=== PATIENT | female | born 1955 | race Caucasian/White ===

== ENCOUNTER → 2018-01-12 | Outpatient (CLI) | payer SELFPAY ==
--- NOTE | 2018-01-12 15:02 | Diagnostic Imaging Report ---
PROCEDURE: MRI lumbar spine. TECHNIQUE: Multiplanar, multisequence MRI of the lumbar spine was performed without contrast. INDICATION: Low back pain. No prior studies are available for comparison. Curvature and alignment is normal. Vertebral body heights are maintained. No acute compression fracture is seen. No geographic marrow lesion is identified. There is multilevel degenerative disc disease with variable disc space narrowing and desiccation. Conus is unremarkable at the T12-L1 level. T12-L1: Central canal is widely patent. No neural foraminal stenosis is seen. L1-L2: There is some ligamentous thickening and facet changes. Central canal is widely patent. There is mild neuroforaminal narrowing on the right due to the broad-based disc/osteophyte complex. L2-L3: Thickening and facet changes are noted. Central canal remains patent. There is moderate right neural foraminal stenosis due to broad-based disc/osteophyte complex. L3-L4: Ligamentous thickening and facet changes are noted. Central canal remains widely patent. There is moderate bilateral neural foraminal narrowing due to a broad-based disc/osteophyte complex. Lateral recesses are narrowed bilaterally as well. L4-L5: There appears to be a left paramidline extruded disc which extends slightly cephalad along the posterior aspect of the L4 vertebral body. This measures approximate 9 mm transverse by 6 mm AP by 11 mm cephalocaudal. This narrows left lateral recess. Central canal remains patent. There is significant left and moderate right neural foraminal stenosis. L5-S1: Central canal is widely patent. The neural foramina are patent. Paraspinous tissues are unremarkable. IMPRESSION: Multilevel lumbar spondylosis with multilevel lateral recess and neural foraminal stenosis. There is an extruded disc at the L4-L5 level, as described. No acute compression fracture is detected. Dictated by: Dictated on workstation # [id number]
== END ==
LOC: RAD 14:00
PROVIDERS: ATTEND Physician Assistant
DX: M48.061 Spinal stenosis, lumbar region without neurogenic claudication (principal); M47.16 Other spondylosis with myelopathy, lumbar region; M51.16 Intervertebral disc disorders with radiculopathy, lumbar region
CPT/HCPCS: 72148

== ENCOUNTER 2022-07-18 12:26 | Inpatient (IN) | payer MEDICARE, OTHER ==
[~2022-07-18] VITALS: Ht 167.7 cm; Wt 84.1 kg
[2022-07-18] MEDS ORDERED: TETANUS,DIPTH,PERTUSS P/F (BOOSTRIX) 0.5 ML VIAL IM ONE (12:45)
--- NOTE | 2022-07-18 12:52 | ED Neurological Problem ---
General Chief Complaint: Neuro-Stroke Like Symptoms Stated Complaint: ALTERED MENTAL STATUS Nursing Triage Note: PT TO ED BY EMS, PT NOT ABLE TO TELL HER FULL NAME DOES NOT KNOW DATE OF , FRIEND STATES HAS NOT BEEN HERSELF SINCE THURSDAY. PT IS NOT ABLE TO SEE OUT OF R EYE. PT DENIES PAIN. PT HAS DECREASED MVT OF R UPPER AND LOWER EXT. PT IS A FREQUENT DRINKER OF ETOH.R GREAT TOENAIL GONE AND OOZING BLOOD. FSBS BY EMS 118. PT HAS LARGE AMT OF BRUISING ON BACK, R ARM, LEGS, KNEES. Source: EMS Exam Limitations: clinical condition History of Present Illness Date Seen by Provider: Jul 18, 2022 Time Seen by Provider: 12:30 Initial Comments Patient is a 67-year-old female brought to the emergency department by EMS after being found by roommates altered, bruised, not acting like herself. She has a history per people at the home of chronic alcohol abuse and had been on an alcohol connolly this week Thursday, Thursday and Thursday. Her brother apparently heard her around 2 PM on afternoon yelling at her , had destroyed the room everything in the room was torn up. The family states that she did have labs drawn at [facility] on July 03 and was noted to have pancytopenia with increased liver function studies. They report her drink of choice is vodka. Patient is unable to really provide any history of present illness regarding events of the last week. She really has no complaints, is able to talk and intermittently it seems answer yes and no questions appropriately. She is unable however to follow commands. It does appear like she has some right-sided neglect. Slightly hypertensive on arrival at 154/119. Not tachycardic not hypoxic. Multiple obvious injuries to the right upper extremity bilateral knees. No family members are immediately available at the bedside for history. Nursing staff was able to contact roommates/brother to get further history. Timing/Duration: other ( Unknown exact time of onset sometime in the last 48 hours) Severity: severe Associated Symptoms: confusion, vision changes Allergies and Home Medications Allergies Coded Allergies: codeine (Verified Allergy, Unknown, 07/18/22) cyclobenzaprine (Verified Allergy, Unknown, 07/18/22) Patient Home Medication List Home Medication List Reviewed: Yes Review of Systems Review of Systems Constitutional: see HPI Respiratory: No short of breath Cardiovascular: No chest pain Gastrointestinal: No abdominal pain Psychiatric/Neurological: Denies Headache Patient ROS unreliable due to AMS/confusion Physical Exam Vital Signs Vital Signs - First Documented 07/18/22 12:30 Temp 37.5 Pulse 92 Resp 18 B/P (MAP) 154/119 (131) Pulse Ox 96 Capillary Refill : Less Than 3 Seconds Height, Weight, BMI Height: '" Weight: lbs. oz. kg; 29.00 BMI Method: General Appearance: WD/WN, moderate distress, other (appears agitated) HEENT: PERRL/EOMI (Pupils are equal, extraocular muscles appear intact however the patient does have a difficult time tracking), other (pupils equal, EOMI intact - inconsisten; appears she is having right eye acuity problem as she f requently seems to want to close right eye in order to focus; dry oral mucosa; no battles, no raccoon eyes) Neck: non-tender, full range of motion Respiratory: no respiratory distress, no accessory muscle use Cardiovascular: regular rate, rhythm Gastrointestinal: non tender, soft Back: no vertebral tenderness, other (scattered ecchymoses bilateral shoulder blades and right posterior flank) Extremities: swelling (right hand with severe ecchymoses; bilateral knees swollen with ecchymoses and abrasions), other (decreased ROM RUE) Neurologic/Psychiatric: alert Crainal Nerves: normal speech; No abnormal gag reflex, No facial asymmetry, No facial droop; gaze palsy (? to the right) Coordination/Gait: other (Unable to examine cerebellar function due to patient having difficulty following commands she does seem to have ataxia of the right upper extremity) Motor/Sensory: no sensory deficit Skin: warm/dry, ecchymosis, other (superficial abrasions right arm, right knee) Stroke Onset of Symptoms Onset of Symptoms: No Symptoms onset unknown: Yes NIH Stroke Scale Assessment Select: Initial Level of Consciousness: 0=Alert (0), LOC Commands: 1=Performs one task (1), Gaze: Partial Gaze Palsy (1), Visual Arana: 1=Partial he mianopia (1), Facial Movement (Facial Paresis): 0=Normal symmetrical mnt (0), Motor Function-Arms Left: 0=No drift (0), Motor Function-Legs Left: 0=No drift (0), Sensory: 0=Normal:no loss (0), Best Language: 1=Mild to moderat aphasia (1), Dysarthria: 0=Normal (0), Extinction & Inattention: 1=Visual,tactile,auditory (1), Total: 5 Progress/Results/Core Measures Results/Orders Lab Results Laboratory Tests Test 07/18/22 12:40 07/18/22 12:55 Range/Units White Blood Count 13.9 H 4.3-11.0 10^3/uL Red Blood Count 4.71 3.80-5.11 10^6/uL Hemoglobin 15.3 11.5-16.0 g/dL Hematocrit 45 35-52 % Mean Corpuscular Volume 95 80-99 fL Mean Corpuscular Hemoglobin 33 25-34 pg Mean Corpuscular Hemoglobin Concent 34 32-36 g/dL Red Cell Distribution Width 12.8 10.0-14.5 % Platelet Count 180 130-400 10^3/uL Mean Platelet Volume 10.1 9.0-12.2 fL Immature Granulocyte % (Auto) 1 % Neutrophils (%) (Auto) 84 H 42-75 % Lymphocytes (%) (Auto) 8 L 12-44 % Monocytes (%) (Auto) 8 0-12 % Eosinophils (%) (Auto) 0 0-10 % Basophils (%) (Auto) 0 0-10 % Neutrophils # (Auto) 11.7 H 1.8-7.8 10^3/uL Lymphocytes # (Auto) 1.0 1.0-4.0 10^3/uL Monocytes # (Auto) 1.1 H 0.0-1.0 10^3/uL Eosinophils # (Auto) 0.0 0.0-0.3 10^3/uL Basophils # (Auto) 0.0 0.0-0.1 10^3/uL Immature Granulocyte # (Auto) 0.1 0.0-0.1 10^3/uL Neutrophils % (Manual) 82 % Lymphocytes % (Manual) 8 % Monocytes % (Manual) 7 % Band Neutrophils 3 % Prothrombin Time 15.6 H 12.2-14.7 SEC INR Comment 1.2 0.8-1.4 Activated Partial Thromboplast Time 30 24-35 SEC D-Dimer 3.95 H 0.00-0.49 UG/ML Sodium Level 136 135-145 MMOL/L Potassium Level 3.3 L 3.6-5.0 MMOL/L Chloride Level 96 L 98-107 MMOL/L Carbon Dioxide Level 24 21-32 MMOL/L Anion Gap 16 H 5-14 MMOL/L Blood Urea Nitrogen 10 7-18 MG/DL Creatinine 0.64 0.60-1.30 MG/DL Estimat Glomerular Filtration Rate 98 BUN/Creatinine Ratio 16 Glucose Level 122 H 70-105 MG/DL Calcium Level 9.8 8.5-10.1 MG/DL Corrected Calcium 9.6 8.5-10.1 MG/DL Total Bilirubin 2.3 H 0.1-1.0 MG/DL Aspartate Amino Transf (AST/SGOT) 112 H 5-34 U/L Alanine Aminotransferase (ALT/SGPT) 49 0-55 U/L Alkaline Phosphatase 77 40-136 U/L Total Creatine Kinase 2678 H 29-168 U/L Troponin I 1.408 *H <0.028 NG/ML Total Protein 7.7 6.4-8.2 GM/DL Albumin 4.3 3.2-4.5 GM/DL Salicylates Level < 5.0 L 5.0-20.0 MG/DL Acetaminophen Level < 10 L 10-30 UG/ML Serum Alcohol < 10 <10 MG/DL Urine Color YELLOW Urine Clarity CLEAR Urine pH 6.0 5-9 Urine Specific [place] >=1.030 1.016-1.022 Urine Protein 2+ H NEGATIVE Urine Glucose (UA) NEGATIVE NEGATIVE Urine Ketones 3+ H NEGATIVE Urine Nitrite POSITIVE H NEGATIVE Urine Bilirubin NEGATIVE NEGATIVE Urine Urobilinogen 0.2 < = 1.0 MG/DL Urine Leukocyte Esterase NEGATIVE NEGATIVE Urine RBC (Auto) 3+ H NEGATIVE Urine RBC 0-2 /HPF Urine WBC RARE /HPF Urine Squamous Epithelial Cells RARE /HPF Urine Crystals PRESENT H /LPF Urine Amorphous Sediment RARE RAJINDER URATES H /LPF Urine Bacteria LARGE H /HPF Urine Casts NONE /LPF Urine Mucus SMALL H /LPF Urine Culture Indicated YES Urine Opiates Screen NEGATIVE NEGATIVE Urine Oxycodone Screen NEGATIVE NEGATIVE Urine Methadone Screen NEGATIVE NEGATIVE Urine Propoxyphene Screen NEGATIVE NEGATIVE Urine Barbiturates Screen NEGATIVE NEGATIVE Ur Tricyclic Antidepressants Screen NEGATIVE NEGATIVE Urine Phencyclidine Screen NEGATIVE NEGATIVE Urine Amphetamines Screen NEGATIVE NEGATIVE Urine Methamphetamines Screen NEGATIVE NEGATIVE Urine Benzodiazepines Screen NEGATIVE NEGATIVE Urine Cocaine Screen NEGATIVE NEGATIVE Urine Cannabinoids Screen POSITIVE H NEGATIVE My Orders Orders - JEN KAUR MD Cbc With Automated Diff (07/18/22 12:42) Protime With Inr (07/18/22 12:42) Partial Thromboplastin Time (07/18/22 12:42) Comprehensive Metabolic Panel (07/18/22 12:42) Fibrin Degradation Products (07/18/22 12:42) Troponin I Te (07/18/22 12:42) Ua Culture If Indicated (07/18/22 12:42) Chest 1 View, Ap/Pa Only (07/18/22 12:42) Catheter(Urinary) Insert & Ass 03,15 (07/18/22 12:42) Ekg Tracing (07/18/22 12:42) Nothing By Mouth (07/18/22 Lunch) Accucheck Stat ONCE (07/18/22 12:42) Ed Iv/Invasive Line Start (07/18/22 12:42) Ed Iv/Invasive Line Start (07/18/22 12:42) Vital Signs Stroke Patient Q15M (07/18/22 12:42) Ct Head Wo-R/O Stroke (07/18/22 12:42) O2 (07/18/22 12:42) Monitor-Rhythm Ecg Trace Only (07/18/22 12:42) Dysphagia Screening Tool Q10MX1 (07/18/22 12:42) Post Thrombolytic Adminstratio (07/18/22 12:42) Lipid Panel (07/19/22 06:00) Creatine Kinase (07/18/22 12:42) Drug Screen Stat (Urine) (07/18/22 12:42) Alcohol (07/18/22 12:42) Salicylate (07/18/22 12:42) Acetaminophen (07/18/22 12:42) Dipht,Pertuss(Acell),Tet Adult (Boostrix (07/18/22 12:45) Manual Differential (07/18/22 12:40) Ct Angio Head/Neck (07/18/22 13:32) Urine Culture (07/18/22 12:55) Iohexol Injection (Omnipaque 350 Mg/Ml 1 (07/18/22 13:45) Received Contrast (Hold Metformin- Contr (07/18/22 13:45) Ns (Ivpb) (Sodium Chloride 0.9% Ivpb Bag (07/18/22 13:45) Ketamine Injection (Ketalar Injection) (07/18/22 13:45) Ceftriaxone 1 Gm Pre-Mix (Rocephin 1 Gm (07/18/22 15:00) Ed Admission (Communication) (07/18/22 15:06) Medications Given in ED Current Medications Medications Dose Ordered Sig/Miguel Route Start Time Stop Time Status Last Admin Dose Admin Diphtheria/ Tetanus/Acell Pertussis 0.5 ml ONCE ONCE IM 07/18/22 12:45 07/18/22 12:46 DC 07/18/22 13:38 0.5 ML Iohexol 75 ml ONCE ONCE IV 07/18/22 13:45 07/18/22 13:46 DC 07/18/22 14:17 75 ML Ketamine HCl 20 mg ONCE ONCE IV 07/18/22 13:45 07/18/22 13:46 DC 07/18/22 13:50 20 MG Sodium Chloride 100 ml ONCE ONCE IV 07/18/22 13:45 07/18/22 13:46 DC 07/18/22 14:17 80 ML Vital Signs/I&O 07/18/22 12:30 Temp 37.5 Pulse 92 Resp 18 B/P (MAP) 154/119 (131) Pulse Ox 96 Blood Pressure Mean: 131 Progress Progress Note : Time: 14:51 Progress Note Patient seen and examined by me, evaluation today includes physical exam, stroke protocol, CBC, Chem-12, coags, D-dimer, EKG, troponin, CT head without contrast, CT angio head and neck, urinalysis, urine drug screen, alcohol, aspirin and acetaminophen levels. Blood cultures and lactic acid were also obtained. Pertinent physical exam findings, well-developed well-nourished elderly female slightly agitated, appears confused, not following directions. Significant signs of trauma to the right upper extremity with extensive bruising/ecchymosis superficial abrasions and swelling to the right forearm and hand. She also has extensive bruising and abrasions to the bilateral knees. Moving all 4 extremities however there does appear to be ataxia of the right upper extremity. Patient cannot complete cerebellar testing due to receptive aphasia. Heart is regular, lungs are diminished throughout. Abdomen is soft and nondistended. Oral mucosa is dry. Slightly hypertensive. Afebrile. Differential diagnosis based on history and physical exam, intracerebral hemorrhage, ischemic stroke, fractures of the upper and lower extremities are considered; consideration for skull fracture resulting in intracranial hemorrhage. Labs reviewed, CBC shows mild leukocytosis at 13,000 with normal hemoglobin and platelets. Chemistry shows slightly increased anion gap at 16, normal electrolytes with slightly low potassium at 3.3. Total bili 2.3 AST 112. Total CK 2678. Troponin slightly elevated at 1.408. D-dimer elevated at 3.95. Coags show PT of 15.6 otherwise normal. Patient was positive for THC on urine drug screen, negative alcohol aspirin and Tylenol levels. Her urine does show ev idence of infection with nitrite positive urine and large bacteria. This is a freshly placed Barron catheter specimen. CT shows concern for posterior circulation infarct CT angio shows occlusion distal left [employer]. I discussed the case with Dr. Manzano, stroke neurology. She does recommend daily baby aspirin with permissive hypertension no greater than 180 systolic. Patient is not amenable to clot retrieval due to the location of the occlusion and unknown time of onset. She was definitely not a candidate for tPA. Case was also discussed with Dr. Abreu on [address] [place] [address], we will admit the patient inpatient to the ICU for further management/risks stratification/treatment. Antibiotics for urinary tract infection. sister Candi [phone] daughter Kimberly [phone] discussed with Isauro @ [address] Christian @ 0165 Initial ECG Impression Date: Jul 18, 2022 Initial ECG Impression Time: 13:00 Initial ECG Rate: 95 Initial ECG Rhythm: Normal Sinus (95) Initial ECG Intervals OR interval 147 QRS 133 QTc 451 Comment Artifact in the precordial leads, right bundle branch block noted, no ST segment elevation or depression is noted Diagnostic Imaging Diagonstic Imaging: Xray Plain Films/CT/US/NM/MRI: chest Comments [facility], [place] NAME: TONYA CLARK MED REC#: [id number] PT STATUS: REG ER : 1955 PHYSICIAN: JEN KAUR MD ADMIT DATE: 07/18/22/ER Draft Date of Exam:07/18/22 CHEST 1 VIEW, AP/PA ONLY INDICATION: Altered mental status, bruising. FINDINGS: The lungs are clear. There is no failure, effusion, or pneumothorax. No free air beneath the diaphragms. No displaced or radiographically appreciable chest fracture deformity. IMPRESSION: Unremarkable frontal chest x-ray. Dictated on workstation # [id number] Dict: 07/18/22 1318 Trans: 07/18/22 1323 [id number] Interpreted by: JOSE BONILLA Electronically signed by: Stephanie Imaging: CT Comments [facility], [place] NAME: TONYA CLARK [facility] REC#: [id number] PT STATUS: REG ER : 1955 PHYSICIAN: JEN KAUR MD ADMIT DATE: 07/18/22/ER Draft Date of Exam:07/18/22 CT HEAD WO-R/O STROKE PROCEDURE: CT head wo r/o stroke. TECHNIQUE: Multiple contiguous axial images were obtained through the brain without the use of intravenous contrast. Auto Exposure Controls were utilized during the CT exam to meet ALARA standards for radiation dose reduction. INDICATION: Altered mental status. FINDINGS: There is abnormal hypodensity in the left thalamus posteriorly as well as some mild asymmetric hypodensity in the left posteromedial occipital lobe extending anteriorly to the posteroinferior left temporal lobe. Findings are suspicious for a subacute ischemia in the [employer] territory. Vague central hyperdensity associated with the left posterior thalamic lesion may reflect a small amount of petechial blood and hemorrhagic transformation. No shift or herniation. No abnormal extra-axial fluid collection. Linear hyperdensity, calcific like in its attenuation, abuts the posteromedial aspect of the left mid brain and follows the expected course of the left posterior cerebral artery suspicious for plaque embolus or very dense thrombus accounting for the recent infarct. No other suspected acute to subacute finding. IMPRESSION: 1. Findings of recent subacute appearing ischemic infarct, left BR[employer] territorial, with suspicion for a subtle region of petechial transformation associated with its thalamic infarct posteriorly. 2. Linear calcific hyperdensity along the expected course of the left P1 and P2 segments is suspicious for plaque embolus or dense thrombus. CT angiographic evaluation recommended as further evaluation. These results were discussed with the ER physician. Dictated on workstation # [id number] Dict: 07/18/22 1325 Trans: 07/18/22 1337 [id number] Interpreted by: JOSE BONILLA Electronically signed by: Stephanie Imaging: CT Comments [facility], [place] NAME: TONYA CLARK [facility] REC#: [id number] PT STATUS: REG ER : 1955 PHYSICIAN: JEN KAUR MD ADMIT DATE: 07/18/22/ER Signed Date of Exam:07/18/22 CT ANGIO HEAD/NECK PROCEDURE: CT angiography of the head and CT angiography of the neck with and without contrast. TECHNIQUE: Contiguous noncontrast images were obtained from the skull base through the vertex. After intravenous contrast administration, helical CT angiography of the neck was performed. Source data was reformatted into 3D MIP projections. Delayed post contrast acquisition was also obtained. Auto Exposure Controls were utilized during the CT exam to meet ALARA standards for radiation dose reduction. INDICATION: Stroke, left-sided weakness FINDINGS: Vascular: The aortic arch is normal in caliber. The great vessels are patent and normal in caliber. The right common carotid artery demonstrates atherosclerosis of the carotid bulb. Agent the right ICA and ECA. No ICA stenosis per NASCET criteria. Left common carotid artery demonstrates atherosclerosis of the carotid bulb. Patent left common, left internal, left external carotid artery. No ICA stenosis per NASCET criteria. The bilateral vertebral arteries are patent. Left vertebral artery is dominant. The right vertebral artery terminates in PICA. The intracranial right ICA, MCA, ANTHONY are patent and normal in caliber. The intracranial left ICA, MCA, and ANTHONY are patent and normal in caliber. The intracranial vertebral arteries patent and normal in caliber. Basilar artery is patent. Left [employer] occlusion at the P2-P3 junction. Right [employer] is patent. Nonvascular: Redemonstration of acute infarct within the left [employer] territory. No acute intracranial hemorrhage. Multilevel degenerative changes of the cervical spine with moderate to severe spinal canal stenosis at C4-C5. Included lung apices demonstrate emphysema. IMPRESSION: Distal left [employer] occlusion. This is too distal for thrombectomy. Redemonstration of acute infarct in the left [employer] territory. Dictated by: Dictated on workstation # [id number] Dict: 07/18/22 1420 Trans: 07/18/22 1427 [facility] [place] [id number] Interpreted by: BARBARA FOREMAN DO Electronically signed by: BARBARA FOREMAN DO 07/18/22 1427 Departure Communication (Admissions) Time/Spoke to Admitting Phy: 14:[address] Abreu Hospitalist for [facility] Time/Spoke to Consulting Phy: 14:[address] Natacha LYONS stroke neurology recommended baby aspirin, permissive hypertension no higher than systolic 180s Impression Primary Impression: Acute ischemic multifocal posterior circulation stroke involving left-sided vessel Additional Impressions: Urinary tract infection Qualified Codes: N39.0 - Urinary tract infection, site not specified Elevated troponin Chronic alcoholism Disposition: ADMITTED INPATIENT Condition: Critical Admissions Decision to Admit Reason: Admit from ER (General) Decision to Admit/Date: Jul 18, 2022 Time/Decision to Admit Time: 13:22 Departure-Patient Inst. Referrals: NO,LOCAL PHYSICIAN (PCP/Family) Primary Care Physician JEN KAUR MD Jul 18, 2022 12:52
[2022-07-18 12:56] LABS: BASOPHILS % (AUTO) 0 % (0-10); EOSINOPHILS % (AUTO) 0 % (0-10); HEMATOCRIT 45 % (35-52); HEMOGLOBIN 15.3 g/dL (11.5-16.0); LYMPHOCYTES % (AUTO) 8 % (12-44); MEAN CORPUSCULAR HEMOGLOBIN 33 pg (25-34); MEAN CORPUSCULAR HGB CONC 34 g/dL (32-36); MEAN CORPUSCULAR VOLUME 95 fL (80-99); MEAN PLATELET VOLUME 10.1 fL (9.0-12.2); MONOCYTES # (AUTO) 1.1 10^3/uL (0.0-1.0); MONOCYTES % (AUTO) 8 % (0-12); NEUTROPHILS # (AUTO) 11.7 10^3/uL (1.8-7.8); NEUTROPHILS % (AUTO) 84 % (42-75); PLATELET COUNT 180 10^3/uL (130-400); WHITE BLOOD COUNT 13.9 10^3/uL (4.3-11.0)
[2022-07-18 13:11] LABS: BILIRUBIN,URINE NEGATIVE (NEGATIVE); CLARITY,URINE CLEAR; COLOR,URINE YELLOW; GLUCOSE, URINE (UA) NEGATIVE (NEGATIVE); KETONES,URINE 3+ (NEGATIVE); LEUKOCYTE ESTERASE ,URINE NEGATIVE (NEGATIVE); NITRITE,URINE POSITIVE (NEGATIVE); PROTEIN,URINE 2+ (NEGATIVE)
[2022-07-18 13:14] LABS: CHLORIDE 96 MMOL/L (98-107); POTASSIUM 3.3 MMOL/L (3.6-5.0); SODIUM 136 MMOL/L (135-145)
[2022-07-18 13:15] LABS: ALBUMIN 4.3 GM/DL (3.2-4.5)
[2022-07-18 13:16] LABS: CALCIUM 9.8 MG/DL (8.5-10.1)
[2022-07-18 13:17] LABS: GLUCOSE 122 MG/DL (70-105); TOTAL PROTEIN 7.7 GM/DL (6.4-8.2)
[2022-07-18 13:18] LABS: CARBON DIOXIDE 24 MMOL/L (21-32)
[2022-07-18 13:19] LABS: BILIRUBIN,TOTAL 2.3 MG/DL (0.1-1.0)
[2022-07-18 13:21] LABS: ALKALINE PHOSPHATASE 77 U/L (40-136); CREATININE SERUM 0.64 MG/DL (0.60-1.30); GFR ESTIMATED 98
[2022-07-18 13:22] LABS: BUN/CREATININE RATIO 16
[2022-07-18 13:22] LABS: AMPHETAMINE SCREEN, URINE NEGATIVE (NEGATIVE); BARBITURATE SCREEN URINE NEGATIVE (NEGATIVE); BENZODIAZEPINES SCREEN URINE NEGATIVE (NEGATIVE); CANNABINOID SCREEN, URINE POSITIVE (NEGATIVE); COCAINE SCREEN URINE NEGATIVE (NEGATIVE); METHADONE STAT NEGATIVE (NEGATIVE); OPIATE SCREEN URINE NEGATIVE (NEGATIVE); OXYCODONE STAT NEGATIVE (NEGATIVE); PROPOXYPHENE STAT NEGATIVE (NEGATIVE); TRICYCLIC ANTIDEPRESSANTS SCRE NEGATIVE (NEGATIVE)
[2022-07-18 13:24] LABS: ALANINE AMINOTRANSFERASE 49 U/L (0-55); SALICYLATE < 5.0 MG/DL (5.0-20.0)
--- NOTE | 2022-07-18 13:24 | Diagnostic Imaging Report ---
INDICATION: Altered mental status, bruising. FINDINGS: The lungs are clear. There is no failure, effusion, or pneumothorax. No free air beneath the diaphragms. No displaced or radiographically appreciable chest fracture deformity. IMPRESSION: Unremarkable frontal chest x-ray. Dictated by: Dictated on workstation # [id number]
[2022-07-18 13:30] LABS: FIBRIN DEGRADATION PRODUCTS 3.95 UG/ML (0.00-0.49); INR 1.2 (0.8-1.4); PROTHROMBIN TIME PATIENT 15.6 SEC (12.2-14.7)
[2022-07-18 13:34] LABS: AMORPHOUS SEDIMENT,UR RARE AMOR URATES /LPF; BACTERIA,URINE LARGE /HPF; RBC,URINE 0-2 /HPF; SQUAMOUS EPITHELIAL CELL,UR RARE /HPF; WBC,URINE RARE /HPF
--- NOTE | 2022-07-18 13:37 | Diagnostic Imaging Report ---
PROCEDURE: CT head wo r/o stroke. TECHNIQUE: Multiple contiguous axial images were obtained through the brain without the use of intravenous contrast. Auto Exposure Controls were utilized during the CT exam to meet ALARA standards for radiation dose reduction. INDICATION: Altered mental status. FINDINGS: There is abnormal hypodensity in the left thalamus posteriorly as well as some mild asymmetric hypodensity in the left posteromedial occipital lobe extending anteriorly to the posteroinferior left temporal lobe. Findings are suspicious for a subacute ischemia in the [employer] territory. Vague central hyperdensity associated with the left posterior thalamic lesion may reflect a small amount of petechial blood and hemorrhagic transformation. No shift or herniation. No abnormal extra-axial fluid collection. Linear hyperdensity, calcific like in its attenuation, abuts the posteromedial aspect of the left mid brain and follows the expected course of the left posterior cerebral artery suspicious for plaque embolus or very dense thrombus accounting for the recent infarct. No other suspected acute to subacute finding. IMPRESSION: 1. Findings of recent subacute appearing ischemic infarct, left RE[employer] territorial, with suspicion for a subtle region of petechial transformation associated with its thalamic infarct posteriorly. 2. Linear calcific hyperdensity along the expected course of the left P1 and P2 segments is suspicious for plaque embolus or dense thrombus. CT angiographic evaluation recommended as further evaluation. These results were discussed with the ER physician. Dictated by: Dictated on workstation # [id number]
[2022-07-18 13:40] LABS: BAND NEUTROPHILS 3 %; LYMPHOCYTES % (MANUAL) 8 %; MONOCYTES % (MANUAL) 7 %; NEUTROPHILS % (MANUAL) 82 %
[2022-07-18] MEDS ORDERED: NS 100 ML (IVPB) BAG IV ONE (13:45)
[2022-07-18] MEDS ORDERED: KETAMINE HCL 100 MG/ML 5 ML VIAL IV ONE (13:45)
[2022-07-18] MEDS ORDERED: IOHEXOL 350 MG/ML 100 ML (OMNIPAQUE 350) VIAL IV ONE (13:45)
[2022-07-18] MEDS ORDERED: HOLD METFORMIN - RECEIVED CONTRAST 20 ML VIAL IV SCH (13:45)
[2022-07-18 13:47] LABS: CREATINE KINASE 2678 U/L (29-168)
[2022-07-18 13:51] LABS: ACETAMINOPHEN < 10 UG/ML (10-30)
--- NOTE | 2022-07-18 14:29 | Diagnostic Imaging Report ---
PROCEDURE: CT angiography of the head and CT angiography of the neck with and without contrast. TECHNIQUE: Contiguous noncontrast images were obtained from the skull base through the vertex. After intravenous contrast administration, helical CT angiography of the neck was performed. Source data was reformatted into 3D MIP projections. Delayed post contrast acquisition was also obtained. Auto Exposure Controls were utilized during the CT exam to meet ALARA standards for radiation dose reduction. INDICATION: Stroke, left-sided weakness FINDINGS: Vascular: The aortic arch is normal in caliber. The great vessels are patent and normal in caliber. The right common carotid artery demonstrates atherosclerosis of the carotid bulb. Agent the right ICA and ECA. No ICA stenosis per NASCET criteria. Left common carotid artery demonstrates atherosclerosis of the carotid bulb. Patent left common, left internal, left external carotid artery. No ICA stenosis per NASCET criteria. The bilateral vertebral arteries are patent. Left vertebral artery is dominant. The right vertebral artery terminates in PICA. The intracranial right ICA, MCA, ANTHONY are patent and normal in caliber. The intracranial left ICA, MCA, and ANTHONY are patent and normal in caliber. The intracranial vertebral arteries patent and normal in caliber. Basilar artery is patent. Left SPEECH LANG PATH THERAPIST occlusion at the P2-P3 junction. Right SPEECH LANG PATH THERAPIST is patent. Nonvascular: Redemonstration of acute infarct within the left SPEECH LANG PATH THERAPIST territory. No acute intracranial hemorrhage. Multilevel degenerative changes of the cervical spine with moderate to severe spinal canal stenosis at C4-C5. Included lung apices demonstrate emphysema. IMPRESSION: Distal left SPEECH LANG PATH THERAPIST occlusion. This is too distal for thrombectomy. Redemonstration of acute infarct in the left SPEECH LANG PATH THERAPIST territory. Dictated by: Dictated on workstation # [id number]
[2022-07-18] MEDS ORDERED: cefTRIAXone 1 GM PRE-MIX 50 ML IV ONE (15:00)
--- NOTE | 2022-07-18 15:23 | History & Physical-Hospitalist ---
History of Present Illness HPI/Chief Complaint CC: Catastrophic CVA with found down and alcoholic withdrawal with acute rhabdomyolysis HPI: This is a 67yoWF clinic patient of [facility] who has a h/o alcoholism who was found down at a friend's house for undetermined time so EMS was called and patient was found to have had a catastrophic CVA with right sided weakness with AMS and trauma to her right knee and right leg. Patient is able to maintain her airway but is confused. CT revealed evidence of CVA but CT angio completed and [facility] contract and recommended ASA and ICU care. Elevated troponin will require Dr Christian consult. Source: RN/MD Exam Limitations: clinical condition Date Seen 07/18/22 Time Seen by a Provider: 14:00 Attending Physician No,Local Physician PCP Admitting Physician: Attending Physician: Referring Physician Date of Admission Home Medications & Allergies Home Medications Reviewed patient Home Medication Reconciliation performed by pharmacy medication reconciliations benefits technician and/or nursing. Patients Allergies have been reviewed. Allergies Allergies Coded Allergies codeine (Verified Allergy, Unknown, 07/18/22) cyclobenzaprine (Verified Allergy, Unknown, 07/18/22) Past Cymmiwh-Rlxoen-Gmmimv Hx Patient Social History Marrital Status: single Employed/Student: retired Tobacco Use?: Yes Tobacco type used: Cigarettes Smoking Status: Current Everyday Smoker Substance use?: Yes Substance type: Marijuana Alcohol Use?: Yes Alcohol Frequency: Daily Pt feels they are or have been: No Immunizations Up To Date Tetanus Booster (TDap): Unknown Current Status Advance Directives: No Communicates: Verbally Primary Language: Turkmen Preferred Spoken Language: Turkmen Is interpretation needed?: No Implanted or Applied Medical D: None Past Medical History COPD High Cholesterol, Hypertension Stroke (07/18/22) Review of Systems ROS-Unable to Obtain: AMS Constitutional: see HPI, malaise, weakness Physical Exam Physical Exam Vital Signs Vital Signs - First Documented 07/18/22 07/18/22 12:30 15:48 Temp 37.5 Pulse 92 Resp 18 B/P (MAP) 154/119 (131) Pulse Ox 96 O2 Delivery Room Air Capillary Refill : Less Than 3 Seconds Height, Weight, BMI Height: '" Weight: lbs. oz. kg; 29.00 BMI Method: General Appearance: Anxious, Chronically ill, Other (confused) Respiratory: Lungs Clear, Normal Breath Sounds Cardiovascular: Regular Rate, Rhythm Neurologic/Psychiatric: Alert, Depressed Affect, Disoriented, Motor Weakness (right sided flaccidity) Results Results/Procedures Labs Laboratory Tests 07/18/22 12:40 Patient resulted labs reviewed. Assessment/Plan Admission Diagnosis Assessment: Catastrophic CVA Right sided weakness with neglect Alcohol withdrawal Acute rhabdomyolysis Elevated troponin c/w NSTEMI HTN Plan: ICU EICU Dr Christian Lovehumbertox 40mg ASA Admission Status: Inpatient Order (span 2 midnights) Reason for Inpatient Admission: CVA Clinical Quality Measures Stroke: Symptoms onset unknown: Yes UCHE WALL DO Jul 18, 2022 15:23
[2022-07-18 16:28] VITALS: BP 163/116
[2022-07-18] MEDS ORDERED: LORazepam INJ 2 MG/ML (ATIVAN) VIAL IM/IV PRN (16:30)
[2022-07-18] MEDS ORDERED: 1/2 NS IV SOLUTION 1,000 ML IV PRN (16:30)
[2022-07-18] MEDS ORDERED: diphenhydrAMINE 25 MG TAB (BENADRYL) PO PRN (16:30)
[2022-07-18] MEDS ORDERED: SENNA W/DOCUSATE (SENOKOT S) TABLET PO PRN (16:30)
[2022-07-18] MEDS ORDERED: ANTACID SUSP 30 ML UDC (MYLANTA) PO PRN ×2 (16:30)
[2022-07-18] MEDS ORDERED: CALCIUM CARBONATE 500 MG (TUMS) TAB.CHEW PO PRN (16:30)
[2022-07-18] MEDS ORDERED: MILK OF MAGNESIA 400 MG/5 ML 30 ML UDC PO PRN (16:30)
[2022-07-18] MEDS ORDERED: ONDANSETRON 4 MG (ZOFRAN) ORAL DISSOLVE TAB SL PRN (16:30)
[2022-07-18] MEDS ORDERED: BISACODYL 10 MG SUPP (DULCOLAX) PR PRN (16:30)
[2022-07-18] MEDS ORDERED: polyethylene glycoL POWDER 17 GM (MIRALAX) PACK PO PRN (16:30)
[2022-07-18] MEDS ORDERED: NS IV 500 ML 500 ML IV PRN (16:30)
[2022-07-18] MEDS ORDERED: ONDANSETRON 4 MG (ZOFRAN) ORAL DISSOLVE TAB PO PRN (16:30)
[2022-07-18] MEDS ORDERED: diphenhydrAMINE 50 MG/ML INJ (BENADRYL) IVP PRN (16:30)
[2022-07-18] MEDS ORDERED: ACETAMINOPHEN 325 MG TABLET PO PRN (16:30)
[2022-07-18] MEDS ORDERED: HYDROmorphone 2 MG/ML VIAL (DILAUDID) IV PRN (16:30)
[2022-07-18] MEDS ORDERED: LORazepam 1 MG (ATIVAN) TAB PO PRN (16:30)
[2022-07-18] MEDS ORDERED: LACTULOSE SYRUP 10GM/15ML (ENULOSE) 30ML UDC PO PRN (16:30)
[2022-07-18] MEDS ORDERED: LORazepam INJ 2 MG/ML (ATIVAN) VIAL IV PRN (16:30)
[2022-07-18] MEDS ORDERED: D5 1/2 NS 1000 ML IV SOLUTION 1,000 ML IV PRN (16:30)
[2022-07-18] MEDS ORDERED: niCARdipine IV (Pyxis drip kit 50 MG in NS (IVPB) 230 ML IV SCH (16:30)
[2022-07-18] MEDS ORDERED: ONDANSETRON 4 MG/2 ML (SDV) Z0FRAN IV PRN ×2 (16:30)
[2022-07-18] MEDS: NS IV 1000 ML 1,000 ML IV SCH (17:03)
[2022-07-18] MEDS: ENOXAPARIN 40 MG/0.4 ML (LOVENOX) SYR SC SCH (17:03)
[2022-07-18] MEDS: niCARdipine IV 50 MG in NS (IVPB) 230 ML IV SCH (17:52)
[2022-07-18] MEDS ORDERED: DexMEDEtomidine 250 ML DRIP 250 ML IV ONE (17:58)
[2022-07-18] MEDS ORDERED: DexMEDEtomidine 250 ML DRIP 250 ML IV SCH (18:00)
--- NOTE | 2022-07-18 18:13 | Tele-ICU Consult ---
History of Present Illness History of Present Illness Date Seen by Provider: Jul 18, 2022 Time Seen by Provider: 18:12 Date of Admission (Tele-ICU Physician , consultation as per request of PCP Service provided via interactive audio and video tele[employer] E-CARE system to a patient admitted to ICU bed in [facility]. Available chart/ vitals / labs / Images reviewed H&P is from ER notes Patient's information available about PMH, Shx, Fhx allergy reviewed inEMR. ROS as per chart and RN report Now in ICU, hemodynamically stable Video assessment done using teleICU camera, rest of exam as per RN Discussed with RN. 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 -Er MD discussed case with stroke neurology- not amenable to clot retrieval or tPA -neurocheck/NIHSS/VS monitoring per stroke order set protocol -IV hydralazine and labetalol PRN for SBP >180 -Antithrombotic medication latter UTI suggested in ER, there is no pyuria - suggest colonization - received abx x1 in ER , - as per PCP ETON abuse with recent binge drinking., + cannabioids - thiamine , folate - can not be on CIWA with need to monitor neurocheck , prn benzo Lines : periph , (Central Line Necessity Reviewed) Barron: OG: Nutrition: Analgesia: Anxiety/ delirium VTE Prophylaxis: scd Stress Ulcer Prophylaxis: na Plans in collaboration with bedside consultants and IM MDs. Discussed with RN to reach out if any questions or concerns A total of 20 minutes of critical care time was devoted to this patient today, required to treat and/or prevent further deterioration of critical care condition ( as above ) . Allergies and Home Medications Allergies Coded Allergies: codeine (Verified Allergy, Unknown, 07/18/22) cyclobenzaprine (Verified Allergy, Unknown, 07/18/22) Past Medical/Social/Family Hx Patient Social History Marrital Status: single Employed/Student: retired Tobacco Use?: Yes Tobacco type used: Cigarettes Smoking Status: Current Everyday Smoker Use of E-Cig and/or Vaping dev: No E-Cig or Vaping type used: Marijuana E-Cig and/or Vaping Freq: Current Everyday User Substance use?: No Substance type: Marijuana Alcohol Use?: Yes Alcohol type: Hard Liquor, Wine Alcohol Frequency: Daily GOES ON BENDERS LAST BEVERAGE THURSDAY PER FAMILY Pt stated abuse/neglect: Unable to obtain Immunizations Up To Date Influenza Vaccine Up-to-Date: No; Not Current Tetanus Booster (TDap): Unknown Current Status status: No status: No Advance Directives: No Communicates: Verbally Primary Language: Sierra Leonean Preferred Spoken Language: Sierra Leonean Is interpretation needed?: No Implanted or Applied Medical D: None Review of Systems Constitutional: see HPI Focused Exam Height, Weight, BMI Height: '" Weight: lbs. oz. kg; 29.51 BMI Method: Exam Exam Patient acknowledged, consented, and participated in this virtual visit which was conducted using real time audio/video Vital Signs Date Time Temp Pulse Resp B/P (MAP) Pulse Ox O2 Delivery O2 Flow Rate FiO2 07/18/22 18:04 106 159/81 07/18/22 18:00 107 14 159/81 (105) 94 Room Air 07/18/22 17:52 151/87 07/18/22 17:33 37.9 07/18/22 17:26 97 Room Air 07/18/22 17:03 38.2 07/18/22 17:00 105 15 165/100 (121) 96 Room Air 07/18/22 16:33 105 16 171/92 (118) 98 Room Air 07/18/22 16:31 106 07/18/22 16:28 37.5 108 97 07/18/22 15:48 108 33 163/116 97 Room Air 07/18/22 12:30 37.5 92 18 154/119 (131) 96 Height & Weight Height: '" Weight: lbs. oz. kg; 29.51 BMI Method: General Appearance: Anxious, Chronically ill, Other (confused) Respiratory: Lungs Clear, Normal Breath Sounds Cardiovascular: Regular Rate, Rhythm Capillary Refill: Less Than 3 Seconds Gastrointestinal: non tender, soft Neurologic/Psychiatric: Alert, Depressed Affect, Disoriented, Motor Weakness ( right sided flaccidity) Results Lab Laboratory Tests 07/18/22 12:40 Assessment/Plan Assessment/Plan 1 ELIZABET RODNEY MD Jul 18, 2022 18:13
[2022-07-18] MEDS: inSUlin ASPART (NovoLOG) 1 UNIT/0.01 ML (CHARGE PER UNIT) SC SCH (21:06)
[2022-07-18] MEDS: DOCUSATE SODIUM 100 MG (COLACE) CAP PO SCH (21:29)
[2022-07-18] MEDS: MAGNESIUM OXIDE (MAG-OX)400 MG TAB PO SCH (21:29)
[2022-07-18] MEDS: SENNOSIDES 8.6 MG (SENOKOT) TAB PO SCH (21:29)
[2022-07-19] MEDS: NS IV 1000 ML 1,000 ML IV SCH ×2 (03:42→14:35)
[2022-07-19 04:16] LABS: EOSINOPHILS % (AUTO) 0 % (0-10); MEAN CORPUSCULAR HGB CONC 34 g/dL (32-36)
[2022-07-19 04:18] LABS: BASOPHILS % (AUTO) 0 % (0-10); HEMATOCRIT 42 % (35-52); HEMOGLOBIN 14.3 g/dL (11.5-16.0); LYMPHOCYTES # (AUTO) 2.3 10^3/uL (1.0-4.0); LYMPHOCYTES % (AUTO) 24 % (12-44); MEAN CORPUSCULAR HEMOGLOBIN 32 pg (25-34); MEAN CORPUSCULAR VOLUME 94 fL (80-99); MEAN PLATELET VOLUME 10.4 fL (9.0-12.2); MONOCYTES # (AUTO) 0.8 10^3/uL (0.0-1.0); MONOCYTES % (AUTO) 8 % (0-12); NEUTROPHILS # (AUTO) 6.2 10^3/uL (1.8-7.8); NEUTROPHILS % (AUTO) 67 % (42-75); PLATELET COUNT 122 10^3/uL (130-400); WHITE BLOOD COUNT 9.4 10^3/uL (4.3-11.0)
[2022-07-19 04:31] LABS: ALBUMIN 3.7 GM/DL (3.2-4.5); POTASSIUM 3.4 MMOL/L (3.6-5.0)
[2022-07-19 04:32] LABS: CALCIUM 9.1 MG/DL (8.5-10.1)
[2022-07-19 04:33] LABS: TOTAL PROTEIN 6.5 GM/DL (6.4-8.2)
[2022-07-19 04:35] LABS: BILIRUBIN,TOTAL 1.9 MG/DL (0.1-1.0)
[2022-07-19 04:37] LABS: CREATININE SERUM 0.62 MG/DL (0.60-1.30); PHOSPHORUS 3.6 MG/DL (2.3-4.7)
[2022-07-19 04:40] LABS: MAGNESIUM 1.8 MG/DL (1.6-2.4)
[2022-07-19] MEDS: POTASSIUM CL 10MEQ/50ML IVPB 50 ML IV SCH ×6 (04:45→11:00)
[2022-07-19] MEDS: MAGNESIUM 1 GM/100 ML IVPB 100 ML IV SCH ×2 (05:05→06:07)
--- NOTE | 2022-07-19 05:35 | Progress Note - Hospitalist ---
Subjective HPI/CC On Admission Date Seen by Provider: Jul 19, 2022 Time Seen by Provider: 11:00 CC: Catastrophic CVA with found down and alcoholic withdrawal with acute rhabdomyolysis HPI: This is a 67yoWF clinic patient of [facility] who has a h/o alcoholism who was found down at a friend's house for undetermined time so EMS was called and patient was found to have had a catastrophic CVA with right sided weakness with AMS and trauma to her right knee and right leg. Patient is able to maintain her airway but is confused. CT revealed evidence of CVA but CT angio completed and [facility] contract and recommended ASA and ICU care. Elevated troponin will require Dr Christian consult. Subjective/Events-last exam Much improved Precedex will be used periodically Daughter and her at bedside Right sided weakness improved Monitor BP closely Reviewed results with family and patient Maintain on vitamin supplement Review of Systems General: Fatigue, Malaise Neurological: Weakness, Confusion Objective Exam Vital Signs Vital Signs Date Time Temp Pulse Resp B/P (MAP) Pulse Ox O2 Delivery O2 Flow Rate FiO2 07/19/22 16:00 63 22 103/55 (75) 90 Room Air 07/19/22 15:57 37.1 07/19/22 09:40 0.00 Capillary Refill : Less Than 3 Seconds General Appearance: No Apparent Distress, WD/WN, Chronically ill Respiratory: Lungs Clear, Normal Breath Sounds Cardiovascular: Regular Rate, Rhythm Neurologic/Psychiatric: Alert, Oriented x3, Normal Mood/Affect, Motor Weakness (right sided 3/5) Results/Procedures Lab Laboratory Tests 07/19/22 03:45 Patient resulted labs reviewed. Assessment/Plan Assessment and Plan Assess & Plan/Chief Complaint Assessment: Catastrophic CVA Right sided weakness with neglect Alcohol withdrawal Acute rhabdomyolysis Elevated troponin c/w NSTEMI HTN Plan: ICU EICU Dr Christian Lovenox 40mg ASA PT OT Clinical Quality Measures Stroke: Symptoms onset unknown: Yes UCHE WLAL DO Jul 19, 2022 05:35
[2022-07-19] MEDS: niCARdipine IV 50 MG in NS (IVPB) 230 ML IV SCH ×3 (05:46→22:30)
[2022-07-19] MEDS: KCL 20 MEQ TAB (K-DUR) PO SCH (05:47)
[2022-07-19] MEDS: inSUlin ASPART (NovoLOG) 1 UNIT/0.01 ML (CHARGE PER UNIT) SC SCH ×4 (05:51→20:38)
[2022-07-19] MEDS: MULTIVIT W/MINERALS TAB (THERAGRAN M) PO SCH (06:39)
[2022-07-19] MEDS: THIAMINE 100 MG (VITAMIN B-1) TAB PO SCH (06:39)
--- NOTE | 2022-07-19 08:04 | Diagnostic Imaging Report ---
INDICATION: CVA and altered mental status. Time of Exam: 4:38 AM Correlation is made with prior chest from one day earlier. Heart size is normal. Lungs are clear. No infiltrates are seen. There is no effusion or pneumothorax. IMPRESSION: No acute cardiopulmonary process is detected. Dictated by: Dictated on workstation # [id number]
--- NOTE | 2022-07-19 09:36 | Physical Therapy Evaluation ---
PT Evaluation-General Medical Diagnosis Admission Date Jul 18, 2022 at 15:51 Medical Diagnosis: CVA, Rhabdo, EtOH Withdrawl Onset Date: Jul 18, 2022 Therapy Diagnosis Therapy Diagnosis: Gait deficit, strength deficit Precautions Precautions/Isolations: Fall Prevention, Standard Precautions Weight Bear Status Right Lower Extremity: Right Full Weight Bearing Left Lower Extremity: Left Full Weight Bearing Referral Physician: Dr. Abreu Reason for Referral: Evaluation/Treatment Medical History Reviewed History: Yes Social History Home: Single Level Current Living Status: Entry Into Home: Stairs With Railing PT Steps Into Home: 2 Prior Prior Level of Function SCALE: Activities may be completed with or without assistive devices. 1-Gtrjnfnfhu-wvwfqag completes the activity by him/herself with no assistance from a helper. 5-Set-up or Clean-up Assistance-helper sets up or cleans up; patient completes activity. [place] assists only prior to or following the activity. 4-Supervision or Touching Assistance-helper provides verbal cues and/or touching/steadying and/or contact guard assistance as patient completes activity. Assistance may be provided throughout the activity or intermittently. 3-Partial/Moderate Assistance-helper does LESS THAN HALF the effort. [place] lifts, holds or supports trunk or limbs, but provides less than half the effort. 2-Substantial/Maximal Assistance-helper does MORE THAN HALF the effort. [place] lifts or holds trunk or limbs and provides more than half the effort. 0-Sswpvlzam-ldtdht does ALL the effort. Patient does none of the effort to complete the activity. Or, the assistance of 2 or more helpers is required for the patient to complete the activity. If activity was not attempted, code reason: 7-Patient Refused. 9-Not Applicable-not attempted and the patient did not perform the activity before the current illness, exacerbation or injury. 10-Not Attempted due to Environmental Limitations-(lack of equipment, weather restraints, etc.). 88-Not Attempted due to Medical Conditions or Safety Concerns. Bed Mobility: 6 Transfers (B,C,W/C): 6 Gait: 6 Stairs: 6 Indoor Mobility (Ambulation): Independent Stairs: Independent Prior Devices Use: None PT Evaluation-Current Subjective Patient lying supine in bed upon PT arrival, agreeable to treatment however patient is no oriented to location, time or current situation. Rates pain currently at 0/10, then states her right elbow "Hurts so bad". Patient then slams the right UE down on the bed. Nurse notified. Objective Patient Orientation: Person Attachments: Barron Catheter, IV ROM/Strength ROM Lower Extremities Right LE limited all planes to AROM due to CVA; Left LE WFLs all planes. Strength Lower Extremities Patient unable to follow commands for MMT, however right LE 3-/5 or less with visual observation all planes and right LE 3+/5 or better with observation in all planes. Sensory Vision: Functional Hearing: Functional Sensation Right Lower Extremit: Intact Sensation Left Lower Extremity: Impaired Sensation Lower Extremities Patient unable to determine any dermatomes to light touch Transfers Roll Left to Right (QC): 3 Sit to Lying (QC): 3 Lying to Sitting/Side of Bed(Q: 2 Gait Does the Patient Walk?: No and Walking Goal IS indicated Balance Sitting Static: Poor Sitting Dynamic: Poor Standing Static: Poor Standing Dynamic: Poor Assessment/Needs Patient tolerated treatment poorly. She is moderately confused however this could also be due to EtOH withdrawal. When asked, she reports her last drink was 2-3 weeks ago. Patient very unreliable historian as most of her subjective statements are inappropriate and do not pertain to any current situation. Patient requires mod to max A for all bed mobility and transfers. Patient able to sit at the EOB ~5 minutes, however at that point demonstrates moderate truncal ataxia with poor head control. Patient assisted back to bed and required max A x for bed mobility. Patient in bed post treatment with all needs met, nursing notified, call light in hand. Rehab Potential: Guarded PT Ink Technician Goals Group Home Goals PT Ink Technician Goals Time Frame: Aug 02, 2022 Roll Left & Right (QC): 4 Sit to Lying (QC): 4 Lying-Sitting on Side/Bed(QC): 4 Sit to Stand (QC): 4 Chair/Skk-wu-Ykxld Xfer(QC): 4 Toilet Transfer (QC): 4 Does the Patient Walk: Yes Walk 10 feet (QC): 4 Walk 50ft with 2 Turns (QC): 3 Walk 150 ft (QC): 3 PT Plan Problem List Problem List: Activity Tolerance, Functional Strength, Safety, Balance, Gait, Transfer, Bed Mobility, ROM Treatment/Plan Treatment Plan: Continue Plan of Care Treatment Plan: Bed Mobility, Education, Functional Activity Ellen, Functional Strength, Group Therapy, Gait, Safety, Therapeutic Exercise, Transfers Treatment Duration: Aug 02, 2022 Frequency: 6 times per week Estimated Hrs Per Day: .25 hour per day Patient and/or Family Agrees t: Yes Safety Risks/Education Patient Education: Transfer Techniques Teaching Recipient: Patient Teaching Methods: Demonstration, Discussion Response to Teaching: Reinforcement Needed Discharge Recommendations Target Placement Once Withdrawal has improved patient would benefit from post acute stay with most appropriate setting to be an ARU Time Time In: 756 Time Out: 826 DATE: Jul 19, 2022 Total Billed Treatment Time: 30 Total Billed Treatment Visit, DRISS KAY JOHN A PT Jul 19, 2022 09:36
[2022-07-19] MEDS: DOCUSATE SODIUM 100 MG (COLACE) CAP PO SCH ×2 (09:39→20:20)
[2022-07-19] MEDS: SENNOSIDES 8.6 MG (SENOKOT) TAB PO SCH ×2 (09:40→20:20)
[2022-07-19] MEDS: FOLIC ACID 1 MG TAB PO SCH (09:48)
[2022-07-19] MEDS: MAGNESIUM OXIDE (MAG-OX)400 MG TAB PO SCH ×2 (09:48→20:20)
[2022-07-19] MEDS: ASPIRIN E.C. 81 MG (ECOTRIN) TAB PO SCH (09:48)
--- NOTE | 2022-07-19 10:39 | Consultation-Cardiology ---
HPI-Cardiology Cardiology Consultation Date of Consultation 07/19/22 Date of Admission Time Seen by Provider: 10:32 Indication: Elevated troponin level HPI 67-year-old lady with history of alcoholism, patient was admitted with acute CVA, right-sided weakness with aphasia. She has trauma to her right knee and right leg. Confused somewhat. On my evaluation patient was pleasant, still slightly confused, having aphasia and weakness on the right side. Denied any chest pain, denied any palpitation, no shortness of breath. Management for her CVA was done with the assistance of neurology, recommendation per Dr. Tellez was ICU and using aspirin. Patient was noted to have elevated troponin. She denied any chest pain, no shortness of breath. Home Medications & Allergies Allergies: Coded Allergies: codeine (Verified Allergy, Unknown, 07/18/22) cyclobenzaprine (Verified Allergy, Unknown, 07/18/22) Home Medication List Reviewed: Yes [id number] Hx Patient Social History Marital Status: single Employed/Student: retired Smoking Status: Current Everyday Smoker Have you traveled recently?: No Alcohol Use?: Yes Substance type: Marijuana Past Medical History Discussed below Family Medical History Significant Family History: No Pertinent Family Hx Review of Systems-General Review of Systems Constitutional: see HPI, malaise EENTM: see HPI, no symptoms reported Respiratory: see HPI; No cough, No dyspnea on exertion, No hemoptysis, No orthopnea, No phlegm, No short of breath, No stridor, No wheezing, No other Cardiovascular: No chest pain Gastrointestinal: No abdominal pain Genitourinary: no symptoms reported, see HPI Musculoskeletal: see HPI Skin: no symptoms reported, see HPI Psychiatric/Neurological: See HPI, Anxiety Reviewed Test Results Reviewed Test Results Lab Laboratory Tests Test 07/18/22 12:40 07/18/22 12:55 07/18/22 21:05 07/19/22 00:12 Range/Units White Blood Count 13.9 H 4.3-11.0 10^3/uL Red Blood Count 4.71 3.80-5.11 10^6/uL Hemoglobin 15.3 11.5-16.0 g/dL Hematocrit 45 35-52 % Mean Corpuscular Volume 95 80-99 fL Mean Corpuscular Hemoglobin 33 25-34 pg Mean Corpuscular Hemoglobin Concent 34 32-36 g/dL Red Cell Distribution Width 12.8 10.0-14.5 % Platelet Count 180 130-400 10^3/uL Mean Platelet Volume 10.1 9.0-12.2 fL Immature Granulocyte % (Auto) 1 % Neutrophils (%) (Auto) 84 H 42-75 % Lymphocytes (%) (Auto) 8 L 12-44 % Monocytes (%) (Auto) 8 0-12 % Eosinophils (%) (Auto) 0 0-10 % Basophils (%) (Auto) 0 0-10 % Neutrophils # (Auto) 11.7 H 1.8-7.8 10^3/uL Lymphocytes # (Auto) 1.0 1.0-4.0 10^3/uL Monocytes # (Auto) 1.1 H 0.0-1.0 10^3/uL Eosinophils # (Auto) 0.0 0.0-0.3 10^3/uL Basophils # (Auto) 0.0 0.0-0.1 10^3/uL Immature Granulocyte # (Auto) 0.1 0.0-0.1 10^3/uL Neutrophils % (Manual) 82 % Lymphocytes % (Manual) 8 % Monocytes % (Manual) 7 % Band Neutrophils 3 % Prothrombin Time 15.6 H 12.2-14.7 SEC INR Comment 1.2 0.8-1.4 Activated Partial Thromboplast Time 30 24-35 SEC D-Dimer 3.95 H 0.00-0.49 UG/ML Sodium Level 136 135-145 MMOL/L Potassium Level 3.3 L 3.6-5.0 MMOL/L Chloride Level 96 L 98-107 MMOL/L Carbon Dioxide Level 24 21-32 MMOL/L Anion Gap 16 H 5-14 MMOL/L Blood Urea Nitrogen 10 7-18 MG/DL Creatinine 0.64 0.60-1.30 MG/DL Estimat Glomerular Filtration Rate 98 BUN/Creatinine Ratio 16 Glucose Level 122 H 70-105 MG/DL Calcium Level 9.8 8.5-10.1 MG/DL Corrected Calcium 9.6 8.5-10.1 MG/DL Total Bilirubin 2.3 H 0.1-1.0 MG/DL Aspartate Amino Transf (AST/SGOT) 112 H 5-34 U/L Alanine Aminotransferase (ALT/SGPT) 49 0-55 U/L Alkaline Phosphatase 77 40-136 U/L Total Creatine Kinase 2678 H 29-168 U/L Troponin I 1.408 *H <0.028 NG/ML Total Protein 7.7 6.4-8.2 GM/DL Albumin 4.3 3.2-4.5 GM/DL Salicylates Level < 5.0 L 5.0-20.0 MG/DL Acetaminophen Level < 10 L 10-30 UG/ML Serum Alcohol < 10 <10 MG/DL Urine Color YELLOW Urine Clarity CLEAR Urine pH 6.0 5-9 Urine Specific [place] >=1.030 1.016-1.022 Urine Protein 2+ H NEGATIVE Urine Glucose (UA) NEGATIVE NEGATIVE Urine Ketones 3+ H NEGATIVE Urine Nitrite POSITIVE H NEGATIVE Urine Bilirubin NEGATIVE NEGATIVE Urine Urobilinogen 0.2 < = 1.0 MG/DL Urine Leukocyte Esterase NEGATIVE NEGATIVE Urine RBC (Auto) 3+ H NEGATIVE Urine RBC 0-2 /HPF Urine WBC RARE /HPF Urine Squamous Epithelial Cells RARE /HPF Urine Crystals PRESENT H /LPF Urine Amorphous Sediment RARE RAJINDER URATES H /LPF Urine Bacteria LARGE H /HPF Urine Casts NONE /LPF Urine Mucus SMALL H /LPF Urine Culture Indicated YES Urine Opiates Screen NEGATIVE NEGATIVE Urine Oxycodone Screen NEGATIVE NEGATIVE Urine Methadone Screen NEGATIVE NEGATIVE Urine Propoxyphene Screen NEGATIVE NEGATIVE Urine Barbiturates Screen NEGATIVE NEGATIVE Ur Tricyclic Antidepressants Screen NEGATIVE NEGATIVE Urine Phencyclidine Screen NEGATIVE NEGATIVE Urine Amphetamines Screen NEGATIVE NEGATIVE Urine Methamphetamines Screen NEGATIVE NEGATIVE Urine Benzodiazepines Screen NEGATIVE NEGATIVE Urine Cocaine Screen NEGATIVE NEGATIVE Urine Cannabinoids Screen POSITIVE H NEGATIVE Glucometer 111 H 99 70-110 MG/DL Test 07/19/22 03:45 07/19/22 05:50 Range/Units White Blood Count 9.4 4.3-11.0 10^3/uL Red Blood Count 4.44 3.80-5.11 10^6/uL Hemoglobin 14.3 11.5-16.0 g/dL Hematocrit 42 35-52 % Mean Corpuscular Volume 94 80-99 fL Mean Corpuscular Hemoglobin 32 25-34 pg Mean Corpuscular Hemoglobin Concent 34 32-36 g/dL Red Cell Distribution Width 13.0 10.0-14.5 % Platelet Count 122 L 130-400 10^3/uL Mean Platelet Volume 10.4 9.0-12.2 fL Immature Granulocyte % (Auto) 0 % Neutrophils (%) (Auto) 67 42-75 % Lymphocytes (%) (Auto) 24 12-44 % Monocytes (%) (Auto) 8 0-12 % Eosinophils (%) (Auto) 0 0-10 % Basophils (%) (Auto) 0 0-10 % Neutrophils # (Auto) 6.2 1.8-7.8 10^3/uL Lymphocytes # (Auto) 2.3 1.0-4.0 10^3/uL Monocytes # (Auto) 0.8 0.0-1.0 10^3/uL Eosinophils # (Auto) 0.0 0.0-0.3 10^3/uL Basophils # (Auto) 0.0 0.0-0.1 10^3/uL Immature Granulocyte # (Auto) 0.0 0.0-0.1 10^3/uL Percent Immature Platelet Fraction 4.9 0.0-7.6 % Sodium Level 138 135-145 MMOL/L Potassium Level 3.4 L 3.6-5.0 MMOL/L Chloride Level 103 98-107 MMOL/L Carbon Dioxide Level 20 L 21-32 MMOL/L Anion Gap 15 H 5-14 MMOL/L Blood Urea Nitrogen 14 7-18 MG/DL Creatinine 0.62 0.60-1.30 MG/DL Estimat Glomerular Filtration Rate 99 BUN/Creatinine Ratio 23 Glucose Level 87 70-105 MG/DL Calcium Level 9.1 8.5-10.1 MG/DL Corrected Calcium 9.3 8.5-10.1 MG/DL Phosphorus Level 3.6 2.3-4.7 MG/DL Magnesium Level 1.8 1.6-2.4 MG/DL Total Bilirubin 1.9 H 0.1-1.0 MG/DL Aspartate Amino Transf (AST/SGOT) 120 H 5-34 U/L Alanine Aminotransferase (ALT/SGPT) 46 0-55 U/L Alkaline Phosphatase 65 40-136 U/L Troponin I 0.968 *H <0.028 NG/ML Total Protein 6.5 6.4-8.2 GM/DL Albumin 3.7 3.2-4.5 GM/DL Triglycerides Level 83 <150 MG/DL Cholesterol Level 120 < 200 MG/DL LDL Cholesterol Direct 41 1-129 MG/DL VLDL Cholesterol 17 5-40 MG/DL HDL Cholesterol 59 40-60 MG/DL Glucometer 122 H 70-110 MG/DL Physical Exam Physical Exam Vital Signs Vital Signs - First Documented 07/18/22 07/18/22 07/19/22 12:30 15:48 09:40 Temp 37.5 Pulse 92 Resp 18 B/P (MAP) 154/119 (131) Pulse Ox 96 O2 Delivery Room Air O2 Flow Rate 0.00 Capillary Refill : Less Than 3 Seconds Height, Weight, BMI Height: '" Weight: lbs. oz. kg; 29.51 BMI Method: General Appearance: Anxious, Chronically ill, Other (confused) Respiratory: Lungs Clear, Normal Breath Sounds Cardiovascular: Regular Rate, Rhythm, Systolic Murmur Neurologic/Psychiatric: Alert, Depressed Affect, Disoriented, Motor Weakness (right sided flaccidity) A/P-Cardiology Admission Diagnosis Acute CVA Non-ST elevation myocardial infarction Hypertension Tobaccoism Assessment/Plan Acute catastrophic CVA CT angiogram reported as distal left TAX ASSESSOR occlusion Currently on aspirin Management per medical service. Elevated troponin, non-ST elevation myocardial infarction. No acute EKG changes. Troponin is trending down. I will repeat EKG, evaluate 2D echo, at this time cannot tolerate aggressive anticoagulation due to the acute stroke. Hypertension, recommend keeping blood pressure mildly elevated to improve the perfusion pressure Continue to monitor Lipid profile was done on July 19, 2022 and it was normal. Multiple bruises which trauma to the knee. Moderate elevation in CPK. Continue with IV fluid and monitor Tobaccoism, advised to stop smoking Alcoholism. Patient reported that she drinks wine over the weekend Clinical Quality Measures Stroke: Symptoms onset unknown: Yes REMEDIOS COHEN MD Jul 19, 2022 10:39
--- NOTE | 2022-07-19 11:24 | Diagnostic Imaging Report ---
PROCEDURE: US carotid duplex, bilateral. TECHNIQUE: Multiple real-time grayscale images were obtained over the carotid arteries in various projections, bilaterally. Additional spectral analysis and color Doppler duplex images were also obtained. INDICATION: Stroke. There is mild plaquing in both carotid bulbs and proximal ICAs. The velocities are normal bilaterally. No high-grade stenosis or occlusion is seen. Both vertebral arteries show antegrade flow. IMPRESSION: Mild bilateral carotid plaque. There is no evidence of a hemodynamically significant stenosis. Parameters based on the consensus panel Rogers-Scale and Doppler ultrasound criteria published February 2003, Radiology, Volume 229. DOPPLER (peak systolic velocity M/S Right Left CCA 1.30 1.06 ICA Proximal .60 .88 ICA Mid .74 .78 ICA Distal .79 1.04 RATIO .61 .98 ECA 2.48 2.17 VERT .85 .54 Dictated by: Dictated on workstation # [id number]
--- NOTE | 2022-07-19 12:09 | Occ Therapy Progress Note ---
Therapy Progress Note OT order received, chart reviewed. Nursing requests that OT hold pt. at this time due to agitation and sedative. Would like pt. to rest. Will attempt back Thursday. 1, visit [id number] STANLEY SALES OT Jul 19, 2022 12:09
--- NOTE | 2022-07-19 12:24 | Tele-ICU Progress Note ---
Subjective Date Seen by a Provider: Jul 19, 2022 Time Seen by a Provider: 12:22 Subjective/Events-last exam (Tele-ICU Physician , Progress Note ) Service provided via interactive audio and video telecommunications E-CARE system to a patient admitted to ICU bed in [facility]. Patient is seen today due to persistent need of ICU care Available chart/ vitals / labs / Images reviewed Video assessment done using teleICU camera, rest of exam as per RN She is a 67-year-old female with unknown past medical history except for alcoholism found down on the floor at a friend's house for an undetermined time and her friend called EMS and brought to the emergency room and found to have a right-sided weakness with altered mental status and abrasion to the right knee and a left knee area. Further evaluation led to the finding that she has a left REGULATORY SPECIALIST territory stroke. However she is able to talk well and pass it swallow evaluation last night. This a.m. she is awake alert and answering questions appropriately. Upon my testing via video visit she has a right upper extremity power of 4 34/5 and right lower extremity power of 3/5. [facility] stroke neurology was consulted and they recommended aspirin and ICU care but she is not a candidate for thrombectomy. She has a elevated troponin and cardiology was consulted. Impression 1. Left REGULATORY SPECIALIST territory stroke with right hemiparesis 2. History of alcohol abuse. Recommendations 1. Continue aspirin and Plavix. 2. Physical therapy occupational therapy 3. LDL goal less than 70 4. Suggest echocardiogram. 5. DVT prophylaxis and ulcer prophylaxis. 6. Monitor for any alcohol withdrawal symptoms. 7. Continue thiamine and folic acid. I am remotely monitoring this patient from Tele icu station in [place]. I am unable to do the bedside exam, and history/physical and pertinent information is taken from other notes in the computer and bedside staff. Certain portions of this document may have been dictated utilizing voice recognition technology such as [employer]. Inherent to this technology, typographical and grammatical errors may exist. As much as I am diligent to identify and correct to these mistakes, some errors may remain in the document. Critical care time due to gated to this patient today is- 30-- Sepsis Event Evaluation Height, Weight, BMI Height: '" Weight: lbs. oz. kg; 29.51 BMI Method: Exam Exam Patient acknowledged, consented, and participated in this virtual visit which was conducted using real time audio/video Vital Signs Date Time Temp Pulse Resp B/P (MAP) Pulse Ox O2 Delivery O2 Flow Rate FiO2 07/19/22 10:00 101 18 145/105 (109) 94 Room Air 07/19/22 09:40 93 Room Air 0.00 07/19/22 09:00 96 29 136/100 (121) 92 Room Air 07/19/22 08:00 99 15 126/103 (118) 94 Room Air 07/19/22 07:47 37.1 07/19/22 07:00 86 07/19/22 07:00 92 23 127/73 (98) 95 Room Air 07/19/22 06:00 89 15 139/79 (103) 93 07/19/22 05:00 92 16 116/76 (94) 93 07/19/22 04:00 87 20 127/86 (96) 92 Room Air 07/19/22 04:00 36.2 07/19/22 03:00 72 18 126/72 (95) 94 07/19/22 02:00 76 23 128/69 (99) 94 Room Air 07/19/22 01:00 82 20 112/69 (85) 95 07/19/22 01:00 81 07/19/22 00:00 36.5 76 20 103/59 (75) 92 07/18/22 23:52 Room Air 07/18/22 23:00 67 20 102/63 (77) 92 Room Air 07/18/22 22:30 69 16 111/71 (87) 95 07/18/22 22:00 67 29 92/56 (73) 94 Room Air 07/18/22 22:00 68 21 111/71 (84) 95 Room Air 07/18/22 21:51 94 Room Air 07/18/22 21:33 71 18 116/70 (86) 96 07/18/22 21:00 67 20 93/51 (65) 95 Room Air 07/18/22 21:00 66 24 93/51 (65) 94 07/18/22 20:11 Room Air 07/18/22 20:00 36.5 70 22 93/56 (69) 93 Room Air 07/18/22 19:00 81 07/18/22 19:00 76 18 112/70 (84) 92 Room Air 07/18/22 18:42 93 Room Air 07/18/22 18:04 106 159/81 07/18/22 18:00 107 14 159/81 (105) 94 Room Air 07/18/22 17:52 151/87 07/18/22 17:33 37.9 07/18/22 17:26 97 Room Air 07/18/22 17:03 38.2 07/18/22 17:00 105 15 165/100 (121) 96 Room Air 07/18/22 16:33 105 16 171/92 (118) 98 Room Air 07/18/22 16:31 106 07/18/22 16:28 37.5 108 97 07/18/22 15:48 108 33 163/116 97 Room Air 07/18/22 12:30 37.5 92 18 154/119 (131) 96 I & O 07/19/22 07:00 Intake Total 1512 ml Output Total 815 ml Balance 697 ml Height & Weight Height: '" Weight: lbs. oz. kg; 29.51 BMI Method: General Appearance: Anxious, Chronically ill, Other (confused) Respiratory: Lungs Clear, Normal Breath Sounds Cardiovascular: Regular Rate, Rhythm, Systolic Murmur Capillary Refill: Less Than 3 Seconds Gastrointestinal: non tender, soft Neurologic/Psychiatric: Alert, Depressed Affect, Disoriented, Motor Weakness (right sided flaccidity) Results Lab Laboratory Tests 07/18/22 12:40 07/19/22 03:45 Assessment/Plan Assessment/Plan ABOVE Critical Care: Critically Ill Patient Time spent with patient (mins): 30 MELQUIADES LUNA MD Jul 19, 2022 12:24
[2022-07-19] MEDS: ENOXAPARIN 40 MG/0.4 ML (LOVENOX) SYR SC SCH (18:32)
[2022-07-19] MEDS: MELATONIN 3 MG TABLET PO PRN (22:19)
[2022-07-20] MEDS: NS IV 1000 ML 1,000 ML IV SCH (00:40)
[2022-07-20 04:50] LABS: EOSINOPHILS % (AUTO) 0 % (0-10); MEAN PLATELET VOLUME 10.7 fL (9.0-12.2); PLATELET COUNT 88 10^3/uL (130-400)
[2022-07-20 04:52] LABS: BASOPHILS % (AUTO) 0 % (0-10); HEMATOCRIT 35 % (35-52); HEMOGLOBIN 11.8 g/dL (11.5-16.0); LYMPHOCYTES # (AUTO) 1.5 10^3/uL (1.0-4.0); LYMPHOCYTES % (AUTO) 30 % (12-44); MEAN CORPUSCULAR HEMOGLOBIN 32 pg (25-34); MEAN CORPUSCULAR HGB CONC 33 g/dL (32-36); MEAN CORPUSCULAR VOLUME 97 fL (80-99); MONOCYTES # (AUTO) 0.5 10^3/uL (0.0-1.0); MONOCYTES % (AUTO) 9 % (0-12); NEUTROPHILS # (AUTO) 3.1 10^3/uL (1.8-7.8); NEUTROPHILS % (AUTO) 60 % (42-75); WHITE BLOOD COUNT 5.2 10^3/uL (4.3-11.0)
[2022-07-20 05:03] LABS: POTASSIUM 3.4 MMOL/L (3.6-5.0)
[2022-07-20 05:05] LABS: TOTAL PROTEIN 5.4 GM/DL (6.4-8.2)
[2022-07-20 05:07] LABS: BILIRUBIN,TOTAL 1.6 MG/DL (0.1-1.0)
[2022-07-20 05:09] LABS: CREATININE SERUM 0.51 MG/DL (0.60-1.30); PHOSPHORUS 2.9 MG/DL (2.3-4.7)
[2022-07-20 05:12] LABS: MAGNESIUM 1.9 MG/DL (1.6-2.4)
[2022-07-20] MEDS: KCL 20 MEQ TAB (K-DUR) PO SCH (05:14)
[2022-07-20] MEDS: inSUlin ASPART (NovoLOG) 1 UNIT/0.01 ML (CHARGE PER UNIT) SC SCH ×4 (05:15→20:21)
--- NOTE | 2022-07-20 05:39 | Progress Note - Hospitalist ---
Subjective HPI/CC On Admission Date Seen by Provider: Jul 20, 2022 Time Seen by Provider: 08:30 CC: Catastrophic CVA with found down and alcoholic withdrawal with acute rhabdomyolysis HPI: This is a 67yoWF clinic patient of [facility] who has a h/o alcoholism who was found down at a friend's house for undetermined time so EMS was called and patient was found to have had a catastrophic CVA with right sided weakness with AMS and trauma to her right knee and right leg. Patient is able to maintain her airway but is confused. CT revealed evidence of CVA but CT angio completed and [facility] contract and recommended ASA and ICU care. Elevated troponin will require Dr Christian consult. Subjective/Events-last exam Improved overall Ready for ARU tomorrow Less confusion Right sided weakness is still present No family at bedside BP still a bit elevated Review of Systems General: Fatigue, Malaise Neurological: Weakness, Incoordination, Confusion Objective Exam Vital Signs Vital Signs Date Time Temp Pulse Resp B/P (MAP) Pulse Ox O2 Delivery O2 Flow Rate FiO2 07/20/22 11:15 36.7 83 19 162/70 (100) 97 Room Air 07/19/22 09:40 0.00 Capillary Refill : Less Than 3 Seconds General Appearance: No Apparent Distress, WD/WN, Chronically ill Respiratory: Lungs Clear, Normal Breath Sounds Cardiovascular: Regular Rate, Rhythm Neurologic/Psychiatric: Alert, Oriented x3 Results/Procedures Lab Laboratory Tests 07/20/22 04:18 Patient resulted labs reviewed. Assessment/Plan Assessment and Plan Assess & Plan/Chief Complaint Assessment: Catastrophic CVA Right sided weakness with neglect Alcohol withdrawal Acute rhabdomyolysis Elevated troponin c/w NSTEMI HTN Plan: ICU EICU Dr Christian Lovenox 40mg ASA PT OT Critical Care Critically Ill Patient Clinical Quality Measures Stroke: Symptoms onset unknown: Yes UCHE WALL DO Jul 20, 2022 05:39
[2022-07-20] MEDS: THIAMINE 100 MG (VITAMIN B-1) TAB PO SCH (06:26)
[2022-07-20] MEDS: MULTIVIT W/MINERALS TAB (THERAGRAN M) PO SCH (06:26)
[2022-07-20] MEDS ORDERED: KCL 20 MEQ TAB (K-DUR) PO ONE (07:00)
--- NOTE | 2022-07-20 08:01 | Diagnostic Imaging Report ---
INDICATION: Altered mental status. CVA COMPARISON: 07/19/2022 FINDINGS: Single frontal view of the chest demonstrates normal heart size and pulmonary vascularity. The lungs are well aerated and clear. No large pleural effusion or pneumothorax is seen. The visualized osseous structures show no acute abnormalities. IMPRESSION: 1. No acute cardiopulmonary process. Dictated by: Dictated on workstation # [id number]
[2022-07-20] MEDS: FOLIC ACID 1 MG TAB PO SCH (08:03)
[2022-07-20] MEDS: SENNOSIDES 8.6 MG (SENOKOT) TAB PO SCH ×2 (08:03→19:22)
[2022-07-20] MEDS: DOCUSATE SODIUM 100 MG (COLACE) CAP PO SCH ×2 (08:03→19:22)
[2022-07-20] MEDS: ASPIRIN E.C. 81 MG (ECOTRIN) TAB PO SCH (08:03)
[2022-07-20] MEDS: MAGNESIUM OXIDE (MAG-OX)400 MG TAB PO SCH ×2 (08:03→20:08)
[2022-07-20] MEDS ORDERED: cloNIDine 0.1 MG (CATAPRES) TAB PO PRN (08:45)
[2022-07-20] MEDS ORDERED: amLODIPine 5 MG (NORVASC) TAB PO NR (09:15)
--- NOTE | 2022-07-20 09:38 | Tele-ICU Progress Note ---
Subjective Date Seen by a Provider: Jul 20, 2022 Time Seen by a Provider: 09:37 Subjective/Events-last exam (Tele-ICU Physician , Progress Note ) Service provided via interactive audio and video telecommunications E-CARE system to a patient admitted to ICU bed in [facility]. Patient is seen today due to persistent need of ICU care Available chart/ vitals / labs / Images reviewed Video assessment done using teleICU camera, rest of exam as per RN She is a 67-year-old female with unknown past medical history except for alcoholism found down on the floor at a friend's house for an undetermined time and her friend called EMS and brought to the emergency room and found to have a right-sided weakness with altered mental status and abrasion to the right knee and a left knee area. Further evaluation led to the finding that she has a left PROOFSHEET CORRECTOR territory stroke. However she is able to talk well and pass it swallow evaluation last night. This a.m. she is awake alert and answering questions appropriately. Upon my testing via video visit she has a right upper extremity power of 4 34/5 and right lower extremity power of 3/5. [facility] stroke neurology was consulted and they recommended aspirin and ICU care but she is not a candidate for thrombectomy. She has a elevated troponin and cardiology was consulted. 07/20/22today she is more oriented and able find words of her choice. other jimenez no distress. bp stable. PT note appreciated.. Echo report reviewed. Impression 1. Left PROOFSHEET CORRECTOR territory stroke with right hemiparesis 2. History of alcohol abuse. Recommendations 1. Continue aspirin and Plavix. 2. Physical therapy occupational therapy 3. LDL goal less than 70 4. Suggest echocardiogram. 5. DVT prophylaxis and ulcer prophylaxis. 6. Monitor for any alcohol withdrawal symptoms. 7. Continue thiamine and folic acid. I am remotely monitoring this patient from Tele icu station in [place]. I am unable to do the bedside exam, and history/physical and pertinent information is taken from other notes in the computer and bedside staff. Certain portions of this document may have been dictated utilizing voice recognition technology such as Mi[employer]on. Inherent to this technology, typographical and grammatical errors may exist. As much as I am diligent to identify and correct to these mistakes, some errors may remain in the document. Critical care time due to gated to this patient today is 25-- Sepsis Event Evaluation Height, Weight, BMI Height: '" Weight: lbs. oz. kg; 29.90 BMI Method: Exam Exam Patient acknowledged, consented, and participated in this virtual visit which was conducted using real time audio/video Vital Signs Date Time Temp Pulse Resp B/P (MAP) Pulse Ox O2 Delivery O2 Flow Rate FiO2 07/20/22 09:00 81 21 156/71 (108) 94 Room Air 07/20/22 08:00 72 23 181/98 (146) 99 Room Air 07/20/22 08:00 96 Room Air 07/20/22 07:36 36.5 07/20/22 07:00 70 17 156/73 (108) 97 Room Air 07/20/22 07:00 64 07/20/22 06:00 71 22 141/105 (117) 98 Room Air 07/20/22 05:00 54 17 158/82 (107) 98 Room Air 07/20/22 04:00 96 Room Air 07/20/22 04:00 55 18 133/77 (95) 97 Room Air 07/20/22 03:00 59 21 145/74 (97) 95 Room Air 07/20/22 02:00 59 18 142/74 (96) 96 Room Air 07/20/22 01:00 67 24 153/74 (100) 97 Room Air 07/20/22 01:00 70 07/20/22 00:00 65 20 187/118 (141) 96 Room Air 07/20/22 00:00 36.8 07/19/22 23:59 98 Room Air 07/19/22 23:00 71 19 158/81 (106) 94 Room Air 07/19/22 22:08 94 Room Air 07/19/22 22:00 73 19 152/69 (96) 94 Room Air 07/19/22 21:00 74 19 139/80 (99) 94 Room Air 07/19/22 20:00 96 Room Air 07/19/22 20:00 75 29 128/71 (90) 97 Room Air 07/19/22 19:00 65 19 129/73 (91) 93 Room Air 07/19/22 19:00 65 07/19/22 17:00 63 23 116/59 (77) 94 Room Air 07/19/22 16:00 63 22 103/55 (75) 90 Room Air 07/19/22 15:57 37.1 07/19/22 15:00 80 24 121/70 (79) 92 Room Air 07/19/22 14:00 70 19 121/60 (92) 91 Room Air 07/19/22 13:00 77 18 121/58 (78) 90 Room Air 07/19/22 12:31 87 07/19/22 12:00 95 27 140/60 (90) 95 Room Air 07/19/22 11:51 37.3 07/19/22 11:00 94 27 154/89 (134) 90 Room Air 07/19/22 10:00 101 18 145/105 (109) 94 Room Air 07/19/22 09:40 93 Room Air 0.00 I & O 07/20/22 07:00 Intake Total 3572 ml Output Total 1675 ml Balance 1897 ml Height & Weight Height: '" Weight: lbs. oz. kg; 29.90 BMI Method: General Appearance: No Apparent Distress, WD/WN, Chronically ill Respiratory: Lungs Clear, Normal Breath Sounds Cardiovascular: Regular Rate, Rhythm Capillary Refill: Less Than 3 Seconds Gastrointestinal: non tender, soft Neurologic/Psychiatric: Alert, Oriented x3, Normal Mood/Affect, Motor Weakness (right sided 3/5) Results Lab Laboratory Tests 07/18/22 12:40 07/19/22 03:45 07/20/22 04:18 Assessment/Plan Assessment/Plan as above Critical Care: Critically Ill Patient Time spent with patient (mins): 25 MELQUIADES LUNA MD Jul 20, 2022 09:38
[2022-07-20 11:15] VITALS: BP 162/70
--- NOTE | 2022-07-20 11:39 | Cardiology Progress Note ---
Subjective Date Seen by Provider: Jul 20, 2022 Time Seen by Provider: 11:37 Subjective/Events-last exam Patient was seen at bedside, laying down comfortably Feeling better Still having active weakness and aphasia Review of Systems General: No Chills, No Night Sweats, No Fatigue, No Malaise, No Appetite, No Other HEENT: No Head Aches, No Visual Changes, No Eye Pain, No Ear Pain, No Dysphasia, No Sinus Congestion, No Post Nasal Drip, No Sore Throat, No Other Pulmonary: No Dyspnea, No Cough, No Pleuritic Chest Pain, No Other Cardiovascular: No: Chest Pain, Palpitations, Orthopnea, Paroxysmal Noc. Dyspnea, Edema, Lt Headedness, Other Objective-Cardiology Exam Last Set of Vital Signs Vital Signs 07/19/22 07/20/22 07/20/22 09:40 07:36 09:00 Temp 36.5 Pulse 81 Resp 21 B/P (MAP) 156/71 (108) Pulse Ox 94 O2 Delivery Room Air O2 Flow Rate 0.00 I&O Intake and Output 07/20/22 00:00 Intake Total 3672 ml Output Total 1775 ml Balance 1897 ml Intake Oral 1272 ml IV Total 2400 ml Output Urine Total 1775 ml General: Alert, Oriented X3, Cooperative HEENT: Atraumatic, PERRLA Neck: Supple, No JVD, No Thyromegaly Lungs: Clear to Auscultation, Normal Air Movement Heart: Regular Rate, Normal S1, Normal S2, No Murmurs Abdomen: Normal Bowel Sounds, Soft, No Tenderness, No Hepatosplenomegaly, No Masses Extremities: No Clubbing, No Cyanosis, No Edema, Normal Pulses, No Tenderness/Swelling Skin: No Rashes, No Breakdown, No Significant Lesion Neuro: Normal Tone, Sensation Intact, Other (Aphasia and right-sided weakness) Psych/Mental Status: Mental Status NL, Mood NL Results Lab Laboratory Tests 07/20/22 04:18 A/P-Cardiology Admission Diagnosis Acute CVA Non-ST elevation myocardial infarction Hypertension Tobaccoism Assessment/Plan Acute CVA CT angiogram reported as distal left 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 Receiving physical therapy. Management per medical service. Elevated troponin, non-ST elevation myocardial infarction. No acute EKG changes. Troponin is trending down. Continue to monitor, conservative management is recommended 2D echo was done on July 19, 2022 which showing normal left ventricular size with ejection fraction 60 to 65%, grade 1 diastolic dysfunction, mild mitral regurgitation, PA pressure 40 to 45 mmHg. No shunt was detected by using contrast Hypertension, recommend keeping blood pressure mildly elevated to improve the perfusion pressure Continue to monitor Lipid profile was done on July 19, 2022 and it was normal. Multiple bruises which trauma to the knee. Moderate elevation in CPK. Continue with IV fluid and monitor Tobaccoism, advised to stop smoking Alcoholism. Patient reported that she drinks wine over the weekend REMEDIOS COHEN MD Jul 20, 2022 11:39
[2022-07-20 15:08] VITALS: BP 162/70
[2022-07-20] MEDS ORDERED: RT-ALBUTEROL HFA 8.5 GM INHALER IH PRN (15:15)
[2022-07-20 15:48] VITALS: BP 134/79
[2022-07-20] MEDS: ENOXAPARIN 40 MG/0.4 ML (LOVENOX) SYR SC SCH (18:10)
[2022-07-20 19:25] VITALS: BP 174/90
[2022-07-20] MEDS: MELATONIN 3 MG TABLET PO PRN (20:08)
[2022-07-20] MEDS: RT-ALBUTEROL HFA 8.5 GM INHALER IH SCH (20:10)
[2022-07-21] VITALS: BP 162/70
[2022-07-21 04:00] VITALS: BP 164/95
[2022-07-21 05:12] LABS: BASOPHILS % (AUTO) 0 % (0-10); EOSINOPHILS % (AUTO) 1 % (0-10)
[2022-07-21 05:13] LABS: HEMATOCRIT 37 % (35-52); HEMOGLOBIN 12.3 g/dL (11.5-16.0); LYMPHOCYTES # (AUTO) 1.3 10^3/uL (1.0-4.0); LYMPHOCYTES % (AUTO) 23 % (12-44); MEAN CORPUSCULAR HEMOGLOBIN 32 pg (25-34); MEAN CORPUSCULAR HGB CONC 33 g/dL (32-36); MEAN CORPUSCULAR VOLUME 96 fL (80-99); MEAN PLATELET VOLUME 10.5 fL (9.0-12.2); MONOCYTES # (AUTO) 0.5 10^3/uL (0.0-1.0); MONOCYTES % (AUTO) 9 % (0-12); NEUTROPHILS # (AUTO) 3.8 10^3/uL (1.8-7.8); NEUTROPHILS % (AUTO) 67 % (42-75); PLATELET COUNT 91 10^3/uL (130-400); WHITE BLOOD COUNT 5.7 10^3/uL (4.3-11.0)
[2022-07-21 05:24] LABS: ALBUMIN 3.2 GM/DL (3.2-4.5)
[2022-07-21 05:25] LABS: POTASSIUM 3.5 MMOL/L (3.6-5.0)
[2022-07-21 05:26] LABS: CALCIUM 8.4 MG/DL (8.5-10.1)
[2022-07-21 05:27] LABS: TOTAL PROTEIN 5.8 GM/DL (6.4-8.2)
[2022-07-21 05:29] LABS: BILIRUBIN,TOTAL 1.3 MG/DL (0.1-1.0)
[2022-07-21 05:31] LABS: CREATININE SERUM 0.52 MG/DL (0.60-1.30)
[2022-07-21] MEDS: inSUlin ASPART (NovoLOG) 1 UNIT/0.01 ML (CHARGE PER UNIT) SC SCH ×4 (05:31→20:13)
[2022-07-21 05:33] LABS: MAGNESIUM 1.7 MG/DL (1.6-2.4)
[2022-07-21] MEDS: MULTIVIT W/MINERALS TAB (THERAGRAN M) PO SCH (06:18)
[2022-07-21] MEDS: THIAMINE 100 MG (VITAMIN B-1) TAB PO SCH (06:18)
--- NOTE | 2022-07-21 08:04 | Cardiology Progress Note ---
Subjective Date Seen by Provider: Jul 21, 2022 Time Seen by Provider: 08:02 Subjective/Events-last exam Patient was seen at bedside, laying down comfortably Denied any chest pain or shortness of breath. Still having aphasia Review of Systems General: No Chills, No Night Sweats; Fatigue; No Malaise, No Appetite, No Other HEENT: No Head Aches, No Visual Changes, No Eye Pain, No Ear Pain, No Dysphasia, No Sinus Congestion, No Post Nasal Drip, No Sore Throat, No Other Pulmonary: No Dyspnea, No Cough, No Pleuritic Chest Pain, No Other Cardiovascular: No: Chest Pain, Palpitations, Orthopnea, Paroxysmal Noc. Dyspnea, Edema, Lt Headedness, Other Objective-Cardiology Exam Last Set of Vital Signs Vital Signs 07/19/22 07/21/22 09:40 04:00 Temp 36.0 Pulse 67 Resp 18 B/P (MAP) 164/95 (118) Pulse Ox 96 O2 Delivery Room Air O2 Flow Rate 0.00 I&O Intake and Output 07/21/22 00:00 Intake Total 2850 ml Output Total 1900 ml Balance 950 ml Intake Oral 1850 ml IV Total 1000 ml Output Urine Total 1900 ml # Bowel Movements 1 General: Alert, Cooperative, Other (Slightly confused) HEENT: Atraumatic, PERRLA Neck: Supple, No JVD, No Thyromegaly Lungs: Clear to Auscultation, Normal Air Movement Heart: Regular Rate, Normal S1, Normal S2, No Murmurs Abdomen: Normal Bowel Sounds, Soft, No Tenderness, No Hepatosplenomegaly, No Masses Extremities: No Clubbing, No Cyanosis, No Edema, Normal Pulses, No Tenderness/S welling Skin: No Rashes, No Breakdown, No Significant Lesion Neuro: Normal Tone, Sensation Intact, Other (Aphasia and right-sided weakness) Psych/Mental Status: Mental Status NL, Mood NL Results Lab Laboratory Tests 07/21/22 04:57 A/P-Cardiology Admission Diagnosis Acute CVA Non-ST elevation myocardial infarction Hypertension Tobaccoism Assessment/Plan Acute CVA CT angiogram reported as distal left 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 Receiving physical therapy. Management per medical service. Elevated troponin, non-ST elevation myocardial infarction. No acute EKG changes. Troponin is trending down. Continue to monitor, conservative management is recommended I am planning to evaluate stress test as an outpatient in 2 weeks 2D echo was done on July 19, 2022 which showing normal left ventricular size with ejection fraction 60 to 65%, grade 1 diastolic dysfunction, mild mitral regurgitation, PA pressure 40 to 45 mmHg. No shunt was detected by using contrast Hypertension, recommend keeping blood pressure mildly elevated to improve the pe rfusion pressure I will add losartan 50 mg daily and monitor blood pressure closely Lipid profile was done on July 19, 2022 and it was normal. Multiple bruises which trauma to the knee. Moderate elevation in CPK. Continue with IV fluid and monitor Tobaccoism, advised to stop smoking Alcoholism. Patient reported that she drinks wine over the weekend REMEDIOS COHEN MD Jul 21, 2022 08:04
[2022-07-21 08:05] VITALS: BP 137/84
[2022-07-21] MEDS: RT-ALBUTEROL HFA 8.5 GM INHALER IH SCH ×2 (08:08→21:34)
[2022-07-21] MEDS: DOCUSATE SODIUM 100 MG (COLACE) CAP PO SCH ×2 (08:51→20:13)
[2022-07-21] MEDS: MAGNESIUM OXIDE (MAG-OX)400 MG TAB PO SCH (08:51)
[2022-07-21] MEDS: SENNOSIDES 8.6 MG (SENOKOT) TAB PO SCH ×2 (08:52→20:13)
[2022-07-21] MEDS: CLOPIDOGREL 75 MG (PLAVIX) TABLET PO SCH (08:52)
[2022-07-21] MEDS: FOLIC ACID 1 MG TAB PO SCH (08:52)
[2022-07-21] MEDS: amLODIPine 5 MG (NORVASC) TAB PO SCH (08:52)
[2022-07-21] MEDS: ASPIRIN E.C. 81 MG (ECOTRIN) TAB PO SCH (08:52)
[2022-07-21] MEDS ORDERED: LOSARTAN 50 MG (COZAAR) TAB PO SCH (09:00)
[2022-07-21] MEDS ORDERED: HYDR-700 PO (09:49)
[2022-07-21] MEDS ORDERED: RT-ALBUINH INH (09:49)
--- NOTE | 2022-07-21 10:34 | Progress Note ---
GEOVANI LEONARDO 07/21/22 1034: Subjective Date Seen by a Provider: Jul 21, 2022 Subjective/Events-last exam Patient was awake and oriented lying in bed when seen this morning. She continues to have right sided weakness/numbness, but reports having some tingling type pain in her right elbow that is new. She has a hsu in place with clear yellow urine in place and good urine output. Her last BM was yesterday. She reports good appetite although her daughter reports it has been decreased. Moving to the Rehab floor pending working with PT/OT today and availability and patient is agreeable. Pt. Denies headache, LH/dizziness, CP, palpitations, SOB, abd pain, N/V/D. She continues to have weakness and numbness in her right extremities. Review of Systems General: No Chills, No Fatigue HEENT: No Head Aches, No Visual Changes Pulmonary: No Dyspnea, No Cough Cardiovascular: No: Chest Pain, Palpitations Gastrointestinal: No: Nausea, Vomiting, Abdominal Pain, Diarrhea, Constipation Genitourinary: No Dysuria; Other (hsu catheter in place) Musculoskeletal: other (Mild tingling/pain of right elbow) Neurological: Weakness (Right arm & leg), Numbness (Right arm & leg), Other Objective Exam Last Set of Vital Signs Vital Signs Date Time Temp Pulse Resp B/P (MAP) Pulse Ox O2 Delivery O2 Flow Rate FiO2 07/21/22 08:09 95 Room Air 07/21/22 08:05 37.1 70 18 137/84 (101) 07/19/22 09:40 0.00 Capillary Refill : Less Than 3 Seconds I&O Intake and Output 07/21/22 00:00 Intake Total 2850 ml Output Total 1900 ml Balance 950 ml Intake Oral 1850 ml IV Total 1000 ml Output Urine Total 1900 ml # Bowel Movements 1 General: Alert, Oriented X3, No Acute Distress HEENT: Atraumatic, PERRLA, EOMI Neck: Supple, No Thyromegaly Lungs: Clear to Auscultation, Normal Air Movement Heart: Regular Rate, No Murmurs Abdomen: Normal Bowel Sounds, Soft, No Tenderness, No Masses Extremities: No Clubbing, No Cyanosis, No Edema Skin: No Rashes, No Breakdown, Other (pressure bandage of right heel in place) Neuro: Normal Speech, Cranial Nerves 3-12 NL, Other (Pt. has 3+ muscle strength and diffuse numbness in right arm and leg. 5+ strength and normal sensory exam left side) Psych/Mental Status: Mental Status NL, Mood NL Results Lab Laboratory Tests 07/20/22 11:27: Glucometer 108 07/20/22 15:55: Glucometer 132H 07/20/22 20:18: Glucometer 146H 07/21/22 04:57: White Blood Count 5.7, Red Blood Count 3.84, Hemoglobin 12.3, Hematocrit 37, Mean Corpuscular Volume 96, Mean Corpuscular Hemoglobin 32, Mean Corpuscular Hemoglobin Concent 33, Red Cell Distribution Width 12.7, Platelet Count 91L, Mean Platelet Volume 10.5, Immature Granulocyte % (Auto) 0, Neutrophils (%) (Auto) 67, Lymphocytes (%) (Auto) 23, Monocytes (%) (Auto) 9, Eosinophils (%) (Auto) 1, Basophils (%) (Auto) 0, Neutrophils # (Auto) 3.8, Lymphocytes # (Auto) 1.3, Monocytes # (Auto) 0.5, Eosinophils # (Auto) 0.0, Basophils # (Auto) 0.0, Immature Granulocyte # (Auto) 0.0, Percent Immature Platelet Fraction 5.5, Sodium Level 141, Potassium Level 3.5L, Chloride Level 109H, Carbon Dioxide Level 22, Anion Gap 10, Blood Urea Nitrogen 5L, Creatinine 0.52L, Estimat Glomerular Filtration Rate 103, BUN/Creatinine Ratio 10, Glucose Level 105, Calcium Level 8.4L, Corrected Calcium 9.0, Magnesium Level 1.7, Total Bilirubin 1.3H, Aspartate Amino Transf (AST/SGOT) 106H, Alanine Aminotransferase (ALT/SGPT) 57H, Alkaline Phosphatase 55, Total Protein 5.8L, Albumin 3.2 Microbiology 07/18/22 MRSA Screen - Final, Complete MRSA not isolated 07/18/22 Urine Culture - Final, Complete Escherichia coli Assessment/Plan Assessment/Plan Assess & Plan/Chief Complaint CVA w/ right sided weakness & aphasia -DAPT w/ Aspirin + Plavix. Atorvostatin 80mg PO QD initiated. -PT/OT today. Hopefully to rehab unit tomorrow. Alcohol withdrawal -CIWA protocol in place. Pt. appears to be tolerating well at this time. -Thiamine and folic acid replaced Acute Rhabdomyolysis -Appears improved. IVF and monitor Elevated troponin consistent with NSTEMI -Troponin on presentation of 1.408 --> 0.986 when repeated. Cardiology consulted. No intervention deemed necessary. HTN -Have been holding home meds to prevent hypoperfusion of recent CVA. -07/21- Careful management at this time with Cardiology recommendations appreciated. Currently receiving amlodipine 5mg PO QD and losartan 50mg PO QD. Clonidine .1mg PO PRN for SBP >170. DVT proph: Lovenox 40mg SC QD Diet: as tolerated Clinical Quality Measures Stroke: Symptoms onset unknown: Yes PEGGY WALL DO 07/22/22 0537: Subjective Time Seen by a Provider: 09:00 Supervisory-Addendum Brief Verification & Attestation Participated in pt care: history, MDM, physical Personally performed: exam, history, MDM, supervision of care Care discussed with: Medical Student Procedures: n/a Results interpretation: Verified all documentation Verification and Attestation of Medical Student E/M Service A medical student performed and documented this service in my presence. I reviewed and verified all information documented by the medical student and made modifications to such information, when appropriate. I personally performed the physical exam and medical decision making. Peggy Wall Jul 22, 2022,05:37 GEOVANI LEONARDO Jul 21, 2022 10:34 EPGGY WALL DO Jul 22, 2022 05:37
--- NOTE | 2022-07-21 10:55 | Occupational Therapy Eval ---
OT Evaluation-General/PLF Medical Diagnosis Admission Date Jul 18, 2022 at 15:51 Medical Diagnosis: CVA, Rhabdo, EtOH Withdrawl Onset Date: Jul 18, 2022 Therapy Diagnosis Therapy Diagnosis: decr self care, decr funct use R UE, R visual pbm, decr funct mob Precautions Precautions/Isolations: Fall Prevention, Standard Precautions Referral Physician: Dr. Abreu Medical History Pertinent Medical History: Alcoholism, COPD Additional Medical History Admitted after found after a fall. Abrasions R side Current History Catastrophic CVA, alcohol withdrawal, acute rhabdo, NSTEMI. UTI. R sided weakness and neglect. Hyperlipidemia. Reviewed History: Yes Social History Home: Single Level Current Living Status: Entry Into Home: Stairs With Railing Steps Into Home: 2 Family reported that current living situation is temporary and that they are looking for longer term solutions. ADL-Prior Level of Function SCALE: Activities may be completed with or without assistive devices. 9-Dbfbnbaaol-jrqkuuk completes the activity by him/herself with no assistance from a helper. 5-Set-up or Clean-up Assistance-helper sets up or cleans up; patient completes activity. Morris assists only prior to or following the activity. 4-Supervision or Touching Assistance-helper provides verbal cues and/or touching/steadying and/or contact guard assistance as patient completes activity. Assistance may be provided throughout the activity or intermittently. 3-Partial/Moderate Assistance-helper does LESS THAN HALF the effort. Morris lifts, holds or supports trunk or limbs, but provides less than half the effort. 2-Substantial/Maximal Assistance-helper does MORE THAN HALF the effort. Morris lifts or holds trunk or limbs and provides more than half the effort. 8-Ebiwgboqa-olevxn does ALL the effort. Patient does none of the effort to complete the activity. Or, the assistance of 2 or more helpers is required for the patient to complete the activity. If activity was not attempted, code reason: 7-Patient Refused. 9-Not Applicable-not attempted and the patient did not perform the activity before the current illness, exacerbation or injury. 10-Not Attempted due to Environmental Limitations-(lack of equipment, weather restraints, etc.). 88-Not Attempted due to Medical Conditions or Safety Concerns. ADL PLOF Comments Pt reported that she was previously able to manage all of her basic self care needs as well as cooking, cleaning, laundry, etc. She still drives and recently began working at [employer]. Self Care: Independent Functional Cognition: Independent OT Current Status Subjective Pt seen in room, up in bed with eye patch on, agreeable to OT. No pain reported. Appearance Alert, cooperative. Knows name, and where to look for current date. Mental Status/Objective Attachments: Barron Catheter, IV Current Glasses/Contacts: Yes (readers) Hearing Aids: No Dentures/Partials: Yes (uppers) Hand Dominance: Right Upper Extremity ROM L UE grossly WFL. R UE grossly WFL but decreased active movement at end ranges Upper Extremity Coordination Impaired R Upper Extremity Sensation Pt reported that she can't feel R UE. She clarified that she can feel some pain in elbow area where she has some skin tears. Decreased proprioception R UE. R visual field loss and neglect. Pt wearing eye patch for watching TV ADL-Treatment ADL-Current Pt reported that she fed herself with L UE, needing help cutting up food. Pt came in at 1032 and pt co-treated due to need for two skilled professions to manage UEs and self care. Pt transferred pt to chair using FWW. OT cleaned pt's bottom while she stood with PT. Dependent to don slipper sock R foot. Pt and family education on using R UE for activities, visually tracking it for use, supporting it on a pillow when up in recliner, taking eye patch off at times for eye function, with verbal understanding. Pt anticipates going to [facility] tomorrow. Pt left up in recliner with nursing assisting with care. Eating (QC): 5 (family report) Education OT Patient Education: Purpose of tx/functional activities, Rehab process Teaching Recipient: Patient, Family Teaching Methods: Discussion Response to Teaching: Verbalize Understanding, Reinforcement Needed OT Halfway Goals Halfway Goals Time Frame: Aug 01, 2022 Eating (QC): 6 Oral Hygiene (QC): 5 Toileting Hygiene (QC): 5 Shower/Bathe Self (QC): 5 Upper Body Dressing (QC): 5 Lower Body Dressing (QC): 5 On/Off Footwear (QC): 5 Additional Goals: 1-Demonstrate ADL Tasks, 2-Verbalize Understanding, 3- ImproveStrength/Ellen 1=Demonstrate adherence to instructed precautions during ADL tasks. 2=Patient will verbalize/demonstrate understanding of assistive devices/corey fications for ADL. 3=Patient will improve strength/tolerance for activity to enable patient to perform ADL's. OT Education/Plan Problem List/Assessment Assessment: Decreased Activ Tolerance, Dependent Transfers, Impaired Bed Mobility, Impaired Coordination, Impaired I ADL's, Impaired Self-Care Skills, Restricted Funct UE ROM Pt would benefit from skilled OT to increase her independence in basic self care and to allow her to safely return home with decreased home health care provider burden. Discharge Recommendations Plan/Recommendations: Continue POC Therapy Discharge Recommendati: Post Acute OT Treatment Plan/Plan of Care Treatment,Training & Education: Yes Patient would benefit from OT for education, treatment and training to promote independence in ADL's, mobility, safety and/or upper extremity function for ADL's. Plan of Care: ADL Retraining, Functional Mobility, UE Funct Exercise/Act, UE Neuromus Re-Ed/Coord Treatment Duration: Aug 01, 2022 Frequency: 3 times per week (3-5 times a week) Estimated Hrs Per Day: .5 hour per day Agreement: Yes Rehab Potential: Fair Time Start Time: 10:26 Stop Time: 10:45 DATE: Jul 21, 2022 Total Time Billed (hr/min): 19 Billed Treatment Time visit, 19 minutes evaluation high intensity ESTELA PATEL OT Jul 21, 2022 10:55
--- NOTE | 2022-07-21 11:11 | Physical Therapy Daily Note ---
PT Daily Note-Current Subjective Patient agrees to PT. Family present. Pain Section J - Health Conditions 1. Rarely or not at all 2. Occasionally 3. Frequently 4. Almost constantly 8. Unable to answer Pain Effect on Sleep: 1 Pain Interference with Therapy: 1 Pain Interference w/Day-to-Day: 1 Mental Status Patient Orientation: Person, Time, Situation Transfers SCALE: Activities may be completed with or without assistive devices. 4-Nduejdfzcf-jtvcqct completes the activity by him/herself with no assistance from a helper. 5-Set-up or Clean-up Assistance-helper sets up or cleans up; patient completes activity. Morley assists only prior to or following the activity. 4-Supervision or Touching Assistance-helper provides verbal cues and/or touching/steadying and/or contact guard assistance as patient completes activity. Assistance may be provided throughout the activity or intermittently. 3-Partial/Moderate Assistance-helper does LESS THAN HALF the effort. Morley lifts, holds or supports trunk or limbs, but provides less than half the effort. 2-Substantial/Maximal Assistance-helper does MORE THAN HALF the effort. Morley lifts or holds trunk or limbs and provides more than half the effort. 0-Gyctplsnm-roundt does ALL the effort. Patient does none of the effort to complete the activity. Or, the assistance of 2 or more helpers is required for the patient to complete the activity. If activity was not attempted, code reason: 7-Patient Refused. 9-Not Applicable-not attempted and the patient did not perform the activity before the current illness, exacerbation or injury. 10-Not Attempted due to Environmental Limitations-(lack of equipment, weather restraints, etc.). 88-Not Attempted due to Medical Conditions or Safety Concerns. Lying to Sitting/Side of Bed(Q: 4 Sit to Stand (QC): 3 Chair/Qoo-en-Vzaao Xfer(QC): 3 diminished proprioception right LE and UE with all mobility Weight Bearing Right Lower Extremity: Right Full Weight Bearing Left Lower Extremity: Left Full Weight Bearing Gait Training Distance: 5 steps Gait Assistive Device: FWW right LE lag due to weakness and diminished proprioception Exercises Seated Therapy Exercises: Long arc quads Seated Reps: 15 Assessment Patient is up in recliner with needs met. Patient continues to c/o double vision. Patient to transition to ARU this week per family. 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 Goals Time Frame: Aug 02, 2022 Roll Left & Right (QC): 4 Sit to Lying (QC): 4 Lying-Sitting on Side/Bed(QC): 4 Sit to Stand (QC): 4 Chair/Zzj-nm-Thvbt Xfer(QC): 4 Toilet Transfer (QC): 4 Does the Patient Walk: Yes Walk 10 feet (QC): 4 Walk 50ft with 2 Turns (QC): 3 Walk 150 ft (QC): 3 PT Plan Treatment/Plan Treatment Plan: Continue Plan of Care Treatment Plan: Bed Mobility, Education, Functional Activity Ellen, Functional Strength, Group Therapy, Gait, Safety, Therapeutic Exercise, Transfers Treatment Duration: Aug 02, 2022 Frequency: 6 times per week Estimated Hrs Per Day: .25 hour per day Patient and/or Family Agrees t: Yes Time Time In: 1032 Time Out: 1043 DATE: Jul 21, 2022 Total Billed Treatment Time: 11 Total Billed Treatment 1 visit FA 11 min JAN PAYNE PT Jul 21, 2022 11:11
[2022-07-21 11:58] VITALS: BP 136/74
--- NOTE | 2022-07-21 12:45 | Speech Therapy Progress Note ---
Therapy Progress Note Speech pathology received a consultation for a clinical bedside swallowing evaluation. Following a chart review, the patient "passed" the RN Dysphagia Screening and is currently receiving a regular consistency diet with thin liquids. Additionally, the physician's progress note from 07/20 reports the patient is "more oriented and able to find words of her choice." At this time, skilled speech pathology does not appear warranted. If skilled speech pathology skills are necessary, please place a specific consultation. Thank you. JAIR GLOVER Jul 21, 2022 12:45
[2022-07-21 16:52] VITALS: BP 133/84
[2022-07-21] MEDS: ENOXAPARIN 40 MG/0.4 ML (LOVENOX) SYR SC SCH (17:07)
[2022-07-21 20:00] VITALS: BP 170/62
[2022-07-21] MEDS: MELATONIN 3 MG TABLET PO PRN (20:12)
[2022-07-21] MEDS: NICOTINE 21 MG (NICODERM) PATCH TD SCH (20:13)
[2022-07-22] VITALS (7 sets, daily range): BP systolic 131–163; BP diastolic 77–92
[2022-07-22] MEDS: inSUlin ASPART (NovoLOG) 1 UNIT/0.01 ML (CHARGE PER UNIT) SC SCH ×4 (05:43→20:28)
[2022-07-22] MEDS: MULTIVIT W/MINERALS TAB (THERAGRAN M) PO SCH (06:02)
[2022-07-22 06:21] LABS: BASOPHILS % (AUTO) 0 % (0-10); EOSINOPHILS # (AUTO) 0.1 10^3/uL (0.0-0.3); EOSINOPHILS % (AUTO) 1 % (0-10); HEMATOCRIT 41 % (35-52); HEMOGLOBIN 13.8 g/dL (11.5-16.0); LYMPHOCYTES # (AUTO) 1.5 10^3/uL (1.0-4.0); LYMPHOCYTES % (AUTO) 22 % (12-44); MEAN CORPUSCULAR HEMOGLOBIN 32 pg (25-34); MEAN CORPUSCULAR HGB CONC 33 g/dL (32-36); MEAN CORPUSCULAR VOLUME 97 fL (80-99); MEAN PLATELET VOLUME 10.7 fL (9.0-12.2); MONOCYTES # (AUTO) 0.6 10^3/uL (0.0-1.0); MONOCYTES % (AUTO) 9 % (0-12); NEUTROPHILS # (AUTO) 4.5 10^3/uL (1.8-7.8); NEUTROPHILS % (AUTO) 68 % (42-75); PLATELET COUNT 103 10^3/uL (130-400); WHITE BLOOD COUNT 6.7 10^3/uL (4.3-11.0)
[2022-07-22 06:30] LABS: ALBUMIN 3.5 GM/DL (3.2-4.5); POTASSIUM 3.6 MMOL/L (3.6-5.0)
[2022-07-22 06:33] LABS: TOTAL PROTEIN 6.5 GM/DL (6.4-8.2)
[2022-07-22 06:34] LABS: BILIRUBIN,TOTAL 1.3 MG/DL (0.1-1.0)
[2022-07-22 06:36] LABS: CREATININE SERUM 0.55 MG/DL (0.60-1.30)
[2022-07-22 06:39] LABS: MAGNESIUM 1.8 MG/DL (1.6-2.4)
[2022-07-22] MEDS: RT-ALBUTEROL HFA 8.5 GM INHALER IH SCH ×2 (07:10→19:11)
--- NOTE | 2022-07-22 08:04 | Cardiology Progress Note ---
Subjective Date Seen by Provider: Jul 22, 2022 Time Seen by Provider: 08:03 Subjective/Events-last exam Patient was seen at bedside, laying down comfortably. Feeling better, breathing better today Review of Systems General: No Chills, No Night Sweats; Fatigue; No Malaise, No Appetite, No Other HEENT: No Head Aches, No Visual Changes, No Eye Pain, No Ear Pain, No Dy sphasia, No Sinus Congestion, No Post Nasal Drip, No Sore Throat, No Other Pulmonary: No Dyspnea, No Cough, No Pleuritic Chest Pain, No Other Cardiovascular: No: Chest Pain, Palpitations, Orthopnea, Paroxysmal Noc. Dyspnea, Edema, Lt Headedness, Other Objective-Cardiology Exam Last Set of Vital Signs Vital Signs 07/22/22 07/22/22 07:50 07:52 Temp 36.4 Pulse 80 Resp 20 B/P (MAP) 163/86 (111) Pulse Ox 95 O2 Delivery Room Air O2 Flow Rate 0.00 I&O Intake and Output 07/22/22 00:00 Intake Total 1700 ml Output Total 2450 ml Balance -750 ml Intake Oral 1700 ml Output Urine Total 2450 ml # Voids 1 General: Alert, Oriented X3, No Acute Distress HEENT: Atraumatic, PERRLA, EOMI Neck: Supple, No Thyromegaly Lungs: Clear to Auscultation, Normal Air Movement Heart: Regular Rate, No Murmurs Abdomen: Normal Bowel Sounds, Soft, No Tenderness, No Masses Extremities: No Clubbing, No Cyanosis, No Edema Skin: No Rashes, No Breakdown, Other (pressure bandage of right heel in place) Neuro: Normal Speech, Cranial Nerves 3-12 NL, Other (Pt. has 3+ muscle strength and diffuse numbness in right arm and leg. 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 Receiving physical therapy. Management per medical service. Elevated troponin, non-ST elevation myocardial infarction. No acute EKG changes. Troponin is trending down. Continue to monitor, conservative management is recommended I am planning to evaluate stress test as an outpatient in 2 weeks 2D echo was done on July 19, 2022 which showing normal left ventricular size with ejection fraction 60 to 65%, grade 1 diastolic dysfunction, mild mitral regurgitation, PA pressure 40 to 45 mmHg. No shunt was detected by using contrast Hypertension, recommend keeping blood pressure mildly elevated to improve the perfusion pressure I will increase losartan to 50 mg daily, continue on amlodipine 5 mg daily and monitor tolerance and response Lipid profile was done on July 19, 2022 and it was normal. Multiple bruises which trauma to the knee. Moderate elevation in CPK. Continue with IV fluid and monitor Tobaccoism, advised to stop smoking Alcoholism. Patient reported that she drinks wine over the weekend REMEDIOS COHEN MD Jul 22, 2022 08:04
[2022-07-22] MEDS: NICOTINE 21 MG (NICODERM) PATCH TD SCH (08:32)
[2022-07-22] MEDS: ASPIRIN E.C. 81 MG (ECOTRIN) TAB PO SCH (08:32)
[2022-07-22] MEDS: FOLIC ACID 1 MG TAB PO SCH (08:32)
[2022-07-22] MEDS: amLODIPine 5 MG (NORVASC) TAB PO SCH (08:32)
[2022-07-22] MEDS: CLOPIDOGREL 75 MG (PLAVIX) TABLET PO SCH (08:32)
[2022-07-22] MEDS: LOSARTAN 100 MG (COZAAR) TABLET PO SCH (08:32)
[2022-07-22] MEDS: SENNOSIDES 8.6 MG (SENOKOT) TAB PO SCH ×2 (08:32→20:34)
[2022-07-22] MEDS: DOCUSATE SODIUM 100 MG (COLACE) CAP PO SCH ×2 (08:32→20:34)
[2022-07-22] MEDS: NICOTINE PATCH REMOVAL TP SCH (08:35)
--- NOTE | 2022-07-22 09:19 | Progress Note ---
Subjective Subjective/Events-last exam Pt states she is feeling "half here", feels like half her body is numb, right side. She slept well last night. Denies any pain at rest. Objective Exam Last Set of Vital Signs Vital Signs Date Time Temp Pulse Resp B/P (MAP) Pulse Ox O2 Delivery O2 Flow Rate FiO2 07/22/22 07:52 95 Room Air 0.00 07/22/22 07:50 36.4 80 20 163/86 (111) Capillary Refill : Less Than 3 Seconds I&O Intake and Output 07/22/22 00:00 Intake Total 1700 ml Output Total 2450 ml Balance -750 ml Intake Oral 1700 ml Output Urine Total 2450 ml # Voids 1 General: Alert, No Acute Distress Lungs: Clear to Auscultation, Normal Air Movement Heart: Regular Rate, No Murmurs Neuro: Normal Speech, Other (able to raise both arms (but then asks of her ri ght arm- "where is it" when it is raised). 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, 4/5 strength right foot dorsiflexion) Psych/Mental Status: Mental Status NL, Mood NL Results/Procedures Lab Laboratory Tests 07/21/22 11:25: Glucometer 113H 07/21/22 16:37: Glucometer 105 07/21/22 19:51: Glucometer 127H 07/22/22 05:42: Glucometer 106 07/22/22 06:13: White Blood Count 6.7, Red Blood Count 4.26, Hemoglobin 13.8, Hematocrit 41, Mean Corpuscular Volume 97, Mean Corpuscular Hemoglobin 32, Mean Corpuscular Hemoglobin Concent 33, Red Cell Distribution Width 12.8, Platelet Count 103L, Mean Platelet Volume 10.7, Immature Granulocyte % (Auto) 0, Neutrophils (%) (Auto) 68, Lymphocytes (%) (Auto) 22, Monocytes (%) (Auto) 9, Eosinophils (%) (Auto) 1, Basophils (%) (Auto) 0, Neutrophils # (Auto) 4.5, Lymphocytes # (Auto) 1.5, Monocytes # (Auto) 0.6, Eosinophils # (Auto) 0.1, Basophils # (Auto) 0.0, Immature Granulocyte # (Auto) 0.0, Percent Immature Platelet Fraction 6.0, Sodium Level 139, Potassium Level 3.6, Chloride Level 107, Carbon Dioxide Level 21, Anion Gap 11, Blood Urea Nitrogen 7, Creatinine 0.55L, Estimat Glomerular Filtration Rate 102, BUN/Creatinine Ratio 13, Glucose Level 100, Calcium Level 9.0, Corrected Calcium 9.4, Magnesium Level 1.8, Total Bilirubin 1.3H, Aspartate Amino Transf (AST/SGOT) 98H, Alanine Aminotransferase (ALT/SGPT) 76H, Alkaline Phosphatase 62, Total Protein 6.5, Albumin 3.5 Microbiology 07/18/22 MRSA Screen - Final, Complete MRSA not isolated 07/18/22 Urine Culture - Final, Complete Escherichia coli Assessment/Plan Assessment/Plan (1) Acute ischemic multifocal posterior circulation stroke involving left-sided vessel Status: Acute Assessment & Plan: Right sided weakness. Unknown time of onset as she was confused and drinking for some time prior to admission. PT/OT/ST. Plan to go to IRF tomorrow. On asa and clopidogrel and high intensity statin. Cardiology following. Carotid US without hemodynamically significant stenosis. (2) Elevated troponin Status: Acute Assessment & Plan: Cardiology consulted, suspect NSTEMI, troponin trending down, on ASA, Plavix and statin, plan stress test in 2 weeks. (3) Non-ST elevated myocardial infarction Status: Acute (4) Hypertension Status: Chronic Assessment & Plan: Systolic 150-160 last 24 hours, is 4 days out from initial diagnosis of stroke. Losartan increased to 100 mg 07/22 per Cardiology, continued on amlodipine 5 mg. (5) MDD (major depressive disorder) Status: Chronic (6) COPD (chronic obstructive pulmonary disease) Status: Chronic (7) PTSD (post-traumatic stress disorder) Status: Chronic (8) WENDY (generalized anxiety disorder) Status: Chronic (9) Chronic alcoholism Status: Acute Assessment & Plan: Alcohol withdrawal protocol initiated on admit. Has received 1 mg IV lorazepam on 07/18. Last CIWA score 1 on 07/20 am. (10) Elevated liver enzymes Status: Acute Assessment & Plan: Pt denies knowledge of previous elevation or whether she has been checked for hepatitis. Clinic chart review shows slight AST/ALT elevation for some time, hepatitis panel was ordered recently but not yet completed. Check for chronic Hep B and Hep C. (11) Bacteriuria Status: Acute Assessment & Plan: E coli in urine, received one dose of ceftriaxone, not thought to reprsent true infection per [facility] physician. No signs of complication without further antibiotics. (12) DVT prophylaxis Status: Acute Assessment & Plan: Enoxaparin Clinical Quality Measures Stroke: Symptoms onset unknown: Yes FERNANDO ORTIZ MD Jul 22, 2022 09:19
--- NOTE | 2022-07-22 10:43 | Physical Therapy Daily Note ---
PT Daily Note-Current Subjective Patient agrees to PT. She continues to state she can't feel her right UE or LE. Pain Section J - Health Conditions 1. Rarely or not at all 2. Occasionally 3. Frequently 4. Almost constantly 8. Unable to answer Pain Effect on Sleep: 1 Pain Interference with Therapy: 1 Pain Interference w/Day-to-Day: 1 Mental Status Patient Orientation: Person, Time, Situation Transfers SCALE: Activities may be completed with or without assistive devices. 4-Rizduljbdp-fzscjnm completes the activity by him/herself with no assistance from a helper. 5-Set-up or Clean-up Assistance-helper sets up or cleans up; patient completes activity. [place] assists only prior to or following the activity. 4-Supervision or Touching Assistance-helper provides verbal cues and/or touching/steadying and/or contact guard assistance as patient completes activity. Assistance may be provided throughout the activity or intermittently. 3-Partial/Moderate Assistance-helper does LESS THAN HALF the effort. [place] lifts, holds or supports trunk or limbs, but provides less than half the effort. 2-Substantial/Maximal Assistance-helper does MORE THAN HALF the effort. [place] lifts or holds trunk or limbs and provides more than half the effort. 3-Wrgmjfpcn-cxeucc does ALL the effort. Patient does none of the effort to complete the activity. Or, the assistance of 2 or more helpers is required for the patient to complete the activity. If activity was not attempted, code reason: 7-Patient Refused. 9-Not Applicable-not attempted and the patient did not perform the activity before the current illness, exacerbation or injury. 10-Not Attempted due to Environmental Limitations-(lack of equipment, weather restraints, etc.). 88-Not Attempted due to Medical Conditions or Safety Concerns. Sit to Stand (QC): 3 Chair/Grw-ej-Sqdci Xfer(QC): 3 (impulsive to sit without reaching back for arm rest to lower self. Mod assist) Weight Bearing Right Lower Extremity: Right Full Weight Bearing Left Lower Extremity: Left Full Weight Bearing Gait Training Distance: 50' Walk 10 feet (QC): 3 Walk 50 ft with 2 Turns(QC): 3 (mod assist with VC's for right LE advancement (severely diminished proprioception)) Gait Assistive Device: FWW PT did hand over hand on right side for patient to utilize FWW for gait training. Patient has diminished proprioception right LE. Exercises Supine Ex: Ankle pumps, Quad Set, Heel Slides, Straight leg raise Supine Reps: 15 (in recliner with VC's to control right LE) Seated Therapy Exercises: Long arc quads Seated Reps: 15 Assessment Patient fatigues with activity and remains up in recliner with chair alarm activated. Patient is progressing with treatment plan and continues to have diminished safety awareness. PT to increase activity as tolerated by patient. 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 Time Frame: Aug 02, 2022 Roll Left & Right (QC): 4 Sit to Lying (QC): 4 Lying-Sitting on Side/Bed(QC): 4 Sit to Stand (QC): 4 Chair/Ewy-va-Taoul Xfer(QC): 4 Toilet Transfer (QC): 4 Does the Patient Walk: Yes Walk 10 feet (QC): 4 Walk 50ft with 2 Turns (QC): 3 Walk 150 ft (QC): 3 PT Plan Treatment/Plan Treatment Plan: Continue Plan of Care Treatment Plan: Bed Mobility, Education, Functional Activity Ellen, Functional Strength, Group Therapy, Gait, Safety, Therapeutic Exercise, Transfers Treatment Duration: Aug 02, 2022 Frequency: 6 times per week Estimated Hrs Per Day: .25 hour per day Patient and/or Family Agrees t: Yes Time Time In: 955 Time Out: 1018 DATE: Jul 22, 2022 Total Billed Treatment Time: 23 Total Billed Treatment 1 visit EX 8 min GT 15 min JAN PAYNE PT Jul 22, 2022 10:43
--- NOTE | 2022-07-22 11:48 | Occupational Ther Daily Note ---
OT Current Status-Daily Note Subjective Up in recliner w/ blanket watching tv., Agreeable to OT Pain Numeric Pain Scale: 4 Location: Right Location Body Site: Hand Pain Description: Burning, Sharp Comment: spontaneous pain Mental Status/Objective Patient Orientation: Person, Place, Time, Situation ADL-Treatment Set up for meal, opened container lids, meal positioned midline on tray and visional cues around the clock to locate servings, toileting w/ transfer/hygiene and LB garment management performed w/ OT assisting on right side of body while standing Mod Assist Therapy Code Descriptions/Definitions Functional [place] Measure: 0=Not Assessed/NA 4=Minimal Assistance 1=Total Assistance 5=Supervision or Setup 2=Maximal Assistance 6=Modified [place] 3=Moderate Assistance 7=Complete IndependenceSCALE: Activities may be completed with or without assistive devices. 6-Mknthxvmsr-ewlzllp completes the activity by him/herself with no assistance from a helper. 5-Set-up or Clean-up Assistance-helper sets up or cleans up; patient completes activity. [place] assists only prior to or following the activity. 4-Supervision or Touching Assistance-helper provides verbal cues and/or t ouching/steadying and/or contact guard assistance as patient completes activity. Assistance may be provided throughout the activity or intermittently. 3-Partial/Moderate Assistance-helper does LESS THAN HALF the effort. [place] lifts, holds or supports trunk or limbs, but provides less than half the effort. 2-Substantial/Maximal Assistance-helper does MORE THAN HALF the effort. [place] lifts or holds trunk or limbs and provides more than half the effort. 9-Wwiabqbcg-xtrqfo does ALL the effort. Patient does none of the effort to complete the activity. Or, the assistance of 2 or more helpers is required for the patient to complete the activity. If activity was not attempted, code reason: 7-Patient Refused. 9-Not Applicable-not attempted and the patient did not perform the activity before the current illness, exacerbation or injury. 10-Not Attempted due to Environmental Limitations-(lack of equipment, weather restraints, etc.). 88-Not Attempted due to Medical Conditions or Safety Concerns. Eating (QC): 5 Oral Hygiene (QC): 4 (impiared hand/eye and FMC/GMC) Shower/Bathe Self (QC): 7 Upper Body Dressing (QC): 2 Lower Body Dressing (QC): 2 On/Off Footwear: 3 Toileting Hygiene (QC): 4 (while sitting on BSC, use of Left non dom. hand) Toilet Transfer (QC): 3 Other Treatment Restricted Left UE to perform RUE functional GMC/FMC tasks, visual therapy to depth perception changes to locate distance objects of white board and close objects on tray, cross midline, 3 sets include patch on Right eye, left eye and then use of both eyes.education for proprioception and sensation, edema control and limb alert Education OT Patient Education: Correct positioning, Exercise program, Modified ADL techniques, Progress toward Goal/Update tx plan, Purpose of tx/functional activities, Reviewed precautions, Rehab process, Safety issues, Transfer techniques Teaching Recipient: Patient Teaching Methods: Demonstration, Discussion Response to Teaching: Reinforcement Needed OT 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 2=Patient will verbalize/demonstrate understanding of assistive devices/modifications for ADL. 3=Patient will improve strength/tolerance for activity to enable patient to perform ADL's. OT Education/Plan Problem List/Assessment Assessment: Decreased Activ Tolerance, Decreased Safety Aware, Decreased UE Strength, Impaired Coordination, Impaired Funct Balance, Impaired Self-Care Skills Pt would benefit from skilled OT to increase her independence in basic self care and to allow her to safely return home with decreased palliative care nurse burden. Discharge Recommendations Plan/Recommendations: Continue POC Treatment Plan/Plan of Care Patient would benefit from OT for education, treatment and training to promote independence in ADL's, mobility, safety and/or upper extremity function for ADL's. Plan of Care: ADL Retraining, Functional Mobility, UE Funct Exercise/Act, UE Neuromus Re-Ed/Coord Treatment Duration: Aug 01, 2022 Frequency: 3 times per week (3-5 times a week) Estimated Hrs Per Day: .5 hour per day Agreement: Yes Rehab Potential: Fair Set up for meal, All needs met, call light in lap Time Start Time: 11:15 Stop Time: 11:59 DATE: Jul 22, 2022 Total Time Billed (hr/min): 44 Billed Treatment Time ADL 1, EX 2 44 min DEVANG SENA OT Jul 22, 2022 11:48
[2022-07-22] MEDS ORDERED: AMLO-250 PO (12:47)
[2022-07-22] MEDS ORDERED: ASPI-1238 PO (12:47)
[2022-07-22] MEDS ORDERED: CLOP75TA28 PO (12:47)
[2022-07-22] MEDS ORDERED: LOSA100T57 PO (12:47)
[2022-07-22] MEDS ORDERED: ATOR80TA76 PO (12:47)
[2022-07-22] MEDS: ENOXAPARIN 40 MG/0.4 ML (LOVENOX) SYR SC SCH (16:26)
[2022-07-22 21:17] LABS: HEPATITIS C ANTIBODY C Non-Reactive (Non-Reactive)
[2022-07-23 03:21] VITALS: BP 130/74
[2022-07-23 05:42] LABS: BASOPHILS % (AUTO) 0 % (0-10); EOSINOPHILS # (AUTO) 0.1 10^3/uL (0.0-0.3); EOSINOPHILS % (AUTO) 2 % (0-10); HEMATOCRIT 39 % (35-52); HEMOGLOBIN 13.1 g/dL (11.5-16.0); LYMPHOCYTES # (AUTO) 1.3 10^3/uL (1.0-4.0); LYMPHOCYTES % (AUTO) 21 % (12-44); MEAN CORPUSCULAR HEMOGLOBIN 32 pg (25-34); MEAN CORPUSCULAR HGB CONC 33 g/dL (32-36); MEAN CORPUSCULAR VOLUME 97 fL (80-99); MEAN PLATELET VOLUME 10.6 fL (9.0-12.2); MONOCYTES # (AUTO) 0.6 10^3/uL (0.0-1.0); MONOCYTES % (AUTO) 10 % (0-12); NEUTROPHILS # (AUTO) 4.2 10^3/uL (1.8-7.8); NEUTROPHILS % (AUTO) 67 % (42-75); PLATELET COUNT 98 10^3/uL (130-400); WHITE BLOOD COUNT 6.2 10^3/uL (4.3-11.0)
[2022-07-23 05:48] VITALS: BP 130/74
[2022-07-23 06:04] LABS: ALBUMIN 3.1 GM/DL (3.2-4.5); BILIRUBIN,TOTAL 1.1 MG/DL (0.1-1.0); CALCIUM 8.8 MG/DL (8.5-10.1); CREATININE SERUM 0.57 MG/DL (0.60-1.30); MAGNESIUM 1.8 MG/DL (1.6-2.4); POTASSIUM 3.9 MMOL/L (3.6-5.0); TOTAL PROTEIN 5.8 GM/DL (6.4-8.2)
[2022-07-23] MEDS: inSUlin ASPART (NovoLOG) 1 UNIT/0.01 ML (CHARGE PER UNIT) SC SCH (06:07)
[2022-07-23] MEDS: MULTIVIT W/MINERALS TAB (THERAGRAN M) PO SCH (06:26)
[2022-07-23] MEDS: RT-ALBUTEROL HFA 8.5 GM INHALER IH SCH (07:40)
[2022-07-23] MEDS: NICOTINE PATCH REMOVAL TP SCH (08:24)
[2022-07-23] MEDS: NICOTINE 21 MG (NICODERM) PATCH TD SCH (08:25)
[2022-07-23] MEDS: CLOPIDOGREL 75 MG (PLAVIX) TABLET PO SCH (08:25)
[2022-07-23] MEDS: ASPIRIN E.C. 81 MG (ECOTRIN) TAB PO SCH (08:25)
[2022-07-23] MEDS: SENNOSIDES 8.6 MG (SENOKOT) TAB PO SCH (08:25)
[2022-07-23] MEDS: FOLIC ACID 1 MG TAB PO SCH (08:25)
[2022-07-23] MEDS: DOCUSATE SODIUM 100 MG (COLACE) CAP PO SCH (08:27)
[2022-07-23] MEDS: amLODIPine 5 MG (NORVASC) TAB PO SCH (08:27)
[2022-07-23] MEDS: LOSARTAN 100 MG (COZAAR) TABLET PO SCH (08:27)
--- NOTE | 2022-07-23 08:34 | Cardiology Progress Note ---
Subjective Date Seen by Provider: Jul 23, 2022 Time Seen by Provider: 08:29 Subjective/Events-last exam Patient up doing ADLs. Denies any chest pain or dyspnea. Objective-Cardiology Exam Last Set of Vital Signs Vital Signs 07/23/22 07/23/22 05:48 10:24 Temp 36.9 Pulse 68 Resp 18 B/P (MAP) 148/93 Pulse Ox 97 O2 Delivery Room Air O2 Flow Rate 0.00 FiO2 21 I&O Intake and Output 07/23/22 00:00 Intake Total 1640 ml Output Total 550 ml Balance 1090 ml Intake Oral 1640 ml Output Urine Total 550 ml # Voids 6 # Bowel Movements 1 General: Alert, No Acute Distress HEENT: Atraumatic, PERRLA, EOMI Neck: Supple, No Thyromegaly Lungs: Clear to Auscultation, Normal Air Movement Heart: Regular Rate, No Murmurs Abdomen: Normal Bowel Sounds, Soft, No Tenderness, No Masses Extremities: No Clubbing, No Cyanosis, No Edema Skin: No Rashes, No Breakdown, Other (pressure bandage of right heel in place) Neuro: Normal Speech, Other (able to raise both arms (but then asks of her right arm- "where is it" when it is raised). 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 Still having aphasia and right hemiplegia. Receiving physical therapy. Management per medical service. Elevated troponin, non-ST elevation myocardial infarction. No acute EKG changes. Troponin is trending down. Continue to monitor, conservative management is recommended I am planning to evaluate stress test as an outpatient in 2 weeks 2D echo was done on July 19, 2022 which showing normal left ventricular size with ejection fraction 60 to 65%, grade 1 diastolic dysfunction, mild mitral regurgitation, PA pressure 40 to 45 mmHg. No shunt was detected by using contrast Hypertension, recommend keeping blood pressure mildly elevated to improve the perfusion pressure Currently on losartan 100mg, amlodipine 5mg Lipid profile was done on July 19, 2022 and it was normal. Multiple bruises which trauma to the knee. Moderate elevation in CPK. Continue with IV fluid and monitor Tobaccoism, advised to stop smoking Alcoholism. Patient reported that she drinks wine over the weekend Supervisory-Addendum Brief Supervisory Addendum Participated in pt care: history, MDM, physical Personally performed: exam, history, MDM Care discussed with: MARK Results interpretation: Verified all documentation Notes: Patient was seen and evaluated with Geoff, examination performed, management plan was discussed, agree with the current scribed note, I made few changes to the note using Italic font Patient was seen at bedside, feeling better, some improvement in muscle strength. We will continue to monitor on telemetry and consider loop monitor implantation as an outpatient GEOFF VINES Jul 23, 2022 08:34 REMEDIOS COHEN MD Jul 23, 2022 15:01
[2022-07-23 08:36] VITALS: BP 148/93
--- NOTE | 2022-07-23 08:59 | Discharge Summary ---
Discharge Summary Hospital Course Problems/Diagnosis: (1) Acute ischemic multifocal posterior circulation stroke involving left-sided vessel Status: Acute Assessment & Plan: Right sided weakness. Unknown time of onset as she was confused and drinking for some time prior to admission. On asa and clopidogrel and high intensity statin. Cardiology followed throughout. Carotid US without hemodynamically significant stenosis. Discharged to IRF. (2) Elevated troponin Status: Acute Assessment & Plan: Cardiology consulted, suspect NSTEMI, troponin trending down, on ASA, Plavix and statin, plan stress test in 2 weeks. (3) Non-ST elevated myocardial infarction Status: Acute (4) Hypertension Status: Chronic Assessment & Plan: Losartan increased to 100 mg 07/22 per Cardiology, continued on amlodipine 5 mg. (5) MDD (major depressive disorder) Status: Chronic (6) COPD (chronic obstructive pulmonary disease) Status: Chronic (7) PTSD (post-traumatic stress disorder) Status: Chronic (8) WENDY (generalized anxiety disorder) Status: Chronic (9) Chronic alcoholism Status: Acute Assessment & Plan: Alcohol withdrawal protocol initiated on admit. Has received 1 mg IV lorazepam on 07/18. Last CIWA score 1 on 07/20 am. (10) Elevated liver enzymes Status: Acute Assessment & Plan: Pt denies knowledge of previous elevation or whether she has been checked for hepatitis. Clinic chart review shows slight AST/ALT elevation for some time, hepatitis panel was ordered recently but not yet completed. Hep B surface antigen and Hep C ab negative. (11) Bacteriuria Status: Acute Assessment & Plan: E coli in urine, received one dose of ceftriaxone, not thought to reprsent true infection per [facility] ICU physician. No signs of complication without further antibiotics. Hospital Course Date of Admission: Jul 18, 2022 at 15:51 Admission Diagnosis : Family Physician/Provider: No,Local Physician Date of Discharge: 07/23/22 Discharge Diagnosis: See problem list Hospital Course: See problem list Labs and Pending Lab Test: Laboratory Tests 07/22/22 11:42: Glucometer 107 07/22/22 12:50: Hepatitis B Surface Antigen Non-Reactive, Hepatitis C Antibody Non-Reactive 07/22/22 15:41: Glucometer 109 07/22/22 20:07: Glucometer 139H 07/23/22 05:22: White Blood Count 6.2, Red Blood Count 4.05, Hemoglobin 13.1, Hematocrit 39, Mean Corpuscular Volume 97, Mean Corpuscular Hemoglobin 32, Mean Corpuscular Hemoglobin Concent 33, Red Cell Distribution Width 12.7, Platelet Count 98L, Mean Platelet Volume 10.6, Immature Granulocyte % (Auto) 0, Neutrophils (%) (Auto) 67, Lymphocytes (%) (Auto) 21, Monocytes (%) (Auto) 10, Eosinophils (%) (Auto) 2, Basophils (%) (Auto) 0, Neutrophils # (Auto) 4.2, Lymphocytes # (Auto) 1.3, Monocytes # (Auto) 0.6, Eosinophils # (Auto) 0.1, Basophils # (Auto) 0.0, Immature Granulocyte # (Auto) 0.0, Sodium Level 142, Potassium Level 3.9, Chloride Level 107, Carbon Dioxide Level 24, Anion Gap 11, Blood Urea Nitrogen 7, Creatinine 0.57L, Estimat Glomerular Filtration Rate 101, BUN/Creatinine Ratio 12, Glucose Level 105, Calcium Level 8.8, Corrected Calcium 9.5, Magnesium Level 1.8, Total Bilirubin 1.1H, Aspartate Amino Transf (AST/SGOT) 79H, Alanine Aminotransferase (ALT/SGPT) 74H, Alkaline Phosphatase 58, Total Protein 5.8L, Albumin 3.1L Microbiology 07/18/22 MRSA Screen - Final, Complete MRSA not isolated 07/18/22 Urine Culture - Final, Complete Escherichia coli Home Meds Active Losartan Potassium 100 Mg Tablet 100 Mg PO DAILY Amlodipine Besylate 5 Mg Tablet 5 Mg PO DAILY Atorvastatin Calcium 80 Mg Tablet 80 Mg PO DAILY Clopidogrel (Clopidogrel Bisulfate) 75 Mg Tablet 75 Mg PO DAILY Aspirin EC (Aspirin) 81 Mg Tablet.dr 81 Mg PO DAILY Reported Ventolin Hfa (Albuterol Sulfate) 1 Puff Puff 2 Puff INH Q4H PRN Hydroxyzine HCl 25 Mg Tablet 25-50 Mg PO HS TAKES 1 TO 2 (25MG) TABS Assessment/Pt DC Instructions Follow up with primary provider after d/c from IRF. Discharge Diet: Cardiac Diet Activity as Tolerated: Yes Discharge Physical Examination Allergies: Coded Allergies: codeine (Verified Allergy, Unknown, 07/18/22) cyclobenzaprine (Verified Allergy, Unknown, 07/18/22) General Appearance: No Apparent Distress Respiratory: Lungs Clear Cardiovascular: Regular Rate, Rhythm, No Murmur Gastrointestinal: Normal Bowel Sounds, Non Tender Neurologic/Psychiatric: Alert, Other (states right side is numb, able to lift right arm above shoulder level and right leg slightly off chair) Clinical Quality Measures Stroke: Symptoms onset unknown: Yes FERNANDO ORTIZ MD Jul 23, 2022 08:59
[2022-07-23 10:24] VITALS: BP 148/93
== END 2022-07-23 10:36 | DRG 64 ==
LOC: EDUNIT# 12:26 → ER 12:29 → ICU 15:51 → 4TH 07-20 11:11
PROVIDERS: ADMIT Internal Medicine; ATTEND Family Medicine
DX: I63.532 Cerebral infarction due to unspecified occlusion or stenosis of left posterior cerebral artery (principal); I21.4 Non-ST elevation (NSTEMI) myocardial infarction; N39.0 Urinary tract infection, site not specified; M62.82 Rhabdomyolysis; G81.91 Hemiplegia, unspecified affecting right dominant side; F10.239 Alcohol dependence with withdrawal, unspecified; R29.705 NIHSS score 5; F17.210 Nicotine dependence, cigarettes, uncomplicated; J44.9 Chronic obstructive pulmonary disease, unspecified; E78.00 Pure hypercholesterolemia, unspecified; I10 Essential (primary) hypertension; R13.0 Aphagia
CPT/HCPCS: 36415; 51702; 70450; 70496; 70498; 71045; 80053; 80061; 80306; 80320; 80329; 81000; 82550; 82947; 83735; 84100; 84484; 85007; 85025; 85027; 85379; 85610; 85730; 86803; 87077; 87081; 87088; 87186; 87340; 90715; 93005; 93041; 93306; 93880; 94640; 94664; 94760

== ENCOUNTER 2022-07-23 10:45 | Inpatient (IN) | payer MEDICARE ==
[~2022-07-23] VITALS: Ht 165.1 cm; Wt 80.0 kg
--- NOTE | 2022-07-23 10:07 | PM&R Post Admission Assessment ---
PM&R HP Date of Visit: Jul 23, 2022 Time of Visit: 11:00 History of Present Illness CC: Debility post CVA w/ right sided defecits. HPI: Patient is a 67 year old female with history of COPD, Hyperlipidemia, hypertension, and alcoholism who was recently moved to the [facility] rehab unit following a stay in-patient from 07/18-/07/23 following a CVA leaving her with residual right sided deficits including weakness and numbness. She did also have elevated troponin consistent with NSTEMI for which plavix, ASA, and statin was initiated. SHe also had bacteriuria for which she was treated with a one time dose ceftriaxone. Her vitals and labs are stable at time of admission and patient has no complaints other than residual weakness and numbness affecting her right upper and lower extremity. Med: Home Meds Active Aspirin EC (Aspirin) 81 Mg Tablet.dr 81 Mg PO DAILY Losartan Potassium 100 Mg Tablet 100 Mg PO DAILY Amlodipine Besylate 5 Mg Tablet 5 Mg PO DAILY Atorvastatin Calcium 80 Mg Tablet 80 Mg PO DAILY Clopidogrel (Clopidogrel Bisulfate) 75 Mg Tablet 75 Mg PO DAILY Reported Ventolin Hfa (Albuterol Sulfate) 1 Puff Puff 2 Puff INH Q4H PRN Hydroxyzine HCl 25 Mg Tablet 25-50 Mg PO HS TAKES 1 TO 2 (25MG) TABS All: Codeine, cyclobenzaprine PMH: COPD, Hyperlipidemia, Hypertension, Alcoholism, CVA w/ right sided defecits PSH: Hernia repair, tubal ligations, breast implants FH:No pertinent family history SH:Daily smoker, Daily alcohol use, intermittent marijuana use. Retired. ROS: (+) Weakness/numbness affecting right upper and lower extremity. (-) headache, LH, dizziness, CP, palpitations, SOB, abd pain. O Temp: 36.2 Pulse: 79 RR: 18 BP 122/77 Pulse Ox: 92% RA General: A/O x 3, No acute distress HEENT: PERRLA, EOMI Neck: Supply, no thyromegally Lungs: Clear to auscultation bilaterally, no wheezes, rhales, or rhonchi Heart: RRR, no murmurs Abd: Soft, nontender, nondistended. Normoactive bowel sounds. Extremeties: 4+ strength right arm and leg. 5+ left arm and leg. Gauze wrap in place on right elbow/forearm & knee with some serosanguinous drainage present. Skin: Some bruising on right arm and leg, Warm & Dry Neuro: Normal speech, no confusion, Diffuse numbness effecting right upper and lower extremities. Psych/Mental Status: Normal mood A CVA w/ right sided defecits Alcoholism Elevated troponin consistent with NSTEMI HTN Hyperlipidemia COPD PTSD WENDY Bacteriuria P PT/OT for rehabilitation ASA, Plavix, and Statin for recent NSTEMI. stress test recommended in 2 weeks. Continue home meds for chronic conditions. Pain control DVT Proph: Lovenox Diet: as tolerated GEOVANI LEONARDO Past Vknqhll-Btmfrb-Fbehxe Hx Past Med/Social Hx: Reviewed Nursing Past Med/Soc Hx, Reviewed and Corrections made Patient Social History Marrital Status: single Employed/Student: unemployed Alcohol Use: Regular Use Smoking Status: Current Everyday Smoker Past Medical History Cardiac: High Cholesterol, Hypertension Neurological: Stroke Family History No Pertinent Family Hx PM&R Allergy/Meds/Data Review Allergies Coded Allergies: codeine (Verified Allergy, Unknown, 07/18/22) cyclobenzaprine (Verified Allergy, Unknown, 07/18/22) Home Medications Scheduled Amlodipine Besylate (Amlodipine Besylate), 5 MG PO DAILY Aspirin (Aspirin EC), 81 MG PO DAILY Atorvastatin Calcium (Atorvastatin Calcium), 80 MG PO DAILY Clopidogrel Bisulfate (Clopidogrel), 75 MG PO DAILY Hydroxyzine HCl (Hydroxyzine HCl), 25-50 MG PO HS, (Reported) Losartan Potassium (Losartan Potassium), 100 MG PO DAILY Scheduled PRN Albuterol Sulfate (Ventolin Hfa), 2 PUFF INH Q4H PRN for SHORTNESS OF BREATH, (Reported) Current Medications Current Medications Reviewed Review of Systems Constitutional: see HPI, malaise, weakness EENTM: no symptoms reported Respiratory: no symptoms reported Cardiovascular: no symptoms reported Gastrointestinal: no symptoms reported Genitourinary: no symptoms reported Musculoskeletal: back pain, joint pain Skin: no symptoms reported Psychiatric/Neurological: Anxiety, Depressed, Weakness All Other Systems Reviewed Negative Unless Noted: Yes Physical Exam Physical Exam Vital Signs Capillary Refill : Height, Weight, BMI Height: '" Weight: lbs. oz. kg; 29.90 BMI Method: General Appearance: No Apparent Distress, WD/WN, Chronically ill Eyes: Bilateral Eye Normal Inspection, Bilateral Eye PERRL HEENT: PERRL/EOMI, Normal ENT Inspection, Pharynx Normal Neck: Full Range of Motion, Normal Inspection, Non Tender, Supple, Carotid Bruit Respiratory: Chest Non Tender, Lungs Clear, Normal Breath Sounds, No Accessory Muscle Use, No Respiratory Distress Cardiovascular: Regular Rate, Rhythm, No Edema, No Gallop, No JVD, No Murmur, N ormal Peripheral Pulses Gastrointestinal: Normal Bowel Sounds, No Organomegaly, No Pulsatile Mass, Non Tender, Soft Back: Normal Inspection, No CVA Tenderness, No Vertebral Tenderness Extremity: Normal Capillary Refill, Normal Inspection, Normal Range of Motion (except right side), Non Tender, No Calf Tenderness, No Pedal Edema Neurologic/Psychiatric: Alert, Oriented x3, Normal Mood/Affect, medical and scientific illustrator II-XII Norm as Tested, Abnormal Gait, Depressed Affect, Motor Weakness (right 3/5 side) Skin: Normal Color, Warm/Dry Lymphatic: No Adenopathy PM&R Medical Assessment & Plan REHAB/MEDICAL ASSESSMENT AND PLAN: REHAB IMPAIRMENT GROUP: [ ] ETIOLOGIC DIAGNOSIS: [ (condition that led to rehab admission) ] The comorbidities that impact the patients function and/or functional outcome by: [ ] REHAB PLAN: The patient is being admitted to our comprehensive inpatient rehabilitation facility and can tolerate the intensity of service consisting of at least: 180 minutes of therapy a day, 5 out of 7 days a week Rehab treatment will consist of: [ (write brief focus that includes physician, rehab nursing and therapies/modalitiesIPOC will have more specifics) ] The patient/family has a good understanding of our discharge process and will benefit from an interdisciplinary inpatient rehabilitation program. The patient has potential to make improvement and is in need of at least two of the following multidisciplinary therapies including but not limited to physical, occupational, speech, and prosthetics and orthotics. Additionally the patient will need services from respiratory, nutritional services, wound care, psychology, etc. (Customize this to each patient). Given the patients complex condition and risk of further medical complications, rehabilitation services cannot be safely or effectively provided at a lower level of care such as a penitentiary facility. BARRIERS TO DISCHARGE: [ ] ESTIMATED LOS: [ ] DISPOSITION: [ ] RELEVANT CHANGES SINCE PREADMISSION SCREENING: I have compared the patients medical and functional status at the time of the preadmission screening and there are: [no changes] [changes as follows: (if there is a discrepancy between the IGC/Etiologic stated on the PAS, address/clarify this as well) ] PROGNOSIS: [ ] REHABILITATION GOALS: 1. [ (specific to the patient) ] All the above goals were reviewed with the patient and he/she is in agreement. By signing this document, I acknowledge that I have personally performed a full physical examination on this patient within 24 hours of admission to this inpatient rehabilitation facility and have determined the patient to be able to tolerate the above course of treatment at an intensive level for a reasonable period of time. I will be completing a detailed individualized Plan of Care for this patient by day #4 of the patients stay based upon the Preadmission Screen, the Post-Admission Evaluation, and the therapy evaluations. Admission Dx/Comorbidities: (1) Acute ischemic multifocal posterior circulation stroke involving left-sided vessel Status: Acute ICD Codes: I63.532 - Cerebral infarction due to unspecified occlusion or stenosis of left posterior cerebral artery (2) Non-ST elevated myocardial infarction Status: Acute ICD Codes: I21.4 - Non-ST elevation (NSTEMI) myocardial infarction (3) Elevated liver enzymes Status: Acute ICD Codes: R74.8 - Abnormal levels of other serum enzymes (4) PTSD (post-traumatic stress disorder) Status: Chronic ICD Codes: F43.10 - Post-traumatic stress disorder, unspecified (5) WENDY (generalized anxiety disorder) Status: Chronic ICD Codes: F41.1 - Generalized anxiety disorder (6) Hypertension Status: Chronic ICD Codes: I10 - Essential (primary) hypertension (7) COPD (chronic obstructive pulmonary disease) Status: Chronic ICD Codes: J44.9 - Chronic obstructive pulmonary disease, unspecified Assessment/Plan Assessment and Plan Assess & Plan/Chief Complaint Assessment: Debility following CVA with right sided weakness Alcoholism s/p withdrawal during hospital stay Smoker HTN HLP Anxiety Plan: Monitor closely Monitor BP PT OT UCHE WALL DO Jul 23, 2022 10:06
[~2022-07-23 10:45] MED LIST: ALPRAZolam 0.25 MG (XANAX) TAB PO PRN; AMLO-250 PO; ASPI-1238 PO; ATOR80TA76 PO; BISACODYL 10 MG SUPP (DULCOLAX) PR PRN; CALCIUM CARBONATE 500 MG (TUMS) TAB.CHEW PO PRN; CLOP75TA28 PO; DOCUSATE SODIUM 100 MG (COLACE) CAP PO PRN; DOCUSATE SODIUM 100 MG (COLACE) CAP PO SCH; FLEET ENEMA ADULT 1 EA BTL PR PRN; HYDR-700 PO; LACTULOSE SYRUP 10GM/15ML (ENULOSE) 30ML UDC PO PRN; LOPERAMIDE 2 MG (IMODIUM) TABLET PO PRN; LOSA100T57 PO; MELATONIN 3 MG TABLET PO PRN; ONDANSETRON 4 MG (ZOFRAN) ORAL DISSOLVE TAB PO PRN; RT-ALBUINH INH; diphenhydrAMINE 25 MG TAB (BENADRYL) PO PRN; guaiFENesin/CODEINE (ROBITUSSIN AC) 10ML UDC PO PRN
[2022-07-23 11:30] VITALS: BP 130/74
[2022-07-23] MEDS ORDERED: LORazepam 1 MG (ATIVAN) TAB PO PRN (11:30)
[2022-07-23] MEDS ORDERED: LORazepam INJ 2 MG/ML (ATIVAN) VIAL IM/IV PRN (11:30)
[2022-07-23] MEDS ORDERED: diphenhydrAMINE 25 MG TAB (BENADRYL) PO PRN (11:30)
[2022-07-23] MEDS ORDERED: polyethylene glycoL POWDER 17 GM (MIRALAX) PACK PO PRN (11:30)
[2022-07-23] MEDS ORDERED: ONDANSETRON 4 MG/2 ML (SDV) Z0FRAN IV PRN (11:30)
[2022-07-23] MEDS ORDERED: BISACODYL 10 MG SUPP (DULCOLAX) PR PRN (11:30)
[2022-07-23] MEDS ORDERED: cloNIDine 0.1 MG (CATAPRES) TAB PO PRN (11:30)
[2022-07-23] MEDS ORDERED: SENNA W/DOCUSATE (SENOKOT S) TABLET PO PRN (11:30)
[2022-07-23] MEDS ORDERED: CALCIUM CARBONATE 500 MG (TUMS) TAB.CHEW PO PRN (11:30)
[2022-07-23] MEDS ORDERED: ACETAMINOPHEN 325 MG TABLET PO PRN (11:30)
[2022-07-23] MEDS ORDERED: MILK OF MAGNESIA 400 MG/5 ML 30 ML UDC PO PRN (11:30)
[2022-07-23] MEDS ORDERED: ANTACID SUSP 30 ML UDC (MYLANTA) PO PRN (11:30)
[2022-07-23] MEDS ORDERED: LACTULOSE SYRUP 10GM/15ML (ENULOSE) 30ML UDC PO PRN (11:30)
[2022-07-23] MEDS ORDERED: HYDROmorphone 2 MG/ML VIAL (DILAUDID) IV PRN (11:30)
[2022-07-23] MEDS ORDERED: diphenhydrAMINE 50 MG/ML INJ (BENADRYL) IVP PRN (11:30)
--- NOTE | 2022-07-23 11:38 | Physical Therapy Evaluation ---
PT Evaluation-General Medical Diagnosis Admission Date Jul 23, 2022 at 10:45 Medical Diagnosis: CVA (R) hemiplegia Onset Date: Jul 17, 2022 Therapy Diagnosis Therapy Diagnosis: (R) sided weakness, impaired balance, difficulty with gait Precautions Precautions/Isolations: Fall Prevention, Standard Precautions Skin tears/abrasions (R) UE and (R) lower leg Weight Bear Status Weight Bearing/Tolerated Weight Bearing/Tolerated Ataxic (R) LE in stance, able to railroad hand (R) with cues but needs prn assist to maintain WB/railroad hand with walker use Referral Physician: Brady Reason for Referral: Evaluation/Treatment Medical History Pertinent Medical History: Alcoholism, Arthritis, COPD, CVA, HTN, Smoking Additional Medical History HX back pain with sciatica. No back surgery. Hx of hernia surgery. Hyperlipidemia Current History CVA occurred on 07/17/22. Reviewed History: Yes Social History Home: Single Level Current Living Status: 2roommates Entry Into Home: Stairs Without Railing PT Steps Into Home: 2 Per daughter, evicted from home in November and has been living with a friend since that time. Prior Prior Level of Function SCALE: Activities may be completed with or without assistive devices. 3-Emaebpnmcm-sdpepso completes the activity by him/herself with no assistance from a helper. 5-Set-up or Clean-up Assistance-helper sets up or cleans up; patient completes activity. [place] assists only prior to or following the activity. 4-Supervision or Touching Assistance-helper provides verbal cues and/or touching/steadying and/or contact guard assistance as patient completes activity. Assistance may be provided throughout the activity or intermittently. 3-Partial/Moderate Assistance-helper does LESS THAN HALF the effort. [place] lifts, holds or supports trunk or limbs, but provides less than half the effort. 2-Substantial/Maximal Assistance-helper does MORE THAN HALF the effort. [place] lifts or holds trunk or limbs and provides more than half the effort. 9-Rvpqtceho-gjulgi does ALL the effort. Patient does none of the effort to complete the activity. Or, the assistance of 2 or more helpers is required for the patient to complete the activity. If activity was not attempted, code reason: 7-Patient Refused. 9-Not Applicable-not attempted and the patient did not perform the activity before the current illness, exacerbation or injury. 10-Not Attempted due to Environmental Limitations-(lack of equipment, weather restraints, etc.). 88-Not Attempted due to Medical Conditions or Safety Concerns. Bed Mobility: 6 Transfers (B,C,W/C): 6 Gait: 6 (without device) Stairs: 6 (without railing) Wheelchair Mobility: 9 Indoor Mobility (Ambulation): Independent Stairs: Independent Prior Devices Use: None Has 2 small dogs in her home (Yaneli, poodle mix). Is (R) handed. 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 She likes to play games on the computer. Has 1 son locally. Daughter visiting from [place], [place] is trying to find more accessible housing for her mother -- states it is difficult due to the patient being a smoker. Also has a sister, dnsydgx-di-sdd, brother, and friends locally. PT Evaluation-Current Subjective Patient friendly and talkative. Poor memory regarding PLOF - daughter available to validate answers. Pain Section J - Health Conditions 1. Rarely or not at all 2. Occasionally 3. Frequently 4. Almost constantly 8. Unable to answer Pain Effect on Sleep: 1 Pain Interference with Therapy: 1 (pins and needles in (R) UE) Pain Interference w/Day-to-Day: 1 Pt/Family Goals To be able to walk and continue living independently Objective Patient Orientation: Person, Situation gauze dressings covering abrasion to (R) knee/lopez and (R) elbow ROM/Strength ROM Upper Extremities deferred to OT ROM Lower Extremities WNL (L) LE. (R) knee demonstrates ~15 degree extension lag actively - also has some arthritis in the (R) knee. PROM of (R) ankle/hip/knee WFL. Strength Upper Extremities deferred to OT, but is able to railroad hand (R) when cued to do so, but loses railroad hand easily when distracted with other tasks. Strength Lower Extremities (L) LE 5/5 ankle,knee, hip. (R) ankle PF 5/5, DF 4/5, knee extension 4/5, knee flexion 4-/5, hip flexion 3+/5, hip abd/add 3+/5. Integumentary/Posture Integumentary skin tears/abrasions (R) elbow/UE and (R) knee/lopez - nursing provided dressing changes. Neuromuscular (Tone, Coordination, Reflexes) Impaired motor coordination (R) LE/UE. Ataxic (R) LE noted with sitting activities, w/c propulsion and during gait - cues to keep (R) foot within frame of walker in standing. Sensory Vision: Neglect Right ((R) lower quadrant, decr. periph vision (R)) Hand Dominance: Right Sensation Right Lower Extremit: Impaired Sensation Left Lower Extremity: Intact Sensation Lower Extremities Also decreased proprioception at (R) knee and ankle Transfers Roll Left & Right (QC): 5 Sit to Lying (QC): 3 (Min (A) with (R) LE) Lying to Sitting/Side of Bed(Q: 3 (After moving legs off edge of mattress, ballistic motion into sitting which brought patient's legs back up to mattress, requiring min (A) at trunk) Sit to Stand (QC): 3 (min (A) with continual v.c. for (L) hand placement. Ass ist to maintain (R) railroad hand on walker.) Chair/Qrj-vo-Aiztc Xfer(QC): 3 (min (A) with FWW, ataxic (R) LE, assist to negotiate walker and maintain (R) railroad hand on walker, cues to turn completely to seat surface and center herself prior to sitting.) Toilet Transfer (QC): 3 (min (A) with FWW/grab bar, ataxic (R) LE) Car Transfer (QC): 3 (Min (A) with (R) LE) Some impulsivity noted with transfers Gait Does the Patient Walk?: Yes Mode of Locomotion: Both Anticipated Mode of Locomotion: Walk Walk 10 feet (QC): 3 (Min (A) with FWW, ataxic (R) LE) Walk 50 ft with 2 Turns(QC): 3 (3 min (A) with FWW and needed assist with walker negotiation with obstacles, walker veered (L) -- toward unaffected side during gait - cues to push more with (L)/unaffected UE. ) Walk 150 ft (QC): 3 (mod (A) due to fatigue and more ataxia (R) LE, 2 episodes of scissoring with LOB) Walking 10ft/uneven surface-QC: 4 (with FWW, 1 retropulsive episode require mod (A) to correct) Distance: 150' with encouragement to complete Gait Assistive Device: FWW Wheelchair Training Does the Pt Use a Wheelchair?: Yes Distance: 50' Wheel 50 ft with 2 turns (QC): 3 (min (A) to use LE's in conjunction with (L) UE - ataxic (R) LE made straight path mobility difficult) Wheel 150 ft (QC): 88 (not attempted due to patient fatigue) Type of Wheelchair: Manual Stairs 1 Step (curb) (QC): 3 (Min (A) with FWW and cues for correct step sequence up, mod (A) down) 4 Steps (QC): 88 (not attempted due to increased ataxia with fatigue - not safe this date.) 12 Steps (QC): 88 Walking Assistive Device: Walker Balance Sitting Static: Good Sitting Dynamic: Fair Standing Static: Fair Standing Dynamic: Poor Picking up an Object (QC): 88 (not safe with ataxia and balance deficits with Elderly Mobility Scale) Special Test Comments Elderly Mobility Scale: 5/20 -- dependent for mobility. Rhomberg positive. Unable to maintain standing with eyes closed (even with UE support on walker) without mod (A). Treatment Multiple transfers completed during co-treatment with OT for ADL completion. Gait training in common area with FWW to address walker managment, keeping feet within frame of walker, (R) railroad hand during gait, and gait distance/stepping strategies (R) LE. Co-treatment indicated at this time due to patient's acuity, balance impairments, ataxia, (R) hemiplegia, and impulsivity. Assessment/Needs 67 year old female who is 6 days s/p CVA with (R) hemiplegia. Demonstrates motor coordination impairments (R) UE/LE, (R) LE ataxia with upright mobility, (L) LE weakness, balance deficits, mobility deficits which require skilled PT interventions. Co-treatments also indicated to address UE/LE hemiplegia safely with mobility/ADL tasks. Rehab Potential: Good Equipment Needs Requires FWW at this time. May trial hemiwalker if balance improves. PT Book Jogger Goals Book Jogger Goals PT Fpc Goals Time Frame: Aug 13, 2022 Roll Left to Right (QC): 6 Sit to Lying (QC): 6 Lying-Sitting on Side/Bed(QC): 6 Sit to Stand (QC): 6 Chair/Ysy-yw-Ydtdz Xfer(QC): 6 Toilet/Commode Transfer (QC): 6 Car Transfer (QC): 5 Does the Patient Walk: Yes Walk 10 feet (QC): 5 Walk 10ft-Uneven Surface(QC): 5 (with least restrictive device with less (R) LE ataxia) Walk 50ft with 2 Turns (QC): 5 (with least restrictive device with less (R) LE ataxia) Walk 150 ft (QC): 5 (with least restrictive device with less (R) LE ataxia) Does the Pt use WC or Scooter?: Yes Wheel 50 feet with 2 turns (QC: 6 Type: Manual Wheel 150 feet: 6 Type: Manual 1 Step (curb) (QC): 5 (with least restrictive device) 4 Steps (QC): 5 (with (B) rails) 12 Steps (QC): 4 (Min (A) with (B) rails) Picking up an Object (QC): 5 Patient to demonstrate improved Elderly Mobility Index score to 10/20 or better PT Plan Problem List Problem List: Activity Tolerance, Functional Strength, Safety, Balance, Gait, Transfer, Bed Mobility ataxia (R) LE, impulsivity, fall risk Treatment/Plan Treatment Plan: Continue Plan of Care Treatment Plan: Bed Mobility, Education, Functional Activity Ellen, Functional Strength, Group Therapy, Gait, Safety, Therapeutic Exercise, Transfers, Other Co-treatment as indicated Treatment Duration: Aug 13, 2022 Frequency: At least 5 of 7 days/Wk (IRF) Estimated Hrs Per Day: 1.5 hours per day Patient and/or Family Agrees t: Yes Safety Risks/Education Safety Risk Comments: fall risk, ataxia, motor coordination impairment (R) LE Patient Education: Gait Training, Transfer Techniques, Safety Issues Teaching Recipient: Patient Teaching Methods: Demonstration, Discussion Response to Teaching: Reinforcement Needed Discharge Recommendations Therapy Discharge Recommendati: Home & Family, Post Acute PT Equpiment Recommendations-D/C: Front Wheeled Walker, Other, Please Explain (hemiwalker?) Barriers to Progress poor memory, severity of (R) LE ataxia Time Time In: 1033 Time Out: 1217 DATE: Jul 23, 2022 Total Billed Treatment Time: 94 Total Billed Treatment PT eval (moderate intensity) [id number] = 27' Co-treatment [id number] = 67' 94' total PT minutes Janette Mace PT Jul 23, 2022 11:38
[2022-07-23 11:50] LABS: TRIGLYCERIDES 51 MG/DL (<150); VLDL CHOLESTEROL 10 MG/DL (5-40)
--- NOTE | 2022-07-23 11:52 | Progress Note ---
GEOVANI LEONARDO 07/23/22 1152: Progress Note S CC: Debility post CVA w/ right sided defecits. HPI: Patient is a 67 year old female with history of COPD, Hyperlipidemia, hypertension, and alcoholism who was recently moved to the [facility] rehab unit following a stay in-patient from 07/18- following a CVA leaving her with residual right sided deficits including weakness and numbness. She did also have elevated troponin consistent with NSTEMI for which plavix, ASA, and statin was initiated. SHe also had bacteriuria for which she was treated with a one time dose ceftriaxone. Her vitals and labs are stable at time of admission and patient has no complaints other than residual weakness and numbness affecting her right upper and lower extremity. Med: Home Meds Active Aspirin EC (Aspirin) 81 Mg Tablet.dr 81 Mg PO DAILY Losartan Potassium 100 Mg Tablet 100 Mg PO DAILY Amlodipine Besylate 5 Mg Tablet 5 Mg PO DAILY Atorvastatin Calcium 80 Mg Tablet 80 Mg PO DAILY Clopidogrel (Clopidogrel Bisulfate) 75 Mg Tablet 75 Mg PO DAILY Reported Ventolin Hfa (Albuterol Sulfate) 1 Puff Puff 2 Puff INH Q4H PRN Hydroxyzine HCl 25 Mg Tablet 25-50 Mg PO HS TAKES 1 TO 2 (25MG) TABS All: Codeine, cyclobenzaprine PMH: COPD, Hyperlipidemia, Hypertension, Alcoholism, CVA w/ right sided defecits PSH: Hernia repair, tubal ligations, breast implants FH:No pertinent family history SH:Daily smoker, Daily alcohol use, intermittent marijuana use. Retired. ROS: (+) Weakness/numbness affecting right upper and lower extremity. (-) headache, LH, dizziness, CP, palpitations, SOB, abd pain. O Temp: 36.2 Pulse: 79 RR: 18 BP 122/77 Pulse Ox: 92% RA General: A/O x 3, No acute distress HEENT: PERRLA, EOMI Neck: Supply, no thyromegally Lungs: Clear to auscultation bilaterally, no wheezes, rhales, or rhonchi Heart: RRR, no murmurs Abd: Soft, nontender, nondistended. Normoactive bowel sounds. Extremeties: 4+ strength right arm and leg. 5+ left arm and leg. Gauze wrap in place on right elbow/forearm & knee with some serosanguinous drainage present. Skin: Some bruising on right arm and leg, Warm & Dry Neuro: Normal speech, no confusion, Diffuse numbness effecting right upper and lower extremities. Psych/Mental Status: Normal mood A CVA w/ right sided defecits Alcoholism Elevated troponin consistent with NSTEMI HTN Hyperlipidemia COPD PTSD WENDY Bacteriuria P PT/OT for rehabilitation ASA, Plavix, and Statin for recent NSTEMI. stress test recommended in 2 weeks. Continue home meds for chronic conditions. Pain control DVT Proph: Lovenox Diet: as tolerated PEGGY WALL DO 07/24/22 0519: Supervisory-Addendum Brief Verification & Attestation Participated in pt care: history, MDM, physical Personally performed: exam, history, MDM, supervision of care Care discussed with: Medical Student Procedures: n/a Results interpretation: Verified all documentation Verification and Attestation of Medical Student E/M Service A medical student performed and documented this service in my presence. I reviewed and verified all information documented by the medical student and made modifications to such information, when appropriate. I personally performed the physical exam and medical decision making. Peggy Wall Jul 24, 2022,05:19 GEOVANI LEONARDO Jul 23, 2022 11:52 PEGGY WALL DO Jul 24, 2022 05:19
[2022-07-23 11:55] LABS: CHOLESTEROL 91 MG/DL (< 200)
[2022-07-23 11:56] LABS: HDL CHOLESTEROL 43 MG/DL (40-60)
[2022-07-23 12:08] VITALS: BP 122/77
[2022-07-23] MEDS: polyethylene glycoL POWDER 17 GM (MIRALAX) PACK PO SCH ×2 (12:17→20:42)
[2022-07-23] MEDS: SENNA W/DOCUSATE (SENOKOT S) TABLET PO SCH ×2 (12:18→20:43)
--- NOTE | 2022-07-23 13:20 | Occupational Therapy Eval ---
OT Evaluation-General/PLF Medical Diagnosis Admission Date Jul 23, 2022 at 10:45 Medical Diagnosis: CVA Onset Date: Jul 18, 2022 Therapy Diagnosis Therapy Diagnosis: decreased ADL status, impaired functional use RUE Precautions Precautions/Isolations: Fall Prevention, Standard Precautions Referral Physician: Brady Bhakta Reason: Evaluation/Treatment Medical History Pertinent Medical History: Alcoholism, COPD Additional Medical History COPD, HTN, ETOH abuse Current History 07/18/22 found down at home for unknown amount of time, R side weakness, alcohol withdraw and acute rhabdomyolysis. Pt found to hav eCVA Social History Home: Single Level Current Living Status: Roommates Entry Into Home: Stairs Without Railing Steps Into Home: 2 ADL-Prior Level of Function SCALE: Activities may be completed with or without assistive devices. 2-Puspmjenjq-svomnbp completes the activity by him/herself with no assistance from a helper. 5-Set-up or Clean-up Assistance-helper sets up or cleans up; patient completes activity. [place] assists only prior to or following the activity. 4-Supervision or Touching Assistance-helper provides verbal cues and/or touching/steadying and/or contact guard assistance as patient completes activity. Assistance may be provided throughout the activity or intermittently. 3-Partial/Moderate Assistance-helper does LESS THAN HALF the effort. [place] lifts, holds or supports trunk or limbs, but provides less than half the effort. 2-Substantial/Maximal Assistance-helper does MORE THAN HALF the effort. [place] lifts or holds trunk or limbs and provides more than half the effort. 7-Pugnvfqtn-gkhgfc does ALL the effort. Patient does none of the effort to complete the activity. Or, the assistance of 2 or more helpers is required for the patient to complete the activity. If activity was not attempted, code reason: 7-Patient Refused. 9-Not Applicable-not attempted and the patient did not perform the activity before the current illness, exacerbation or injury. 10-Not Attempted due to Environmental Limitations-(lack of equipment, weather restraints, etc.). 88-Not Attempted due to Medical Conditions or Safety Concerns. ADL PLOF Comments Pt reports IND with ADLS and functional mobility, no AD. She had recently began training to work at [employer]. She has a tub/shower, no SC. Pt indicates her roommates are available and willing to help her out with whatever she needs at home. In another conversation, pt indicates her roommates wouldn't help her up off of the floor because they believed she was drunk. OT questions roommates ability and willingness to assist pt if needed. Pt has a sister, brother in law, brother, son and friends who live in/near [place]. Her daughter lives in [place]. Self Care: Independent Functional Cognition: Independent DME/Equipment: Tub OT Current Status Subjective Pt in recliner, agreeable to OT evaluation and cotreatment with PT. Pt c/o some pain in R elbow, but didn't verbalize pain rating. Pt appeared to have some problem word finding and answering questions about PLOF. Pt unable to recall where she worked (pt recently began training at [employer]). Pt often asked her daughter for the answers she was unable to provide. Pt unable to recall what her hobbies are, she remembers she is competitive with a sport. Daughter able to state pt enjoys games on her computer. Pt does not play any sports. Mental Status/Objective Patient Orientation: Person, Place, Time, Situation Current Glasses/Contacts: Yes Hearing Aids: No Dentures/Partials: Yes Hand Dominance: Right Upper Extremity ROM WFL BUEs. Upper Extremity Coordination Decreased coordination and proprioception of RUE. Pt's RUE "lags" behind LUE with movements. Upper Extremity Sensation Decreased RUE. Pt states it feels like it is beginning to wake up and is tingly. Pt often "loses" her R arm, unaware of where it is. Upper Extremity Strength LUE grossly 4-/5, RUE grossly 3/5 Pt denies having vision changes, but per chart review of acute account pt had double vision and trouble with R side vision. ADL-Treatment Eating (QC): 4 Oral Hygiene (QC): 4 Shower/Bathe Self (QC): 3 (100% seated, assistance with thoroughly cleaning LUE) Upper Body Dressing (QC): 3 (Min A. assist with LUE) Lower Body Dressing (QC): 2 (Pt frustrated with task, refused attempting some parts. Max A overall) On/Off Footwear (QC): 3 (Min A with donning R sock, encouragement required.) Toileting Hygiene (QC): 3 (Min A with pant hike.) Other Treatments OT evaluation complete. OT/PT cotreat due to skill of 2 clinicians required which a clin tech could not perform in order to coordinate UE/LEs, decrease fall risk, and due to pt's limitations in strength, activity tolerance, mobility, strength, R side deficits, and safety concerns. OT focused on UE placement, cues for sequencing and safety and ADLs, PT focused on LE placement, gross overall movement, transfers and mobility. Pt completed showering, dressing, and ADLs as outlined above. Pt then performed functional mobility, including w/c mobility, mobility using FWW (even and uneven surface), car transfer, etc. Set up rolling, min A supine to/from sit, min A Sit to stand, min A car transfer, min A toilet transfer, min A bed to chair. Pt had some impulsivity with transfers. Pt able to hold onto walker with R hand but "loses" roll icer quickly when distracted. Assistance required during transfers and PRN during mobility in order to maintain R roll icer on walker. Min-mod A with functional mobility using FWW (150' with encouragement to complete), she requires more assistance as she fatigues. Min A w/c mobility 50'. End of cotx. OT assisted pt with positioning to comfort in recliner, education on ARU expectations and rehab process, and assisted pt with ordering lunch. Post tx, pt in recliner, call light in reach and all needs met, chair alarm activated. Education OT Patient Education: Correct positioning, Energy conservation, Modified ADL techniques, Progress toward Goal/Update tx plan, Purpose of tx/functional activities Teaching Recipient: Patient Teaching Methods: Discussion Response to Teaching: Verbalize Understanding BIMS CAM BIMS Expression of Ideas and Wants: Difficulty (some difficulty word finding/ answering questions) Understanding Verbal Content: Usually Understands (pt sometimes requires repeated instructions/cues) IRF RAI BIMS: IRF RAI BIMS Response (Comments) Value Repitition of Three Words Three 3 Recalls Socks Yes, After Cueing (Wear) 1 Recalls Blue Yes, After Cueing (Color) 1 Recalls Bed Yes, After Cueing 1 Year Correct 3 Month Accurate Within 5 Days 2 Day Correct 1 Total 12 Should Staff Asses. Mental St.: No CAM Mental Status Change/Baseline: 1 Inattention: 0 Disorganized thinkin Altered level of consciousness: 0 OT Short Term Goals Short Term Goals Time Frame: Aug 01, 2022 Lower body dressin Putting on/taking off footwear: 4 OT [employer] Director Goals [facility] Goals Time Frame: Aug 15, 2022 Eating (QC): 6 Oral Hygiene (QC): 6 Toileting Hygiene (QC): 6 Shower/Bathe Self (QC): 6 Upper Body Dressing (QC): 6 Lower Body Dressing (QC): 6 On/Off Footwear (QC): 6 Additional Goals: 1-Demonstrate ADL Tasks, 2-Verbalize Understanding, 3- ImproveStrength/Ellen 1=Demonstrate adherence to instructed precautions during ADL tasks. 2=Patient will verbalize/demonstrate understanding of assistive devices/modifications for ADL. 3=Patient will improve strength/tolerance for activity to enable patient to perform ADL's. OT Education/Plan Problem List/Assessment Assessment: Decreased Activ Tolerance, Decreased Safety Aware, Decreased UE Strength, Impaired Cognition, Impaired Funct Balance, Impaired I ADL's, Impaired Self-Care Skills, Restricted Funct UE ROM, Visual-Perceptual Deficit Discharge Recommendations Plan/Recommendations: Continue POC Equpiment Recommendations-D/C: Extended Bath Bench Comment Pt would benefit from extended bath bench at discharge. Other AE and DME recommendations to be determined based on pt's progress. Treatment Plan/Plan of Care Patient would benefit from OT for education, treatment and training to promote independence in ADL's, mobility, safety and/or upper extremity function for ADL's. Plan of Care: ADL Retraining, Functional Mobility, Group Exercise/Act as Ind, UE Funct Exercise/Act, UE Neuromus Re-Ed/Coord, Visual/Perceptual Retrain Treatment Duration: Aug 15, 2022 Frequency: At least 5 of 7 days/Wk (IRF) Estimated Hrs Per Day: 1.5 hours per day Agreement: Yes Rehab Potential: Good Time Start Time: 11:00 Stop Time: 12:30 DATE: Jul 23, 2022 Total Time Billed (hr/min): 90 Billed Treatment Time OT eval [id number] (10'), Cotreat [id number] (67'), OT tx [id number] (13') 1, EVM (10'), ADL 3 (45'), FA 2 (35') DONTE PATEL OT Jul 23, 2022 13:20
[2022-07-23] MEDS: inSUlin ASPART (NovoLOG) 1 UNIT/0.01 ML (CHARGE PER UNIT) SC SCH ×2 (16:39→20:43)
[2022-07-23] MEDS: ENOXAPARIN 40 MG/0.4 ML (LOVENOX) SYR SC SCH (17:14)
[2022-07-23 19:08] VITALS: BP 127/68
[2022-07-23] MEDS: DOCUSATE SODIUM 100 MG (COLACE) CAP PO SCH (20:42)
[2022-07-23] MEDS: SENNOSIDES 8.6 MG (SENOKOT) TAB PO SCH (20:43)
[2022-07-23] MEDS: ACETAMINOPHEN 325 MG TABLET PO PRN (20:44)
[2022-07-23] MEDS: MELATONIN 3 MG TABLET PO PRN (20:44)
[2022-07-24 05:35] LABS: BASOPHILS % (AUTO) 0 % (0-10); EOSINOPHILS # (AUTO) 0.2 10^3/uL (0.0-0.3); EOSINOPHILS % (AUTO) 3 % (0-10); HEMATOCRIT 38 % (35-52); HEMOGLOBIN 12.7 g/dL (11.5-16.0); LYMPHOCYTES # (AUTO) 1.6 10^3/uL (1.0-4.0); LYMPHOCYTES % (AUTO) 26 % (12-44); MEAN CORPUSCULAR HEMOGLOBIN 32 pg (25-34); MEAN CORPUSCULAR HGB CONC 33 g/dL (32-36); MEAN CORPUSCULAR VOLUME 97 fL (80-99); MEAN PLATELET VOLUME 11.1 fL (9.0-12.2); MONOCYTES # (AUTO) 0.7 10^3/uL (0.0-1.0); MONOCYTES % (AUTO) 11 % (0-12); NEUTROPHILS # (AUTO) 3.7 10^3/uL (1.8-7.8); NEUTROPHILS % (AUTO) 59 % (42-75); PLATELET COUNT 102 10^3/uL (130-400); WHITE BLOOD COUNT 6.2 10^3/uL (4.3-11.0)
[2022-07-24 05:54] LABS: POTASSIUM 3.7 MMOL/L (3.6-5.0)
[2022-07-24 05:55] LABS: CALCIUM 8.7 MG/DL (8.5-10.1)
[2022-07-24 05:56] LABS: TOTAL PROTEIN 5.7 GM/DL (6.4-8.2)
[2022-07-24 05:58] LABS: BILIRUBIN,TOTAL 0.9 MG/DL (0.1-1.0)
[2022-07-24 06:00] LABS: CREATININE SERUM 0.52 MG/DL (0.60-1.30)
[2022-07-24] MEDS: inSUlin ASPART (NovoLOG) 1 UNIT/0.01 ML (CHARGE PER UNIT) SC SCH ×4 (06:30→20:10)
[2022-07-24] MEDS: MULTIVIT W/MINERALS TAB (THERAGRAN M) PO SCH (06:45)
[2022-07-24 08:00] VITALS: BP 137/75
[2022-07-24 08:15] LABS: ALBUMIN 3.1 GM/DL (3.2-4.5)
--- NOTE | 2022-07-24 08:20 | Occupational Ther Daily Note ---
OT Current Status-Daily Note Subjective Pt up in recliner, daughter present. Pt slightly emotional as OT entered the room. Pt had difficulty recalling information from yesterday's tx and recent/past event. Pt unable to recall she hasn't had a cigarette in ~7 days. Pt's daughter planning on bringing shoes for pt. Mental Status/Objective Patient Orientation: Person, Confused, Place, Situation ADL-Treatment Therapy Code Descriptions/Definitions Functional [place] Measure: 0=Not Assessed/NA 4=Minimal Assistance 1=Total Assistance 5=Supervision or Setup 2=Maximal Assistance 6=Modified [place] 3=Moderate Assistance 7=Complete IndependenceSCALE: Activities may be completed with or without assistive devices. 9-Zsjertgtse-pkdbanr completes the activity by him/herself with no assistance from a helper. 5-Set-up or Clean-up Assistance-helper sets up or cleans up; patient completes activity. [place] assists only prior to or following the activity. 4-Supervision or Touching Assistance-helper provides verbal cues and/or touching/steadying and/or contact guard assistance as patient completes activity. Assistance may be provided throughout the activity or intermittently. 3-Partial/Moderate Assistance-helper does LESS THAN HALF the effort. [place] lifts, holds or supports trunk or limbs, but provides less than half the effort. 2-Substantial/Maximal Assistance-helper does MORE THAN HALF the effort. [place] lifts or holds trunk or limbs and provides more than half the effort. 2-Hhdpqbops-dqieup does ALL the effort. Patient does none of the effort to complete the activity. Or, the assistance of 2 or more helpers is required for the patient to complete the activity. If activity was not attempted, code reason: 7-Patient Refused. 9-Not Applicable-not attempted and the patient did not perform the activity before the current illness, exacerbation or injury. 10-Not Attempted due to Environmental Limitations-(lack of equipment, weather restraints, etc.). 88-Not Attempted due to Medical Conditions or Safety Concerns. Oral Hygiene (QC): 4 (Pt required close SBA standing at sink.) Other Treatment Pt in recliner, sit to stand with min A, then transferred into bathroom, Pt able to stand at sink with close SBA to complete oral care. Pt did not attempt to use RUE during task. Pt used FWW to perform functional mobility to therapy gym, min A for balance. Pt occasionally brought back of walker over her R foot during turns, pt unable to feel this occur. OT tx focused on neuromuscular reeducation of RUE & increasing BUE Strength and activity tolerance. Pt completed arm bike x10 mins, 15-20 Watt resistance. Jez wrap applied to RUE to assist with R hand grasp due to pt having difficulty maintaining cook candy during task. Pt then complete RUE reaching task, grasping 1" pegs from in front of her, then placing into foam pegboard. Pt had difficulty putting peg into hole, assistance from OT provided ~30% of pegs for stabilization. Pt able to place x15 pegs. After rest break, pt removed all pegs using RUE. Pt returned to room using FWW, Min A, transferring to recliner. Pt required skilled VCs for UE placement with transfers. Post tx, pt in recliner, call light in reach and all needs met. Chair alarm activated. Education OT Patient Education: Correct positioning, Energy conservation, Exercise program, Modified ADL techniques, Progress toward Goal/Update tx plan, Purpose of tx/functional activities, Rehab process Teaching Recipient: Patient Teaching Methods: Discussion Response to Teaching: Verbalize Understanding OT Short Term Goals Short Term Goals Time Frame: Aug 01, 2022 Lower body dressin Putting on/taking off footwear: 4 OT [employer] Teacher Goals [facility] Goals Time Frame: Aug 15, 2022 Acute change in mental status: 1 Inattention: 0 Disorganized thinkin Altered level of consciousness: 0 Eating (QC): 6 Oral Hygiene (QC): 6 Toileting Hygiene (QC): 6 Shower/Bathe Self (QC): 6 Upper Body Dressing (QC): 6 Lower Body Dressing (QC): 6 On/Off Footwear (QC): 6 Additional Goals: 1-Demonstrate ADL Tasks, 2-Verbalize Understanding, 3- ImproveStrength/Ellen 1=Demonstrate adherence to instructed precautions during ADL tasks. 2=Patient will verbalize/demonstrate understanding of assistive devices/modifications for ADL. 3=Patient will improve strength/tolerance for activity to enable patient to perform ADL's. OT Education/Plan Problem List/Assessment Assessment: Decreased Activ Tolerance, Decreased Safety Aware, Decreased UE Strength, Impaired Cognition, Impaired Coordination, Impaired Funct Balance, Impaired I ADL's, Impaired Self-Care Skills, Restricted Funct UE ROM, Visual- Perceptual Deficit Discharge Recommendations Plan/Recommendations: Continue POC Treatment Plan/Plan of Care Patient would benefit from OT for education, treatment and training to promote independence in ADL's, mobility, safety and/or upper extremity function for ADL's. Plan of Care: ADL Retraining, Functional Mobility, Group Exercise/Act as Ind, UE Funct Exercise/Act, UE Neuromus Re-Ed/Coord, Visual/Perceptual Retrain Treatment Duration: Aug 15, 2022 Frequency: At least 5 of 7 days/Wk (IRF) Estimated Hrs Per Day: 1.5 hours per day Agreement: Yes Rehab Potential: Good Time Start Time: 07:45 Stop Time: 09:00 DATE: Jul 24, 2022 Total Time Billed (hr/min): 75 Billed Treatment Time 1, ADL (15'), NM 4 (60') DONTE PATEL OT Jul 24, 2022 08:20
[2022-07-24] MEDS: polyethylene glycoL POWDER 17 GM (MIRALAX) PACK PO SCH ×2 (08:25→20:03)
[2022-07-24] MEDS: DOCUSATE SODIUM 100 MG (COLACE) CAP PO SCH ×2 (08:25→20:03)
[2022-07-24] MEDS: SENNA W/DOCUSATE (SENOKOT S) TABLET PO SCH ×2 (08:26→20:03)
[2022-07-24] MEDS: SENNOSIDES 8.6 MG (SENOKOT) TAB PO SCH ×2 (08:26→20:04)
--- NOTE | 2022-07-24 08:38 | Cardiology Progress Note ---
Subjective Date Seen by Provider: Jul 24, 2022 Time Seen by Provider: 08:10 Subjective/Events-last exam Patient with PT, no new complaints. Denies any chest pain or dyspnea. Objective-Cardiology Exam Last Set of Vital Signs Vital Signs 07/23/22 07/24/22 07/24/22 11:30 08:49 12:38 Pulse 87 Pulse Ox 98 O2 Delivery Room Air FiO2 21 I&O Intake and Output 07/24/22 00:00 Intake Total 520 ml Balance 520 ml Intake Oral 520 ml # Voids 3 Daily Weight Change No General: Alert, Oriented X3 HEENT: Atraumatic, PERRLA Lungs: Clear to Auscultation, Normal Air Movement Heart: Regular Rate Abdomen: Soft, No Tenderness Extremities: No Clubbing, No Edema Skin: No Rashes, No Significant Lesion Neuro: Other (right sided weakness) Results Lab Laboratory Tests 07/24/22 05:28 A/P-Cardiology Admission Diagnosis CVA NSTEMI HTN Weakness/debility Assessment/Plan Acute CVA CT angiogram reported as distal left RN CORONARY CARE UNIT occlusion Currently on aspirin and Plavix Telemetry showing SR. Will consider LINq implantation prior to discharge Still having aphasia and right hemiplegia. Receiving physical therapy. Management per medical service. Elevated troponin, non-ST elevation myocardial infarction. No acute EKG changes. Troponin is trending down. Continue to monitor, conservative management is recommended I am planning to evaluate stress test as an outpatient in 2 weeks 2D echo was done on July 19, 2022 which showing normal left ventricular size with ejection fraction 60 to 65%, grade 1 diastolic dysfunction, mild mitral regurgitation, PA pressure 40 to 45 mmHg. No shunt was detected by using contrast Hypertension, recommend keeping blood pressure mildly elevated to improve the perfusion pressure Currently on losartan 100mg, amlodipine 5mg Lipid profile was done on July 19, 2022 and it was normal. Multiple bruises which trauma to the knee. Moderate elevation in CPK. Continue with IV fluid and monitor Tobaccoism, advised to stop smoking Alcoholism. Patient reported that she drinks wine over the weekend Supervisory-Addendum Brief Supervisory Addendum Participated in pt care: history, MDM, physical Personally performed: exam, history, MDM Care discussed with: MARK Results interpretation: Verified all documentation Notes: Patient was seen and evaluated with Geoff, examination performed, management plan was discussed, agree with the current scribed note, I made few changes to the note using Italic font Patient was seen at bedside, sitting comfortably Feeling better Slow improvement in her right-sided hemiplegia Continue on current medication and continue to monitor telemetry GEOFF VINES Jul 24, 2022 08:38 REMEDIOS COHEN MD Jul 24, 2022 16:39
[2022-07-24] MEDS: amLODIPine 5 MG (NORVASC) TAB PO SCH (09:31)
[2022-07-24] MEDS: ASPIRIN E.C. 81 MG (ECOTRIN) TAB PO SCH (09:31)
[2022-07-24] MEDS: NICOTINE PATCH TP SCH (09:31)
[2022-07-24] MEDS: FOLIC ACID 1 MG TAB PO SCH (09:31)
[2022-07-24] MEDS: NICOTINE 21 MG (NICODERM) PATCH TD SCH (09:31)
[2022-07-24] MEDS: CLOPIDOGREL 75 MG (PLAVIX) TABLET PO SCH (09:31)
[2022-07-24] MEDS: LOSARTAN 100 MG (COZAAR) TABLET PO SCH (09:31)
[2022-07-24] MEDS ORDERED: RT-ALBUTEROL HFA 8.5 GM INHALER IH PRN (10:30)
--- NOTE | 2022-07-24 10:44 | Individualized Plan of Care ---
Individualized Plan of Care Rehab Nursing IPOC Order Admission Date Jul 23, 2022 at 10:45 Current Orders Orders Admission Order(Inpt,Obs,Sdc) (07/23/22 06:25) Vital Signs: Per Unit Policy ( 08,16,00 (07/23/22 06:25) [place] 09,21 (07/23/22 06:25) Sequential Compression Device (07/23/22 06:25) Sales Forecast Analyst-Inpt Rehab Con (07/23/22 06:25) Rehab Nursing Orders-Ipoc (07/23/22 06:25) Physical Therapy Rehab Orders (07/23/22 06:25) Occupational Therapy Rehab Ord (07/23/22 06:25) Speech Therapy Rehab Orders (07/23/22 06:25) Cbc With Automated Diff (07/24/22 06:00) Comprehensive Metabolic Panel (07/24/22 06:00) Precautions (Aru) (07/23/22 06:25) Weekly Weight WEEK (07/23/22 06:25) Rehab-Intensity Of Therapy (07/23/22 06:25) Initiate Admission Nursing Pro .admission (07/23/22 06:25) Alprazolam Tablet (Xanax Tablet) (07/23/22 06:30) Calcium Carbonate Chew Tablet (Antacid C (07/23/22 06:30) Diphenhydramine Tablet (Benadryl Tablet) (07/23/22 06:30) Docusate Sodium Capsule (Colace Capsule) (07/23/22 09:00) Docusate Sodium Capsule (Colace Capsule) (07/23/22 06:30) Bisacodyl Suppository (Dulcolax Supposit (07/23/22 06:30) Lactulose Oral Solution (Enulose Oral So (07/23/22 06:30) Na Phos/Na Biphos Enema (Fleet Enema Samuel (07/23/22 06:30) Guaifenesin/Codeine Syrup (Robitussin Ac (07/23/22 06:30) Loperamide Tablet (Imodium Tablet) (07/23/22 06:30) Melatonin Tablet (Melatonin Tablet) (07/23/22 06:30) Polyethylene Glycol Powder Pkt (Miralax (07/23/22 09:00) Ondansetron Oral Dissolve Tab (Zofran (07/23/22 06:30) Senna S Tablet (Senokot S Tablet) (07/23/22 09:00) Acetaminophen Tablet/Caplet (Tylenol T (07/23/22 06:30) Initiate Admission Nursing Pro .admission (07/23/22 06:25) Admission Arrival Bed Request (07/23/22 10:50) Lipid Panel (07/23/22 11:02) General/Regular (07/23/22 Dinner) General/Regular (07/23/22 Lunch) Aspirin Enteric Coated Tablet (Ecotrin T (07/24/22 09:00) Lorazepam Tablet (Ativan Tablet) (07/23/22 11:30) Atorvastatin Tablet (Lipitor Tablet) (07/24/22 09:00) Diphenhydramine Injection (Benadryl Inje (07/23/22 11:30) Diphenhydramine Tablet (Benadryl Tablet) (07/23/22 11:30) Clopidogrel Tablet (Plavix Tablet) (07/24/22 09:00) Docusate Sodium Capsule (Colace Capsule) (07/23/22 21:00) Bisacodyl Suppository (Dulcolax Supposit (07/23/22 11:30) Lactulose Oral Solution (Enulose Oral So (07/23/22 11:30) Folic Acid Tablet (Folic Acid Tablet) (07/24/22 09:00) Hydromorphone Injection (Dilaudid Inject (07/23/22 11:30) Lorazepam Injection (Ativan Injection) (07/23/22 11:30) Losartan Tablet (Cozaar Tablet) (07/24/22 09:00) Enoxaparin Injection (Lovenox Injection) (07/23/22 17:00) Antacid Suspension (Mylanta Suspension (07/23/22 11:30) Melatonin Tablet (Melatonin Tablet) (07/23/22 11:30) Magnesium Hydroxide Oral Susp (Mom Oral (07/23/22 11:30) Polyethylene Glycol Powder Pkt (Miralax (07/23/22 11:30) Therapeutic Multivitamin Tab (Vitamins, (07/24/22 07:00) Nicotine Patch (Nicoderm Patch) (07/24/22 09:00) Insulin Aspart (Novolog) (Novolog (Charg (07/23/22 16:00) Ondansetron Injection (Zofran Injectio (07/23/22 11:30) Ondansetron Oral Dissolve Tab (Zofran (07/23/22 11:30) Patch Removal (Patch Removal) (07/24/22 08:59) Sennosides Tablet (Senokot Tablet) (07/23/22 21:00) Senna S Tablet (Senokot S Tablet) (07/23/22 11:30) Calcium Carbonate Chew Tablet (Antacid C (07/23/22 11:30) Acetaminophen Tablet/Caplet (Tylenol T (07/23/22 11:30) Amlodipine Tablet (Norvasc Tablet) (07/24/22 09:00) Clonidine Tablet (Catapres Tablet) (07/23/22 11:30) Oxycodone Immediate Rel Tablet (Oxyir Ta (07/23/22 11:30) Consult Cardiology (07/23/22 11:30) Incentive Spirometry Initial (07/23/22 11:30) Incentive Spirometry (Nursing) Q2H (07/23/22 11:30) Diphenhydramine Tablet (Benadryl Tablet) (07/23/22 12:15) Telemetry (07/23/22 14:15) Telemetry Nursing Assessment ( (07/23/22 14:15) Patient Visit (07/23/22 ) Pt Eval Moderate Complexity (07/23/22 ) Functional Activities, Ea 15 (07/23/22 ) Gait Training, Ea 15 Min (07/23/22 ) Code/Resuscitation (07/23/22 18:59) Mat Initiate Protocol (07/24/22 10:22) Albuterol Inhaler (Albuterol) (07/24/22 10:30) Albuterol Inhaler (Albuterol) (07/24/22 21:00) Patient Visit (07/24/22 ) Speech Sound Lang Comp (07/24/22 ) Treat. Speech/Lang/Voice (07/24/22 ) Patient Visit (07/24/22 ) Gait Training, Ea 15 Min (07/24/22 ) Exercise Therap, Ea 15 Min (07/24/22 ) Functional Activities, Ea 15 (07/24/22 ) Rehab Nursing Orders: Ongoing Assess. of Cognitive Status, Ongoing Assess. of Function Status, Bladder Management, Bladder Scan, Bladder Training, Bowel Management, Bowel Training, Disease Management & Educaiton, DVT Prophylaxis, Fall Prevention, Fluid/Electrolyte/Nutrition Mgmt, Infection Prevention, Medication Management & Education, Management of Risks & Complications, Nutrition Management, Pain Management, Patient/Family Support, Safety Management Intensity of Therapy to be met Patient to be seen: Min.3h per day/5 of 7d PT IPOC Problem List: Activity Tolerance, Functional Strength, Safety, Balance, Gait, Transfer, Bed Mobility Treatment Plan: Continue Plan of Care Bed Mobility, Education, Functional Activity Ellen, Functional Strength, Group Therapy, Gait, Safety, Therapeutic Exercise, Transfers, Other Treatment Duration: Aug 13, 2022 Frequency: At least 5 of 7 days/Wk (IRF) Estimated Hrs Per Day: 1.5 hours per day OT IPOC Problems: Decreased Activ Tolerance, Decreased Safety Aware, Decreased UE Strength, Impaired Cognition, Impaired Coordination, Impaired Funct Balance, Impaired I ADL's, Impaired Self-Care Skills, Restricted Funct UE ROM, Visual- Perceptual Deficit OT Treatment, Training and Edu: Yes Plan of Care: ADL Retraining, Functional Mobility, Group Exercise/Act as Ind, UE Funct Exercise/Act, UE Neuromus Re-Ed/Coord, Visual/Perceptual Retrain Treatment Duration: Aug 15, 2022 Frequency: At least 5 of 7 days/Wk (IRF) Estimated Hrs Per Day: 1.[address] IPOC Speech Therapy Treatment Plan: Discontinue ST Treatment Duration: Jul 24, 2022 Frequency: Modified Program (IRF) Estimated Hrs Per Day: Other Sales Forecast Analyst/Case Mgmt Sales Forecast Analyst/Case Managemen: Discharge Planning Dietitian/Insurance Broker Dietitian/Insurance Broker to monitor nutritional status and make changes and/or recommendations as needed and work with speech pathology on dietary upgrades as the occur. Physician IPOC Medical Issues being managed closely and that require the 24 hour availability of a physician: Recent CVA with alcohol withdrawal will require close monitoring for extension of CVA and further alcohol related issues and will require physician monitoring / Medical Issues: Bowel/Bladder Function, DVT Prophylaxis, Falls Precautions, Fluid/Electrolyte/Nutrition Balance, Infection Protection, Pain Management Brief Synthesis of Preadmission Screen, Post-Admission Evaluation, and Therapy Evaluations: PT OT will focus on regaining function in order to regain function from CVA and increase independence in order to return home Medical Prognosis: Good Anticipated Length of Stay: 7 days UCHE WALL DO Jul 24, 2022 10:44
--- NOTE | 2022-07-24 10:44 | PM&R Progress Note ---
Subjective HPI/CC On Admission Date Seen by Provider: Jul 24, 2022 Subjective/Events-last exam 07/24/2022: Doing well Able to walk with therapy with assist No pain reported Reviewed meds and labs Daughter at bedside Review of Systems General: Fatigue, Malaise Neurological: Weakness, Incoordination Objective Exam Vital Signs Vital Signs Date Time Temp Pulse Resp B/P (MAP) Pulse Ox O2 Delivery O2 Flow Rate FiO2 07/25/22 01:00 64 07/24/22 20:23 36.0 16 106/74 (85) 92 Room Air 07/23/22 11:30 21 Capillary Refill : General Appearance: No Apparent Distress, WD/WN, Chronically ill HEENT: PERRL/EOMI, Normal ENT Inspection, Pharynx Normal Neck: Full Range of Motion, Normal Inspection, Non Tender, Supple, Carotid Bruit Respiratory: Chest Non Tender, Lungs Clear, Normal Breath Sounds, No Accessory Muscle Use, No Respiratory Distress Cardiovascular: Regular Rate, Rhythm, No Edema, No Gallop, No JVD, No Murmur, Normal Peripheral Pulses Gastrointestinal: Normal Bowel Sounds, No Organomegaly, No Pulsatile Mass, Non Tender, Soft Back: Normal Inspection, No CVA Tenderness, No Vertebral Tenderness Extremity: Normal Capillary Refill, Normal Inspection, Normal Range of Motion (except right side), Non Tender, No Calf Tenderness, No Pedal Edema Neurologic/Psychiatric: Alert, Oriented x3, Normal Mood/Affect, statistical modeler II-XII Norm as Tested, Abnormal Gait, Depressed Affect, Motor Weakness (right 3/5 side) Skin: Normal Color, Warm/Dry Lymphatic: No Adenopathy Results/Procedures Lab Laboratory Tests 07/24/22 05:28 Patient resulted labs reviewed. FIM Transfers Therapy Code Descriptions/Definitions Functional [place] Measure: 0=Not Assessed/NA 4=Minimal Assistance 1=Total Assistance 5=Supervision or Setup 2=Maximal Assistance 6=Modified [place] 3=Moderate Assistance 7=Complete IndependenceSCALE: Activities may be completed with or without assistive devices. 4-Mxqgficxkd-gbxgoyk completes the activity by him/herself with no assistance from a helper. 5-Set-up or Clean-up Assistance-helper sets up or cleans up; patient completes activity. [place] assists only prior to or following the activity. 4-Supervision or Touching Assistance-helper provides verbal cues and/or to uching/steadying and/or contact guard assistance as patient completes activity. Assistance may be provided throughout the activity or intermittently. 3-Partial/Moderate Assistance-helper does LESS THAN HALF the effort. [place] lifts, holds or supports trunk or limbs, but provides less than half the effort. 2-Substantial/Maximal Assistance-helper does MORE THAN HALF the effort. [place] lifts or holds trunk or limbs and provides more than half the effort. 3-Oneawzmlk-qfnxbv does ALL the effort. Patient does none of the effort to complete the activity. Or, the assistance of 2 or more helpers is required for the patient to complete the activity. If activity was not attempted, code reason: 7-Patient Refused. 9-Not Applicable-not attempted and the patient did not perform the activity before the current illness, exacerbation or injury. 10-Not Attempted due to Environmental Limitations-(lack of equipment, weather restraints, etc.). 88-Not Attempted due to Medical Conditions or Safety Concerns. Roll Left to Right (QC): 5 Sit to Lying (QC): 3 (Min (A) with (R) LE) Sit to Stand (QC): 3 (min (A) with continual v.c. for (L) hand placement. Assist to maintain (R) financial coordinator on walker.) Chair/Aav-fj-Sblci Xfer(QC): 3 (min (A) with FWW, ataxic (R) LE, assist to negotiate walker and maintain (R) financial coordinator on walker, cues to turn completely to seat surface and center herself prior to sitting.) Car Transfer (QC): 3 (Min (A) with (R) LE) Gait Training Does the Patient Walk?: Yes Walk 10 feet (QC): 3 (Min (A) with FWW, ataxic (R) LE) Walk 50 ft with 2 Turns(QC): 3 (3 min (A) with FWW and needed assist with walker negotiation with obstacles, walker veered (L) -- toward unaffected side during gait - cues to push more with (L)/unaffected UE. ) Walk 150 ft (QC): 3 (mod (A) due to fatigue and more ataxia (R) LE, 2 episodes of scissoring with LOB) Walking 10ft/uneven surface-QC: 4 (with FWW, 1 retropulsive episode require mod (A) to correct) Gait Assistive Device: FWW Wheelchair Training Does the Pt Use a Wheelchair?: Yes Distance: 50' Wheel 50 ft with 2 turns (QC): 3 (min (A) to use LE's in conjunction with (L) UE - ataxic (R) LE made straight path mobility difficult) Wheel 150 ft (QC): 88 (not attempted due to patient fatigue) Type of Wheelchair: Manual Stair Training 1 Step (curb) (QC): 3 (Min (A) with FWW and cues for correct step sequence up, mod (A) down) 4 Steps (QC): 88 (not attempted due to increased ataxia with fatigue - not safe this date.) 12 Steps (QC): 88 Balance Picking up an Object (QC): 88 (not safe with ataxia and balance deficits with Elderly Mobility Scale) ADL-Treatment Eating (QC): 4 Oral Hygiene (QC): 4 (Pt required close SBA standing at sink.) Shower/Bathe Self (QC): 3 (100% seated, assistance with thoroughly cleaning LUE) Upper Body Dressing (QC): 3 (Min A. assist with LUE) Lower Body Dressing (QC): 2 (Pt frustrated with task, refused attempting some parts. Max A overall) On/Off Footwear (QC): 3 (Min A with donning R sock, encouragement required.) Toileting Hygiene (QC): 3 (Min A with pant hike.) Assessment/Plan Assessment and Plan Assess & Plan/Chief Complaint Assessment: Debility following CVA with right sided weakness Alcoholism s/p withdrawal during hospital stay Smoker HTN HLP Anxiety Thrombocytopenia Plan: Monitor closely Monitor BP PT OT 07/24/2022: Continue aggressive therapy (1) Acute ischemic multifocal posterior circulation stroke involving left-sided vessel Status: Acute (2) Non-ST elevated myocardial infarction Status: Acute (3) Elevated liver enzymes Status: Acute (4) PTSD (post-traumatic stress disorder) Status: Chronic (5) WENDY (generalized anxiety disorder) Status: Chronic (6) Hypertension Status: Chronic (7) COPD (chronic obstructive pulmonary disease) Status: Chronic UCHE WALL DO Jul 24, 2022 10:44
--- NOTE | 2022-07-24 11:46 | ST Cognitive Linguistic Eval ---
Speech Evaluation-General Medical Diagnosis CVA (R) Hemiplegia Onset Date: Jul 17, 2022 Therapy Diagnosis Therapy Diagnosis: Impaired Cognition/Mild Expressive Language Impairment Precautions Precautions: Fall Precautions/Isolations: Fall Prevention, Standard Precautions Referral Referring Physician: Dr. Abreu Reason for Referral: Evaluation/Treatment Medical History Pertinent Medical History: Alcoholism, Arthritis, COPD, CVA, HTN, Smoking Reviewed History: Yes Social History Current Living Status: Roommates Speech PLF-Current Status Prior Level of Function The patient's prior level of cognitive function is unknown to this clinician, however, the patient was employed recently with [employer], therefore, the clinician suspects the patient's baseline cognition was near or within functional limits. Subjective The patient was seated upright in her recliner, awake and alert, upon entrance to her room by the clinician. The patient greeted the clinician appropriately and was agreeable to participation in the cognitive linguistic assessment. Language Eval: Auditory Comprehends Simple Yes/No Ques: Functional Indent/Objects Multiple Arana: Functional Ident/Pics in Multiple Arana: Functional Follows 1-Step Commands: Functional Follows General Conversations: Moderate (The patient requires frequent verbal r edirection to task and topic.) Language Eval: Verbal Language Completes Spontaneous Greeting: Functional Produces Auto, Serial Info: Functional Imitates Simple Words/Phrases: Functional Word Finding: Moderate Requests Basic Needs: Functional States Basic Personal Info: Functional Cognitive Patient Orientation The patient was independently oriented to self, location, month, day of the week, and year. Objective Cognitive Domain Attention: Moderate Memory: Moderate Problem Solving: Moderate Executive Functions: Moderate Composite Severity Rating: Moderate Objective Formal/Standardized Tests [facility] Mental Status Exam (UMS) Results The patient demonstrated a result of +04/21 on the SLUMS (the clock drawing task was removed due to the patient's inability to write at this time) correlating to a result of a moderate cognitive impairment. Oral Motor/Speech Production The patient does not display dysarthria or apraxia of speech at this time. The patient was 100% intelligible in known and unknown contexts. Impression The patient demonstrated a moderate cognitive linguistic impairment with increased difficulty noted in the areas of memory, attention, and word-finding. Skilled speech pathology intervention will be beneficial for attempts at imp roving cognitive linguistic communication for a safe discharge to the least restrictive environment. Speech Short Term Goals Short Term Goals Short Term Goals 1. The patient will demonstrate functional memory strategies with 80% accuracy and mild verbal and visual cueing. Time Frame-STG: One Week. Speech Long-Term Goals Duty Officer Goals 1. The patient will improve cognitive linguistic communication for safe d ischarge to the least restrictive environment. Time Frame: Two Weeks. Speech-Plan Treatment Plan Speech Therapy Treatment Plan: Continue Plan of Care Frequency: Modified Program (IRF) (Three to Five Times Per Week) Estimated Hrs Per Day: .5 hour per day Rehab Potential: Fair Pt/Family Agrees to Plan: Yes Safety Risks/Education Teaching Recipient: Patient Teaching Methods: Discussion Response to Teaching: Verbalize Understanding, Reinforcement Needed Education Topics Provided: Results, Recommendations, Plan of Care Time Speech Therapy Time In: 09:00 Speech Therapy Time Out: 09:30 DATE: Jul 24, 2022 Total Billed Time: 30 Billed Treatment Time 1, KIERSTEN MOORE [facility] ST Jul 24, 2022 11:46
--- NOTE | 2022-07-24 12:22 | Physical Therapy Daily Note ---
PT Daily Note-Current Subjective States she continues to have pins and needles in (R) UE that can be intense at times. Has no sensation in (R) LE. Pain Section J - Health Conditions 1. Rarely or not at all 2. Occasionally 3. Frequently 4. Almost constantly 8. Unable to answer Pain Effect on Sleep: 1 Pain Interference with Therapy: 1 (pins and needles in (R) UE) Pain Interference w/Day-to-Day: 1 Appearance Sitting in recliner eating fruit when therapist entered room. Transfers SCALE: Activities may be completed with or without assistive devices. 1-Szoihafqzg-awfcqfr completes the activity by him/herself with no assistance from a helper. 5-Set-up or Clean-up Assistance-helper sets up or cleans up; patient completes activity. [place] assists only prior to or following the activity. 4-Supervision or Touching Assistance-helper provides verbal cues and/or touching/steadying and/or contact guard assistance as patient completes activity. Assistance may be provided throughout the activity or intermittently. 3-Partial/Moderate Assistance-helper does LESS THAN HALF the effort. [place] lifts, holds or supports trunk or limbs, but provides less than half the effort. 2-Substantial/Maximal Assistance-helper does MORE THAN HALF the effort. [place] lifts or holds trunk or limbs and provides more than half the effort. 2-Xwqokjwxv-dsfblh does ALL the effort. Patient does none of the effort to complete the activity. Or, the assistance of 2 or more helpers is required for the patient to complete the activity. If activity was not attempted, code reason: 7-Patient Refused. 9-Not Applicable-not attempted and the patient did not perform the activity before the current illness, exacerbation or injury. 10-Not Attempted due to Environmental Limitations-(lack of equipment, weather restraints, etc.). 88-Not Attempted due to Medical Conditions or Safety Concerns. Sit to Stand (QC): 3 (min-CGA today with v.c. to hand placement with each attempt (x 10 in therapy this date). ) Chair/Nyc-ha-Faegv Xfer(QC): 3 (min-CGA with use of FWW. Continues to have difficulty maintaining (R) assistant site manager of walker with Sit>stand.) Toilet Transfer (QC): 3 (min-CGA with FWW and grab bar. Min (A) to stand from low toilet with grab bar.) Weight Bearing Weight Bearing/Tolerated Weight Bearing/Tolerated Gait Training Does the Patient Walk?: Yes Distance: 150' x 2 Walk 10 feet (QC): 3 (min (A) with FWW) Walk 50 ft with 2 Turns(QC): 3 (min (A) with FWW) Walk 150 ft (QC): 3 (min (A) with FWW) Gait Persons Needed: 1 (pulling w/c behind) Gait Assistive Device: FWW Ataxic (R) LE with gait, erratic (R) foot placement. Needs shoes for gait - da jasmine unable to bring today - they needed to be washed. Able to assistant site manager walker with (R) while walking without losing assistant site manager on device. Cues to look up while walking and to avoid obstacles as she tends to look at feet. Exercises Nustep L3 x 8 minutes with (B) LE's/UE x 7 minutes, then rested (R) UE during last minute. Had increased parethesia (R) UE when she started Nustep initially, but this subsided. Able to maintain (R) assistant site manager for 5 minutes, then lost assistant site manager and was able to self correct for 2 more minutes. CGA for (R) LE to avoid excessive hip ER during hip flexion phase. Standing exercise in // bars with (B) CEO: (min (A) Tap ups to curb step, alternating feet x 15 (B) with improved stepping strategy noted with each rep. March in place x 15 Heels/toes up x 15 Ham curls x 15(B) Sitting rest break - exercise rationale discuseed. Standing alternate hip abduction x 10 (B) Sidestepping (R) x 6', sidestepping (L) x 6' x 2 reps each min (A) Assessment Current Status: Fair Progress Needs shoes to assist with gait training due to slipper socks not staying on (R) foot/slipping off heel due to wound dressing. PT [facility] Goals Web Marketing Strategist Goals PT Web Marketing Strategist Goals Time Frame: Aug 13, 2022 Roll Left & Right (QC): 6 Sit to Lying (QC): 6 Lying-Sitting on Side/Bed(QC): 6 Sit to Stand (QC): 6 Chair/Xjg-zo-Psixl Xfer(QC): 6 Toilet Transfer (QC): 6 Car Transfer (QC): 5 Does the Patient Walk: Yes Walk 10 feet (QC): 5 Walk 50ft with 2 Turns (QC): 5 (with least restrictive device with less (R) LE ataxia) Walk 150 ft (QC): 5 (with least restrictive device with less (R) LE ataxia) Walking 10ft on Uneven Surface: 5 (with least restrictive device with less (R) LE ataxia) 1 Step (curb) (QC): 5 (with least restrictive device) 4 Steps (QC): 5 (with (B) rails) 12 Steps (QC): 4 (Min (A) with (B) rails) Picking up an Object (QC): 5 Does the Pt use WC or Scooter?: Yes Wheel 50 feet with 2 turns (QC: 6 Type: Manual Wheel 150 feet: 6 Type: Manual PT Plan Treatment/Plan Treatment Plan: Continue Plan of Care Treatment Plan: Bed Mobility, Education, Functional Activity Ellen, Functional Strength, Group Therapy, Gait, Safety, Therapeutic Exercise, Transfers, Other Treatment Duration: Aug 13, 2022 Frequency: At least 5 of 7 days/Wk (IRF) Estimated Hrs Per Day: 1.5 hours per day Patient and/or Family Agrees t: Yes Time Time In: 1005 (1120) Time Out: 1120 DATE: Jul 24, 2022 Total Billed Treatment Time: 75 Total Billed Treatment Gait trainin, Exercise 30, FA 15 Janette Mace PT Jul 24, 2022 12:22
[2022-07-24] MEDS: ACETAMINOPHEN 325 MG TABLET PO PRN (13:58)
--- NOTE | 2022-07-24 14:05 | Occupational Ther Daily Note ---
OT Current Status-Daily Note Subjective Pt alert, sitting in recliner. Pt agree to therapy. No c/o pain. Pt does state that feeling is coming back in R UE. Mental Status/Objective Patient Orientation: Person, Place, Time, Situation Attachments: Telemetry ADL-Treatment Therapy Code Descriptions/Definitions Functional [place] Measure: 0=Not Assessed/NA 4=Minimal Assistance 1=Total Assistance 5=Supervision or Setup 2=Maximal Assistance 6=Modified [place] 3=Moderate Assistance 7=Complete IndependenceSCALE: Activities may be completed with or without assistive devices. 3-Okmblwmlnf-flpwkcw completes the activity by him/herself with no assistance from a helper. 5-Set-up or Clean-up Assistance-helper sets up or cleans up; patient completes activity. [place] assists only prior to or following the activity. 4-Supervision or Touching Assistance-helper provides verbal cues and/or touching/steadying and/or contact guard assistance as patient completes activity. Assistance may be provided throughout the activity or intermittently. 3-Partial/Moderate Assistance-helper does LESS THAN HALF the effort. [place] lifts, holds or supports trunk or limbs, but provides less than half the effort. 2-Substantial/Maximal Assistance-helper does MORE THAN HALF the effort. [place] lifts or holds trunk or limbs and provides more than half the effort. 5-Ffuktjqmv-gbwqiw does ALL the effort. Patient does none of the effort to complete the activity. Or, the assistance of 2 or more helpers is required for the patient to complete the activity. If activity was not attempted, code reason: 7-Patient Refused. 9-Not Applicable-not attempted and the patient did not perform the activity before the current illness, exacerbation or injury. 10-Not Attempted due to Environmental Limitations-(lack of equipment, weather restraints, etc.). 88-Not Attempted due to Medical Conditions or Safety Concerns. Other Treatment Pt demonstrating functional movement throughout R UE. Pt completed exercises against gravity working on strengthening, coordination and WNL ROM. Pt needs to continue to work on R UE coordination tasks for independence with daily functional tasks. R shldr- flex/ext, abd/add, int/ext rotation; R elbow flex/ext; forearm sup/pron; wrist flex ext; finger flex/ext, opposition. After session, pt lying in bed with call light/phone in reach. All needs met in room. OT Short Term Goals Short Term Goals Time Frame: Aug 01, 2022 Lower body dressin Putting on/taking off footwear: 4 OT Mcc Goals Certified Bench Jeweler Technician Goals Time Frame: Aug 15, 2022 Acute change in mental status: 1 Inattention: 0 Disorganized thinkin Altered level of consciousness: 0 Eating (QC): 6 Oral Hygiene (QC): 6 Toileting Hygiene (QC): 6 Shower/Bathe Self (QC): 6 Upper Body Dressing (QC): 6 Lower Body Dressing (QC): 6 On/Off Footwear (QC): 6 Additional Goals: 1-Demonstrate ADL Tasks, 2-Verbalize Understanding, 3- ImproveStrength/Ellen 1=Demonstrate adherence to instructed precautions during ADL tasks. 2=Patient will verbalize/demonstrate understanding of assistive devices/modific ations for ADL. 3=Patient will improve strength/tolerance for activity to enable patient to perform ADL's. OT Education/Plan Problem List/Assessment Assessment: Decreased Activ Tolerance, Decreased UE Strength, Impaired Coordination, Impaired Funct Balance, Impaired Self-Care Skills, Restricted Funct UE ROM, Visual-Perceptual Deficit Discharge Recommendations Plan/Recommendations: Continue POC Treatment Plan/Plan of Care Patient would benefit from OT for education, treatment and training to promote independence in ADL's, mobility, safety and/or upper extremity function for ADL's. Plan of Care: ADL Retraining, Functional Mobility, Group Exercise/Act as Ind, UE Funct Exercise/Act, UE Neuromus Re-Ed/Coord, Visual/Perceptual Retrain Treatment Duration: Aug 15, 2022 Frequency: At least 5 of 7 days/Wk (IRF) Estimated Hrs Per Day: 1.5 hours per day Agreement: Yes Rehab Potential: Fair Time Start Time: 13:30 Stop Time: 14:00 DATE: Jul 24, 2022 Total Time Billed (hr/min): 30 Billed Treatment Time 1 visit-MIGUEL 2 (30 min) JENNY ALBERTS Jul 24, 2022 14:05
[2022-07-24] MEDS: ENOXAPARIN 40 MG/0.4 ML (LOVENOX) SYR SC SCH (17:16)
[2022-07-24] MEDS: MELATONIN 3 MG TABLET PO PRN (20:10)
[2022-07-24] MEDS: RT-ALBUTEROL HFA 8.5 GM INHALER IH SCH (20:12)
[2022-07-24 20:23] VITALS: BP 106/74
[2022-07-25] MEDS: MULTIVIT W/MINERALS TAB (THERAGRAN M) PO SCH (06:27)
[2022-07-25] MEDS: ACETAMINOPHEN 325 MG TABLET PO PRN ×2 (06:28→15:06)
[2022-07-25] MEDS: inSUlin ASPART (NovoLOG) 1 UNIT/0.01 ML (CHARGE PER UNIT) SC SCH ×2 (06:32→11:12)
[2022-07-25] MEDS: RT-ALBUTEROL HFA 8.5 GM INHALER IH SCH ×2 (07:07→20:44)
[2022-07-25 07:56] VITALS: BP 111/66
[2022-07-25] MEDS: NICOTINE 21 MG (NICODERM) PATCH TD SCH (08:07)
[2022-07-25] MEDS: amLODIPine 5 MG (NORVASC) TAB PO SCH (08:07)
[2022-07-25] MEDS: LOSARTAN 100 MG (COZAAR) TABLET PO SCH (08:07)
[2022-07-25] MEDS: CLOPIDOGREL 75 MG (PLAVIX) TABLET PO SCH (08:07)
[2022-07-25] MEDS: ASPIRIN E.C. 81 MG (ECOTRIN) TAB PO SCH (08:07)
[2022-07-25] MEDS: FOLIC ACID 1 MG TAB PO SCH (08:07)
--- NOTE | 2022-07-25 08:12 | PM&R Progress Note ---
Subjective HPI/CC On Admission Date Seen by Provider: Jul 25, 2022 Time Seen by Provider: 11:30 Subjective/Events-last exam 07/25/2022: Doing well Improved already BM+ No pain 07/24/2022: Doing well Able to walk with therapy with assist No pain reported Reviewed meds and labs Daughter at bedside Review of Systems General: Fatigue, Malaise Objective Exam Vital Signs Vital Signs Date Time Temp Pulse Resp B/P (MAP) Pulse Ox O2 Delivery O2 Flow Rate FiO2 07/25/22 20:45 93 Room Air 07/25/22 19:57 36.2 68 16 117/65 (82) 07/23/22 11:30 21 Capillary Refill : General Appearance: No Apparent Distress, WD/WN, Chronically ill HEENT: PERRL/EOMI, Normal ENT Inspection, Pharynx Normal Neck: Full Range of Motion, Normal Inspection, Non Tender, Supple, Carotid Bruit Respiratory: Chest Non Tender, Lungs Clear, Normal Breath Sounds, No Accessory Muscle Use, No Respiratory Distress Cardiovascular: Regular Rate, Rhythm, No Edema, No Gallop, No JVD, No Murmur, Normal Peripheral Pulses Gastrointestinal: Normal Bowel Sounds, No Organomegaly, No Pulsatile Mass, Non Tender, Soft Back: Normal Inspection, No CVA Tenderness, No Vertebral Tenderness Extremity: Normal Capillary Refill, Normal Inspection, Normal Range of Motion (except right side), Non Tender, No Calf Tenderness, No Pedal Edema Neurologic/Psychiatric: Alert, Oriented x3, Normal Mood/Affect, truer pinion and wheel II-XII Norm as Tested, Abnormal Gait, Depressed Affect, Motor Weakness (right 3/5 side) Skin: Normal Color, Warm/Dry Lymphatic: No Adenopathy Results/Procedures Lab Patient resulted labs reviewed. FIM Transfers Therapy Code Descriptions/Definitions Functional [place] Measure: 0=Not Assessed/NA 4=Minimal Assistance 1=Total Assistance 5=Supervision or Setup 2=Maximal Assistance 6=Modified [place] 3=Moderate Assistance 7=Complete IndependenceSCALE: Activities may be completed with or without assistive devices. 0-Zoilkzbkso-cscluzz completes the activity by him/herself with no assistance from a helper. 5-Set-up or Clean-up Assistance-helper sets up or cleans up; patient completes activity. [employer] assists only prior to or following the activity. 4-Supervision or Touching Assistance-helper provides verbal cues and/or touching/steadying and/or contact guard assistance as patient completes activity. Assistance may be provided throughout the activity or intermittently. 3-Partial/Moderate Assistance-helper does LESS THAN HALF the effort. [employer] lifts, holds or supports trunk or limbs, but provides less than half the effort. 2-Substantial/Maximal Assistance-helper does MORE THAN HALF the effort. [employer] lifts or holds trunk or limbs and provides more than half the effort. 6-Uvkbhnjnh-nkzepe does ALL the effort. Patient does none of the effort to complete the activity. Or, the assistance of 2 or more helpers is required for the patient to complete the activity. If activity was not attempted, code reason: 7-Patient Refused. 9-Not Applicable-not attempted and the patient did not perform the activity before the current illness, exacerbation or injury. 10-Not Attempted due to Environmental Limitations-(lack of equipment, weather restraints, etc.). 88-Not Attempted due to Medical Conditions or Safety Concerns. Roll Left to Right (QC): 5 Sit to Lying (QC): 3 (Min (A) with (R) LE) Sit to Stand (QC): 3 (min-CGA today with v.c. to hand placement with each attempt (x 10 in therapy this date). ) Chair/Unm-pi-Abvwv Xfer(QC): 3 (min-CGA with use of FWW. Continues to have difficulty maintaining (R) oxygen therapist of walker with Sit>stand.) Car Transfer (QC): 3 (Min (A) with (R) LE) Gait Training Does the Patient Walk?: Yes Distance: 150' x 2 Walk 10 feet (QC): 3 (min (A) with FWW) Walk 50 ft with 2 Turns(QC): 3 (min (A) with FWW) Walk 150 ft (QC): 3 (min (A) with FWW) Walking 10ft/uneven surface-QC: 4 (with FWW, 1 retropulsive episode require mod (A) to correct) Gait Persons Needed: 1 (pulling w/c behind) Gait Assistive Device: FWW Wheelchair Training Does the Pt Use a Wheelchair?: Yes Distance: 50' Wheel 50 ft with 2 turns (QC): 3 (min (A) to use LE's in conjunction with (L) UE - ataxic (R) LE made straight path mobility difficult) Wheel 150 ft (QC): 88 (not attempted due to patient fatigue) Type of Wheelchair: Manual Stair Training 1 Step (curb) (QC): 3 (Min (A) with FWW and cues for correct step sequence up, mod (A) down) 4 Steps (QC): 88 (not attempted due to increased ataxia with fatigue - not safe this date.) 12 Steps (QC): 88 Balance Picking up an Object (QC): 88 (not safe with ataxia and balance deficits with Elderly Mobility Scale) ADL-Treatment Eating (QC): 4 Oral Hygiene (QC): 4 (Pt required close SBA standing at sink.) Shower/Bathe Self (QC): 3 (100% seated, assistance with thoroughly cleaning LUE) Upper Body Dressing (QC): 3 (Min A. assist with LUE) Lower Body Dressing (QC): 2 (Pt frustrated with task, refused attempting some parts. Max A overall) On/Off Footwear (QC): 3 (Min A with donning R sock, encouragement required.) Toileting Hygiene (QC): 3 (Min A with pant hike.) Assessment/Plan Assessment and Plan Assess & Plan/Chief Complaint Assessment: Debility following CVA with right sided weakness Alcoholism s/p withdrawal during hospital stay Smoker HTN HLP Anxiety Thrombocytopenia Plan: Monitor closely Monitor BP PT OT 07/24/2022: Continue aggressive therapy 07/25/2022: MVI Monitor closely DC Tely (1) Acute ischemic multifocal posterior circulation stroke involving left-sided vessel Status: Acute (2) Non-ST elevated myocardial infarction Status: Acute (3) Elevated liver enzymes Status: Acute (4) PTSD (post-traumatic stress disorder) Status: Chronic (5) WENDY (generalized anxiety disorder) Status: Chronic (6) Hypertension Status: Chronic (7) COPD (chronic obstructive pulmonary disease) Status: Chronic UCHE WALL DO Jul 25, 2022 08:12
--- NOTE | 2022-07-25 08:33 | Cardiology Progress Note ---
Subjective Date Seen by Provider: Jul 25, 2022 Time Seen by Provider: 08:32 Subjective/Events-last exam Patient was seen at bedside, receiving physical therapy No new complaint Review of Systems General: No Chills, No Night Sweats, No Fatigue, No Malaise, No Appetite, No Ot her HEENT: No Head Aches, No Visual Changes, No Eye Pain, No Ear Pain, No Dysphasia, No Sinus Congestion, No Post Nasal Drip, No Sore Throat, No Other Pulmonary: No Dyspnea, No Cough, No Pleuritic Chest Pain, No Other Cardiovascular: No: Chest Pain, Palpitations, Orthopnea, Paroxysmal Noc. Dyspnea, Edema, Lt Headedness, Other Objective-Cardiology Exam Last Set of Vital Signs Vital Signs 07/23/22 07/25/22 11:30 07:56 Temp 36.2 Pulse 82 Resp 16 B/P (MAP) 111/66 (81) Pulse Ox 94 O2 Delivery Room Air FiO2 21 I&O Intake and Output 07/25/22 00:00 Intake Total 350 ml Balance 350 ml Intake Oral 350 ml # Voids 6 # Bowel Movements 1 General: Alert, Oriented X3 HEENT: Atraumatic, PERRLA Lungs: Clear to Auscultation, Normal Air Movement Heart: Regular Rate Abdomen: Soft, No Tenderness Extremities: No Clubbing, No Edema Skin: No Rashes, No Significant Lesion Neuro: Other (right sided weakness) A/P-Cardiology Admission Diagnosis CVA NSTEMI HTN Weakness/debility Assessment/Plan Status post acute CVA CT angiogram reported as distal left DIRECTOR OF PATIENT SAFETY occlusion Currently on aspirin and Plavix Telemetry showing SR. Will consider LINq implantation prior to discharge Still having aphasia and right hemiplegia. Receiving physical therapy. Management per medical service. Elevated troponin, non-ST elevation myocardial infarction. No acute EKG changes. Troponin is trending down. Continue to monitor, conservative management is recommended I am planning to evaluate stress test as an outpatient in 2 weeks 2D echo was done on July 19, 2022 which showing normal left ventricular size with ejection fraction 60 to 65%, grade 1 diastolic dysfunction, mild mitral regurgitation, PA pressure 40 to 45 mmHg. No shunt was detected by using contrast Hypertension, recommend keeping blood pressure mildly elevated to improve the perfusion pressure Currently on losartan 100mg, amlodipine 5mg Lipid profile was done on July 19, 2022 and it was normal. Multiple bruises which trauma to the knee. Moderate elevation in CPK. Continue with IV fluid and monitor Tobaccoism, advised to stop smoking Alcoholism. Patient reported that she drinks wine over the weekend REMEDIOS COHEN MD Jul 25, 2022 08:33
[2022-07-25] MEDS: SENNA W/DOCUSATE (SENOKOT S) TABLET PO SCH ×2 (08:54→20:04)
[2022-07-25] MEDS: DOCUSATE SODIUM 100 MG (COLACE) CAP PO SCH ×2 (08:54→20:04)
[2022-07-25] MEDS: SENNOSIDES 8.6 MG (SENOKOT) TAB PO SCH ×2 (08:54→20:04)
[2022-07-25] MEDS: polyethylene glycoL POWDER 17 GM (MIRALAX) PACK PO SCH ×2 (08:54→20:04)
--- NOTE | 2022-07-25 10:10 | Speech Therapy Daily Note ---
Speech Daily Progress Note Subjective Date Seen by Provider: Jul 25, 2022 Time Seen by Provider: 09:00 The patient was seated upright in her recliner, awake and alert, upon entrance to her room by the clinician. The patient's daughter, Kimberly, was present and remained in and out of the room throughout the skilled treatment session. The patient greeted the clinician appropriately and was agreeable to participation in the cognitive treatment. Objective The clinician initiated the treatment session with functional recall. The patient was asked to provide information from the prior evening, who gave her flores, and her current occupation. The patient was unable to recall any of the information independently. With maximum clinician verbal and visual cueing, the patient was able to recall each item. The patient was independently oriented to self, location, month, day of the week, date and year. Functional memory strategies were reviewed, specifically the strategy of recording upcoming appointments and dates on a calendar. The patient reported she keeps a calendar at home and frequently reviews the information. The clinician will provide a calendar to the patient for use on the unit and to practice the memory strategy discussed. The clinician and patient utilized association, repetition, and visualization in attempts to recall five single words following a five minute delay. Initially, the patient was able to recall one of five words. Following memory strategy practice, the patient was able to recall two of five words. Category cues were not helpful for patient recall. At the close of the session, the patient was able to recall who brought her flores and her current occupation with decreased clinician verbal prompting and slightly increased response time. Assessment Assessment Current Status: Good Progress Treatment Plan Continue Plan of Care Speech Short Term Goals Short Term Goals Short Term Goals 1. The patient will demonstrate functional memory strategies with 80% accuracy and mild verbal and visual cueing. Time Frame-STG: One Week. Speech Mcfp Goals Mcfp Goals 1. The patient will improve cognitive linguistic communication for safe di scharge to the least restrictive environment. Time Frame: Two Weeks. Speech-Plan Treatment Plan Speech Therapy Treatment Plan: Continue Plan of Care Treatment Duration: Jul 24, 2022 Frequency: Modified Program (IRF) Estimated Hrs Per Day: .5 hour per day Rehab Potential: Fair Pt/Family Agrees to Plan: Yes Safety Risks/Education Teaching Recipient: Patient, Family Teaching Methods: Discussion Response to Teaching: Reinforcement Needed Education Topics Provided: Functional Memory Strategies Time Speech Therapy Time In: 09:00 Speech Therapy Time Out: 09:30 DATE: Jul 25, 2022 Total Billed Time: 30 Billed Treatment Time 1, JAIR MORENO Jul 25, 2022 10:10
[2022-07-25] MEDS: NICOTINE PATCH TP SCH (11:11)
--- NOTE | 2022-07-25 11:26 | Occupational Ther Daily Note ---
OT Current Status-Daily Note Subjective Pt seen in room, up in recliner, agreeable to OT. No pain per se mentioned but she did have some R hip cramps that were painful at times. Appearance Alert, cooperative. Somewhat flat affect ADL-Treatment Daughter present for part of tx. Pt wanted to do a sponge bath and put on regular underwear as opposed to paper briefs. She was able to wash under R arm and breasts with L UE but not able to hold on to wipe to wash under L arm. Stood with CGA, cues for R hand placement and to place R hand on walker for support. Helped pull pants down and up with L UE but, even with placement, R UE not able to manage pants. Able to thread both UEs into pants with min assist. Washed [place] with L UE, CGA, R UE as assist on walker. It sometimes fell off and she needed cues to put it back on walker. Pt educ mod technique for UE and LE dressing. She was able to take shirt off with min assist and don clean one min assist. Pt did require frequent brief recovery breaks due to SOB but nursing checked O2 sats and it was 99% and regular HR. Cues to stand to walk to bathroom, mod assist, FWW, cues for R hand placement. Stood at sink CGA to brush teeth and was able to prep tooth brush herself. Toilet transfer mod assist with cues to sit down safely. Assist with clothing management as with dressing. BSC placed over toilet to provide arm for her to use for transfers. Difficulty getting R shoes on due to mild swelling in foot so slipper socks put on her feet. Pt returned to recliner, mod A, FWW, cues for R hand. Pt reported that she still doesn't have any feeling in R UE other than some tingling at elbow. Therapy Code Descriptions/Definitions Functional [place] Measure: 0=Not Assessed/NA 4=Minimal Assistance 1=Total Assistance 5=Supervision or Setup 2=Maximal Assistance 6=Modified [place] 3=Moderate Assistance 7=Complete IndependenceSCALE: Activities may be completed with or without assistive devices. 9-Iefjlymcfw-gezvobb completes the activity by him/herself with no assistance from a helper. 5-Set-up or Clean-up Assistance-helper sets up or cleans up; patient completes activity. [place] assists only prior to or following the activity. 4-Supervision or Touching Assistance-helper provides verbal cues and/or touching/steadying and/or contact guard assistance as patient completes activity. Assistance may be provided throughout the activity or intermittently. 3-Partial/Moderate Assistance-helper does LESS THAN HALF the effort. [place] lifts, holds or supports trunk or limbs, but provides less than half the effort. 2-Substantial/Maximal Assistance-helper does MORE THAN HALF the effort. [place] lifts or holds trunk or limbs and provides more than half the effort. 2-Vrxvmeote-xquqio does ALL the effort. Patient does none of the effort to complete the activity. Or, the assistance of 2 or more helpers is required for the patient to complete the activity. If activity was not attempted, code reason: 7-Patient Refused. 9-Not Applicable-not attempted and the patient did not perform the activity before the current illness, exacerbation or injury. 10-Not Attempted due to Environmental Limitations-(lack of equipment, weather restraints, etc.). 88-Not Attempted due to Medical Conditions or Safety Concerns. Oral Hygiene (QC): 4 (CGA) Shower/Bathe Self (QC): 3 (sponge bath) Upper Body Dressing (QC): 3 (Min) Lower Body Dressing (QC): 2 (Mod) On/Off Footwear: 3 Toileting Hygiene (QC): 3 (Min) Toilet Transfer (QC): 2 (Mod) Other Treatment Pt completed 10 reps two different bilat UE exercises after education. These are done without additional resistance and assist with muscle reeducation and coordination. Pt encouraged to watch and track R UE to facilitate eye-hand c oordination. Pt left up in recliner, call light present, all needs met. Education OT Patient Education: Modified ADL techniques, Progress toward Goal/Update tx plan, Purpose of tx/functional activities, Transfer techniques Teaching Recipient: Patient Teaching Methods: Demonstration, Discussion Response to Teaching: Verbalize Understanding, Return Demonstration, Reinforcement Needed OT Short Term Goals Short Term Goals Time Frame: Aug 01, 2022 Lower body dressin Putting on/taking off footwear: 4 OT Long-Term Goals Long-Term Goals Time Frame: Aug 15, 2022 Acute change in mental status: 1 Inattention: 0 Disorganized thinkin Altered level of consciousness: 0 Eating (QC): 6 Oral Hygiene (QC): 6 Toileting Hygiene (QC): 6 Shower/Bathe Self (QC): 6 Upper Body Dressing (QC): 6 Lower Body Dressing (QC): 6 On/Off Footwear (QC): 6 Additional Goals: 1-Demonstrate ADL Tasks, 2-Verbalize Understanding, 3- ImproveStrength/Ellen 1=Demonstrate adherence to instructed precautions during ADL tasks. 2=Patient will verbalize/demonstrate understanding of assistive devices/modifications for ADL. 3=Patient will improve strength/tolerance for activity to enable patient to perform ADL's. OT Education/Plan Discharge Recommendations Plan/Recommendations: Continue POC Treatment Plan/Plan of Care Patient would benefit from OT for education, treatment and training to promote independence in ADL's, mobility, safety and/or upper extremity function for ADL's. Plan of Care: ADL Retraining, Functional Mobility, Group Exercise/Act as Ind, UE Funct Exercise/Act, UE Neuromus Re-Ed/Coord, Visual/Perceptual Retrain Treatment Duration: Aug 15, 2022 Frequency: At least 5 of 7 days/Wk (IRF) Estimated Hrs Per Day: 1.5 hours per day Agreement: Yes Rehab Potential: Fair Time Start Time: 09:30 Stop Time: 10:45 DATE: Jul 25, 2022 Total Time Billed (hr/min): 75 Billed Treatment Time visit, 70 minutes ADL, 5 minutes exercise ESTELA PATEL OT Jul 25, 2022 11:26
--- NOTE | 2022-07-25 11:39 | Physical Therapy Daily Note ---
PT Daily Note-Current Subjective Pt found seated in recliner upon entry. Agreed to PT. States she has numbness and tingling on affected side but no pain. Pain Section J - Health Conditions 1. Rarely or not at all 2. Occasionally 3. Frequently 4. Almost constantly 8. Unable to answer Pain Effect on Sleep: 1 Pain Interference with Therapy: 1 (pins and needles in (R) UE) Pain Interference w/Day-to-Day: 1 Mental Status Patient Orientation: Person Transfers SCALE: Activities may be completed with or without assistive devices. 7-Bjzqujpkdm-ehrvils completes the activity by him/herself with no assistance from a helper. 5-Set-up or Clean-up Assistance-helper sets up or cleans up; patient completes activity. [place] assists only prior to or following the activity. 4-Supervision or Touching Assistance-helper provides verbal cues and/or touching/steadying and/or contact guard assistance as patient completes activity. Assistance may be provided throughout the activity or intermittently. 3-Partial/Moderate Assistance-helper does LESS THAN HALF the effort. [place] lifts, holds or supports trunk or limbs, but provides less than half the effort. 2-Substantial/Maximal Assistance-helper does MORE THAN HALF the effort. [place] lifts or holds trunk or limbs and provides more than half the effort. 5-Wbmejwwtp-ysenfb does ALL the effort. Patient does none of the effort to complete the activity. Or, the assistance of 2 or more helpers is required for the patient to complete the activity. If activity was not attempted, code reason: 7-Patient Refused. 9-Not Applicable-not attempted and the patient did not perform the activity before the current illness, exacerbation or injury. 10-Not Attempted due to Environmental Limitations-(lack of equipment, weather restraints, etc.). 88-Not Attempted due to Medical Conditions or Safety Concerns. Sit to Stand (QC): 4 CGA with sit to stand transfers. Cues for proper hand placement while completing transfers. Weight Bearing Weight Bearing/Tolerated Weight Bearing/Tolerated Gait Training Does the Patient Walk?: Yes Distance: 150, 100, 100 Walk 10 feet (QC): 4 Walk 50 ft with 2 Turns(QC): 4 Walk 150 ft (QC): 4 Gait Persons Needed: 1 Gait Assistive Device: FWW Pt CGA with gait training. Ambulated 350 feet total with use of FWW. Pt occasionally stumbles during ambulation but is able to regain balance without assistance from helper. Displays poor heel strike during gait cycle. Treatments Standing exercise B: Marching x 10 Hip ext x 2 (fatigue) Hamstring curls x 10 Side-stepping x 10 steps Heel/toe raises x 10 Assessment Current Status: Good Progress Pt displays good tolerance to gait training and therapeutic exercises. Required rest breaks between sets throughout visit. Demonstrated poor heel strike during ambulation, especially on R side. Pt slow to complete therapeutic exercises. Displays fatigue and shortness of breath with treatment. Continue to progress pt as tolerated per POC to increase strength, endurance, and functional ability. PT Half-Way Goals Half-Way Goals PT Valet Manager Goals Time Frame: Aug 13, 2022 Roll Left & Right (QC): 6 Sit to Lying (QC): 6 Lying-Sitting on Side/Bed(QC): 6 Sit to Stand (QC): 6 Chair/Dxh-rh-Awupy Xfer(QC): 6 Toilet Transfer (QC): 6 Car Transfer (QC): 5 Does the Patient Walk: Yes Walk 10 feet (QC): 5 Walk 50ft with 2 Turns (QC): 5 (with least restrictive device with less (R) LE ataxia) Walk 150 ft (QC): 5 (with least restrictive device with less (R) LE ataxia) Walking 10ft on Uneven Surface: 5 (with least restrictive device with less (R) LE ataxia) 1 Step (curb) (QC): 5 (with least restrictive device) 4 Steps (QC): 5 (with (B) rails) 12 Steps (QC): 4 (Min (A) with (B) rails) Picking up an Object (QC): 5 Does the Pt use WC or Scooter?: Yes Wheel 50 feet with 2 turns (QC: 6 Type: Manual Wheel 150 feet: 6 Type: Manual PT Plan Treatment/Plan Treatment Plan: Continue Plan of Care Treatment Plan: Bed Mobility, Education, Functional Activity Ellen, Functional Strength, Group Therapy, Gait, Safety, Therapeutic Exercise, Transfers, Other Treatment Duration: Aug 13, 2022 Frequency: At least 5 of 7 days/Wk (IRF) Estimated Hrs Per Day: 1.5 hours per day Patient and/or Family Agrees t: Yes Time Time In: 0800 Time Out: 0900 DATE: Jul 25, 2022 Total Billed Treatment Time: 60 Total Billed Treatment 1 visit GT x 2 EX x 2 JOYCELYN CRUZ PTA Jul 25, 2022 11:39
--- NOTE | 2022-07-25 11:52 | Physical Therapy Daily Note ---
PT Daily Note-Current Subjective Pt found seated in recliner upon entry. Agreed to PT. States that she thinks it is easier to ambulated with just socks on and no shoes. Reports that her R hip began feeling sore while sitting down. Rates pain 8/10 post-treatment. Pain Section J - Health Conditions 1. Rarely or not at all 2. Occasionally 3. Frequently 4. Almost constantly 8. Unable to answer Pain Effect on Sleep: 1 Pain Interference with Therapy: 1 (pins and needles in (R) UE) Pain Interference w/Day-to-Day: 1 Mental Status Patient Orientation: Person Transfers SCALE: Activities may be completed with or without assistive devices. 5-Qkhziirmxb-qdscwhu completes the activity by him/herself with no assistance from a helper. 5-Set-up or Clean-up Assistance-helper sets up or cleans up; patient completes activity. [place] assists only prior to or following the activity. 4-Supervision or Touching Assistance-helper provides verbal cues and/or touching/steadying and/or contact guard assistance as patient completes activity. Assistance may be provided throughout the activity or intermittently. 3-Partial/Moderate Assistance-helper does LESS THAN HALF the effort. [place] lifts, holds or supports trunk or limbs, but provides less than half the effort. 2-Substantial/Maximal Assistance-helper does MORE THAN HALF the effort. [place] lifts or holds trunk or limbs and provides more than half the effort. 0-Qrpifjcqf-pjfpnq does ALL the effort. Patient does none of the effort to complete the activity. Or, the assistance of 2 or more helpers is required for the patient to complete the activity. If activity was not attempted, code reason: 7-Patient Refused. 9-Not Applicable-not attempted and the patient did not perform the activity before the current illness, exacerbation or injury. 10-Not Attempted due to Environmental Limitations-(lack of equipment, weather restraints, etc.). 88-Not Attempted due to Medical Conditions or Safety Concerns. Sit to Lying (QC): 4 Sit to Stand (QC): 4 Pt SBA with sit to lying transfers. CGA with sit to stands. Verbal cues for correct hand placement given before and during each transfer. Weight Bearing Weight Bearing/Tolerated Weight Bearing/Tolerated Gait Training Does the Patient Walk?: Yes Distance: 100, 50 Walk 10 feet (QC): 4 Walk 50 ft with 2 Turns(QC): 4 Gait Persons Needed: 1 Gait Assistive Device: FWW Pt displays slow gait cycle with poor heel strike on R side. Rest break required during ambulation. Ambulated 150 feet total with CGA and FWW. Assessment Current Status: Good Progress Pt demonstrates increased fatigue this visit. Ambulated up to 100 feet with use of FWW. Continues to displays poor heel strike on R during ambulation. Short seated rest break required during gait training. Placed in bed post-treatment per pt request. Continue to progress pt as tolerated per POC to increase strength, endurance, and functional ability. PT Sizing Sprayer Goals Custodial Goals PT Sizing Sprayer Goals Time Frame: Aug 13, 2022 Roll Left & Right (QC): 6 Sit to Lying (QC): 6 Lying-Sitting on Side/Bed(QC): 6 Sit to Stand (QC): 6 Chair/Bgx-ou-Fjhoc Xfer(QC): 6 Toilet Transfer (QC): 6 Car Transfer (QC): 5 Does the Patient Walk: Yes Walk 10 feet (QC): 5 Walk 50ft with 2 Turns (QC): 5 (with least restrictive device with less (R) LE ataxia) Walk 150 ft (QC): 5 (with least restrictive device with less (R) LE ataxia) Walking 10ft on Uneven Surface: 5 (with least restrictive device with less (R) LE ataxia) 1 Step (curb) (QC): 5 (with least restrictive device) 4 Steps (QC): 5 (with (B) rails) 12 Steps (QC): 4 (Min (A) with (B) rails) Picking up an Object (QC): 5 Does the Pt use WC or Scooter?: Yes Wheel 50 feet with 2 turns (QC: 6 Type: Manual Wheel 150 feet: 6 Type: Manual PT Plan Treatment/Plan Treatment Plan: Continue Plan of Care Treatment Plan: Bed Mobility, Education, Functional Activity Ellen, Functional Strength, Group Therapy, Gait, Safety, Therapeutic Exercise, Transfers, Other Treatment Duration: Aug 13, 2022 Frequency: At least 5 of 7 days/Wk (IRF) Estimated Hrs Per Day: 1.5 hours per day Patient and/or Family Agrees t: Yes Time Time In: 1100 Time Out: 1115 DATE: Jul 25, 2022 Total Billed Treatment Time: 15 Total Billed Treatment 1 visit GT x 1 MAJOR,JOYCELYN EMERGENCY MEDICINE NURSE PRACTITIONER Jul 25, 2022 11:52
[2022-07-25] MEDS ORDERED: RT-ALBUTEROL HFA 8.5 GM INHALER IH PRN (12:00)
[2022-07-25] MEDS: ENOXAPARIN 40 MG/0.4 ML (LOVENOX) SYR SC SCH (17:15)
[2022-07-25 19:57] VITALS: BP 117/65
[2022-07-25] MEDS: MELATONIN 3 MG TABLET PO PRN (20:03)
[2022-07-26] MEDS: MULTIVIT W/MINERALS TAB (THERAGRAN M) PO SCH (06:36)
[2022-07-26 07:30] VITALS: BP 108/73
--- NOTE | 2022-07-26 07:30 | PM&R Progress Note ---
Subjective HPI/CC On Admission Date Seen by Provider: Jul 26, 2022 Time Seen by Provider: 12:30 Subjective/Events-last exam 07/26/2022: No major issues Reviewed UA and no wbc's so no needed treatment No major concerns 07/25/2022: Doing well Improved already BM+ No pain 07/24/2022: Doing well Able to walk with therapy with assist No pain reported Reviewed meds and labs Daughter at bedside Review of Systems General: Fatigue, Malaise Objective Exam Vital Signs Vital Signs Date Time Temp Pulse Resp B/P (MAP) Pulse Ox O2 Delivery O2 Flow Rate FiO2 07/26/22 18:57 Room Air 07/26/22 11:51 36.0 67 100 07/26/22 07:30 16 108/73 (85) 07/23/22 11:30 21 Capillary Refill : General Appearance: No Apparent Distress, WD/WN, Chronically ill HEENT: PERRL/EOMI, Normal ENT Inspection, Pharynx Normal Neck: Full Range of Motion, Normal Inspection, Non Tender, Supple, Carotid Bruit Respiratory: Chest Non Tender, Lungs Clear, Normal Breath Sounds, No Accessory Muscle Use, No Respiratory Distress Cardiovascular: Regular Rate, Rhythm, No Edema, No Gallop, No JVD, No Murmur, Normal Peripheral Pulses Gastrointestinal: Normal Bowel Sounds, No Organomegaly, No Pulsatile Mass, Non Tender, Soft Back: Normal Inspection, No CVA Tenderness, No Vertebral Tenderness Extremity: Normal Capillary Refill, Normal Inspection, Normal Range of Motion (except right side), Non Tender, No Calf Tenderness, No Pedal Edema Neurologic/Psychiatric: Alert, Oriented x3, Normal Mood/Affect, retail delivery driver II-XII Norm as Tested, Abnormal Gait, Depressed Affect, Motor Weakness (right 3/5 side) Skin: Normal Color, Warm/Dry Lymphatic: No Adenopathy Results/Procedures Lab Patient resulted labs reviewed. FIM Transfers Therapy Code Descriptions/Definitions Functional [place] Measure: 0=Not Assessed/NA 4=Minimal Assistance 1=Total Assistance 5=Supervision or Setup 2=Maximal Assistance 6=Modified [place] 3=Moderate Assistance 7=Complete IndependenceSCALE: Activities may be completed with or without assistive devices. 2-Iprgnafhzp-lmdoxqo completes the activity by him/herself with no assistance from a helper. 5-Set-up or Clean-up Assistance-helper sets up or cleans up; patient completes activity. [place] assists only prior to or following the activity. 4-Supervision or Touching Assistance-helper provides verbal cues and/or touching/steadying and/or contact guard assistance as patient completes activity. Assistance may be provided throughout the activity or intermittently. 3-Partial/Moderate Assistance-helper does LESS THAN HALF the effort. [place] lifts, holds or supports trunk or limbs, but provides less than half the effort. 2-Substantial/Maximal Assistance-helper does MORE THAN HALF the effort. [place] lifts or holds trunk or limbs and provides more than half the effort. 7-[place]qizqhaoa-[place]zcott does ALL the effort. Patient does none of the effort to com plete the activity. Or, the assistance of 2 or more helpers is required for the patient to complete the activity. If activity was not attempted, code reason: 7-Patient Refused. 9-Not Applicable-not attempted and the patient did not perform the activity before the current illness, exacerbation or injury. 10-Not Attempted due to Environmental Limitations-(lack of equipment, weather restraints, etc.). 88-Not Attempted due to Medical Conditions or Safety Concerns. Roll Left to Right (QC): 5 Sit to Lying (QC): 4 Sit to Stand (QC): 4 Chair/Koe-ga-Hvvjn Xfer(QC): 3 (min-CGA with use of FWW. Continues to have difficulty maintaining (R) shore worker of walker with Sit>stand.) Car Transfer (QC): 3 (Min (A) with (R) LE) Gait Training Does the Patient Walk?: Yes Distance: 100, 50 Walk 10 feet (QC): 4 Walk 50 ft with 2 Turns(QC): 4 Walk 150 ft (QC): 4 Walking 10ft/uneven surface-QC: 4 (with FWW, 1 retropulsive episode require mod (A) to correct) Gait Persons Needed: 1 Gait Assistive Device: FWW Wheelchair Training Does the Pt Use a Wheelchair?: Yes Distance: 50' Wheel 50 ft with 2 turns (QC): 3 (min (A) to use LE's in conjunction with (L) UE - ataxic (R) LE made straight path mobility difficult) Wheel 150 ft (QC): 88 (not attempted due to patient fatigue) Type of Wheelchair: Manual Stair Training 1 Step (curb) (QC): 3 (Min (A) with FWW and cues for correct step sequence up, mod (A) down) 4 Steps (QC): 88 (not attempted due to increased ataxia with fatigue - not safe this date.) 12 Steps (QC): 88 Balance Picking up an Object (QC): 88 (not safe with ataxia and balance deficits with Elderly Mobility Scale) ADL-Treatment Eating (QC): 4 Oral Hygiene (QC): 4 (CGA) Shower/Bathe Self (QC): 3 (sponge bath) Upper Body Dressing (QC): 3 (Min) Lower Body Dressing (QC): 2 (Mod) On/Off Footwear (QC): 3 Toileting Hygiene (QC): 3 (Min) Toilet Transfer (QC): 2 (Mod) Assessment/Plan Assessment and Plan Assess & Plan/Chief Complaint Assessment: Debility following CVA with right sided weakness Alcoholism s/p withdrawal during hospital stay Smoker HTN HLP Anxiety Thrombocytopenia Plan: Monitor closely Monitor BP PT OT 07/24/2022: Continue aggressive therapy 07/25/2022: MVI Monitor closely DC Tely 07/26/2022: Monitor closely (1) Acute ischemic multifocal posterior circulation stroke involving left-sided vessel Status: Acute (2) Non-ST elevated myocardial infarction Status: Acute (3) Elevated liver enzymes Status: Acute (4) PTSD (post-traumatic stress disorder) Status: Chronic (5) WENDY (generalized anxiety disorder) Status: Chronic (6) Hypertension Status: Chronic (7) COPD (chronic obstructive pulmonary disease) Status: Chronic UCHE WALL DO Jul 26, 2022 07:30
[2022-07-26] MEDS: RT-ALBUTEROL HFA 8.5 GM INHALER IH SCH (07:34)
[2022-07-26] MEDS: DOCUSATE SODIUM 100 MG (COLACE) CAP PO SCH ×2 (08:42→20:41)
[2022-07-26] MEDS: SENNOSIDES 8.6 MG (SENOKOT) TAB PO SCH ×2 (08:43→20:41)
[2022-07-26] MEDS: FOLIC ACID 1 MG TAB PO SCH (08:43)
[2022-07-26] MEDS: SENNA W/DOCUSATE (SENOKOT S) TABLET PO SCH ×2 (08:43→20:41)
[2022-07-26] MEDS: ASPIRIN E.C. 81 MG (ECOTRIN) TAB PO SCH (08:43)
[2022-07-26] MEDS: LOSARTAN 100 MG (COZAAR) TABLET PO SCH (08:43)
[2022-07-26] MEDS: CLOPIDOGREL 75 MG (PLAVIX) TABLET PO SCH (08:43)
[2022-07-26] MEDS: amLODIPine 5 MG (NORVASC) TAB PO SCH (08:43)
[2022-07-26] MEDS: NICOTINE 21 MG (NICODERM) PATCH TD SCH (08:44)
[2022-07-26] MEDS: NICOTINE PATCH TP SCH (08:55)
[2022-07-26] MEDS: polyethylene glycoL POWDER 17 GM (MIRALAX) PACK PO SCH ×2 (08:55→20:41)
[2022-07-26] MEDS: ACETAMINOPHEN 325 MG TABLET PO PRN (09:01)
--- NOTE | 2022-07-26 11:06 | Physical Therapy Daily Note ---
PT Daily Note-Current Subjective Pt found seated in recliner upon entry. Agreed to PT. Pt reports severe cramp in R hip with 8-9/10. After ambulating 50 feet pt requests to go back to room. Pt given pain medication per pt request by nurse before and during treatment. Pain Section J - Health Conditions 1. Rarely or not at all 2. Occasionally 3. Frequently 4. Almost constantly 8. Unable to answer Pain Effect on Sleep: 1 Pain Interference with Therapy: 1 (pins and needles in (R) UE) Pain Interference w/Day-to-Day: 1 Mental Status Patient Orientation: Person, Place Transfers SCALE: Activities may be completed with or without assistive devices. 1-Hivalxtqwj-ombudhl completes the activity by him/herself with no assistance from a helper. 5-Set-up or Clean-up Assistance-helper sets up or cleans up; patient completes activity. [place] assists only prior to or following the activity. 4-Supervision or Touching Assistance-helper provides verbal cues and/or touching/steadying and/or contact guard assistance as patient completes activity. Assistance may be provided throughout the activity or intermittently. 3-Partial/Moderate Assistance-helper does LESS THAN HALF the effort. [place] lifts, holds or supports trunk or limbs, but provides less than half the effort. 2-Substantial/Maximal Assistance-helper does MORE THAN HALF the effort. [place] lifts or holds trunk or limbs and provides more than half the effort. 2-Ahkqnlyiz-xohlpd does ALL the effort. Patient does none of the effort to complete the activity. Or, the assistance of 2 or more helpers is required for the patient to complete the activity. If activity was not attempted, code reason: 7-Patient Refused. 9-Not Applicable-not attempted and the patient did not perform the activity before the current illness, exacerbation or injury. 10-Not Attempted due to Environmental Limitations-(lack of equipment, weather restraints, etc.). 88-Not Attempted due to Medical Conditions or Safety Concerns. Sit to Stand (QC): 4 Pt CGA with sit to stand transfers. Weight Bearing Weight Bearing/Tolerated Weight Bearing/Tolerated Gait Training Does the Patient Walk?: Yes Distance: 50, 50 Walk 10 feet (QC): 4 Walk 50 ft with 2 Turns(QC): 4 Gait Persons Needed: 1 Gait Assistive Device: FWW Pt CGA with gait training with use of FWW. Ambulated 50 feet and required a seated rest break due to muscle cramp in R hip. Pt able to ambulate back to her room after taking pain medication provided by nurse. No loss of balance displayed throughout. Assessment Current Status: Fair Progress Pt activity tolerance limited today due to reported muscle cramp in R hip. Stretching attempted to provided relief but pt was unable to tolerate. Massage given to R hip region to relax muscle cramp. Pt ambulated 50 feet x 10 with FWW. No loss of balance displayed. Continue to progress pt as tolerated per POC to increase strength, endurance, and functional ability. PT Custodial Goals Senior Systems Administrator Goals PT Senior Systems Administrator Goals Time Frame: Aug 13, 2022 Roll Left & Right (QC): 6 Sit to Lying (QC): 6 Lying-Sitting on Side/Bed(QC): 6 Sit to Stand (QC): 6 Chair/Gbd-zy-Pfoac Xfer(QC): 6 Toilet Transfer (QC): 6 Car Transfer (QC): 5 Does the Patient Walk: Yes Walk 10 feet (QC): 5 Walk 50ft with 2 Turns (QC): 5 (with least restrictive device with less (R) LE ataxia) Walk 150 ft (QC): 5 (with least restrictive device with less (R) LE ataxia) Walking 10ft on Uneven Surface: 5 (with least restrictive device with less (R) LE ataxia) 1 Step (curb) (QC): 5 (with least restrictive device) 4 Steps (QC): 5 (with (B) rails) 12 Steps (QC): 4 (Min (A) with (B) rails) Picking up an Object (QC): 5 Does the Pt use WC or Scooter?: Yes Wheel 50 feet with 2 turns (QC: 6 Type: Manual Wheel 150 feet: 6 Type: Manual PT Plan Treatment/Plan Treatment Plan: Continue Plan of Care Treatment Plan: Bed Mobility, Education, Functional Activity Ellen, Functional Strength, Group Therapy, Gait, Safety, Therapeutic Exercise, Transfers, Other Treatment Duration: Aug 13, 2022 Frequency: At least 5 of 7 days/Wk (IRF) Estimated Hrs Per Day: 1.5 hours per day Patient and/or Family Agrees t: Yes Time Time In: 853 Time Out: 922 DATE: Jul 26, 2022 Total Billed Treatment Time: 29 Total Billed Treatment 1 visit GT x 2 MAJOR,JOYCELYN SERNA Jul 26, 2022 11:06
[2022-07-26 11:51] VITALS: BP 108/73
[2022-07-26] MEDS: GABAPENTIN 100 MG (NEURONTIN) CAP PO PRN (16:46)
[2022-07-26] MEDS: ENOXAPARIN 40 MG/0.4 ML (LOVENOX) SYR SC SCH (16:48)
[2022-07-26 20:00] VITALS: BP 116/59
[2022-07-27] MEDS: MULTIVIT W/MINERALS TAB (THERAGRAN M) PO SCH (06:17)
--- NOTE | 2022-07-27 06:30 | PM&R Progress Note ---
Subjective HPI/CC On Admission Date Seen by Provider: Jul 27, 2022 Time Seen by Provider: 12:00 Subjective/Events-last exam 07/27/2022: Improved overall Right hip pain since fall so will order xray Daughter asked about DEXA scan and that would be outpatient 07/26/2022: No major issues Reviewed UA and no wbc's so no needed treatment No major concerns 07/25/2022: Doing well Improved already BM+ No pain 07/24/2022: Doing well Able to walk with therapy with assist No pain reported Reviewed meds and labs Daughter at bedside Review of Systems General: Fatigue, Malaise Objective Exam Vital Signs Vital Signs Date Time Temp Pulse Resp B/P (MAP) Pulse Ox O2 Delivery O2 Flow Rate FiO2 07/27/22 20:08 Room Air 07/27/22 20:00 36.4 58 20 121/63 (82) 94 07/27/22 07:48 0.00 07/23/22 11:30 21 Capillary Refill : General Appearance: No Apparent Distress, WD/WN, Chronically ill HEENT: PERRL/EOMI, Normal ENT Inspection, Pharynx Normal Neck: Full Range of Motion, Normal Inspection, Non Tender, Supple, Carotid Br uit Respiratory: Chest Non Tender, Lungs Clear, Normal Breath Sounds, No Accessory Muscle Use, No Respiratory Distress Cardiovascular: Regular Rate, Rhythm, No Edema, No Gallop, No JVD, No Murmur, Normal Peripheral Pulses Gastrointestinal: Normal Bowel Sounds, No Organomegaly, No Pulsatile Mass, Non Tender, Soft Back: Normal Inspection, No CVA Tenderness, No Vertebral Tenderness Extremity: Normal Capillary Refill, Normal Inspection, Normal Range of Motion (except right side), Non Tender, No Calf Tenderness, No Pedal Edema Neurologic/Psychiatric: Alert, Oriented x3, Normal Mood/Affect, mending carrier II-XII Norm as Tested, Abnormal Gait, Depressed Affect, Motor Weakness (right 3/5 side) Skin: Normal Color, Warm/Dry Lymphatic: No Adenopathy Results/Procedures Lab Patient resulted labs reviewed. FIM Transfers Therapy Code Descriptions/Definitions Functional [place] Measure: 0=Not Assessed/NA 4=Minimal Assistance 1=Total Assistance 5=Supervision or Setup 2=Maximal Assistance 6=Modified [place] 3=Moderate Assistance 7=Complete IndependenceSCALE: Activities may be completed with or without assistive devices. 5-Pthcdcdzec-uvmhhig completes the activity by him/herself with no assistance from a helper. 5-Set-up or Clean-up Assistance-helper sets up or cleans up; patient completes activity. [place] assists only prior to or following the activity. 4-Supervision or Touching Assistance-helper provides verbal cues and/or touching/steadying and/or contact guard assistance as patient completes activity. Assistance may be provided throughout the activity or intermittently. 3-Partial/Moderate Assistance-helper does LESS THAN HALF the effort. [place] lifts, holds or supports trunk or limbs, but provides less than half the effort. 2-Substantial/Maximal Assistance-helper does MORE THAN HALF the effort. [place] lifts or holds trunk or limbs and provides more than half the effort. 5-Dvwtxyhsm-rrjrvf does ALL the effort. Patient does none of the effort to complete the activity. Or, the assistance of 2 or more helpers is required for the patient to complete the activity. If activity was not attempted, code reason: 7-Patient Refused. 9-Not Applicable-not attempted and the patient did not perform the activity before the current illness, exacerbation or injury. 10-Not Attempted due to Environmental Limitations-(lack of equipment, weather restraints, etc.). 88-Not Attempted due to Medical Conditions or Safety Concerns. Roll Left to Right (QC): 5 Sit to Lying (QC): 4 Sit to Stand (QC): 4 Chair/Eyv-jn-Emcan Xfer(QC): 3 (min-CGA with use of FWW. Continues to have difficulty maintaining (R) recovery coach of walker with Sit>stand.) Car Transfer (QC): 3 (Min (A) with (R) LE) Gait Training Does the Patient Walk?: Yes Distance: 50, 50 Walk 10 feet (QC): 4 Walk 50 ft with 2 Turns(QC): 4 Walk 150 ft (QC): 4 Walking 10ft/uneven surface-QC: 4 (with FWW, 1 retropulsive episode require mod (A) to correct) Gait Persons Needed: 1 Gait Assistive Device: FWW Wheelchair Training Does the Pt Use a Wheelchair?: Yes Distance: 50' Wheel 50 ft with 2 turns (QC): 3 (min (A) to use LE's in conjunction with (L) UE - ataxic (R) LE made straight path mobility difficult) Wheel 150 ft (QC): 88 (not attempted due to patient fatigue) Type of Wheelchair: Manual Stair Training 1 Step (curb) (QC): 3 (Min (A) with FWW and cues for correct step sequence up, mod (A) down) 4 Steps (QC): 88 (not attempted due to increased ataxia with fatigue - not safe this date.) 12 Steps (QC): 88 Balance Picking up an Object (QC): 88 (not safe with ataxia and balance deficits with Elderly Mobility Scale) ADL-Treatment Eating (QC): 4 Oral Hygiene (QC): 4 (CGA) Shower/Bathe Self (QC): 3 (sponge bath) Upper Body Dressing (QC): 3 (Min) Lower Body Dressing (QC): 2 (Mod) On/Off Footwear (QC): 3 Toileting Hygiene (QC): 3 (Min) Toilet Transfer (QC): 2 (Mod) Assessment/Plan Assessment and Plan Assess & Plan/Chief Complaint Assessment: Debility following CVA with right sided weakness Alcoholism s/p withdrawal during hospital stay Smoker HTN HLP Anxiety Thrombocytopenia Plan: Monitor closely Monitor BP PT OT 07/24/2022: Continue aggressive therapy 07/25/2022: MVI Monitor closely DC Tely 07/26/2022: Monitor closely 07/27/2022: Monitor closely Right hip xray (1) Acute ischemic multifocal posterior circulation stroke involving left-sided vessel Status: Acute (2) Non-ST elevated myocardial infarction Status: Acute (3) Elevated liver enzymes Status: Acute (4) PTSD (post-traumatic stress disorder) Status: Chronic (5) WENDY (generalized anxiety disorder) Status: Chronic (6) Hypertension Status: Chronic (7) COPD (chronic obstructive pulmonary disease) Status: Chronic UCHE WALL DO Jul 27, 2022 06:30
[2022-07-27 07:21] VITALS: BP 107/63
[2022-07-27] MEDS: ASPIRIN E.C. 81 MG (ECOTRIN) TAB PO SCH (08:22)
[2022-07-27] MEDS: amLODIPine 5 MG (NORVASC) TAB PO SCH (08:23)
[2022-07-27] MEDS: LOSARTAN 100 MG (COZAAR) TABLET PO SCH (08:23)
[2022-07-27] MEDS: CLOPIDOGREL 75 MG (PLAVIX) TABLET PO SCH (08:23)
[2022-07-27] MEDS: NICOTINE 21 MG (NICODERM) PATCH TD SCH (08:23)
[2022-07-27] MEDS: FOLIC ACID 1 MG TAB PO SCH (08:23)
[2022-07-27] MEDS: NICOTINE PATCH TP SCH (08:25)
[2022-07-27] MEDS: DOCUSATE SODIUM 100 MG (COLACE) CAP PO SCH ×2 (08:25→20:18)
[2022-07-27] MEDS: SENNOSIDES 8.6 MG (SENOKOT) TAB PO SCH ×2 (08:25→20:18)
[2022-07-27] MEDS: SENNA W/DOCUSATE (SENOKOT S) TABLET PO SCH ×2 (08:25→20:18)
[2022-07-27] MEDS: polyethylene glycoL POWDER 17 GM (MIRALAX) PACK PO SCH ×2 (08:25→20:18)
[2022-07-27] MEDS: GABAPENTIN 100 MG (NEURONTIN) CAP PO PRN ×2 (11:06→19:59)
--- NOTE | 2022-07-27 13:38 | Diagnostic Imaging Report ---
INDICATION: Hip pain. FINDINGS: There are no findings of hip dislocation. There is mild bilateral osteoarthritic joint space narrowing. The pelvic ring is intact. There is no pubic symphysis or SI joint diastasis. The morphology of the femoral heads is normal without collapse or fracture. There are no findings of osteonecrosis. There appear to be advanced degenerative disc disease at the L4-L5 level. IMPRESSION: Mild osteoarthritic changes within the hips without findings of fracture, suspicious bone lesion, dislocation, or pelvic diastasis. There are no findings to suggest osteonecrosis. Dictated by: Dictated on workstation # [id number]
[2022-07-27] MEDS: ENOXAPARIN 40 MG/0.4 ML (LOVENOX) SYR SC SCH (17:31)
[2022-07-27] MEDS: MELATONIN 3 MG TABLET PO PRN (19:59)
[2022-07-27] MEDS: diphenhydrAMINE 25 MG TAB (BENADRYL) PO PRN (19:59)
[2022-07-27 20:00] VITALS: BP 121/63
[2022-07-28] MEDS: MULTIVIT W/MINERALS TAB (THERAGRAN M) PO SCH (05:26)
[2022-07-28] MEDS: diphenhydrAMINE 25 MG TAB (BENADRYL) PO PRN ×2 (05:26→22:56)
[2022-07-28 06:06] LABS: HEMOGLOBIN 12.4 g/dL (11.5-16.0); MEAN PLATELET VOLUME 10.9 fL (9.0-12.2); WHITE BLOOD COUNT 5.3 10^3/uL (4.3-11.0)
[2022-07-28 06:11] LABS: ALBUMIN 3.2 GM/DL (3.2-4.5); POTASSIUM 4.1 MMOL/L (3.6-5.0)
[2022-07-28 06:13] LABS: CALCIUM 8.7 MG/DL (8.5-10.1)
[2022-07-28 06:14] LABS: TOTAL PROTEIN 5.9 GM/DL (6.4-8.2)
--- NOTE | 2022-07-28 06:14 | PM&R Progress Note ---
Subjective HPI/CC On Admission Date Seen by Provider: Jul 28, 2022 Time Seen by Provider: 09:00 Subjective/Events-last exam 07/28/2022: No major issues Memory loss and impulsiveness has brought the daughter to the conclusion she needs to go skilled care Hip xray no fracture 07/27/2022: Improved overall Right hip pain since fall so will order xray Daughter asked about DEXA scan and that would be outpatient 07/26/2022: No major issues Reviewed UA and no wbc's so no needed treatment No major concerns 07/25/2022: Doing well Improved already BM+ No pain 07/24/2022: Doing well Able to walk with therapy with assist No pain reported Reviewed meds and labs Daughter at bedside Review of Systems General: Fatigue, Malaise Neurological: Weakness, Incoordination Objective Exam Vital Signs Vital Signs Date Time Temp Pulse Resp B/P (MAP) Pulse Ox O2 Delivery O2 Flow Rate FiO2 07/28/22 20:13 36.2 70 20 123/63 (83) 98 Room Air 07/27/22 07:48 0.00 07/23/22 11:30 21 Capillary Refill : General Appearance: No Apparent Distress, WD/WN, Chronically ill HEENT: PERRL/EOMI, Normal ENT Inspection, Pharynx Normal Neck: Full Range of Motion, Normal Inspection, Non Tender, Supple, Carotid Bruit Respiratory: Chest Non Tender, Lungs Clear, Normal Breath Sounds, No Accessory Muscle Use, No Respiratory Distress Cardiovascular: Regular Rate, Rhythm, No Edema, No Gallop, No JVD, No Murmur, Normal Peripheral Pulses Gastrointestinal: Normal Bowel Sounds, No Organomegaly, No Pulsatile Mass, Non Tender, Soft Back: Normal Inspection, No CVA Tenderness, No Vertebral Tenderness Extremity: Normal Capillary Refill, Normal Inspection, Normal Range of Motion (except right side), Non Tender, No Calf Tenderness, No Pedal Edema Neurologic/Psychiatric: Alert, Oriented x3, Normal Mood/Affect, equipment superintendent II-XII Norm as Tested, Abnormal Gait, Depressed Affect, Motor Weakness (right 3/5 side) Skin: Normal Color, Warm/Dry Lymphatic: No Adenopathy Results/Procedures Lab Laboratory Tests 07/28/22 05:45 Patient resulted labs reviewed. FIM Transfers Therapy Code Descriptions/Definitions Functional [place] Measure: 0=Not Assessed/NA 4=Minimal Assistance 1=Total Assistance 5=Supervision or Setup 2=Maximal Assistance 6=Modified [place] 3=Moderate Assistance 7=Complete IndependenceSCALE: Activities may be completed with or without assistive devices. 7-Pmxoxlqblp-reqvjmz completes the activity by him/herself with no assistance from a helper. 5-Set-up or Clean-up Assistance-helper sets up or cleans up; patient completes activity. [place] assists only prior to or following the activity. 4-Supervision or Touching Assistance-helper provides verbal cues and/or touching/steadying and/or contact guard assistance as patient completes activity. Assistance may be provided throughout the activity or intermittently. 3-Partial/Moderate Assistance-helper does LESS THAN HALF the effort. [place] lifts, holds or supports trunk or limbs, but provides less than half the effort. 2-Substantial/Maximal Assistance-helper does MORE THAN HALF the effort. [place] lifts or holds trunk or limbs and provides more than half the effort. 5-Youqbvrli-bcckef does ALL the effort. Patient does none of the effort to complete the activity. Or, the assistance of 2 or more helpers is required for the patient to complete the activity. If activity was not attempted, code reason: 7-Patient Refused. 9-Not Applicable-not attempted and the patient did not perform the activity before the current illness, exacerbation or injury. 10-Not Attempted due to Environmental Limitations-(lack of equipment, weather restraints, etc.). 88-Not Attempted due to Medical Conditions or Safety Concerns. Roll Left to Right (QC): 5 Sit to Lying (QC): 4 Sit to Stand (QC): 4 Chair/Baj-ss-Uzsdx Xfer(QC): 3 (min-CGA with use of FWW. Continues to have difficulty maintaining (R) slot router of walker with Sit>stand.) Car Transfer (QC): 3 (Min (A) with (R) LE) Gait Training Does the Patient Walk?: Yes Distance: 50, 50 Walk 10 feet (QC): 4 Walk 50 ft with 2 Turns(QC): 4 Walk 150 ft (QC): 4 Walking 10ft/uneven surface-QC: 4 (with FWW, 1 retropulsive episode require mod (A) to correct) Gait Persons Needed: 1 Gait Assistive Device: FWW Wheelchair Training Does the Pt Use a Wheelchair?: Yes Distance: 50' Wheel 50 ft with 2 turns (QC): 3 (min (A) to use LE's in conjunction with (L) UE - ataxic (R) LE made straight path mobility difficult) Wheel 150 ft (QC): 88 (not attempted due to patient fatigue) Type of Wheelchair: Manual Stair Training 1 Step (curb) (QC): 3 (Min (A) with FWW and cues for correct step sequence up, mod (A) down) 4 Steps (QC): 88 (not attempted due to increased ataxia with fatigue - not safe this date.) 12 Steps (QC): 88 Balance Picking up an Object (QC): 88 (not safe with ataxia and balance deficits with Elderly Mobility Scale) ADL-Treatment Eating (QC): 4 Oral Hygiene (QC): 4 (CGA) Shower/Bathe Self (QC): 3 (sponge bath) Upper Body Dressing (QC): 3 (Min) Lower Body Dressing (QC): 2 (Mod) On/Off Footwear (QC): 3 Toileting Hygiene (QC): 3 (Min) Toilet Transfer (QC): 2 (Mod) Assessment/Plan Assessment and Plan Assess & Plan/Chief Complaint Assessment: Debility following CVA with right sided weakness Alcoholism s/p withdrawal during hospital stay Smoker HTN HLP Anxiety Thrombocytopenia Plan: Monitor closely Monitor BP PT OT 07/24/2022: Continue aggressive therapy 07/25/2022: MVI Monitor closely DC Tely 07/26/2022: Monitor closely 07/27/2022: Monitor closely Right hip xray 07/28/2022: NHP (1) Acute ischemic multifocal posterior circulation stroke involving left-sided vessel Status: Acute (2) Non-ST elevated myocardial infarction Status: Acute (3) Elevated liver enzymes Status: Acute (4) PTSD (post-traumatic stress disorder) Status: Chronic (5) WENDY (generalized anxiety disorder) Status: Chronic (6) Hypertension Status: Chronic (7) COPD (chronic obstructive pulmonary disease) Status: Chronic UCHE WALL DO Jul 28, 2022 06:14
[2022-07-28 06:16] LABS: BILIRUBIN,TOTAL 0.6 MG/DL (0.1-1.0)
[2022-07-28 06:17] LABS: CREATININE SERUM 0.56 MG/DL (0.60-1.30)
[2022-07-28 08:00] VITALS: BP 156/80
[2022-07-28] MEDS: CLOPIDOGREL 75 MG (PLAVIX) TABLET PO SCH (08:08)
[2022-07-28] MEDS: ASPIRIN E.C. 81 MG (ECOTRIN) TAB PO SCH (08:08)
[2022-07-28] MEDS: FOLIC ACID 1 MG TAB PO SCH (08:08)
[2022-07-28] MEDS: amLODIPine 5 MG (NORVASC) TAB PO SCH (08:08)
[2022-07-28] MEDS: polyethylene glycoL POWDER 17 GM (MIRALAX) PACK PO SCH ×2 (08:10→20:12)
[2022-07-28] MEDS: DOCUSATE SODIUM 100 MG (COLACE) CAP PO SCH ×2 (08:11→20:12)
[2022-07-28] MEDS: LOSARTAN 100 MG (COZAAR) TABLET PO SCH (08:12)
[2022-07-28] MEDS: SENNOSIDES 8.6 MG (SENOKOT) TAB PO SCH ×2 (08:13→20:13)
[2022-07-28] MEDS: SENNA W/DOCUSATE (SENOKOT S) TABLET PO SCH ×2 (08:13→20:12)
[2022-07-28] MEDS: GABAPENTIN 100 MG (NEURONTIN) CAP PO PRN ×3 (09:04→20:13)
[2022-07-28] MEDS: ACETAMINOPHEN 325 MG TABLET PO PRN (09:07)
--- NOTE | 2022-07-28 09:07 | Cardiology Progress Note ---
Subjective Date Seen by Provider: Jul 28, 2022 Time Seen by Provider: 08:15 Subjective/Events-last exam Patient up in room doing ADLs. Denies any chest pain or dyspnea. Objective-Cardiology Exam Last Set of Vital Signs Vital Signs 07/23/22 07/27/22 07/28/22 11:30 07:48 08:00 Temp 36.3 Pulse 66 Resp 18 B/P (MAP) 156/80 (105) Pulse Ox 97 O2 Delivery Room Air O2 Flow Rate 0.00 FiO2 21 I&O Intake and Output 07/28/22 00:00 Intake Total 1410 ml Balance 1410 ml Intake Oral 1410 ml # Voids 7 # Bowel Movements 1 General: Alert, Oriented X3 HEENT: Atraumatic, PERRLA Lungs: Clear to Auscultation, Normal Air Movement Heart: Regular Rate Abdomen: Soft, No Tenderness Extremities: No Clubbing, No Edema Skin: No Rashes, No Significant Lesion Neuro: Other (right sided weakness) Results Lab Laboratory Tests 07/28/22 05:45 A/P-Cardiology Admission Diagnosis CVA NSTEMI HTN Weakness/debility Assessment/Plan Status post acute CVA CT angiogram reported as distal left TUBING TESTER occlusion Currently on aspirin and Plavix Telemetry showing SR. Will consider LINq implantation prior to discharge Still having aphasia and right hemiplegia. Receiving physical therapy. Management per medical service. Elevated troponin, non-ST elevation myocardial infarction. No acute EKG changes. Troponin is trending down. Continue to monitor, conservative management is recommended I am planning to evaluate stress test as an outpatient 2D echo was done on July 19, 2022 which showing normal left ventricular size wi th ejection fraction 60 to 65%, grade 1 diastolic dysfunction, mild mitral regurgitation, PA pressure 40 to 45 mmHg. No shunt was detected by using contrast Hypertension, controlled. Currently on losartan 100mg, amlodipine 5mg Lipid profile was done on July 19, 2022 and it was normal. Multiple bruises which trauma to the knee. Moderate elevation in CPK. Continue with IV fluid and monitor Tobaccoism, advised to stop smoking Alcoholism. Patient reported that she drinks wine over the weekend Supervisory-Addendum Brief Supervisory Addendum Participated in pt care: history, MDM, physical Personally performed: exam, history, MDM Care discussed with: MARK Results interpretation: Verified all documentation Notes: Patient was seen and evaluated with Geoff, examination performed, management plan was discussed, agree with the current scribed note, I made few changes to the note using Italic font Patient was seen during physical therapy session, doing better Denied any chest pain I am planning to proceed with loop monitor implantation monitor for any source of her cryptogenic stroke Continue to monitor blood pressure and lipids GEOFF VINES Jul 28, 2022 09:07 REMEDIOS COHEN MD Jul 28, 2022 10:59
[2022-07-28] MEDS: NICOTINE 21 MG (NICODERM) PATCH TD SCH (09:09)
[2022-07-28] MEDS: NICOTINE PATCH TP SCH (09:09)
--- NOTE | 2022-07-28 09:48 | Speech Therapy Daily Note ---
Speech Daily Progress Note Subjective Date Seen by Provider: Jul 28, 2022 Time Seen by Provider: 15:10 The patient was seated upright in her recliner, awake and alert, upon entrance to her room by the clinician. The patient greeted the clinician appropriately and was agreeable to participation in the cognitive treatment session. To note, the patient stated, "I knew you'd be back, you got booted earlier." The patient was referring to the clinician being present in her room when staff came to bring the patient to the loop recorder appointment. The statement does reveal an improvement in functional recall skills. Objective - Orientation: The patient was independently oriented to month, day of the week, date, and year. - Functional Recall: The patient recalled the implant of the loop recorder. With additional time, the patient was able to state the rationale for the loop recorder ("Oh, this will monitor my heart."). The patient was able to recall her physical therapist and physical therapy session. - Safety Problem Solving: The patient displayed fair accuracy with safety problem solving on this date with moderate clinician verbal cueing and was able to independently recall the emergency contact number. Assessment Assessment Current Status: Fair Progress Treatment Plan Continue Plan of Care Speech Short Term Goals Short Term Goals Short Term Goals 1. The patient will demonstrate functional memory strategies with 80% accuracy and mild verbal and visual cueing. Time Frame-STG: One Week. 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 The patient will improve cognitive linguistic communication for safe discharge to the least restrictive environment. Time Frame: Two Weeks. Speech-Plan Treatment Plan Speech Therapy Treatment Plan: Continue Plan of Care Treatment Duration: Aug 01, 2022 Frequency: Modified Program (IRF) Estimated Hrs Per Day: .5 hour per day Rehab Potential: Fair Pt/Family Agrees to Plan: Yes Safety Risks/Education Teaching Recipient: Patient Teaching Methods: Discussion Response to Teaching: Reinforcement Needed Education Topics Provided: Safety Problem Solving Time Speech Therapy Time In: 15:10 Speech Therapy Time Out: 15:30 DATE: Jul 28, 2022 Total Billed Time: 20 Billed Treatment Time 1KIERSTEN ELIZABETH ST Jul 28, 2022 09:48
--- NOTE | 2022-07-28 10:44 | Occupational Ther Daily Note ---
OT Current Status-Daily Note Subjective Pt alert, sitting in recliner. Daughter present in room. Daughter very concerned about pt leaving on Thursday and being able to take care of self. Discussed this with ADRIAN, SW to talk with pt today. Mental Status/Objective Patient Orientation: Person, Place, Time, Situation ADL-Treatment Pt is very impulsive and forgets what she is going to do requiring cues to focus/remember. Pt is demonstrating increase movement and sensation in R UE/LE. Pt hollers out in pain stating that her R UE/LE is feeling tingling and she doesn't like the pain. Nrsg aware. Pt agrees to shower. Pt is able to push up from chair with B hands and grasp FWW with B hands, requires cues to maintain correct R hand grasp during ambulation. SBA for safety for toileting. SBA for showering, reminders to stay seated during shower for safety and that JOSEPH needs assist during standing to cleanse buttocks. Set up for UBD. Encouragement to try to complete LBD by self though pt gets frustrated and tired quickly, min A. Dons slip on shoes by self after setup. Pt completes oral care sitting at sink, independently. After session, pt sitting in recliner with call light/phone in reach. Safety measures in place. All needs met in room. Therapy Code Descriptions/Definitions Functional [place] Measure: 0=Not Assessed/NA 4=Minimal Assistance 1=Total Assistance 5=Supervision or Setup 2=Maximal Assistance 6=Modified [place] 3=Moderate Assistance 7=Complete IndependenceSCALE: Activities may be completed with or without assistive devices. 9-Ykaodhhxqy-wnyybao completes the activity by him/herself with no assistance from a helper. 5-Set-up or Clean-up Assistance-helper sets up or cleans up; patient completes activity. [place] assists only prior to or following the activity. 4-Supervision or Touching Assistance-helper provides verbal cues and/or touching/steadying and/or contact guard assistance as patient completes activity. Assistance may be provided throughout the activity or intermittently. 3-Partial/Moderate Assistance-helper does LESS THAN HALF the effort. [place] lifts, holds or supports trunk or limbs, but provides less than half the effort. 2-Substantial/Maximal Assistance-helper does MORE THAN HALF the effort. [place] lifts or holds trunk or limbs and provides more than half the effort. 0-Oiwawqkti-vfezxb does ALL the effort. Patient does none of the effort to complete the activity. Or, the assistance of 2 or more helpers is required for the patient to complete the activity. If activity was not attempted, code reason: 7-Patient Refused. 9-Not Applicable-not attempted and the patient did not perform the activity before the current illness, exacerbation or injury. 10-Not Attempted due to Environmental Limitations-(lack of equipment, weather restraints, etc.). 88-Not Attempted due to Medical Conditions or Safety Concerns. Oral Hygiene (QC): 6 Shower/Bathe Self (QC): 4 Upper Body Dressing (QC): 5 Lower Body Dressing (QC): 4 On/Off Footwear: 5 Toileting Hygiene (QC): 4 Toilet Transfer (QC): 4 OT Short Term Goals Short Term Goals Time Frame: Aug 01, 2022 Lower body dressin Putting on/taking off footwear: 4 OT Point Of Care Technician Goals Point Of Care Technician Goals Time Frame: Aug 15, 2022 Acute change in mental status: 1 Inattention: 0 Disorganized thinkin Altered level of consciousness: 0 Eating (QC): 6 Oral Hygiene (QC): 6 Toileting Hygiene (QC): 6 Shower/Bathe Self (QC): 6 Upper Body Dressing (QC): 6 Lower Body Dressing (QC): 6 On/Off Footwear (QC): 6 Additional Goals: 1-Demonstrate ADL Tasks, 2-Verbalize Understanding, 3-ImproveStrength/Ellen 1=Demonstrate adherence to instructed precautions during ADL tasks. 2=Patient will verbalize/demonstrate understanding of assistive devices/modifications for ADL. 3=Patient will improve strength/tolerance for activity to enable patient to perform ADL's. OT Education/Plan Problem List/Assessment Assessment: Decreased Activ Tolerance, Decreased Safety Aware, Impaired Cognition, Impaired Coordination, Impaired Funct Balance, Restricted Funct UE ROM Discharge Recommendations Plan/Recommendations: Continue POC Treatment Plan/Plan of Care Patient would benefit from OT for education, treatment and training to promote independence in ADL's, mobility, safety and/or upper extremity function for ADL's. Plan of Care: ADL Retraining, Functional Mobility, Group Exercise/Act as Ind, UE Funct Exercise/Act, UE Neuromus Re-Ed/Coord, Visual/Perceptual Retrain Treatment Duration: Aug 15, 2022 Frequency: At least 5 of 7 days/Wk (IRF) Estimated Hrs Per Day: 1.5 hours per day Agreement: Yes Rehab Potential: Fair Time Start Time: 08:00 Stop Time: 09:00 DATE: Jul 28, 2022 Total Time Billed (hr/min): 60 Billed Treatment Time 1 visit-ADL 4 (60 min) JENNY ALBERTS Jul 28, 2022 10:44
--- NOTE | 2022-07-28 11:25 | Physical Therapy Daily Note ---
PT Daily Note-Current Subjective Pt found seated in recliner with nurse and family present. Agreed to PT. Pt given pain medication pre-treatment. States that she is still having tingling on her affected side but her UE function is improving. Rates pain 0/10. Reports affected hip soreness and fatigue post-treatment. Pain Section J - Health Conditions 1. Rarely or not at all 2. Occasionally 3. Frequently 4. Almost constantly 8. Unable to answer Pain Effect on Sleep: 1 Pain Interference with Therapy: 1 (pins and needles in (R) UE) Pain Interference w/Day-to-Day: 1 Mental Status Patient Orientation: Person, Confused Transfers SCALE: Activities may be completed with or without assistive devices. 7-Ndrmohctxo-sojgruv completes the activity by him/herself with no assistance from a helper. 5-Set-up or Clean-up Assistance-helper sets up or cleans up; patient completes activity. [place] assists only prior to or following the activity. 4-Supervision or Touching Assistance-helper provides verbal cues and/or touching/steadying and/or contact guard assistance as patient completes act ivity. Assistance may be provided throughout the activity or intermittently. 3-Partial/Moderate Assistance-helper does LESS THAN HALF the effort. [place] lifts, holds or supports trunk or limbs, but provides less than half the effort. 2-Substantial/Maximal Assistance-helper does MORE THAN HALF the effort. [place] lifts or holds trunk or limbs and provides more than half the effort. 6-Uismaqyzz-mgrxhv does ALL the effort. Patient does none of the effort to complete the activity. Or, the assistance of 2 or more helpers is required for the patient to complete the activity. If activity was not attempted, code reason: 7-Patient Refused. 9-Not Applicable-not attempted and the patient did not perform the activity before the current illness, exacerbation or injury. 10-Not Attempted due to Environmental Limitations-(lack of equipment, weather restraints, etc.). 88-Not Attempted due to Medical Conditions or Safety Concerns. Sit to Stand (QC): 4 Pt CGA with sit to stand transfers for safety due to R-sided neglect and weakness. Weight Bearing Weight Bearing/Tolerated Weight Bearing/Tolerated Gait Training Does the Patient Walk?: Yes Distance: 150, 100, 100 Walk 10 feet (QC): 4 Walk 50 ft with 2 Turns(QC): 4 Walk 150 ft (QC): 4 Gait Persons Needed: 1 Gait Assistive Device: FWW Pt displays slow gait pattern with occasional loss of balance and requires slight steadying assistance from helper. Demonstrated very short step length during ambulation. Ambulated 350 feet total with FWW and required CGA for safety concerns due to weakness and R-sided neglect. Exercises NuStep Minutes: 15 NuStep Workload: 2 Treatments Standing exercises: Step-ups forward/sideways x 10 each B Hamstring curls x 10 B Heel/toe raises x 10 B Marching x 10 B Assessment Current Status: Good Progress Pt displays decent tolerance to therapeutic exercises and ambulation. Required short seated rest breaks throughout visit. Has most difficulty completing gait training likely due to weakness and poor LE coordination. R hip soreness reported post-treatment. Continue to progress pt as tolerated per POC to improve strength, endurance, and functional ability. PT Rrt Goals [facility] Goals PT [facility] Goals Time Frame: Aug 13, 2022 Roll Left & Right (QC): 6 Sit to Lying (QC): 6 Lying-Sitting on Side/Bed(QC): 6 Sit to Stand (QC): 6 Chair/Sfg-sh-Frdhh Xfer(QC): 6 Toilet Transfer (QC): 6 Car Transfer (QC): 5 Does the Patient Walk: Yes Walk 10 feet (QC): 5 Walk 50ft with 2 Turns (QC): 5 (with least restrictive device with less (R) LE ataxia) Walk 150 ft (QC): 5 (with least restrictive device with less (R) LE ataxia) Walking 10ft on Uneven Surface: 5 (with least restrictive device with less (R) LE ataxia) 1 Step (curb) (QC): 5 (with least restrictive device) 4 Steps (QC): 5 (with (B) rails) 12 Steps (QC): 4 (Min (A) with (B) rails) Picking up an Object (QC): 5 Does the Pt use WC or Scooter?: Yes Wheel 50 feet with 2 turns (QC: 6 Type: Manual Wheel 150 feet: 6 Type: Manual PT Plan Treatment/Plan Treatment Plan: Continue Plan of Care Treatment Plan: Bed Mobility, Education, Functional Activity Ellen, Functional Strength, Group Therapy, Gait, Safety, Therapeutic Exercise, Transfers, Other Treatment Duration: Aug 13, 2022 Frequency: At least 5 of 7 days/Wk (IRF) Estimated Hrs Per Day: 1.5 hours per day Patient and/or Family Agrees t: Yes Time Time In: 0900 Time Out: 1015 DATE: Jul 28, 2022 Total Billed Treatment Time: 75 Total Billed Treatment 1 visit GT x 2 EX x 3 JOYCELYN CRUZ PTA Jul 28, 2022 11:25
--- NOTE | 2022-07-28 11:37 | Implantation of Loop Monitor ---
Implant of Loop Monitior IMPLANTATION OF LOOP MONITOR REPORT DATE OF PROCEDURE: 07/28/22 PREOP DIAGNOSIS: Cryptogenic stroke POSTOP DIAGNOSIS: Cryptogenic stroke PROCEDURE DETAILS: The patient is a 67 female with cryptogenic stroke requiring long-term surveillance. Therefore implantable loop recorder was discussed and agreed with the patient. Informed consent was taken. All risks and complications were discussed at length. The patient was draped and prepped in the usual sterile fashion. Local anesthesia was lidocaine, which was given in the substernal area close to the 4th intercostal space. Loop monitor [employer] with serial number [id number] was implanted according to the protocol. Steri-Strips were placed at the end of the procedure. There were no complications and the patient tolerated the procedure well. ANESTHESIA: Local anesthesia with lidocaine. COMPLICATIONS: None CONTRAST/FLUOROSCOPY: None CONCLUSION: Successful implantation of loop monitor with no complication FINAL DIAGNOSIS: Cryptogenic stroke Hypertension REMEDIOS COHEN MD Jul 28, 2022 11:37
[2022-07-28] MEDS ORDERED: MONT-40 PO (12:34)
[2022-07-28] MEDS ORDERED: DULO30CA49 PO (12:34)
[2022-07-28] MEDS ORDERED: MELO15TA39 PO (12:34)
[2022-07-28] MEDS ORDERED: HYDR-700 PO (12:35)
[2022-07-28] MEDS ORDERED: FOLI-88 PO (12:35)
[2022-07-28] MEDS ORDERED: LOSA100T57 PO (12:35)
--- NOTE | 2022-07-28 12:38 | Speech Therapy Progress Note ---
Therapy Progress Note Speech pathology attempted completion of the cognitive linguistic treatment session at the 1100. At 1105, the patient was brought for loop recorder placement. The RN stated the appointment would be approximately [address] re-attempted the treatment session at 1200 and 1220, however, the patient remains out of the room. ST will re-attempt the appointment as able and schedule allows on this date. JAIR GLOVER Jul 28, 2022 12:38
--- NOTE | 2022-07-28 13:45 | Occupational Ther Daily Note ---
OT Current Status-Daily Note Subjective Pt alert, sitting in recliner. Pt agrees to therapy. Pt c/o pain, 08/04, nrsg brought meds. Pt forgets that she has taken medication and will ask if she did. Mental Status/Objective Patient Orientation: Person, Place, Time, Situation Attachments: Other-See Comments (loop recorder placed 07/28/22) ADL-Treatment Therapy Code Descriptions/Definitions Functional [place] Measure: 0=Not Assessed/NA 4=Minimal Assistance 1=Total Assistance 5=Supervision or Setup 2=Maximal Assistance 6=Modified [place] 3=Moderate Assistance 7=Complete IndependenceSCALE: Activities may be completed with or without assistive devices. 0-Audqfjgdcu-djemlgv completes the activity by him/herself with no assistance from a helper. 5-Set-up or Clean-up Assistance-helper sets up or cleans up; patient completes activity. [place] assists only prior to or following the activity. 4-Supervision or Touching Assistance-helper provides verbal cues and/or touching/steadying and/or contact guard assistance as patient completes activity. Assistance may be provided throughout the activity or intermittently. 3-Partial/Moderate Assistance-helper does LESS THAN HALF the effort. [place] lifts, holds or supports trunk or limbs, but provides less than half the effort. 2-Substantial/Maximal Assistance-helper does MORE THAN HALF the effort. [place] lifts or holds trunk or limbs and provides more than half the effort. 1-Ysdmlxmcj-smsmoe does ALL the effort. Patient does none of the effort to complete the activity. Or, the assistance of 2 or more helpers is required for the patient to complete the activity. If activity was not attempted, code reason: 7-Patient Refused. 9-Not Applicable-not attempted and the patient did not perform the activity before the current illness, exacerbation or injury. 10-Not Attempted due to Environmental Limitations-(lack of equipment, weather restraints, etc.). 88-Not Attempted due to Medical Conditions or Safety Concerns. Other Treatment Pt requires verbal cues for hand placement during sit to stand for safety. Pt uses FWW to ambulate to therapy gym, catches R foot and requires steadying assistance while pt focuses on R foot placement. Pt is utilizing R hand to grasp and propel FWW. Pt completed ROM arc with modification to allow for more gross grasp than finger grasp on rings. Pt then working on gross movement for R UE to work on control and coordination by placing hand on small ball and moving it front/back (20x's) and side/side (20x's). Isolating finger hyperextension with palm flat and lifting individual fingers then completing finger opposition. JOSEPH recommends to pt to complete throughout day in room. After therapy, pt s itting in recliner with call light/phone in reach. Safety measures in place. OT Short Term Goals Short Term Goals Time Frame: Aug 01, 2022 Lower body dressin Putting on/taking off footwear: 4 OT Dog Walker Goals Fci Goals Time Frame: Aug 15, 2022 Acute change in mental status: 1 Inattention: 0 Disorganized thinkin Altered level of consciousness: 0 Eating (QC): 6 Oral Hygiene (QC): 6 Toileting Hygiene (QC): 6 Shower/Bathe Self (QC): 6 Upper Body Dressing (QC): 6 Lower Body Dressing (QC): 6 On/Off Footwear (QC): 6 Additional Goals: 1-Demonstrate ADL Tasks, 2-Verbalize Understanding, 3-ImproveStrength/Ellen 1=Demonstrate adherence to instructed precautions during ADL tasks. 2=Patient will verbalize/demonstrate understanding of assistive devices/modifications for ADL. 3=Patient will improve strength/tolerance for activity to enable patient to perform ADL's. OT Education/Plan Problem List/Assessment Assessment: Decreased Activ Tolerance, Decreased Safety Aware, Decreased UE Strength, Impaired Cognition, Impaired Coordination, Impaired Funct Balance, Impaired Self-Care Skills, Restricted Funct UE ROM Discharge Recommendations Plan/Recommendations: Continue POC Treatment Plan/Plan of Care Patient would benefit from OT for education, treatment and training to promote independence in ADL's, mobility, safety and/or upper extremity function for ADL's. Plan of Care: ADL Retraining, Functional Mobility, Group Exercise/Act as Ind, UE Funct Exercise/Act, UE Neuromus Re-Ed/Coord, Visual/Perceptual Retrain Treatment Duration: Aug 15, 2022 Frequency: At least 5 of 7 days/Wk (IRF) Estimated Hrs Per Day: 1.5 hours per day Agreement: Yes Rehab Potential: Fair Time Start Time: 12:50 Stop Time: 13:35 DATE: Jul 28, 2022 Total Time Billed (hr/min): 45 Billed Treatment Time 1 visit-NM 3 (45 min) JENNY ALBERTS Jul 28, 2022 13:45
--- NOTE | 2022-07-28 14:02 | Physical Therapy Daily Note ---
PT Daily Note-Current Subjective Pt found seated in recliner upon entry. Agreed to PT. States that she is not having much pain pre-treatment. Requests pain medication post-treatment. RN notified. Pain Section J - Health Conditions 1. Rarely or not at all 2. Occasionally 3. Frequently 4. Almost constantly 8. Unable to answer Pain Effect on Sleep: 1 Pain Interference with Therapy: 1 (pins and needles in (R) UE) Pain Interference w/Day-to-Day: 1 Mental Status Patient Orientation: Person, Confused Transfers SCALE: Activities may be completed with or without assistive devices. 3-Nljypovfbi-jxybwzd completes the activity by him/herself with no assistance from a helper. 5-Set-up or Clean-up Assistance-helper sets up or cleans up; patient completes activity. [place] assists only prior to or following the activity. 4-Supervision or Touching Assistance-helper provides verbal cues and/or touching/steadying and/or contact guard assistance as patient completes activity. Assistance may be provided throughout the activity or intermittently. 3-Partial/Moderate Assistance-helper does LESS THAN HALF the effort. [place] lifts, holds or supports trunk or limbs, but provides less than half the effort. 2-Substantial/Maximal Assistance-helper does MORE THAN HALF the effort. [place] lifts or holds trunk or limbs and provides more than half the effort. 0-Lcuusquxs-kxnsmy does ALL the effort. Patient does none of the effort to complete the activity. Or, the assistance of 2 or more helpers is required for the patient to complete the activity. If activity was not attempted, code reason: 7-Patient Refused. 9-Not Applicable-not attempted and the patient did not perform the activity before the current illness, exacerbation or injury. 10-Not Attempted due to Environmental Limitations-(lack of equipment, weather restraints, etc.). 88-Not Attempted due to Medical Conditions or Safety Concerns. Sit to Stand (QC): 4 Toilet Transfer (QC): 4 Pt CGA with sit to stand and toilet transfers for safety due to R sided neglect and weakness. Weight Bearing Weight Bearing/Tolerated Weight Bearing/Tolerated Gait Training Does the Patient Walk?: Yes Distance: 150, 150 Walk 10 feet (QC): 4 Walk 50 ft with 2 Turns(QC): 4 Walk 150 ft (QC): 4 Gait Assistive Device: FWW Pt CGA with gait training. Required occasional steadying assistance due to loss of balance posteriorly. Ambulated 300 feet total with use of FWW. Displays slow gait pattern with short step length. Assessment Current Status: Good Progress Pt tolerated gait training well with no reports of increased pain. Displays slow gait cycle with occasional loss of balance. Short step lengths demonstrated with large base of support. Continue to progress pt as tolerated per POC to improve strength, endurance, and functional ability. PT Special Equipment Technician Goals Detention Goals PT Detention Goals Time Frame: Aug 13, 2022 Roll Left & Right (QC): 6 Sit to Lying (QC): 6 Lying-Sitting on Side/Bed(QC): 6 Sit to Stand (QC): 6 Chair/Dxt-sw-Hrrat Xfer(QC): 6 Toilet Transfer (QC): 6 Car Transfer (QC): 5 Does the Patient Walk: Yes Walk 10 feet (QC): 5 Walk 50ft with 2 Turns (QC): 5 (with least restrictive device with less (R) LE ataxia) Walk 150 ft (QC): 5 (with least restrictive device with less (R) LE ataxia) Walking 10ft on Uneven Surface: 5 (with least restrictive device with less (R) LE ataxia) 1 Step (curb) (QC): 5 (with least restrictive device) 4 Steps (QC): 5 (with (B) rails) 12 Steps (QC): 4 (Min (A) with (B) rails) Picking up an Object (QC): 5 Does the Pt use WC or Scooter?: Yes Wheel 50 feet with 2 turns (QC: 6 Type: Manual Wheel 150 feet: 6 Type: Manual PT Plan Treatment/Plan Treatment Plan: Continue Plan of Care Treatment Plan: Bed Mobility, Education, Functional Activity Ellen, Functional Strength, Group Therapy, Gait, Safety, Therapeutic Exercise, Transfers, Other Treatment Duration: Aug 13, 2022 Frequency: At least 5 of 7 days/Wk (IRF) Estimated Hrs Per Day: 1.5 hours per day Patient and/or Family Agrees t: Yes Time Time In: 1334 Time Out: 1355 DATE: Jul 28, 2022 Total Billed Treatment Time: 21 Total Billed Treatment 1 visit GT x 1 MAJOR,JOYCELYN ASBESTOS ABATEMENT TECHNICIAN Jul 28, 2022 14:02
[2022-07-28] MEDS: ENOXAPARIN 40 MG/0.4 ML (LOVENOX) SYR SC SCH (17:02)
[2022-07-28 20:13] VITALS: BP 123/63
[2022-07-29] MEDS: GABAPENTIN 100 MG (NEURONTIN) CAP PO PRN ×3 (03:12→20:55)
--- NOTE | 2022-07-29 06:14 | PM&R Progress Note ---
Subjective HPI/CC On Admission Date Seen by Provider: Jul 29, 2022 Time Seen by Provider: 08:30 Subjective/Events-last exam 07/29/2022: No major events No falls Working hard in therapy No pain except neuropathic type 07/28/2022: No major issues Memory loss and impulsiveness has brought the daughter to the conclusion she needs to go skilled care Hip xray no fracture 07/27/2022: Improved overall Right hip pain since fall so will order xray Daughter asked about DEXA scan and that would be outpatient 07/26/2022: No major issues Reviewed UA and no wbc's so no needed treatment No major concerns 07/25/2022: Doing well Improved already BM+ No pain 07/24/2022: Doing well Able to walk with therapy with assist No pain reported Reviewed meds and labs Daughter at bedside Review of Systems General: Fatigue, Malaise Objective Exam Vital Signs Vital Signs Date Time Temp Pulse Resp B/P (MAP) Pulse Ox O2 Delivery O2 Flow Rate FiO2 07/29/22 19:08 35.4 83 92 21 07/29/22 19:02 Room Air 0.00 07/29/22 07:42 16 121/64 (83) Capillary Refill : General Appearance: No Apparent Distress, WD/WN, Chronically ill HEENT: PERRL/EOMI, Normal ENT Inspection, Pharynx Normal Neck: Full Range of Motion, Normal Inspection, Non Tender, Supple, Carotid Bruit Respiratory: Chest Non Tender, Lungs Clear, Normal Breath Sounds, No Accessory Muscle Use, No Respiratory Distress Cardiovascular: Regular Rate, Rhythm, No Edema, No Gallop, No JVD, No Murmur, Normal Peripheral Pulses Gastrointestinal: Normal Bowel Sounds, No Organomegaly, No Pulsatile Mass, Non Tender, Soft Back: Normal Inspection, No CVA Tenderness, No Vertebral Tenderness Extremity: Normal Capillary Refill, Normal Inspection, Normal Range of Motion, Non Tender, No Calf Tenderness, No Pedal Edema Neurologic/Psychiatric: Alert, Oriented x3, Normal Mood/Affect, mechanical assembler II-XII Norm as Tested, Abnormal Gait, Depressed Affect, Motor Weakness Skin: Normal Color, Warm/Dry Lymphatic: No Adenopathy Results/Procedures Lab Patient resulted labs reviewed. FIM Transfers Therapy Code Descriptions/Definitions Functional [place] Measure: 0=Not Assessed/NA 4=Minimal Assistance 1=Total Assistance 5=Supervision or Setup 2=Maximal Assistance 6=Modified [place] 3=Moderate Assistance 7=Complete IndependenceSCALE: Activities may be completed with or without assistive devices. 9-Dotcblpoan-eyorxeh completes the activity by him/herself with no assistance from a helper. 5-Set-up or Clean-up Assistance-helper sets up or cleans up; patient completes activity. [place] assists only prior to or following the activity. 4-Supervision or Touching Assistance-helper provides verbal cues and/or touching/steadying and/or contact guard assistance as patient completes activity. Assistance may be provided throughout the activity or intermittently. 3-Partial/Moderate Assistance-helper does LESS THAN HALF the effort. [place] lifts, holds or supports trunk or limbs, but provides less than half the effort. 2-Substantial/Maximal Assistance-helper does MORE THAN HALF the effort. [place] lifts or holds trunk or limbs and provides more than half the effort. 9-Czzvwulux-ffcwxw does ALL the effort. Patient does none of the effort to complete the activity. Or, the assistance of 2 or more helpers is required for the patient to complete the activity. If activity was not attempted, code reason: 7-Patient Refused. 9-Not Applicable-not attempted and the patient did not perform the activity before the current illness, exacerbation or injury. 10-Not Attempted due to Environmental Limitations-(lack of equipment, weather restraints, etc.). 88-Not Attempted due to Medical Conditions or Safety Concerns. Roll Left to Right (QC): 5 Sit to Lying (QC): 4 Sit to Stand (QC): 4 Chair/Swc-qi-Uvxoe Xfer(QC): 3 (min-CGA with use of FWW. Continues to have difficulty maintaining (R) welding specialist of walker with Sit>stand.) Car Transfer (QC): 3 (Min (A) with (R) LE) Gait Training Does the Patient Walk?: Yes Distance: 150, 150 Walk 10 feet (QC): 4 Walk 50 ft with 2 Turns(QC): 4 Walk 150 ft (QC): 4 Walking 10ft/uneven surface-QC: 4 (with FWW, 1 retropulsive episode require mod (A) to correct) Gait Persons Needed: 1 Gait Assistive Device: FWW Wheelchair Training Does the Pt Use a Wheelchair?: Yes Distance: 50' Wheel 50 ft with 2 turns (QC): 3 (min (A) to use LE's in conjunction with (L) UE - ataxic (R) LE made straight path mobility difficult) Wheel 150 ft (QC): 88 (not attempted due to patient fatigue) Type of Wheelchair: Manual Stair Training 1 Step (curb) (QC): 3 (Min (A) with FWW and cues for correct step sequence up, mod (A) down) 4 Steps (QC): 88 (not attempted due to increased ataxia with fatigue - not safe this date.) 12 Steps (QC): 88 Balance Picking up an Object (QC): 88 (not safe with ataxia and balance deficits with Elderly Mobility Scale) ADL-Treatment Eating (QC): 4 Oral Hygiene (QC): 6 Shower/Bathe Self (QC): 4 Upper Body Dressing (QC): 5 Lower Body Dressing (QC): 4 On/Off Footwear (QC): 5 Toileting Hygiene (QC): 4 Toilet Transfer (QC): 4 Assessment/Plan Assessment and Plan Assess & Plan/Chief Complaint Assessment: Debility following CVA with right sided weakness Alcoholism s/p withdrawal during hospital stay Smoker HTN HLP Anxiety Thrombocytopenia Plan: Monitor closely Monitor BP PT OT 07/24/2022: Continue aggressive therapy 07/25/2022: MVI Monitor closely DC T[place] 07/26/2022: Monitor closely 07/27/2022: Monitor closely Right hip xray 07/28/2022: NHP 07/29/2022: Monitor closely (1) Acute ischemic multifocal posterior circulation stroke involving left-sided vessel Status: Acute (2) Non-ST elevated myocardial infarction Status: Acute (3) Elevated liver enzymes Status: Acute (4) PTSD (post-traumatic stress disorder) Status: Chronic (5) WENDY (generalized anxiety disorder) Status: Chronic (6) Hypertension Status: Chronic (7) COPD (chronic obstructive pulmonary disease) Status: Chronic UCHE WALL DO Jul 29, 2022 06:14
[2022-07-29] MEDS: MULTIVIT W/MINERALS TAB (THERAGRAN M) PO SCH (06:56)
--- NOTE | 2022-07-29 07:07 | Occupational Ther Daily Note ---
OT Current Status-Daily Note Subjective Pt sleeping in bed. Pt agrees to therapy. No c/o pain at this time. Mental Status/Objective Patient Orientation: Person, Place, Time, Situation ADL-Treatment Pt's impulsivity is improving though still needs reminders to use call light to stand/transfer for assist. Pt has spontaneous movements of R UE/LE while completing functional tasks, safety concerns with ambulation. Supine to EOB min A. CGA for safety while ambulating using FWW from EOB to recliner. Pt sets up own meal using R UE as functional assist. Min A for ambulation to bathroom using FWW, due to R LE foot placement. CGA for clothing manipulation during toileting and cleanses self sitting on toilet. CGA for safety while stands at sink to complete oral care by self. Pt able to doff socks by self then assist to don REILLY hose and R shoe, dons L shoe by self after setup. After session, pt sitting in recliner with call light/phone in reach. Safety measures in place. All needs met. Therapy Code Descriptions/Definitions Functional [place] Measure: 0=Not Assessed/NA 4=Minimal Assistance 1=Total Assistance 5=Supervision or Setup 2=Maximal Assistance 6=Modified [place] 3=Moderate Assistance 7=Complete IndependenceSCALE: Activities may be completed with or without assistive devices. 3-Lliwfgaztn-qzsumib completes the activity by him/herself with no assistance from a helper. 5-Set-up or Clean-up Assistance-helper sets up or cleans up; patient completes activity. [place] assists only prior to or following the activity. 4-Supervision or Touching Assistance-helper provides verbal cues and/or touching/steadying and/or contact guard assistance as patient completes activity. Assistance may be provided throughout the activity or intermittently. 3-Partial/Moderate Assistance-helper does LESS THAN HALF the effort. [place] lifts, holds or supports trunk or limbs, but provides less than half the effort. 2-Substantial/Maximal Assistance-helper does MORE THAN HALF the effort. [place] lifts or holds trunk or limbs and provides more than half the effort. 2-Qeatonkjt-resvvv does ALL the effort. Patient does none of the effort to complete the activity. Or, the assistance of 2 or more helpers is required for the patient to complete the activity. If activity was not attempted, code reason: 7-Patient Refused. 9-Not Applicable-not attempted and the patient did not perform the activity before the current illness, exacerbation or injury. 10-Not Attempted due to Environmental Limitations-(lack of equipment, weather restraints, etc.). 88-Not Attempted due to Medical Conditions or Safety Concerns. Eating (QC): 6 Oral Hygiene (QC): 4 (in standing) OT Short Term Goals Short Term Goals Time Frame: Aug 01, 2022 Lower body dressin Putting on/taking off footwear: 4 OT Usp Goals Charge Gang Weigher Goals Time Frame: Aug 15, 2022 Acute change in mental status: 1 Inattention: 0 Disorganized thinkin Altered level of consciousness: 0 Eating (QC): 6 Oral Hygiene (QC): 6 Toileting Hygiene (QC): 6 Shower/Bathe Self (QC): 6 Upper Body Dressing (QC): 6 Lower Body Dressing (QC): 6 On/Off Footwear (QC): 6 Additional Goals: 1-Demonstrate ADL Tasks, 2-Verbalize Understanding, 3- ImproveStrength/Ellen 1=Demonstrate adherence to instructed precautions during ADL tasks. 2=Patient will verbalize/demonstrate understanding of assistive devices/modifications for ADL. 3=Patient will improve strength/tolerance for activity to enable patient to perform ADL's. OT Education/Plan Problem List/Assessment Assessment: Decreased Activ Tolerance, Decreased Safety Aware, Decreased UE Strength, Impaired Cognition (memory, impulsivity), Impaired Coordination, Impaired Funct Balance, Impaired Self-Care Skills, Restricted Funct UE ROM Discharge Recommendations Plan/Recommendations: Continue POC Treatment Plan/Plan of Care Patient would benefit from OT for education, treatment and training to promote independence in ADL's, mobility, safety and/or upper extremity function for ADL's. Plan of Care: ADL Retraining, Functional Mobility, Group Exercise/Act as Ind, UE Funct Exercise/Act, UE Neuromus Re-Ed/Coord, Visual/Perceptual Retrain Treatment Duration: Aug 15, 2022 Frequency: At least 5 of 7 days/Wk (IRF) Estimated Hrs Per Day: 1.5 hours per day Agreement: Yes Rehab Potential: Fair Time Start Time: 07:00 Stop Time: 08:00 DATE: Jul 29, 2022 Total Time Billed (hr/min): 60 Billed Treatment Time 1 visit-ADL 4 (60 min) JENNY ALBERTS Jul 29, 2022 07:07
[2022-07-29 07:42] VITALS: BP 121/64
[2022-07-29] MEDS: NICOTINE 21 MG (NICODERM) PATCH TD SCH (07:52)
[2022-07-29] MEDS: ASPIRIN E.C. 81 MG (ECOTRIN) TAB PO SCH (07:52)
[2022-07-29] MEDS: NICOTINE PATCH TP SCH (07:53)
[2022-07-29] MEDS: LOSARTAN 100 MG (COZAAR) TABLET PO SCH (07:53)
[2022-07-29] MEDS: amLODIPine 5 MG (NORVASC) TAB PO SCH (07:53)
[2022-07-29] MEDS: CLOPIDOGREL 75 MG (PLAVIX) TABLET PO SCH (07:53)
[2022-07-29] MEDS: FOLIC ACID 1 MG TAB PO SCH (07:53)
[2022-07-29] MEDS: DOCUSATE SODIUM 100 MG (COLACE) CAP PO SCH ×2 (08:06→20:11)
[2022-07-29] MEDS: SENNA W/DOCUSATE (SENOKOT S) TABLET PO SCH ×2 (08:07→20:12)
[2022-07-29] MEDS: SENNOSIDES 8.6 MG (SENOKOT) TAB PO SCH ×2 (08:07→20:12)
[2022-07-29] MEDS: polyethylene glycoL POWDER 17 GM (MIRALAX) PACK PO SCH ×2 (08:07→20:12)
--- NOTE | 2022-07-29 08:09 | Cardiology Progress Note ---
Subjective Date Seen by Provider: Jul 29, 2022 Time Seen by Provider: 08:08 Subjective/Events-last exam Patient is sitting up in chair, no new complaints. Denies any chest pain Objective-Cardiology Exam Last Set of Vital Signs Vital Signs 07/23/22 07/27/22 07/29/22 11:30 07:48 07:42 Temp 35.4 Pulse 83 Resp 16 B/P (MAP) 121/64 (83) Pulse Ox 92 O2 Delivery Room Air O2 Flow Rate 0.00 FiO2 21 I&O Intake and Output 07/29/22 00:00 Intake Total 1580 ml Balance 1580 ml Intake Oral 1580 ml # Voids 7 General: Alert, Oriented X3 HEENT: Atraumatic, PERRLA Lungs: Clear to Auscultation, Normal Air Movement Heart: Regular Rate Abdomen: Soft, No Tenderness Extremities: No Clubbing, No Edema Skin: No Rashes, No Significant Lesion Neuro: Other (right sided weakness) A/P-Cardiology Admission Diagnosis CVA NSTEMI HTN Weakness/debility Assessment/Plan Status post acute CVA CT angiogram reported as distal left ICING MIXER occlusion Currently on aspirin and Plavix Still having aphasia and right hemiplegia. Receiving physical therapy. 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 Dressing is C/D/I Elevated troponin, non-ST elevation myocardial infarction. No acute EKG changes. Troponin is trending down. Continue to monitor, conservative management is recommended I am planning to evaluate stress test as an outpatient 2D echo was done on July 19, 2022 which showing normal left ventricular size with ejection fraction 60 to 65%, grade 1 diastolic dysfunction, mild mitral regurgitation, PA pressure 40 to 45 mmHg. No shunt was detected by using contrast Hypertension, controlled. Currently on losartan 100mg, amlodipine 5mg Lipid profile was done on July 19, 2022 and it was normal. Multiple bruises which trauma to the knee. Moderate elevation in CPK. Continue with IV fluid and monitor Tobaccoism, advised to stop smoking Alcoholism. Patient reported that she drinks wine over the weekend Supervisory-Addendum Brief Supervisory Addendum Participated in pt care: history, MDM, physical Personally performed: exam, history, MDM Care discussed with: MARK Results interpretation: Verified all documentation Notes: Patient was seen and evaluated with Geoff, examination performed, management plan was discussed, agree with the current scribed note, I made few changes to the note using Italic font Patient was seen during physical therapy session Feeling well. No new complaint Denied any chest pain Had loop monitor implanted yesterday We will continue monitoring GEOFF VINES Jul 29, 2022 08:09 REMEDIOS COHEN MD Jul 29, 2022 08:38
--- NOTE | 2022-07-29 08:58 | Physical Therapy Daily Note ---
PT Daily Note-Current Subjective Pt found seated in recliner upon entry. Agreed to PT. Reports that she is still having R hip pain, tingling, and now has some R elbow pain. States that she now has full feeling in the R side of her face. Does not rate pain. Pain Section J - Health Conditions 1. Rarely or not at all 2. Occasionally 3. Frequently 4. Almost constantly 8. Unable to answer Pain Effect on Sleep: 1 Pain Interference with Therapy: 1 (pins and needles in (R) UE) Pain Interference w/Day-to-Day: 1 Mental Status Patient Orientation: Person, Confused Transfers SCALE: Activities may be completed with or without assistive devices. 1-Rmxrdisuqv-ycylric completes the activity by him/herself with no assistance from a helper. 5-Set-up or Clean-up Assistance-helper sets up or cleans up; patient completes activity. [place] assists only prior to or following the activity. 4-Supervision or Touching Assistance-helper provides verbal cues and/or touchin g/steadying and/or contact guard assistance as patient completes activity. Assistance may be provided throughout the activity or intermittently. 3-Partial/Moderate Assistance-helper does LESS THAN HALF the effort. [place] lifts, holds or supports trunk or limbs, but provides less than half the effort. 2-Substantial/Maximal Assistance-helper does MORE THAN HALF the effort. [place] lifts or holds trunk or limbs and provides more than half the effort. 4-Zcidalhaf-voitmn does ALL the effort. Patient does none of the effort to complete the activity. Or, the assistance of 2 or more helpers is required for the patient to complete the activity. If activity was not attempted, code reason: 7-Patient Refused. 9-Not Applicable-not attempted and the patient did not perform the activity before the current illness, exacerbation or injury. 10-Not Attempted due to Environmental Limitations-(lack of equipment, weather restraints, etc.). 88-Not Attempted due to Medical Conditions or Safety Concerns. Sit to Stand (QC): 4 Pt CGA with sit to stand transfers due to lack of safety awareness. Weight Bearing Weight Bearing/Tolerated Weight Bearing/Tolerated Gait Training Does the Patient Walk?: Yes Distance: 150, 100, 100 Walk 10 feet (QC): 4 Walk 50 ft with 2 Turns(QC): 4 Walk 150 ft (QC): 4 Gait Persons Needed: 1 Gait Assistive Device: FWW Pt CGA with gait training due to lack of safety awareness, balance deficits, and strength deficits. Ambulates 350 feet total with use of FWW. Occasionally displays loss of balance anteriorly and requires steadying assistance from hel per. Demonstrates short step length with wide base of support. Stair Training Stair Training: Handrails/: 2 handrails #of Steps: 4 1 Step (curb) (QC): 4 4 Steps (QC): 4 Stairs: Pattern: Step to Pt completes stair training with CGA due to impaired safety awareness, strength deficits, and coordination deficits. Completes 4 steps total with step to pattern. Verbal cues given for proper step pattern. Treatments Standing balance: NBOS x 1' NBOS AirX x 30 seconds AirX normal stance x 1' Standing exercise: Side-stepping /c YTB at // x 3 trips Heel/toe raises x 15 Seated exercise: Hamstring curls YTB x 15 B Hip add /c ball x 15 Assessment Current Status: Good Progress Pt displays improved muscle strength, endurance, and coordination. Gait speed and balance is improving. Occasionally loses balance anteriorly during ambulation and required steadying assistance from helper. Demonstrates signs of fatigue near end of visit. Continue to progress pt as tolerated per POC to improve strength, gait cycle, functional ability, and endurance. PT Half-Way Goals Hris Analyst Goals PT Half-Way Goals Time Frame: Aug 13, 2022 Roll Left & Right (QC): 6 Sit to Lying (QC): 6 Lying-Sitting on Side/Bed(QC): 6 Sit to Stand (QC): 6 Chair/Lzo-gx-Qflht Xfer(QC): 6 Toilet Transfer (QC): 6 Car Transfer (QC): 5 Does the Patient Walk: Yes Walk 10 feet (QC): 5 Walk 50ft with 2 Turns (QC): 5 (with least restrictive device with less (R) LE ataxia) Walk 150 ft (QC): 5 (with least restrictive device with less (R) LE ataxia) Walking 10ft on Uneven Surface: 5 (with least restrictive device with less (R) LE ataxia) 1 Step (curb) (QC): 5 (with least restrictive device) 4 Steps (QC): 5 (with (B) rails) 12 Steps (QC): 4 (Min (A) with (B) rails) Picking up an Object (QC): 5 Does the Pt use WC or Scooter?: Yes Wheel 50 feet with 2 turns (QC: 6 Type: Manual Wheel 150 feet: 6 Type: Manual PT Plan Treatment/Plan Treatment Plan: Continue Plan of Care Treatment Plan: Bed Mobility, Education, Functional Activity Ellen, Functional Strength, Group Therapy, Gait, Safety, Therapeutic Exercise, Transfers, Other Treatment Duration: Aug 13, 2022 Frequency: At least 5 of 7 days/Wk (IRF) Estimated Hrs Per Day: 1.5 hours per day Patient and/or Family Agrees t: Yes Time Time In: 0800 Time Out: 0900 DATE: Jul 29, 2022 Total Billed Treatment Time: 60 Total Billed Treatment 1 visit FA x 1 GT x 2 EX x 1 JOYCELYN CRUZ PTA Jul 29, 2022 08:58
--- NOTE | 2022-07-29 11:12 | Physical Therapy Daily Note ---
PT Daily Note-Current Subjective Pt found seated in recliner upon entry. Agreed to PT. Reports that she is doing well and just took some pain medication. States that she is a little frustrated due to her memory problems. No complaints of pain. Pain Section J - Health Conditions 1. Rarely or not at all 2. Occasionally 3. Frequently 4. Almost constantly 8. Unable to answer Pain Effect on Sleep: 1 Pain Interference with Therapy: 1 (pins and needles in (R) UE) Pain Interference w/Day-to-Day: 1 Mental Status Patient Orientation: Person, Confused Transfers SCALE: Activities may be completed with or without assistive devices. 9-Wrfmhwciuq-ajsgqvr completes the activity by him/herself with no assistance fr om a helper. 5-Set-up or Clean-up Assistance-helper sets up or cleans up; patient completes activity. [place] assists only prior to or following the activity. 4-Supervision or Touching Assistance-helper provides verbal cues and/or touching/steadying and/or contact guard assistance as patient completes activity. Assistance may be provided throughout the activity or intermittently. 3-Partial/Moderate Assistance-helper does LESS THAN HALF the effort. [place] lifts, holds or supports trunk or limbs, but provides less than half the effort. 2-Substantial/Maximal Assistance-helper does MORE THAN HALF the effort. [place] lifts or holds trunk or limbs and provides more than half the effort. 2-Zztgubhxz-sofovk does ALL the effort. Patient does none of the effort to complete the activity. Or, the assistance of 2 or more helpers is required for the patient to complete the activity. If activity was not attempted, code reason: 7-Patient Refused. 9-Not Applicable-not attempted and the patient did not perform the activity before the current illness, exacerbation or injury. 10-Not Attempted due to Environmental Limitations-(lack of equipment, weather restraints, etc.). 88-Not Attempted due to Medical Conditions or Safety Concerns. Sit to Stand (QC): 4 Pt CGA /c sit to stand transfers due to decreased safety awareness and muscle coordination. Weight Bearing Weight Bearing/Tolerated Weight Bearing/Tolerated Gait Training Does the Patient Walk?: Yes Distance: 150, 150 Walk 10 feet (QC): 4 Walk 50 ft with 2 Turns(QC): 4 Walk 150 ft (QC): 4 Gait Persons Needed: 1 Gait Assistive Device: FWW Pt required CGA with gait training due to poor muscle coordination, balance deficits, and decreased safety awareness. Verbal cues for larger step length. Displays poor heel strike during gait cycle. Ambulates 300 feet total with use of FWW. Occasionally displays loss of balance anteriorly and required slight steadying assistance from helper. Assessment Current Status: Good Progress Pt tolerated gait training well with no report of increased pain. Displays slight improvement with step length during ambulation. Increased fatigue demonstrated this visit. Required a seated rest break during ambulation. Continue to progress pt as tolerated per POC to improve strength, gait cycle, endurance, and functional ability. PT Endocrinology Teacher Goals Endocrinology Teacher Goals PT Usp Goals Time Frame: Aug 13, 2022 Roll Left & Right (QC): 6 Sit to Lying (QC): 6 Lying-Sitting on Side/Bed(QC): 6 Sit to Stand (QC): 6 Chair/Hai-bh-Xyuya Xfer(QC): 6 Toilet Transfer (QC): 6 Car Transfer (QC): 5 Does the Patient Walk: Yes Walk 10 feet (QC): 5 Walk 50ft with 2 Turns (QC): 5 (with least restrictive device with less (R) LE ataxia) Walk 150 ft (QC): 5 (with least restrictive device with less (R) LE ataxia) Walking 10ft on Uneven Surface: 5 (with least restrictive device with less (R) LE ataxia) 1 Step (curb) (QC): 5 (with least restrictive device) 4 Steps (QC): 5 (with (B) rails) 12 Steps (QC): 4 (Min (A) with (B) rails) Picking up an Object (QC): 5 Does the Pt use WC or Scooter?: Yes Wheel 50 feet with 2 turns (QC: 6 Type: Manual Wheel 150 feet: 6 Type: Manual PT Plan Treatment/Plan Treatment Plan: Continue Plan of Care Treatment Plan: Bed Mobility, Education, Functional Activity Ellen, Functional Strength, Group Therapy, Gait, Safety, Therapeutic Exercise, Transfers, Other Treatment Duration: Aug 13, 2022 Frequency: At least 5 of 7 days/Wk (IRF) Estimated Hrs Per Day: 1.5 hours per day Patient and/or Family Agrees t: Yes Time Time In: 1030 Time Out: 1055 DATE: Jul 29, 2022 Total Billed Treatment Time: 25 Total Billed Treatment 1 visit GT x 2 MAJOR,JOYCELYN ROOFER VINYL COATING Jul 29, 2022 11:12
--- NOTE | 2022-07-29 11:42 | Occupational Ther Daily Note ---
OT Current Status-Daily Note Subjective Pt alert, sitting in recliner. Pt agrees to therapy. Pt c/o pain, rated 2- 3/10, then stated that she has very low pain tolerance. Reported this to nrsg. ADL-Treatment Therapy Code Descriptions/Definitions Functional [place] Measure: 0=Not Assessed/NA 4=Minimal Assistance 1=Total Assistance 5=Supervision or Setup 2=Maximal Assistance 6=Modified [place] 3=Moderate Assistance 7=Complete IndependenceSCALE: Activities may be completed with or without assistive devices. 4-Zzchitrygw-rkujzis completes the activity by him/herself with no assistance from a helper. 5-Set-up or Clean-up Assistance-helper sets up or cleans up; patient completes activity. [place] assists only prior to or following the activity. 4-Supervision or Touching Assistance-helper provides verbal cues and/or touching/steadying and/or contact guard assistance as patient completes activity. Assistance may be provided throughout the activity or intermittently. 3-Partial/Moderate Assistance-helper does LESS THAN HALF the effort. [place] lifts, holds or supports trunk or limbs, but provides less than half the effort. 2-Substantial/Maximal Assistance-helper does MORE THAN HALF the effort. [place] lifts or holds trunk or limbs and provides more than half the effort. 1-Drfwmwtui-kvzpsy does ALL the effort. Patient does none of the effort to complete the activity. Or, the assistance of 2 or more helpers is required for the patient to complete the activity. If activity was not attempted, code reason: 7-Patient Refused. 9-Not Applicable-not attempted and the patient did not perform the activity before the current illness, exacerbation or injury. 10-Not Attempted due to Environmental Limitations-(lack of equipment, weather restraints, etc.). 88-Not Attempted due to Medical Conditions or Safety Concerns. Other Treatment Focusing on R UE AROM with coordination in different planes. Pt requires multiple reps to begin to have smooth and controlled movements. Pt is demonstrating good AROM throughout R UE and is using as functional assists though unless focused on R UE pt will lose control. Pt then ambulated using FWW with min A for safety around room to decrease pain with B LE's. Pt stated that it did help. Pt then asked when her last pain meds were, reported to nrsg. After therapy, pt sitting in recliner with call light/phone in reach. Safety measures in place. OT Short Term Goals Short Term Goals Time Frame: Aug 01, 2022 Lower body dressin Putting on/taking off footwear: 4 OT Custodial Goals Custodial Goals Time Frame: Aug 15, 2022 Acute change in mental status: 1 Inattention: 0 Disorganized thinkin Altered level of consciousness: 0 Eating (QC): 6 Oral Hygiene (QC): 6 Toileting Hygiene (QC): 6 Shower/Bathe Self (QC): 6 Upper Body Dressing (QC): 6 Lower Body Dressing (QC): 6 On/Off Footwear (QC): 6 Additional Goals: 1-Demonstrate ADL Tasks, 2-Verbalize Understanding, 3- ImproveStrength/Ellen 1=Demonstrate adherence to instructed precautions during ADL tasks. 2=Patient will verbalize/demonstrate understanding of assistive devices/modifications for ADL. 3=Patient will improve strength/tolerance for activity to enable patient to perform ADL's. OT Education/Plan Problem List/Assessment Assessment: Decreased Activ Tolerance, Decreased Safety Aware, Restricted Funct UE ROM Discharge Recommendations Plan/Recommendations: Continue POC Treatment Plan/Plan of Care Patient would benefit from OT for education, treatment and training to promote independence in ADL's, mobility, safety and/or upper extremity function for ADL's. Plan of Care: ADL Retraining, Functional Mobility, Group Exercise/Act as Ind, UE Funct Exercise/Act, UE Neuromus Re-Ed/Coord, Visual/Perceptual Retrain Treatment Duration: Aug 15, 2022 Frequency: At least 5 of 7 days/Wk (IRF) Estimated Hrs Per Day: 1.5 hours per day Agreement: Yes Rehab Potential: Fair Time Start Time: 11:05 Stop Time: 11:20 DATE: Jul 29, 2022 Total Time Billed (hr/min): 15 Billed Treatment Time 1 visit-NM 1 (15 min) JENNY ALBERTS Jul 29, 2022 11:42
--- NOTE | 2022-07-29 11:57 | Speech Therapy Daily Note ---
Speech Daily Progress Note Subjective Date Seen by Provider: Jul 29, 2022 Time Seen by Provider: 09:38 The patient was seated upright in her recliner, awake and alert, upon entrance to her room by the clinician. The patient greeted the clinician appropriately and was agreeable to participation in the cognitive treatment session. Objective At the initiation of the treatment session, the patient was mildly upset because she was unsure if she was receiving her pain medication on a timely schedule. Per patient, "I have this memory problem and they are waiting until I ask for my meds but I don't know when to ask and I don't know when I have had them already." The patient's medication schedule is placed on the in-room white board. The patient and clinician worked towards identifying the medication infor mation and requesting medication if she was feeling increased pain. The patient displayed fair accuracy with the task. The patient and clinician reviewed the patient's recall cards, however, the cards were to the right of the patient and she was unable to view them in her line of sight. The clinician gave the patient the cards and each were reviewed extensively. The patient's security researcher sponge was moved to the patient's line of sight to increase compliance with exercise regimen. Following, the patient and clinic devorah practiced using the patient's phone. The patient required maximum verbal cueing for sequencing of locating her daughter's phone number or dialing/contacting 911 in the case of an emergency. Contacting the emergency number was a recall activity at the close of the session (approximately five minutes following initial practice). The patient was unable to locate the elizabeth rgency number or the dial pad on her phone to contact an emergency contact. The clinician discussed the possibility of a life alert system which the patient highly agreed may be appropriate following discharge. The patient displays improving functional safety problem solving, as she was able to provide an appropriate solution to a house fire ("Call 911 and get out."), an overdose of medication ("Call 911, they're the only ones that can help me at that point."), or forgetting to take a medication ("I wouldn't just take it. If I didn't know, I'd call the doctor."). While the patient does display appropriate responses, the clinician continues to hold safety concerns to discharge in any independent environment due to the patient's declined functional recall ability. Assessment Assessment Current Status: Fair Progress Treatment Plan Continue Plan of Care Speech Short Term Goals Short Term Goals Short Term Goals 1. The patient will demonstrate functional memory strategies with 80% accuracy and mild verbal and visual cueing. Time Frame-STG: One Week. Speech Midlevel Provider Goals Midlevel Provider Goals 1. The patient will improve cognitive linguistic communication for safe discharge to the least restrictive environment. Time Frame: Two Weeks. Speech-Plan Treatment Plan Speech Therapy Treatment Plan: Continue Plan of Care Treatment Duration: Aug 01, 2022 Frequency: Modified Program (IRF) Estimated Hrs Per Day: .5 hour per day Rehab Potential: Fair Pt/Family Agrees to Plan: Yes Safety Risks/Education Teaching Recipient: Patient Teaching Methods: Discussion Response to Teaching: Reinforcement Needed Education Topics Provided: Safety Problem Solving, Plan of Care Time Speech Therapy Time In: 09:38 Speech Therapy Time Out: 10:08 DATE: Jul 29, 2022 Total Billed Time: 30 Billed Treatment Time 1, JAIR MORENO Jul 29, 2022 11:57
[2022-07-29] MEDS: ENOXAPARIN 40 MG/0.4 ML (LOVENOX) SYR SC SCH (16:48)
[2022-07-29 19:08] VITALS: BP 121/64
[2022-07-29] MEDS: diphenhydrAMINE 25 MG TAB (BENADRYL) PO PRN (20:55)
[2022-07-29] MEDS: MELATONIN 3 MG TABLET PO PRN (20:55)
[2022-07-29 21:06] VITALS: BP 101/63
--- NOTE | 2022-07-30 05:03 | PM&R Progress Note ---
Subjective HPI/CC On Admission Date Seen by Provider: Jul 30, 2022 Time Seen by Provider: 11:30 Subjective/Events-last exam 07/30/2022: No major issues Set for SNF soon Eating well Cognition is much improved 07/29/2022: No major events No falls Working hard in therapy No pain except neuropathic type 07/28/2022: No major issues Memory loss and impulsiveness has brought the daughter to the conclusion she needs to go skilled care Hip xray no fracture 07/27/2022: Improved overall Right hip pain since fall so will order xray Daughter asked about DEXA scan and that would be outpatient 07/26/2022: No major issues Reviewed UA and no wbc's so no needed treatment No major concerns 07/25/2022: Doing well Improved already BM+ No pain 07/24/2022: Doing well Able to walk with therapy with assist No pain reported Reviewed meds and labs Daughter at bedside Review of Systems General: Fatigue, Malaise Objective Exam Vital Signs Vital Signs Date Time Temp Pulse Resp B/P (MAP) Pulse Ox O2 Delivery O2 Flow Rate FiO2 07/30/22 20:20 Room Air 07/30/22 19:19 36.2 96 16 129/60 (83) 63 07/29/22 19:08 21 07/29/22 19:02 0.00 Capillary Refill : General Appearance: No Apparent Distress, WD/WN, Chronically ill HEENT: PERRL/EOMI, Normal ENT Inspection, Pharynx Normal Neck: Full Range of Motion, Normal Inspection, Non Tender, Supple, Carotid Bruit Respiratory: Chest Non Tender, Lungs Clear, Normal Breath Sounds, No Accessory Muscle Use, No Respiratory Distress Cardiovascular: Regular Rate, Rhythm, No Edema, No Gallop, No JVD, No Murmur, Normal Peripheral Pulses Gastrointestinal: Normal Bowel Sounds, No Organomegaly, No Pulsatile Mass, Non Tender, Soft Back: Normal Inspection, No CVA Tenderness, No Vertebral Tenderness Extremity: Normal Capillary Refill, Normal Inspection, Normal Range of Motion, Non Tender, No Calf Tenderness, No Pedal Edema Neurologic/Psychiatric: Alert, Oriented x3, Normal Mood/Affect, 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 FIM Transfers Therapy Code Descriptions/Definitions Functional [place] Measure: 0=Not Assessed/NA 4=Minimal Assistance 1=Total Assistance 5=Supervision or Setup 2=Maximal Assistance 6=Modified [place] 3=Moderate Assistance 7=Complete IndependenceSCALE: Activities may be completed with or without assistive devices. 7-Vfzmzobwhg-mqhbpaa completes the activity by him/herself with no assistance from a helper. 5-Set-up or Clean-up Assistance-helper sets up or cleans up; patient completes activity. [place] assists only prior to or following the activity. 4-Supervision or Touching Assistance-helper provides verbal cues and/or touching/steadying and/or contact guard assistance as patient completes activity. Assistance may be provided throughout the activity or intermittently. 3-Partial/Moderate Assistance-helper does LESS THAN HALF the effort. [place] lifts, holds or supports trunk or limbs, but provides less than half the effort. 2-Substantial/Maximal Assistance-helper does MORE THAN HALF the effort. [place] lifts or holds trunk or limbs and provides more than half the effort. 4-Beictwfsc-qxxjoj does ALL the effort. Patient does none of the effort to complete the activity. Or, the assistance of 2 or more helpers is required for the patient to complete the activity. If activity was not attempted, code reason: 7-Patient Refused. 9-Not Applicable-not attempted and the patient did not perform the activity before the current illness, exacerbation or injury. 10-Not Attempted due to Environmental Limitations-(lack of equipment, weather restraints, etc.). 88-Not Attempted due to Medical Conditions or Safety Concerns. Roll Left to Right (QC): 5 Sit to Lying (QC): 4 Sit to Stand (QC): 4 Chair/Ekz-ah-Rzbuj Xfer(QC): 3 (min-CGA with use of FWW. Continues to have difficulty maintaining (R) button sewer hand of walker with Sit>stand.) Car Transfer (QC): 3 (Min (A) with (R) LE) Gait Training Does the Patient Walk?: Yes Distance: 150, 150 Walk 10 feet (QC): 4 Walk 50 ft with 2 Turns(QC): 4 Walk 150 ft (QC): 4 Walking 10ft/uneven surface-QC: 4 (with FWW, 1 retropulsive episode require mod (A) to correct) Gait Persons Needed: 1 Gait Assistive Device: FWW Wheelchair Training Does the Pt Use a Wheelchair?: Yes Distance: 50' Wheel 50 ft with 2 turns (QC): 3 (min (A) to use LE's in conjunction with (L) UE - ataxic (R) LE made straight path mobility difficult) Wheel 150 ft (QC): 88 (not attempted due to patient fatigue) Type of Wheelchair: Manual Stair Training Stair Training: Handrails/: 2 handrails #of Steps: 4 1 Step (curb) (QC): 4 4 Steps (QC): 4 12 Steps (QC): 88 Stairs: Pattern: Step to Balance Picking up an Object (QC): 88 (not safe with ataxia and balance deficits with Elderly Mobility Scale) ADL-Treatment Eating (QC): 6 Oral Hygiene (QC): 4 (in standing) Shower/Bathe Self (QC): 4 Upper Body Dressing (QC): 5 Lower Body Dressing (QC): 4 On/Off Footwear (QC): 5 Toileting Hygiene (QC): 4 Toilet Transfer (QC): 4 Assessment/Plan Assessment and Plan Assess & Plan/Chief Complaint Assessment: 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 (1) Acute ischemic multifocal posterior circulation stroke involving left-sided vessel Status: Acute (2) Non-ST elevated myocardial infarction Status: Acute (3) Elevated liver enzymes Status: Acute (4) PTSD (post-traumatic stress disorder) Status: Chronic (5) WENDY (generalized anxiety disorder) Status: Chronic (6) Hypertension Status: Chronic (7) COPD (chronic obstructive pulmonary disease) Status: Chronic UCHE WALL DO Jul 30, 2022 05:03
[2022-07-30] MEDS: MULTIVIT W/MINERALS TAB (THERAGRAN M) PO SCH (06:33)
--- NOTE | 2022-07-30 07:18 | Occupational Ther Daily Note ---
OT Current Status-Daily Note Subjective Pt alert, sitting in recliner. Pt requested coffee, coffee given. Pt agrees to therapy. No c/o pain at this time. Pt has memory difficulties and does not remember when medications were given last, reminders needed. Mental Status/Objective Patient Orientation: Person, Place, Time, Situation ADL-Treatment Pt able to open small containers on tray and use regular utensils to eat. Pt requires close SBA for toilet transfer and clothing manipulation due to impulsiveness, pt sits to complete hygiene by self. Sitting at sink, pt completes oral care independently. SBA for showering due to standing impulsiveness and balance deficits, using shower bench, grabbars and hand held shower pt able to complete. Set up for UBD. SBA for LBD, safety concerns. Set up for footwear. Pt routinely asks what to do next due to memory deficits. After session, pt sitting in recliner with call light/phone in reach. All needs met in room. Therapy Code Descriptions/Definitions Functional [place] Measure: 0=Not Assessed/NA 4=Minimal Assistance 1=Total Assistance 5=Supervision or Setup 2=Maximal Assistance 6=Modified [place] 3=Moderate Assistance 7=Complete IndependenceSCALE: Activities may be completed with or without assistive devices. 1-Zmifotvwds-pztdbbi completes the activity by him/herself with no assistance from a helper. 5-Set-up or Clean-up Assistance-helper sets up or cleans up; patient completes activity. [place] assists only prior to or following the activity. 4-Supervision or Touching Assistance-helper provides verbal cues and/or remy eduardo/steadying and/or contact guard assistance as patient completes activity. Assistance may be provided throughout the activity or intermittently. 3-Partial/Moderate Assistance-helper does LESS THAN HALF the effort. [place] lifts, holds or supports trunk or limbs, but provides less than half the effort. 2-Substantial/Maximal Assistance-helper does MORE THAN HALF the effort. [place] lifts or holds trunk or limbs and provides more than half the effort. 2-Fcapxqqtk-oiyydt does ALL the effort. Patient does none of the effort to complete the activity. Or, the assistance of 2 or more helpers is required for the patient to complete the activity. If activity was not attempted, code reason: 7-Patient Refused. 9-Not Applicable-not attempted and the patient did not perform the activity before the current illness, exacerbation or injury. 10-Not Attempted due to Environmental Limitations-(lack of equipment, weather restraints, etc.). 88-Not Attempted due to Medical Conditions or Safety Concerns. Eating (QC): 6 Oral Hygiene (QC): 6 (in sitting) Shower/Bathe Self (QC): 4 Upper Body Dressing (QC): 5 Lower Body Dressing (QC): 4 On/Off Footwear: 5 Toileting Hygiene (QC): 4 Toilet Transfer (QC): 4 BIMS CAM BIMS Expression of Ideas and Wants: Without Difficulty Understanding Verbal Content: Understands Brief Interview/Mental Status: Yes IRF RAI BIMS: IRF RAI BIMS Response (Comments) Value Repitition of Three Words Three 3 Recalls Socks Yes, After Cueing (Wear) 1 Recalls Blue Yes, After Cueing (Color) 1 Recalls Bed Yes, After Cueing 1 Year Correct 3 Month Accurate Within 5 Days 2 Day Correct 1 Total 12 Patient Normally Able to Recal: Current Session, Location of own room, That he/she in a hsp Should Staff Asses. Mental St.: No CAM Mental Status Change/Baseline: 1 Inattention: 0 Disorganized thinkin Altered level of consciousness: 0 OT Short Term Goals Short Term Goals Time Frame: Aug 01, 2022 Lower body dressin Putting on/taking off footwear: 4 OT Mcfp Goals Mcfp Goals Time Frame: Aug 15, 2022 Acute change in mental status: 1 Inattention: 0 Disorganized thinkin Altered level of consciousness: 0 Eating (QC): 6 (met) Oral Hygiene (QC): 6 (met) Toileting Hygiene (QC): 6 (not met) Shower/Bathe Self (QC): 6 (not met) Upper Body Dressing (QC): 6 (not met) Lower Body Dressing (QC): 6 (not met) On/Off Footwear (QC): 6 (not met) Additional Goals: 1-Demonstrate ADL Tasks, 2-Verbalize Understanding, 3-Impr oveStrength/Ellen 1=Demonstrate adherence to instructed precautions during ADL tasks. 2=Patient will verbalize/demonstrate understanding of assistive devices/modifications for ADL. 3=Patient will improve strength/tolerance for activity to enable patient to perform ADL's. OT Education/Plan Problem List/Assessment Assessment: Decreased Activ Tolerance, Decreased Safety Aware, Impaired Cognition, Impaired Coordination, Impaired Funct Balance, Restricted Funct UE RO M Discharge Recommendations Plan/Recommendations: Continue POC Treatment Plan/Plan of Care Patient would benefit from OT for education, treatment and training to promote independence in ADL's, mobility, safety and/or upper extremity function for ADL's. Plan of Care: ADL Retraining, Functional Mobility, Group Exercise/Act as Ind, UE Funct Exercise/Act, UE Neuromus Re-Ed/Coord, Visual/Perceptual Retrain Treatment Duration: Aug 15, 2022 Frequency: At least 5 of 7 days/Wk (IRF) Estimated Hrs Per Day: 1.5 hours per day Agreement: Yes Rehab Potential: Fair Time Start Time: 07:00 Stop Time: 08:30 DATE: Jul 30, 2022 Total Time Billed (hr/min): 90 Billed Treatment Time 1 visit-ADL 6 (90 min) JENNY ALBERTS Jul 30, 2022 07:18
[2022-07-30] MEDS: GABAPENTIN 100 MG (NEURONTIN) CAP PO PRN (07:48)
[2022-07-30] MEDS: ACETAMINOPHEN 325 MG TABLET PO PRN (07:49)
[2022-07-30 07:50] VITALS: BP 103/63
--- NOTE | 2022-07-30 08:36 | Cardiology Progress Note ---
Subjective Date Seen by Provider: Jul 30, 2022 Time Seen by Provider: 08:34 Subjective/Events-last exam Patient is in room doing ADLs, no new complaint. Still having some right sided weakness, but reports improvement. Denies any chest pain or dyspnea. Objective-Cardiology Exam Last Set of Vital Signs Vital Signs 07/29/22 07/29/22 07/30/22 19:02 19:08 07:50 Temp 36.2 Pulse 84 Resp 14 B/P (MAP) 103/63 (76) Pulse Ox 92 O2 Delivery Room Air O2 Flow Rate 0.00 FiO2 21 I&O Intake and Output 07/30/22 00:00 Intake Total 1410 ml Balance 1410 ml Intake Oral 1410 ml # Voids 9 # Bowel Movements 1 General: Alert, Oriented X3 HEENT: Atraumatic, PERRLA Lungs: Clear to Auscultation, Normal Air Movement Heart: Regular Rate Abdomen: Soft, No Tenderness Extremities: No Clubbing, No Edema Skin: No Rashes, No Significant Lesion Neuro: Other (right sided weakness) A/P-Cardiology Admission Diagnosis CVA NSTEMI HTN Weakness/debility Assessment/Plan 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 Receiving physical therapy. 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 Dressing is C/D/I Elevated troponin, non-ST elevation myocardial infarction. No acute EKG changes. Troponin is trending down. Continue to monitor, conservative management is recommended I will evaluate Lexiscan stress test in the morning 2D echo was done on July 19, 2022 which showing normal left ventricular size with ejection fraction 60 to 65%, grade 1 diastolic dysfunction, mild mitral regurgitation, PA pressure 40 to 45 mmHg. No shunt was detected by using contrast Hypertension, controlled. Currently on losartan 100mg, amlodipine 5mg Lipid profile was done on July 19, 2022 and it was normal. Multiple bruises which trauma to the knee. Moderate elevation in CPK. Continue with IV fluid and monitor Tobaccoism, advised to stop smoking Alcoholism. Patient reported that she drinks wine over the weekend Supervisory-Addendum Brief Supervisory Addendum Participated in pt care: history, MDM, physical Personally performed: exam, history, MDM Care discussed with: MARK Results interpretation: Verified all documentation Notes: Patient was seen and evaluated with Geoff, examination performed, management plan was discussed, agree with the current scribed note, I made few changes to the note using Italic font Patient was seen during physical therapy session No new complaint Denied any chest pain And plan to evaluate Lexiscan Myoview stress test. GEOFF VINES Jul 30, 2022 08:36 REMEDIOS COHEN MD Jul 30, 2022 10:35
[2022-07-30] MEDS: NICOTINE 21 MG (NICODERM) PATCH TD SCH (08:53)
[2022-07-30] MEDS: DOCUSATE SODIUM 100 MG (COLACE) CAP PO SCH ×2 (08:54→20:01)
[2022-07-30] MEDS: CLOPIDOGREL 75 MG (PLAVIX) TABLET PO SCH (08:54)
[2022-07-30] MEDS: LOSARTAN 100 MG (COZAAR) TABLET PO SCH (08:54)
[2022-07-30] MEDS: FOLIC ACID 1 MG TAB PO SCH (08:54)
[2022-07-30] MEDS: amLODIPine 5 MG (NORVASC) TAB PO SCH (08:54)
[2022-07-30] MEDS: ASPIRIN E.C. 81 MG (ECOTRIN) TAB PO SCH (08:54)
[2022-07-30] MEDS: SENNA W/DOCUSATE (SENOKOT S) TABLET PO SCH ×2 (08:56→20:01)
[2022-07-30] MEDS: polyethylene glycoL POWDER 17 GM (MIRALAX) PACK PO SCH ×2 (08:56→20:01)
[2022-07-30] MEDS: SENNOSIDES 8.6 MG (SENOKOT) TAB PO SCH ×2 (08:56→20:01)
[2022-07-30] MEDS: NICOTINE PATCH TP SCH (09:00)
[2022-07-30] MEDS ORDERED: MONTELUKAST 10 MG (SINGULAIR) TAB PO PRN (13:00)
[2022-07-30] MEDS ORDERED: GABAPENTIN 100 MG (NEURONTIN) CAP PO SCH (13:00)
[2022-07-30] MEDS: GABAPENTIN 300 MG (NEURONTIN) CAP PO SCH ×2 (13:24→21:12)
[2022-07-30] MEDS: HYDROcodone/APAP 5 MG/325 MG (LORTAB) TAB PO PRN ×3 (13:27→21:54)
--- NOTE | 2022-07-30 13:56 | Speech Therapy Daily Note ---
Speech Daily Progress Note Subjective Date Seen by Provider: Jul 30, 2022 Time Seen by Provider: 09:09 The patient was seated upright in her recliner, awake and alert, upon entrance to her room by the clinician. The patient greeted the clinician appropriately and was agreeable to participation in the cognitive treatment session. Objective - Orientation: The patient was independently oriented to location, month, day, day of the week, date, and year. The patient stated she knew the date because, "Today's my son's birthday!" - Functional Recall: The patient continues to struggle with medication management and recall. To aid in the patient's recall, the clinician visited wit h the patient's RN and asked if the patient's medication and administration times could be placed on the in-room white board as a reminder to the patient. The clinician will practice checking the white board by the patient to improve recall of medication time. - Safety Problem Solving: The patient was able to recall how to unlock her phone and dial her daughter's number. With extended response time and mild verbal cueing, the patient was able to locate the keypad for dialing 911 in the case of an emergency. The patient provided appropriate solutions to five safety scenarios presented by the clinician with mild verbal prompting. The patient continues to display positive progression towards memory improvement, however, safety concerns remain present by the clinician. Assessment Assessment Current Status: Good Progress Treatment Plan Continue Plan of Care Speech Short Term Goals Short Term Goals Short Term Goals 1. The patient will demonstrate functional memory strategies with 80% accuracy and mild verbal and visual cueing. Time Frame-STG: One Week. Speech Screen Making Supervisor Goals Screen Making Supervisor Goals 1. The patient will improve cognitive linguistic communication for safe discharge to the least restrictive environment. Time Frame: Two Weeks. Speech-Plan Treatment Plan Speech Therapy Treatment Plan: Continue Plan of Care Treatment Duration: Aug 01, 2022 Frequency: Modified Program (IRF) Estimated Hrs Per Day: .5 hour per day Rehab Potential: Fair Safety Risks/Education Teaching Recipient: Patient Teaching Methods: Discussion Response to Teaching: Reinforcement Needed Education Topics Provided: Safety Problem Solving Time Speech Therapy Time In: 09:09 Speech Therapy Time Out: 09:39 DATE: Jul 30, 2022 Total Billed Time: 30 Billed Treatment Time 1KIERSTEN ELIZABETH ST Jul 30, 2022 13:56
--- NOTE | 2022-07-30 15:40 | Physical Therapy Daily Note ---
PT Daily Note-Current Subjective Pt found seated in recliner upon entry. Agreed to PT. Reports pain in R hip, elbow, and ankle. Does not rate pain. Pain Section J - Health Conditions 1. Rarely or not at all 2. Occasionally 3. Frequently 4. Almost constantly 8. Unable to answer Pain Effect on Sleep: 1 Pain Interference with Therapy: 1 (pins and needles in (R) UE) Pain Interference w/Day-to-Day: 1 Mental Status Patient Orientation: Person, Confused, Place Transfers SCALE: Activities may be completed with or without assistive devices. 5-Zkrzgauuqw-lxyefmc completes the activity by him/herself with no assistance from a helper. 5-Set-up or Clean-up Assistance-helper sets up or cleans up; patient completes activity. [place] assists only prior to or following the activity. 4-Supervision or Touching Assistance-helper provides verbal cues and/or touching/steadying and/or contact guard assistance as patient completes activity. Assistance may be provided throughout the activity or intermittently. 3-Partial/Moderate Assistance-helper does LESS THAN HALF the effort. [place] li fts, holds or supports trunk or limbs, but provides less than half the effort. 2-Substantial/Maximal Assistance-helper does MORE THAN HALF the effort. [place] lifts or holds trunk or limbs and provides more than half the effort. 4-Zsybdqfdn-pjkdqv does ALL the effort. Patient does none of the effort to complete the activity. Or, the assistance of 2 or more helpers is required for the patient to complete the activity. If activity was not attempted, code reason: 7-Patient Refused. 9-Not Applicable-not attempted and the patient did not perform the activity before the current illness, exacerbation or injury. 10-Not Attempted due to Environmental Limitations-(lack of equipment, weather restraints, etc.). 88-Not Attempted due to Medical Conditions or Safety Concerns. Roll Left & Right (QC): 4 Sit to Lying (QC): 4 Lying to Sitting/Side of Bed(Q: 4 Sit to Stand (QC): 4 Chair/Qbm-tf-Ycdhl Xfer(QC): 4 Toilet Transfer (QC): 4 Car Transfer (QC): 4 Pt supervision assistance with all bed mobility due to lack of safety awareness. CGA with sit to stand transfers due to lack of safety awareness and impaired strength. CGA with toilet, car, and bed to chair transfers. Weight Bearing Weight Bearing/Tolerated Weight Bearing/Tolerated Gait Training Does the Patient Walk?: Yes Distance: 50, 50, 250 Walk 10 feet (QC): 4 Walk 50 ft with 2 Turns(QC): 4 Walk 150 ft (QC): 4 Walking 10ft/uneven surface-QC: 4 Gait Persons Needed: 1 Gait Assistive Device: FWW Pt CGA with gait training using FWW. Occasionally displays sudden loss of muscle control on R and requires steadying assistance from helper. Displays short step lengths with ambulation. Ambulates 350 feet total /c use of FWW. Wheelchair Training Does the Pt Use a Wheelchair?: No Stair Training Stair Training: Handrails/: 2 handrails #of Steps: 8 1 Step (curb) (QC): 4 4 Steps (QC): 4 12 Steps (QC): 88 Stairs: Pattern: Step to Pt completes stair training with use of two handrails and CGA. Unable to complete 12 steps for safety concerns due to fatigue. Requires verbal cues for proper step pattern. Completes 8 steps total. Balance Picking up an Object (QC): 4 Special Test Comments CGA Treatments Standing exercise: Step ups forward/sideways x 15 B Assessment Current Status: Good Progress Pt displays improved tolerance to gait training this visit. Able to ambulate up to 250 feet before requiring rest break. Demonstrates improved muscle strength and endurance throughout treatment. Continue to progress pt as tolerated per POC to improve strength, endurance, and functional ability. PT Sheltered Workshop Worker Goals Sheltered Workshop Worker Goals PT Sheltered Workshop Worker Goals Time Frame: Aug 13, 2022 Roll Left & Right (QC): 6 Sit to Lying (QC): 6 Lying-Sitting on Side/Bed(QC): 6 Sit to Stand (QC): 6 Chair/Gyy-zk-Wctjc Xfer(QC): 6 Toilet Transfer (QC): 6 Car Transfer (QC): 5 Does the Patient Walk: Yes Walk 10 feet (QC): 5 Walk 50ft with 2 Turns (QC): 5 (with least restrictive device with less (R) LE ataxia) Walk 150 ft (QC): 5 (with least restrictive device with less (R) LE ataxia) Walking 10ft on Uneven Surface: 5 (with least restrictive device with less (R) LE ataxia) 1 Step (curb) (QC): 5 (with least restrictive device) 4 Steps (QC): 5 (with (B) rails) 12 Steps (QC): 4 (Min (A) with (B) rails) Picking up an Object (QC): 5 Does the Pt use WC or Scooter?: Yes Wheel 50 feet with 2 turns (QC: 6 Type: Manual Wheel 150 feet: 6 Type: Manual PT Plan Treatment/Plan Treatment Plan: Continue Plan of Care Treatment Plan: Bed Mobility, Education, Functional Activity Ellen, Functional Strength, Group Therapy, Gait, Safety, Therapeutic Exercise, Transfers, Other Treatment Duration: Aug 13, 2022 Frequency: At least 5 of 7 days/Wk (IRF) Estimated Hrs Per Day: 1.5 hours per day Patient and/or Family Agrees t: Yes Time Time In: 1000 Time Out: 1100 DATE: Jul 30, 2022 Total Billed Treatment Time: 60 Total Billed Treatment 1 visit FA x 2 EX x 1 GT x 1 JOYCELYN CRUZ PIT MANAGER Jul 30, 2022 15:40
--- NOTE | 2022-07-30 15:52 | Physical Therapy Daily Note ---
PT Daily Note-Current Subjective Pt found seated in recliner upon entry and was visibly upset but not hostile. Reports that she has been requesting pain medication but has not received any yet. States that pain is mostly in R hip. Pt reports that she does not want to ambulate due to pain but agrees to complete exercises in recliner. Does not rate pain. Pain Section J - Health Conditions 1. Rarely or not at all 2. Occasionally 3. Frequently 4. Almost constantly 8. Unable to answer Pain Effect on Sleep: 1 Pain Interference with Therapy: 1 (pins and needles in (R) UE) Pain Interference w/Day-to-Day: 1 Mental Status Patient Orientation: Person, Confused, Place Transfers SCALE: Activities may be completed with or without assistive devices. 3-Adetqxdwsi-nkyehfh completes the activity by him/herself with no assistance from a helper. 5-Set-up or Clean-up Assistance-helper sets up or cleans up; patient completes activity. [place] assists only prior to or following the activity. 4-Supervision or Touching Assistance-helper provides verbal cues and/or touching/steadying and/or contact guard assistance as patient completes activity. Assistance may be provided throughout the activity or intermittently. 3-Partial/Moderate Assistance-helper does LESS THAN HALF the effort. [place] lifts, holds or supports trunk or limbs, but provides less than half the effort. 2-Substantial/Maximal Assistance-helper does MORE THAN HALF the effort. [place] lifts or holds trunk or limbs and provides more than half the effort. 2-Xfuzkivqx-wirrbv does ALL the effort. Patient does none of the effort to co mplete the activity. Or, the assistance of 2 or more helpers is required for the patient to complete the activity. If activity was not attempted, code reason: 7-Patient Refused. 9-Not Applicable-not attempted and the patient did not perform the activity before the current illness, exacerbation or injury. 10-Not Attempted due to Environmental Limitations-(lack of equipment, weather restraints, etc.). 88-Not Attempted due to Medical Conditions or Safety Concerns. Weight Bearing Weight Bearing/Tolerated Weight Bearing/Tolerated Gait Training Does the Patient Walk?: No and Walking Goal IS indicated Treatments Supine exercise: SLRs x 10 Heel slides x 10 Hip abd/add x 10 Quad sets x 10 Glute sets x 10 Ankle pumps x 10 Assessment Current Status: Fair Progress Pt unable to complete ambulation this visit due to reported R hip pain. Displays good muscle strength and endurance with supine therapeutic exercises. Increased pain displayed while completing heel slides. Continue to progress pt as tolerated per POC to improve strength, endurance, functional ability, and decrease pain. PT Elementary Supervisor Goals Elementary Supervisor Goals PT Elementary Supervisor Goals Time Frame: Aug 13, 2022 Roll Left & Right (QC): 6 Sit to Lying (QC): 6 Lying-Sitting on Side/Bed(QC): 6 Sit to Stand (QC): 6 Chair/Xce-xa-Kbowl Xfer(QC): 6 Toilet Transfer (QC): 6 Car Transfer (QC): 5 Does the Patient Walk: Yes Walk 10 feet (QC): 5 Walk 50ft with 2 Turns (QC): 5 (with least restrictive device with less (R) LE ataxia) Walk 150 ft (QC): 5 (with least restrictive device with less (R) LE ataxia) Walking 10ft on Uneven Surface: 5 (with least restrictive device with less (R) LE ataxia) 1 Step (curb) (QC): 5 (with least restrictive device) 4 Steps (QC): 5 (with (B) rails) 12 Steps (QC): 4 (Min (A) with (B) rails) Picking up an Object (QC): 5 Does the Pt use WC or Scooter?: Yes Wheel 50 feet with 2 turns (QC: 6 Type: Manual Wheel 150 feet: 6 Type: Manual PT Plan Treatment/Plan Treatment Plan: Continue Plan of Care Treatment Plan: Bed Mobility, Education, Functional Activity Ellen, Functional Strength, Group Therapy, Gait, Safety, Therapeutic Exercise, Transfers, Other Treatment Duration: Aug 13, 2022 Frequency: At least 5 of 7 days/Wk (IRF) Estimated Hrs Per Day: 1.5 hours per day Patient and/or Family Agrees t: Yes Time Time In: 1245 Time Out: 1300 DATE: Jul 30, 2022 Total Billed Treatment Time: 15 Total Billed Treatment 1 visit EX x 1 JOYCELYN CRUZ PROOF OPERATOR Jul 30, 2022 15:52
[2022-07-30] MEDS: ENOXAPARIN 40 MG/0.4 ML (LOVENOX) SYR SC SCH (16:08)
[2022-07-30 19:19] VITALS: BP 129/60
[2022-07-30] MEDS: MELATONIN 3 MG TABLET PO PRN (21:12)
[2022-07-30] MEDS: diphenhydrAMINE 25 MG TAB (BENADRYL) PO PRN (21:12)
--- NOTE | 2022-07-31 06:20 | PM&R Progress Note ---
Subjective HPI/CC On Admission Date Seen by Provider: Jul 31, 2022 Time Seen by Provider: 12:00 Subjective/Events-last exam 07/31/2022: No major issues DC to SNF tomorrow? 07/30/2022: No major issues Set for SNF soon Eating well Cognition is much improved 07/29/2022: No major events No falls Working hard in therapy No pain except neuropathic type 07/28/2022: No major issues Memory loss and impulsiveness has brought the daughter to the conclusion she needs to go skilled care Hip xray no fracture 07/27/2022: Improved overall Right hip pain since fall so will order xray Daughter asked about DEXA scan and that would be outpatient 07/26/2022: No major issues Reviewed UA and no wbc's so no needed treatment No major concerns 07/25/2022: Doing well Improved already BM+ No pain 07/24/2022: Doing well Able to walk with therapy with assist No pain reported Reviewed meds and labs Daughter at bedside Review of Systems General: Fatigue, Malaise Objective Exam Vital Signs Vital Signs Date Time Temp Pulse Resp B/P (MAP) Pulse Ox O2 Delivery O2 Flow Rate FiO2 07/31/22 20:15 Room Air 07/31/22 19:59 36.1 65 16 128/61 (83) 99 07/31/22 09:07 0.00 0.00 07/29/22 19:08 21 Capillary Refill : General Appearance: No Apparent Distress, WD/WN, Chronically ill HEENT: PERRL/EOMI, Normal ENT Inspection, Pharynx Normal Neck: Full Range of Motion, Normal Inspection, Non Tender, Supple, Carotid Bruit Respiratory: Chest Non Tender, Lungs Clear, Normal Breath Sounds, No Accessory Muscle Use, No Respiratory Distress Cardiovascular: Regular Rate, Rhythm, No Edema, No Gallop, No JVD, No Murmur, Normal Peripheral Pulses Gastrointestinal: Normal Bowel Sounds, No Organomegaly, No Pulsatile Mass, Non Tender, Soft Back: Normal Inspection, No CVA Tenderness, No Vertebral Tenderness Extremity: Normal Capillary Refill, Normal Inspection, Normal Range of Motion, Non Tender, No Calf Tenderness, No Pedal Edema Neurologic/Psychiatric: Alert, Oriented x3, Normal Mood/Affect, lan support specialist II-XII Norm as Tested, Abnormal Gait, Depressed Affect, Motor Weakness Skin: Normal Color, Warm/Dry Lymphatic: No Adenopathy Results/Procedures Lab Patient resulted labs reviewed. FIM Transfers Therapy Code Descriptions/Definitions Functional [place] Measure: 0=Not Assessed/NA 4=Minimal Assistance 1=Total Assistance 5=Supervision or Setup 2=Maximal Assistance 6=Modified [place] 3=Moderate Assistance 7=Complete IndependenceSCALE: Activities may be completed with or without assistive devices. 8-Nwizlvudtg-thgmfan completes the activity by him/herself with no assistance from a helper. 5-Set-up or Clean-up Assistance-helper sets up or cleans up; patient completes activity. [place] assists only prior to or following the activity. 4-Supervision or Touching Assistance-helper provides verbal cues and/or touching/steadying and/or contact guard assistance as patient completes activity. Assistance may be provided throughout the activity or intermittently. 3-Partial/Moderate Assistance-helper does LESS THAN HALF the effort. [place] lifts, holds or supports trunk or limbs, but provides less than half the effort. 2-Substantial/Maximal Assistance-helper does MORE THAN HALF the effort. [place] lifts or holds trunk or limbs and provides more than half the effort. 6-Wkkcfhaoe-syuzwz does ALL the effort. Patient does none of the effort to complete the activity. Or, the assistance of 2 or more helpers is required for the patient to complete the activity. If activity was not attempted, code reason: 7-Patient Refused. 9-Not Applicable-not attempted and the patient did not perform the activity before the current illness, exacerbation or injury. 10-Not Attempted due to Environmental Limitations-(lack of equipment, weather restraints, etc.). 88-Not Attempted due to Medical Conditions or Safety Concerns. Roll Left to Right (QC): 4 Sit to Lying (QC): 4 Sit to Stand (QC): 4 Chair/Gdx-le-Nhrmb Xfer(QC): 4 Car Transfer (QC): 4 Gait Training Does the Patient Walk?: No and Walking Goal IS indicated Distance: 50, 50, 250 Walk 10 feet (QC): 4 Walk 50 ft with 2 Turns(QC): 4 Walk 150 ft (QC): 4 Walking 10ft/uneven surface-QC: 4 Gait Persons Needed: 1 Gait Assistive Device: FWW Wheelchair Training Does the Pt Use a Wheelchair?: No Distance: 50' Wheel 50 ft with 2 turns (QC): 3 (min (A) to use [employer] [place] in conjunction with (L) UE - ataxic (R) LE made straight path mobility difficult) Wheel 150 ft (QC): 88 (not attempted due to patient fatigue) Type of Wheelchair: Manual Stair Training Stair Training: Handrails/: 2 handrails #of Steps: 8 1 Step (curb) (QC): 4 4 Steps (QC): 4 12 Steps (QC): 88 Stairs: Pattern: Step to Balance Picking up an Object (QC): 4 ADL-Treatment Eating (QC): 6 Oral Hygiene (QC): 6 (in sitting) Shower/Bathe Self (QC): 4 Upper Body Dressing (QC): 5 Lower Body Dressing (QC): 4 On/Off Footwear (QC): 5 Toileting Hygiene (QC): 4 Toilet Transfer (QC): 4 Assessment/Plan Assessment and Plan Assess & Plan/Chief Complaint Assessment: 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 07/31/2022: Loop recorder no issues (1) Acute ischemic multifocal posterior circulation stroke involving left-sided vessel Status: Acute (2) Non-ST elevated myocardial infarction Status: Acute (3) Elevated liver enzymes Status: Acute (4) PTSD (post-traumatic stress disorder) Status: Chronic (5) WENDY (generalized anxiety disorder) Status: Chronic (6) Hypertension Status: Chronic (7) COPD (chronic obstructive pulmonary disease) Status: Chronic UCHE WALL DO Jul 31, 2022 06:20
[2022-07-31] MEDS ORDERED: MULTIVIT W/MINERALS TAB (THERAGRAN M) PO SCH (07:00)
[2022-07-31] MEDS ORDERED: CATHETER FLUSH 10 ML SYR IVP PRN (07:15)
--- NOTE | 2022-07-31 07:30 | Occupational Ther Daily Note ---
OT Current Status-Daily Note Subjective Pt alert, lying in bed. Pt agrees to therapy. Pt NPO due to procedure this am. Mental Status/Objective Patient Orientation: Person, Place, Time, Situation Attachments: IV (for procedure) ADL-Treatment Due to IV placement and pt's low pain threshold, pt ambulated without AD to bathroom with min to mod A. CGA for SPT to toilet then to w/c. CGA for clothing manipulation and toilet hygiene. Pt then left in care of staff member that came for the procedure. All needs met in room. Therapy Code Descriptions/Definitions Functional [place] Measure: 0=Not Assessed/NA 4=Minimal Assistance 1=Total Assistance 5=Supervision or Setup 2=Maximal Assistance 6=Modified [place] 3=Moderate Assistance 7=Complete IndependenceSCALE: Activities may be completed with or without assistive devices. 5-Ftmebpfzfy-aonzdpd completes the activity by him/herself with no assistance from a helper. 5-Set-up or Clean-up Assistance-helper sets up or cleans up; patient completes activity. [place] assists only prior to or following the activity. 4-Supervision or Touching Assistance-helper provides verbal cues and/or touching/steadying and/or contact guard assistance as patient completes activity. Assistance may be provided throughout the activity or intermittently. 3-Partial/Moderate Assistance-helper does LESS THAN HALF the effort. [place] lifts, holds or supports trunk or limbs, but provides less than half the effort. 2-Substantial/Maximal Assistance-helper does MORE THAN HALF the effort. [place] lifts or holds trunk or limbs and provides more than half the effort. 0-Mwyejsbaw-lpdxms does ALL the effort. Patient does none of the effort to complete the activity. Or, the assistance of 2 or more helpers is required for the patient to complete the activity. If activity was not attempted, code reason: 7-Patient Refused. 9-Not Applicable-not attempted and the patient did not perform the activity before the current illness, exacerbation or injury. 10-Not Attempted due to Environmental Limitations-(lack of equipment, weather restraints, etc.). 88-Not Attempted due to Medical Conditions or Safety Concerns. Toileting Hygiene (QC): 4 OT Short Term Goals Short Term Goals Time Frame: Aug 01, 2022 Lower body dressin Putting on/taking off footwear: 4 OT Fci Goals Fci Goals Time Frame: Aug 15, 2022 Acute change in mental status: 1 Inattention: 0 Disorganized thinkin Altered level of consciousness: 0 Eating (QC): 6 (met) Oral Hygiene (QC): 6 (met) Toileting Hygiene (QC): 6 (not met) Shower/Bathe Self (QC): 6 (not met) Upper Body Dressing (QC): 6 (not met) Lower Body Dressing (QC): 6 (not met) On/Off Footwear (QC): 6 (not met) Additional Goals: 1-Demonstrate ADL Tasks, 2-Verbalize Understanding, 3- ImproveStrength/Ellen 1=Demonstrate adherence to instructed precautions during ADL tasks. 2=Patient will verbalize/demonstrate understanding of assistive devices/modifications for ADL. 3=Patient will improve strength/tolerance for activity to enable patient to perform ADL's. OT Education/Plan Problem List/Assessment Assessment: Decreased Activ Tolerance, Impaired Coordination, Impaired Funct Balance, Impaired Self-Care Skills Discharge Recommendations Plan/Recommendations: Continue POC Treatment Plan/Plan of Care Patient would benefit from OT for education, treatment and training to promote independence in ADL's, mobility, safety and/or upper extremity function for ADL's. Plan of Care: ADL Retraining, Functional Mobility, Group Exercise/Act as Ind, UE Funct Exercise/Act, UE Neuromus Re-Ed/Coord, Visual/Perceptual Retrain Treatment Duration: Aug 15, 2022 Frequency: At least 5 of 7 days/Wk (IRF) Estimated Hrs Per Day: 1.5 hours per day Agreement: Yes Rehab Potential: Fair Time Start Time: 06:45 Stop Time: 07:00 DATE: Jul 31, 2022 Total Time Billed (hr/min): 15 Billed Treatment Time 1 visit-ADL 1 (15 min) JENNY ALBERTS Jul 31, 2022 07:30
[2022-07-31] MEDS ORDERED: REGADENOSON 0.4 MG/5 ML SYR (LEXISCAN) IV ONE ×2 (07:53→08:15)
[2022-07-31 08:01] VITALS: BP 118/81
--- NOTE | 2022-07-31 08:27 | Cardiology Progress Note ---
Subjective Date Seen by Provider: Jul 31, 2022 Time Seen by Provider: 08:26 Subjective/Events-last exam Patient is down in heart center for stress test. Denies any chest pain Objective-Cardiology Exam Last Set of Vital Signs Vital Signs 07/29/22 07/31/22 19:08 09:07 Temp 36.4 Pulse 65 Resp 20 B/P (MAP) 129/63 (85) Pulse Ox 100 O2 Delivery Room Air O2 Flow Rate 0.00 0.00 FiO2 21 I&O Intake and Output 07/31/22 00:00 Intake Total 1590 ml Balance 1590 ml Intake Oral 1590 ml # Voids 8 General: Alert, Oriented X3 HEENT: Atraumatic, PERRLA Lungs: Clear to Auscultation, Normal Air Movement Heart: Regular Rate Abdomen: Soft, No Tenderness Extremities: No Clubbing, No Edema Skin: No Rashes, No Significant Lesion Neuro: Other (right sided weakness) A/P-Cardiology Admission Diagnosis CVA NSTEMI HTN Weakness/debility Assessment/Plan Status post acute CVA CT angiogram reported as distal left 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 Receiving physical therapy. 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 Dressing is C/D/I Elevated troponin, non-ST elevation myocardial infarction. No acute EKG changes. Troponin is trending down. Continue to monitor, conservative management is recommended Patient undergoing stress test this morning. 2D echo was done on July 19, 2022 which showing normal left ventricular size with ejection fraction 60 to 65%, grade 1 diastolic dysfunction, mild mitral regurgitation, PA pressure 40 to 45 mmHg. No shunt was detected by using contrast Hypertension, controlled. Currently on losartan 100mg, amlodipine 5mg Lipid profile was done on July 19, 2022 and it was normal. Multiple bruises which trauma to the knee. Moderate elevation in CPK. Continue with IV fluid and monitor Tobaccoism, advised to stop smoking Alcoholism. Patient reported that she drinks wine over the weekend Supervisory-Addendum Brief Supervisory Addendum Participated in pt care: history, MDM, physical Personally performed: exam, history, MDM Care discussed with: MARK Results interpretation: Verified all documentation Notes: Patient was seen and evaluated with Geoff, examination performed, management plan was discussed, agree with the current scribed note, I made few changes to the note using Italic font Patient was seen at bedside, sitting comfortably, feeling well Reporting improvement in her muscle strength Lexiscan stress test showed no ischemia or infarction, ejection fraction 73% Continue current medication Okay for discharge and arrange for follow-up as an outpatient GEOFF VINES Jul 31, 2022 08:27 REMEDIOS COHEN MD Jul 31, 2022 12:44
[2022-07-31] MEDS ORDERED: NON-FORMULARY MEDICATION 1 EA EA (Meloxicam 15 MG) PO SCH (09:00)
[2022-07-31] MEDS ORDERED: LOSARTAN 100 MG (COZAAR) TABLET PO SCH (09:00)
[2022-07-31] MEDS ORDERED: MULTIVIT MIN PO SCH (09:00)
[2022-07-31] MEDS ORDERED: LUTEIN PO SCH (09:00)
[2022-07-31] MEDS ORDERED: FOLIC ACID PO SCH (09:00)
[2022-07-31] MEDS ORDERED: NON-FORMULARY MEDICATION 1 EA EA (Hydroxyzine HCl 25 MG) PO SCH (09:00)
[2022-07-31] MEDS: NICOTINE PATCH TP SCH (09:00)
[2022-07-31] MEDS ORDERED: [UNRECOGNIZED DRUG - OTHER] PO SCH (09:00)
[2022-07-31 09:06] VITALS: BP 129/63
[2022-07-31 09:07] VITALS: BP 129/63
[2022-07-31] MEDS: hydrOXYzine (VISTARIL/ATARAX) 25 MG capsule/tablet PO SCH (09:12)
[2022-07-31] MEDS: ASPIRIN E.C. 81 MG (ECOTRIN) TAB PO SCH (09:13)
[2022-07-31] MEDS: DULoxetine 30 MG (CYMBALTA) CAP PO SCH (09:13)
[2022-07-31] MEDS: CLOPIDOGREL 75 MG (PLAVIX) TABLET PO SCH (09:13)
[2022-07-31] MEDS: GABAPENTIN 300 MG (NEURONTIN) CAP PO SCH ×3 (09:13→20:13)
[2022-07-31] MEDS: MULTIVIT W/MINERALS TAB (THERAGRAN M) PO SCH (09:13)
[2022-07-31] MEDS: amLODIPine 5 MG (NORVASC) TAB PO SCH (09:13)
[2022-07-31] MEDS: MELOXICAM 7.5 MG (MOBIC) TABLET PO SCH (09:13)
[2022-07-31] MEDS: FOLIC ACID 1 MG TAB PO SCH (09:14)
[2022-07-31] MEDS: NICOTINE 21 MG (NICODERM) PATCH TD SCH (09:14)
[2022-07-31] MEDS: DOCUSATE SODIUM 100 MG (COLACE) CAP PO SCH ×2 (09:19→20:11)
[2022-07-31] MEDS: SENNOSIDES 8.6 MG (SENOKOT) TAB PO SCH ×2 (09:19→20:11)
[2022-07-31] MEDS: polyethylene glycoL POWDER 17 GM (MIRALAX) PACK PO SCH ×2 (09:19→20:11)
[2022-07-31] MEDS: SENNA W/DOCUSATE (SENOKOT S) TABLET PO SCH ×2 (09:19→20:11)
[2022-07-31] MEDS: HYDROcodone/APAP 5 MG/325 MG (LORTAB) TAB PO PRN ×4 (09:24→22:43)
[2022-07-31] MEDS: LOSARTAN 100 MG (COZAAR) TABLET PO SCH (09:24)
--- NOTE | 2022-07-31 11:43 | Cardiology Stress Test Report ---
Stress Test Report Date of Procedure/Referring: Date of Procedure: Jul 31, 2022 PCP [place] Admitting Physician Admitting Physician: Peggy Abreu DO Attending Physician: Peggy Abreu DO Indications: CAD Baseline Blood Pressure: Blood Pressure Systolic: 129 Blood Pressure Diastolic: 63 Baseline Vitals Vital Signs Date Time Temp Pulse Resp B/P (MAP) Pulse Ox O2 Delivery O2 Flow Rate FiO2 07/25/22 01:00 64 07/25/22 07:07 98 Room Air 07/25/22 07:56 36.2 16 111/66 (81) 07/27/22 07:48 0.00 07/29/22 19:08 21 Baseline EKG: Baseline EKG: NSR Summary After explaining the procedure to the patient, she signed a consent and then brought to the stress nuclear laboratory. Patient received 0.4 mg Lexiscan for stress test, ECG, heart rate and blood pressure were monitored continuously. Resting and stress dose of radio tracer were injected, imaging was acquired and reviewed in short axis, horizontal long axis and vertical long axis views. TID: 1.01 SSS: 1 SDS: 1 EF: 73 Patient tolerated Lexiscan well Breast attenuation with mild decrease uptake at the mid to apical anterior wall which is fixed probably secondary to the breast attenuation no significant ischemia was noted Normal left ventricular size, normal contractility, ejection fraction 73% REMEDIOS COHEN MD Jul 31, 2022 11:43
--- NOTE | 2022-07-31 11:54 | Speech Therapy Daily Note ---
Speech Daily Progress Note Subjective Date Seen by Provider: Jul 31, 2022 Time Seen by Provider: 09:00 The patient was seated upright in her recliner, awake and alert, upon entrance to her room by the clinician. The patient recently returned from a cardiac procedure and was agreeable to participation in the skilled treatment session. Objective The clinician provided the patient with memory strategies (external and international sourcing manager al) and word-finding strategies. Each strategy was reviewed and demonstrated by the clinician throughout the treatment session. Handouts were provided of the strategies to the patient. Functional recall: The current discharge plan in place was discussed with the patient by the clinician. The patient was provided the date of discharge and the location of the discharge. Following an approximate five minute delay and additional recall time, the patient was able to recall the information to the clinician with mild verbal cueing. The patient was unable to recall her recent job location regardless of maximum clinician cueing. Assessment Assessment Current Status: Fair Progress Treatment Plan Continue Plan of Care Speech Short Term Goals Short Term Goals Short Term Goals 1. The patient will demonstrate functional memory strategies with 80% accuracy and mild verbal and visual cueing. Time Frame-STG: One Week. Speech Electric Blanket Wirer Goals Electric Blanket Wirer Goals 1. The patient will improve cognitive linguistic communication for safe discharge to the least restrictive environment. Time Frame: Two Weeks. Speech-Plan Treatment Plan Speech Therapy Treatment Plan: Continue Plan of Care Treatment Duration: Aug 01, 2022 Frequency: Modified Program (IRF) Estimated Hrs Per Day: .5 hour per day Rehab Potential: Fair Safety Risks/Education Teaching Recipient: Patient Teaching Methods: Demonstration, Discussion Response to Teaching: Reinforcement Needed Education Topics Provided: Word Finding Strategies, Memory Strategies Time Speech Therapy Time In: 09:00 Speech Therapy Time Out: 09:30 DATE: Jul 31, 2022 Total Billed Time: 30 Billed Treatment Time 1KIERSTEN [address]IZ[address] ST Jul 31, 2022 11:54
--- NOTE | 2022-07-31 12:00 | Occupational Ther Daily Note ---
OT Current Status-Daily Note Subjective Pt alert, sitting in recliner. Pt agrees to therapy. No c/o pain at this time. Co-treat with PT ([id number]), skills of 2 clinicians required to decrease fall risk while working on higher level balance skills involving B UE/LE coordination. PT focusing on ambulation, balance and strengthening B LE's while OT focusing on ADLs, functional dynamic balance and R UE coordination. Mental Status/Objective Patient Orientation: Person, Place, Time, [place] Attachments: IV ADL-Treatment Pt able to complete UBD and footwear by self after set up, LBD CGA to SBA for safety. Independent with oral care sitting at sink. SBA to CGA for toileting. Therapy Code Descriptions/Definitions Functional [place] Measure: 0=Not Assessed/NA 4=Minimal Assistance 1=Total Assistance 5=Supervision or Setup 2=Maximal Assistance 6=Modified [place] 3=Moderate Assistance 7=Complete IndependenceSCALE: Activities may be completed with or without assistive devices. 6-Pztdxprcsm-skfkibl completes the activity by him/herself with no assistance from a helper. 5-Set-up or Clean-up Assistance-helper sets up or cleans up; patient completes activity. [place] assists only prior to or following the activity. 4-Supervision or Touching Assistance-helper provides verbal cues and/or touching/steadying and/or contact guard assistance as patient completes activity. Assistance may be provided throughout the activity or intermittently. 3-Partial/Moderate Assistance-helper does LESS THAN HALF the effort. [place] lifts, holds or supports trunk or limbs, but provides less than half the effort. 2-Substantial/Maximal Assistance-helper does MORE THAN HALF the effort. [place] lifts or holds trunk or limbs and provides more than half the effort. 8-Lqqzktmrf-mmzsxi does ALL the effort. Patient does none of the effort to complete the activity. Or, the assistance of 2 or more helpers is required for the patient to complete the activity. If activity was not attempted, code reason: 7-Patient Refused. 9-Not Applicable-not attempted and the patient did not perform the activity before the current illness, exacerbation or injury. 10-Not Attempted due to Environmental Limitations-(lack of equipment, weather restraints, etc.). 88-Not Attempted due to Medical Conditions or Safety Concerns. Oral Hygiene (QC): 6 Upper Body Dressing (QC): 5 Lower Body Dressing (QC): 4 On/Off Footwear: 5 Toileting Hygiene (QC): 4 Toilet Transfer (QC): 4 Other Treatment Pt completed standing and ambulation while incorporating cognitive and R UE coordination. Pt able to complete with CGA for safety due to coordination/balance difficulty during dynamic tasks. After therapy, pt left in care of PT all needs met. OT Short Term Goals Short Term Goals Time Frame: Aug 01, 2022 Lower body dressin Putting on/taking off footwear: 4 OT Financial Coach Goals Financial Coach Goals Time Frame: Aug 15, 2022 Acute change in mental status: 1 Inattention: 0 Disorganized thinkin Altered level of consciousness: 0 Eating (QC): 6 (met) Oral Hygiene (QC): 6 (met) Toileting Hygiene (QC): 6 (not met) Shower/Bathe Self (QC): 6 (not met) Upper Body Dressing (QC): 6 (not met) Lower Body Dressing (QC): 6 (not met) On/Off Footwear (QC): 6 (not met) Additional Goals: 1-Demonstrate ADL Tasks, 2-Verbalize Understanding, 3-ImproveStrength/Ellen 1=Demonstrate adherence to instructed precautions during ADL tasks. 2=Patient will verbalize/demonstrate understanding of assistive devices/modifications for ADL. 3=Patient will improve strength/tolerance for activity to enable patient to perform ADL's. OT Education/Plan Problem List/Assessment Assessment: Decreased Activ Tolerance, Impaired Cognition (memory), Impaired Self-Care Skills, Restricted Funct UE ROM Discharge Recommendations Plan/Recommendations: Continue POC Treatment Plan/Plan of Care Patient would benefit from OT for education, treatment and training to promote independence in ADL's, mobility, safety and/or upper extremity function for ADL's. Plan of Care: ADL Retraining, Functional Mobility, Group Exercise/Act as Ind, UE Funct Exercise/Act, UE Neuromus Re-Ed/Coord, Visual/Perceptual Retrain Treatment Duration: Aug 15, 2022 Frequency: At least 5 of 7 days/Wk (IRF) Estimated Hrs Per Day: 1.5 hours per day Agreement: Yes Rehab Potential: Fair Time Start Time: 10:40 Stop Time: 11:40 DATE: Jul 31, 2022 Total Time Billed (hr/min): 60 Billed Treatment Time 1 visit-ADL 2 (25 min), NM 2 (35 min) co-treat with PT [id number], individual [id number] JENNY ALBERTS Jul 31, 2022 12:00
--- NOTE | 2022-07-31 15:36 | Physical Therapy Daily Note ---
PT Daily Note-Current Subjective Pt found seated in wheelchair with OT present. Agreed to PT. PT/OT treatment for energy conservation and safety. Reports "needle" pain in affected knee. Pain Section J - Health Conditions 1. Rarely or not at all 2. Occasionally 3. Frequently 4. Almost constantly 8. Unable to answer Pain Effect on Sleep: 1 Pain Interference with Therapy: 1 (pins and needles in (R) UE) Pain Interference w/Day-to-Day: 1 Mental Status Patient Orientation: Person, Confused Transfers SCALE: Activities may be completed with or without assistive devices. 3-Zdsuzranzs-jmapnar completes the activity by him/herself with no assistance from a helper. 5-Set-up or Clean-up Assistance-helper sets up or cleans up; patient completes activity. [place] assists only prior to or following the activity. 4-Supervision or Touching Assistance-helper provides verbal cues and/or touching/steadying and/or contact guard assistance as patient completes activi ty. Assistance may be provided throughout the activity or intermittently. 3-Partial/Moderate Assistance-helper does LESS THAN HALF the effort. [place] lifts, holds or supports trunk or limbs, but provides less than half the effort. 2-Substantial/Maximal Assistance-helper does MORE THAN HALF the effort. [place] lifts or holds trunk or limbs and provides more than half the effort. 6-Ailjcsbse-somawd does ALL the effort. Patient does none of the effort to complete the activity. Or, the assistance of 2 or more helpers is required for the patient to complete the activity. If activity was not attempted, code reason: 7-Patient Refused. 9-Not Applicable-not attempted and the patient did not perform the activity before the current illness, exacerbation or injury. 10-Not Attempted due to Environmental Limitations-(lack of equipment, weather restraints, etc.). 88-Not Attempted due to Medical Conditions or Safety Concerns. Sit to Stand (QC): 4 Pt CGA with sit to stand transfers due to strength and safety awareness deficits. Weight Bearing Weight Bearing/Tolerated Weight Bearing/Tolerated Gait Training Does the Patient Walk?: Yes Distance: 100, 200, 100 Walk 10 feet (QC): 4 Walk 50 ft with 2 Turns(QC): 4 Walk 150 ft (QC): 4 Gait Persons Needed: 1 Gait Assistive Device: FWW Pt ambulates with FWW and CGA. Wheelchair follow for safety. Pt ambulated 400 feet total. Step length and gait balance has improved. Occasionally loses balance due to R-sided LE control deficits. Short seated rest breaks required during gait training. Treatments Standing exercises: Step ups /c OT UE activity x 10 B Side steps YTB /c OT UE activity x 10 B Marches YTB x 10 B Heel/toe raises x 10 B Hip ext YTB /c OT LE activity x 10 B Assessment Current Status: Good Progress Pt displays increased endurance with ambulation. Required short seated rest breaks throughout visit. Muscle strength is improving with therapeutic exercises and activity. Continue to progress pt as tolerated per POC to improve strength, endurance, and functional ability. PT Detention Goals Detention Goals PT Detention Goals Time Frame: Aug 13, 2022 Roll Left & Right (QC): 6 Sit to Lying (QC): 6 Lying-Sitting on Side/Bed(QC): 6 Sit to Stand (QC): 6 Chair/Ypb-zz-Cfmsz Xfer(QC): 6 Toilet Transfer (QC): 6 Car Transfer (QC): 5 Does the Patient Walk: Yes Walk 10 feet (QC): 5 Walk 50ft with 2 Turns (QC): 5 (with least restrictive device with less (R) LE ataxia) Walk 150 ft (QC): 5 (with least restrictive device with less (R) LE ataxia) Walking 10ft on Uneven Surface: 5 (with least restrictive device with less (R) LE ataxia) 1 Step (curb) (QC): 5 (with least restrictive device) 4 Steps (QC): 5 (with (B) rails) 12 Steps (QC): 4 (Min (A) with (B) rails) Picking up an Object (QC): 5 Does the Pt use WC or Scooter?: Yes Wheel 50 feet with 2 turns (QC: 6 Type: Manual Wheel 150 feet: 6 Type: Manual PT Plan Treatment/Plan Treatment Plan: Continue Plan of Care Treatment Plan: Bed Mobility, Education, Functional Activity Ellen, Functional Strength, Group Therapy, Gait, Safety, Therapeutic Exercise, Transfers, Other Treatment Duration: Aug 13, 2022 Frequency: At least 5 of 7 days/Wk (IRF) Estimated Hrs Per Day: 1.5 hours per day Patient and/or Family Agrees t: Yes Time Time In: 1100 Time Out: 1200 DATE: Jul 31, 2022 Total Billed Treatment Time: 60 Total Billed Treatment 1 visit GT x 2 EX x 2 Co-treatment minutes: 40 Individual treatment minutes: 20 Total treatment minutes: 60 JOYCELYN CRUZ PTA Jul 31, 2022 15:36
--- NOTE | 2022-07-31 15:44 | Physical Therapy Daily Note ---
PT Daily Note-Current Subjective Pt found seated in recliner upon entry. Agreed to PT. Reports that she is feeling pretty good this PM. No reports of pain. Pain Section J - Health Conditions 1. Rarely or not at all 2. Occasionally 3. Frequently 4. Almost constantly 8. Unable to answer Pain Effect on Sleep: 1 Pain Interference with Therapy: 1 (pins and needles in (R) UE) Pain Interference w/Day-to-Day: 1 Mental Status Patient Orientation: Person, Confused Transfers SCALE: Activities may be completed with or without assistive devices. 4-Cnfbwoqefo-vtxibim completes the activity by him/herself with no assistance from a helper. 5-Set-up or Clean-up Assistance-helper sets up or cleans up; patient completes activity. [place] assists only prior to or following the activity. 4-Supervision or Touching Assistance-helper provides verbal cues and/or touching/steadying and/or contact guard assistance as patient completes activity. Assistance may be provided throughout the activity or intermittently. 3-Partial/Moderate Assistance-helper does LESS THAN HALF the effort. [place] l ifts, holds or supports trunk or limbs, but provides less than half the effort. 2-Substantial/Maximal Assistance-helper does MORE THAN HALF the effort. [place] lifts or holds trunk or limbs and provides more than half the effort. 3-Nhwqovjhw-ifvpdx does ALL the effort. Patient does none of the effort to complete the activity. Or, the assistance of 2 or more helpers is required for t he patient to complete the activity. If activity was not attempted, code reason: 7-Patient Refused. 9-Not Applicable-not attempted and the patient did not perform the activity before the current illness, exacerbation or injury. 10-Not Attempted due to Environmental Limitations-(lack of equipment, weather restraints, etc.). 88-Not Attempted due to Medical Conditions or Safety Concerns. Sit to Stand (QC): 4 Pt CGA with sit to stand transfers due to lack of safety awareness and decreased strength. Weight Bearing Weight Bearing/Tolerated Weight Bearing/Tolerated Gait Training Does the Patient Walk?: Yes Distance: 150, 150 Walk 10 feet (QC): 4 Walk 50 ft with 2 Turns(QC): 4 Gait Persons Needed: 1 Gait Assistive Device: FWW Pt ambulates with use of FWW and CGA. Pt occasionally displays coordination deficits with RLE and temporarily loses balance requiring slight steadying assistance from helper. Ambulated 300 feet total and required a short seated re st break. Assessment Current Status: Good Progress Pt displays good endurance and muscle strength with gait training. Demonstrated improved balance and coordination throughout visit. Still displays poor heel strike during gait cycle but is improving. Continue to progress pt as tolerated per POC to improve strength, endurance, and functional ability. PT Assisted Goals Cocoa Powder Mixer Operator Goals PT Assisted Goals Time Frame: Aug 13, 2022 Roll Left & Right (QC): 6 Sit to Lying (QC): 6 Lying-Sitting on Side/Bed(QC): 6 Sit to Stand (QC): 6 Chair/Dls-qh-Hfasf Xfer(QC): 6 Toilet Transfer (QC): 6 Car Transfer (QC): 5 Does the Patient Walk: Yes Walk 10 feet (QC): 5 Walk 50ft with 2 Turns (QC): 5 (with least restrictive device with less (R) LE ataxia) Walk 150 ft (QC): 5 (with least restrictive device with less (R) LE ataxia) Walking 10ft on Uneven Surface: 5 (with least restrictive device with less (R) LE ataxia) 1 Step (curb) (QC): 5 (with least restrictive device) 4 Steps (QC): 5 (with (B) rails) 12 Steps (QC): 4 (Min (A) with (B) rails) Picking up an Object (QC): 5 Does the Pt use WC or Scooter?: Yes Wheel 50 feet with 2 turns (QC: 6 Type: Manual Wheel 150 feet: 6 Type: Manual PT Plan Treatment/Plan Treatment Plan: Continue Plan of Care Treatment Plan: Bed Mobility, Education, Functional Activity Ellen, Functional Strength, Group Therapy, Gait, Safety, Therapeutic Exercise, Transfers, Other Treatment Duration: Aug 13, 2022 Frequency: At least 5 of 7 days/Wk (IRF) Estimated Hrs Per Day: 1.5 hours per day Patient and/or Family Agrees t: Yes Time Time In: 1400 Time Out: 1415 DATE: Jul 31, 2022 Total Billed Treatment Time: 15 Total Billed Treatment 1 visit GT x 1 MAJORJOYCELYN DISABILITY SERVICES COORDINATOR Jul 31, 2022 15:44
[2022-07-31] MEDS: ENOXAPARIN 40 MG/0.4 ML (LOVENOX) SYR SC SCH (17:41)
[2022-07-31 19:59] VITALS: BP 128/61
[2022-08-01] MEDS: MULTIVIT W/MINERALS TAB (THERAGRAN M) PO SCH (05:34)
--- NOTE | 2022-08-01 05:42 | PM&R Progress Note ---
Subjective HPI/CC On Admission Date Seen by Provider: Aug 01, 2022 Time Seen by Provider: 12:00 Subjective/Events-last exam 08/01/2022: Doing well SNF not really an option Needs DC home with family 07/31/2022: No major issues DC to SNF tomorrow? 07/30/2022: No major issues Set for SNF soon Eating well Cognition is much improved 07/29/2022: No major events No falls Working hard in therapy No pain except neuropathic type 07/28/2022: No major issues Memory loss and impulsiveness has brought the daughter to the conclusion she needs to go skilled care Hip xray no fracture 07/27/2022: Improved overall Right hip pain since fall so will order xray Daughter asked about DEXA scan and that would be outpatient 07/26/2022: No major issues Reviewed UA and no wbc's so no needed treatment No major concerns 07/25/2022: Doing well Improved already BM+ No pain 07/24/2022: Doing well Able to walk with therapy with assist No pain reported Reviewed meds and labs Daughter at bedside Review of Systems General: Fatigue, Malaise Objective Exam Vital Signs Vital Signs Date Time Temp Pulse Resp B/P (MAP) Pulse Ox O2 Delivery O2 Flow Rate FiO2 08/01/22 20:00 Room Air 08/01/22 19:32 36.3 66 18 109/55 (73) 97 07/31/22 09:07 0.00 0.00 07/29/22 19:08 21 Capillary Refill : General Appearance: No Apparent Distress, WD/WN, Chronically ill HEENT: PERRL/EOMI, Normal ENT Inspection, Pharynx Normal Neck: Full Range of Motion, Normal Inspection, Non Tender, Supple, Carotid Bruit Respiratory: Chest Non Tender, Lungs Clear, Normal Breath Sounds, No Accessory Muscle Use, No Respiratory Distress Cardiovascular: Regular Rate, Rhythm, No Edema, No Gallop, No JVD, No Murmur, Normal Peripheral Pulses Gastrointestinal: Normal Bowel Sounds, No Organomegaly, No Pulsatile Mass, Non Tender, Soft Back: Normal Inspection, No CVA Tenderness, No Vertebral Tenderness Extremity: Normal Capillary Refill, Normal Inspection, Normal Range of Motion, Non Tender, No Calf Tenderness, No Pedal Edema Neurologic/Psychiatric: Alert, Oriented x3, Normal Mood/Affect, line therapist II-XII Norm as Tested, Abnormal Gait, Depressed Affect, Motor Weakness Skin: Normal Color, Warm/Dry Lymphatic: No Adenopathy Results/Procedures Lab Patient resulted labs reviewed. FIM Transfers Therapy Code Descriptions/Definitions Functional [place] Measure: 0=Not Assessed/NA 4=Minimal Assistance 1=Total Assistance 5=Supervision or Setup 2=Maximal Assistance 6=Modified [place] 3=Moderate Assistance 7=Complete IndependenceSCALE: Activities may be completed with or without assistive devices. 1-Smexrleecz-seiaqcz completes the activity by him/herself with no assistance from a helper. 5-Set-up or Clean-up Assistance-helper sets up or cleans up; patient completes activity. [place] assists only prior to or following the activity. 4-Supervision or Touching Assistance-helper provides verbal cues and/or touching/steadying and/or contact guard assistance as patient completes activity. Assistance may be provided throughout the activity or intermittently. 3-Partial/Moderate Assistance-helper does LESS THAN HALF the effort. [place] l ifts, holds or supports trunk or limbs, but provides less than half the effort. 2-Substantial/Maximal Assistance-helper does MORE THAN HALF the effort. [place] lifts or holds trunk or limbs and provides more than half the effort. 0-Deifvxnfm-dskybh does ALL the effort. Patient does none of the effort to complete the activity. Or, the assistance of 2 or more helpers is required for t he patient to complete the activity. If activity was not attempted, code reason: 7-Patient Refused. 9-Not Applicable-not attempted and the patient did not perform the activity before the current illness, exacerbation or injury. 10-Not Attempted due to Environmental Limitations-(lack of equipment, weather restraints, etc.). 88-Not Attempted due to Medical Conditions or Safety Concerns. Roll Left to Right (QC): 4 Sit to Lying (QC): 4 Sit to Stand (QC): 4 Chair/Iux-mb-Bbluc Xfer(QC): 4 Car Transfer (QC): 4 Gait Training Does the Patient Walk?: Yes Distance: 150, 150 Walk 10 feet (QC): 4 Walk 50 ft with 2 Turns(QC): 4 Walk 150 ft (QC): 4 Walking 10ft/uneven surface-QC: 4 Gait Persons Needed: 1 Gait Assistive Device: FWW Wheelchair Training Does the Pt Use a Wheelchair?: No Distance: 50' Wheel 50 ft with 2 turns (QC): 3 (min (A) to use LE's in conjunction with (L) UE - ataxic (R) LE made straight path mobility difficult) Wheel 150 ft (QC): 88 (not attempted due to patient fatigue) Type of Wheelchair: Manual Stair Training Stair Training: Handrails/: 2 handrails #of Steps: 8 1 Step (curb) (QC): 4 4 Steps (QC): 4 12 Steps (QC): 88 Stairs: Pattern: Step to Balance Picking up an Object (QC): 4 ADL-Treatment Eating (QC): 6 Oral Hygiene (QC): 6 Shower/Bathe Self (QC): 4 Upper Body Dressing (QC): 5 Lower Body Dressing (QC): 4 On/Off Footwear (QC): 5 Toileting Hygiene (QC): 4 Toilet Transfer (QC): 4 Assessment/Plan Assessment and Plan Assess & Plan/Chief Complaint Assessment: 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 07/31/2022: Loop recorder no issues 08/01/2022: Monitor closely (1) Acute ischemic multifocal posterior circulation stroke involving left-sided vessel Status: Acute (2) Non-ST elevated myocardial infarction Status: Acute (3) Elevated liver enzymes Status: Acute (4) PTSD (post-traumatic stress disorder) Status: Chronic (5) WENDY (generalized anxiety disorder) Status: Chronic (6) Hypertension Status: Chronic (7) COPD (chronic obstructive pulmonary disease) Status: Chronic UCHE WALL DO Aug 01, 2022 05:42
[2022-08-01 08:00] VITALS: BP 106/70
[2022-08-01] MEDS: HYDROcodone/APAP 5 MG/325 MG (LORTAB) TAB PO PRN ×3 (08:08→17:26)
[2022-08-01] MEDS: LOSARTAN 100 MG (COZAAR) TABLET PO SCH (08:09)
[2022-08-01] MEDS: GABAPENTIN 300 MG (NEURONTIN) CAP PO SCH ×3 (08:09→20:03)
[2022-08-01] MEDS: MELOXICAM 7.5 MG (MOBIC) TABLET PO SCH (08:09)
[2022-08-01] MEDS: hydrOXYzine (VISTARIL/ATARAX) 25 MG capsule/tablet PO SCH (08:09)
[2022-08-01] MEDS: FOLIC ACID 1 MG TAB PO SCH (08:10)
[2022-08-01] MEDS: ASPIRIN E.C. 81 MG (ECOTRIN) TAB PO SCH (08:10)
[2022-08-01] MEDS: amLODIPine 5 MG (NORVASC) TAB PO SCH (08:10)
[2022-08-01] MEDS: NICOTINE 21 MG (NICODERM) PATCH TD SCH (08:10)
[2022-08-01] MEDS: CLOPIDOGREL 75 MG (PLAVIX) TABLET PO SCH (08:10)
[2022-08-01] MEDS: DULoxetine 30 MG (CYMBALTA) CAP PO SCH (08:10)
--- NOTE | 2022-08-01 09:31 | Cardiology Progress Note ---
Subjective Date Seen by Provider: Aug 01, 2022 Time Seen by Provider: 09:30 Subjective/Events-last exam Patient was seen at bedside, sitting comfortably, asking to go home Review of Systems General: No Chills, No Night Sweats, No Fatigue, No Malaise, No Appetite, No Other HEENT: No Head Aches, No Visual Changes, No Eye Pain, No Ear Pain, No Dysphasia, No Sinus Congestion, No Post Nasal Drip, No Sore Throat, No Other Pulmonary: No Dyspnea, No Cough, No Pleuritic Chest Pain, No Other Cardiovascular: No: Chest Pain, Palpitations, Orthopnea, Paroxysmal Noc. Dyspnea, Edema, Lt Headedness, Other Objective-Cardiology Exam Last Set of Vital Signs Vital Signs 07/29/22 07/31/22 08/01/22 19:08 09:07 08:00 Temp 36.6 Pulse 74 Resp 18 B/P (MAP) 106/70 (82) Pulse Ox 95 O2 Delivery Room Air O2 Flow Rate 0.00 0.00 FiO2 21 I&O Intake and Output 08/01/22 00:00 Intake Total 1260 ml Balance 1260 ml Intake Oral 1260 ml # Voids 7 General: Alert, Oriented X3 HEENT: Atraumatic, PERRLA Lungs: Clear to Auscultation, Normal Air Movement Heart: Regular Rate, Normal S1, Normal S2 Abdomen: Soft, No Tenderness Extremities: No Clubbing, No Edema Skin: No Rashes, No Significant Lesion Neuro: Other (right sided weakness) Psych/Mental Status: Mental Status NL, Mood NL A/P-Cardiology Admission Diagnosis CVA NSTEMI HTN Weakness/debility Assessment/Plan Status post acute CVA CT angiogram reported as distal left 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 Receiving physical therapy. 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 Dressing is C/D/I Elevated troponin, non-ST elevation myocardial infarction. No acute EKG changes. Troponin is trending down. Stress test was done on July 31, 2022 with no ischemia or infarction on SPECT images and normal ejection fraction Continue with aspirin and Plavix 2D echo was done on July 19, 2022 which showing normal left ventricular size with ejection fraction 60 to 65%, grade 1 diastolic dysfunction, mild mitral regurgitation, PA pressure 40 to 45 mmHg. No shunt was detected by using contrast Hypertension, controlled. Currently on losartan 100mg, amlodipine 5mg Lipid profile was done on July 19, 2022 and it was normal. Multiple bruises which trauma to the knee. Moderate elevation in CPK. Continue with IV fluid and monitor Tobaccoism, advised to stop smoking Alcoholism. Patient reported that she drinks wine over the weekend REMEDIOS COHEN MD Aug 01, 2022 09:31
--- NOTE | 2022-08-01 10:17 | Physical Therapy Daily Note ---
PT Daily Note-Current Subjective Pt found seated in recliner upon entry. Agreed to PT. Reports that she is frustrated about not being able to leave today. States that she is feeling claustrophobic and would like to get some fresh air. No report of pain. Reports that she does not remember whether she took pain pills today or not. Pain Section J - Health Conditions 1. Rarely or not at all 2. Occasionally 3. Frequently 4. Almost constantly 8. Unable to answer Pain Effect on Sleep: 1 Pain Interference with Therapy: 1 (pins and needles in (R) UE) Pain Interference w/Day-to-Day: 1 Mental Status Patient Orientation: Person, Confused, Place Transfers SCALE: Activities may be completed with or without assistive devices. 0-Pytpqcdvkg-cxzbyvy completes the activity by him/herself with no assistance from a helper. 5-Set-up or Clean-up Assistance-helper sets up or cleans up; patient completes activity. [place] assists only prior to or following the activity. 4-Supervision or Touching Assistance-helper provides verbal cues and/or touching/steadying and/or contact guard assistance as patient completes activity. Assistance may be provided throughout the activity or intermittently. 3-Partial/Moderate Assistance-helper does LESS THAN HALF the effort. [place] lifts, holds or supports trunk or limbs, but provides less than half the effort. 2-Substantial/Maximal Assistance-helper does MORE THAN HALF the effort. [place] lifts or holds trunk or limbs and provides more than half the effort. 5-Lgxbzzpou-nglnaz does ALL the effort. Patient does none of the effort to complete the activity. Or, the assistance of 2 or more helpers is required for the patient to complete the activity. If activity was not attempted, code reason: 7-Patient Refused. 9-Not Applicable-not attempted and the patient did not perform the activity before the current illness, exacerbation or injury. 10-Not Attempted due to Environmental Limitations-(lack of equipment, weather restraints, etc.). 88-Not Attempted due to Medical Conditions or Safety Concerns. Sit to Stand (QC): 4 Chair/Rtu-sf-Dkqea Xfer(QC): 4 Pt CGA with sit to stand and chair to wheelchair transfers due to R sided weakness and decreased safety awareness. Weight Bearing Weight Bearing/Tolerated Weight Bearing/Tolerated Gait Training Does the Patient Walk?: Yes Distance: 100 Walk 10 feet (QC): 4 Walk 50 ft with 2 Turns(QC): 4 Gait Persons Needed: 1 Gait Assistive Device: FWW Pt CGA with gait training due to balance deficits. Ambulated 100 feet with use of FWW. Displays loss of balance anteriorly 1x during gait training and required steadying assistance. Demonstrates steady gait speed with improved step length. Wheelchair Training Does the Pt Use a Wheelchair?: Yes Wheel 50 ft with 2 turns (QC): 4 Wheel 150 ft (QC): 4 Type of Wheelchair: Manual Verbal cues for alternating LE use with wheelchair training. Wheeled 200 feet and required short rest breaks. Assessment Current Status: Good Progress Pt displays fatigue with wheelchair training and good tolerance to ambulation. Continues to require occasional verbal cues for proper hand placement with transfers. Pt gait speed and step length is improving. Displays loss of balance 1x during gait training and required steadying assistance from helper. Continue to progress pt as tolerated per POC to improve strength, endurance, functional ability, and safety awareness. PT Assisted Goals Assisted Goals PT [employer] Goals Time Frame: Aug 13, 2022 Roll Left & Right (QC): 6 Sit to Lying (QC): 6 Lying-Sitting on Side/Bed(QC): 6 Sit to Stand (QC): 6 Chair/Gne-qu-Rzebr Xfer(QC): 6 Toilet Transfer (QC): 6 Car Transfer (QC): 5 Does the Patient Walk: Yes Walk 10 feet (QC): 5 Walk 50ft with 2 Turns (QC): 5 (with least restrictive device with less (R) LE ataxia) Walk 150 ft (QC): 5 (with least restrictive device with less (R) LE ataxia) Walking 10ft on Uneven Surface: 5 (with least restrictive device with less (R) LE ataxia) 1 Step (curb) (QC): 5 (with least restrictive device) 4 Steps (QC): 5 (with (B) rails) 12 Steps (QC): 4 (Min (A) with (B) rails) Picking up an Object (QC): 5 Does the Pt use WC or Scooter?: Yes Wheel 50 feet with 2 turns (QC: 6 Type: Manual Wheel 150 feet: 6 Type: Manual PT Plan Treatment/Plan Treatment Plan: Continue Plan of Care Treatment Plan: Bed Mobility, Education, Functional Activity Ellen, Functional Strength, Group Therapy, Gait, Safety, Therapeutic Exercise, Transfers, Other Treatment Duration: Aug 13, 2022 Frequency: At least 5 of 7 days/Wk (IRF) Estimated Hrs Per Day: 1.5 hours per day Patient and/or Family Agrees t: Yes Time Time In: 929 Time Out: 1000 DATE: Aug 01, 2022 Total Billed Treatment Time: 30 Total Billed Treatment 1 visit FA x 1 GT x 1 JOYCELYN CRUZ HOG STICKER Aug 01, 2022 10:17
--- NOTE | 2022-08-01 10:58 | Speech Therapy Daily Note ---
Speech Daily Progress Note Subjective Date Seen by Provider: Aug 01, 2022 Time Seen by Provider: 09:15 The patient was seated upright in her recliner, awake and alert, upon entrance to her room by the clinician. The patient is reluctant to participate in therapy and does independently recall she is/was scheduled for discharge on this date. With gentle verbal encouragement, the patient agrees to participation. Objective The patient is tearful throughout the treatment session, stating she is frustrated and "just wants a cigarette and wants someone to tell her what's going on." The clinician provided gentle support, listening, and encouragement. The patient does display appropriate functional recall with the events of the prior evening, as well as, her discharge plan. With moderate clinician verbal cueing, the patient was able to recall her prior location of employment and was able to share with the clinician aspects she found enjoyable about her job placement. Orientation: The patient is currently oriented (independently) to month, day of the week, date, year, and location. Assessment Assessment Current Status: Good Progress Treatment Plan Continue Plan of Care Speech Short Term Goals Short Term Goals Short Term Goals 1. The patient will demonstrate functional memory strategies with 80% accuracy and mild verbal and visual cueing. Time Frame-STG: One Week. Speech Freight Car Repairer Goals Freight Car Repairer Goals 1. The patient will improve cognitive linguistic communication for safe discharge to the least restrictive environment. Time Frame: Two Weeks. Speech-Plan Treatment Plan Speech Therapy Treatment Plan: Continue Plan of Care Treatment Duration: Aug 01, 2022 Frequency: Modified Program (IRF) Estimated Hrs Per Day: .5 hour per day Rehab Potential: Fair Pt/Family Agrees to Plan: Yes Safety Risks/Education Teaching Recipient: Patient Teaching Methods: Discussion Response to Teaching: Reinforcement Needed Education Topics Provided: Functional Recall Strategies, Plan of Care Discharge Recommendations Post Acute ST Time Speech Therapy Time In: 09:15 Speech Therapy Time Out: 09:30 DATE: Aug 01, 2022 Total Billed Time: 30 Billed Treatment Time 1, KIERSTEN (914 to [phone]), (11:00 to 11:15) JAIR GLOVER Aug 01, 2022 10:58
--- NOTE | 2022-08-01 11:55 | Physical Therapy Daily Note ---
PT Daily Note-Current Subjective Pt found in wheelchair with OT present. Agreed to PT. Reports burning pain in R hip, elbow, and hand. Does not rate pain. Pain Section J - Health Conditions 1. Rarely or not at all 2. Occasionally 3. Frequently 4. Almost constantly 8. Unable to answer Pain Effect on Sleep: 1 Pain Interference with Therapy: 1 (pins and needles in (R) UE) Pain Interference w/Day-to-Day: 1 Mental Status Patient Orientation: Person, Confused, Place Transfers SCALE: Activities may be completed with or without assistive devices. 9-Zulrcnfsox-rfcgcbf completes the activity by him/herself with no assistance from a helper. 5-Set-up or Clean-up Assistance-helper sets up or cleans up; patient completes activity. [place] assists only prior to or following the activity. 4-Supervision or Touching Assistance-helper provides verbal cues and/or touching/steadying and/or contact guard assistance as patient completes activity. Assistance may be provided throughout the activity or intermittently. 3-Partial/Moderate Assistance-helper does LESS THAN HALF the effort. [place] lifts, holds or supports trunk or limbs, but provides less than half the effort. 2-Substantial/Maximal Assistance-helper does MORE THAN HALF the effort. [place] lifts or holds trunk or limbs and provides more than half the effort. 0-Bbctqnozu-hxodcv does ALL the effort. Patient does none of the effort to complete the activity. Or, the assistance of 2 or more helpers is required for the patient to complete the activity. If activity was not attempted, code reason: 7-Patient Refused. 9-Not Applicable-not attempted and the patient did not perform the activity before the current illness, exacerbation or injury. 10-Not Attempted due to Environmental Limitations-(lack of equipment, weather restraints, etc.). 88-Not Attempted due to Medical Conditions or Safety Concerns. Roll Left & Right (QC): 4 Sit to Lying (QC): 4 Lying to Sitting/Side of Bed(Q: 4 Sit to Stand (QC): 4 Chair/Oek-zg-Jvxyf Xfer(QC): 4 Toilet Transfer (QC): 4 Car Transfer (QC): 4 Pt supervision assistance for bed mobility. CGA for all other completed transfers due to decreased strength on R side and impaired safety awareness. Weight Bearing Weight Bearing/Tolerated Weight Bearing/Tolerated Gait Training Does the Patient Walk?: Yes Distance: 50, 400 Walk 10 feet (QC): 4 Walk 50 ft with 2 Turns(QC): 4 Walk 150 ft (QC): 4 Walking 10ft/uneven surface-QC: 4 Gait Persons Needed: 1 Gait Assistive Device: FWW Pt displays improved tolerance to gait training this visit. Ambulates up to 400 feet with no rest breaks. Requires CGA with ambulation due to balance and safety awareness deficits. Displays steady gait speed and step length improving. Pt demonstrates loss of balance 3x /c gait training and required steadying assistance from helper. Wheelchair Training Does the Pt Use a Wheelchair?: Yes Wheel 50 ft with 2 turns (QC): 4 Wheel 150 ft (QC): 4 Type of Wheelchair: Manual Supervision assistance with wheelchair mobility due to lack of safety awareness. Stair Training Stair Training: Handrails/: 2 handrails #of Steps: 12 1 Step (curb) (QC): 4 4 Steps (QC): 4 12 Steps (QC): 4 Stairs: Pattern: Step to CGA with stair training due to weakness and safety awareness deficits. Completes 12 steps total with two handrails using step to gait pattern /c R foot first. Balance Picking up an Object (QC): 4 Special Test Comments CGA with picking up object off the floor. Loss of balance x 2 and required steadying assistance. Treatments Sit to stand x 10 (VCs for hand placement) Assessment Current Status: Good Progress Pt displays increased impulsiveness this treatment likely due frustration of not being able to leave hospital today. Ambulation tolerance continues to improve. Continues to require verbal cues for correct hand placement /c transfers. Continue to progress pt as tolerated per POC to improve strength, endurance, functional ability, and safety awareness. PT Long-Term Goals Long-Term Goals PT Long-Term Goals Time Frame: Aug 13, 2022 Roll Left & Right (QC): 6 Sit to Lying (QC): 6 Lying-Sitting on Side/Bed(QC): 6 Sit to Stand (QC): 6 Chair/Pbk-fl-Luumd Xfer(QC): 6 Toilet Transfer (QC): 6 Car Transfer (QC): 5 Does the Patient Walk: Yes Walk 10 feet (QC): 5 Walk 50ft with 2 Turns (QC): 5 (with least restrictive device with less (R) LE ataxia) Walk 150 ft (QC): 5 (with least restrictive device with less (R) LE ataxia) Walking 10ft on Uneven Surface: 5 (with least restrictive device with less (R) LE ataxia) 1 Step (curb) (QC): 5 (with least restrictive device) 4 Steps (QC): 5 (with (B) rails) 12 Steps (QC): 4 (Min (A) with (B) rails) Picking up an Object (QC): 5 Does the Pt use WC or Scooter?: Yes Wheel 50 feet with 2 turns (QC: 6 Type: Manual Wheel 150 feet: 6 Type: Manual PT Plan Treatment/Plan Treatment Plan: Continue Plan of Care Treatment Plan: Bed Mobility, Education, Functional Activity Ellen, Functional Strength, Group Therapy, Gait, Safety, Therapeutic Exercise, Transfers, Other Treatment Duration: Aug 13, 2022 Frequency: At least 5 of 7 days/Wk (IRF) Estimated Hrs Per Day: 1.5 hours per day Patient and/or Family Agrees t: Yes Time Time In: 1030 Time Out: 1100 DATE: Aug 01, 2022 Total Billed Treatment Time: 30 Total Billed Treatment 1 visit FA x 1 GT x 1 JOYCELYN CRUZ PTA Aug 01, 2022 11:55
--- NOTE | 2022-08-01 12:45 | Occupational Ther Daily Note ---
OT Current Status-Daily Note Subjective Pt alert, sitting in recliner. Pt agrees to therapy. Pt very upset that she is not discharging today. Co-treat with PT ([id number]), skills of 2 clinicians required to decrease fall risk while working on higher level balance skills involving B UE/LE coordination. PT focusing on ambulation, balance and stren gthening B LE's while OT focusing on ADLs, functional dynamic balance and R UE coordination. Mental Status/Objective Patient Orientation: Person, Place, Time, Situation ADL-Treatment Pt declines shower. Pt does agrees to complete sponge bath and change clothing. SBA for bathing for safety. Set up for UBD and footwear. SBA for lower body dressing and toileting. Pt is impulsive though continues to improve with this. Pt is also progressing well with coordination of L UE/LE during functional tasks. Independent with oral care sitting at sink. Therapy Code Descriptions/Definitions Functional [place] Measure: 0=Not Assessed/NA 4=Minimal Assistance 1=Total Assistance 5=Supervision or Setup 2=Maximal Assistance 6=Modified [place] 3=Moderate Assistance 7=Complete IndependenceSCALE: Activities may be completed with or without assistive devices. 6-Gukayldcsu-fejpcrq completes the activity by him/herself with no assistance from a helper. 5-Set-up or Clean-up Assistance-helper sets up or cleans up; patient completes activity. [place] assists only prior to or following the activity. 4-Supervision or Touching Assistance-helper provides verbal cues and/or touching/steadying and/or contact guard assistance as patient completes ac tivity. Assistance may be provided throughout the activity or intermittently. 3-Partial/Moderate Assistance-helper does LESS THAN HALF the effort. [place] lifts, holds or supports trunk or limbs, but provides less than half the effort. 2-Substantial/Maximal Assistance-helper does MORE THAN HALF the effort. [place] lifts or holds trunk or limbs and provides more than half the effort. 0-Tsjxaqvjq-bgsylx does ALL the effort. Patient does none of the effort to complete the activity. Or, the assistance of 2 or more helpers is required for the patient to complete the activity. If activity was not attempted, code reason: 7-Patient Refused. 9-Not Applicable-not attempted and the patient did not perform the activity before the current illness, exacerbation or injury. 10-Not Attempted due to Environmental Limitations-(lack of equipment, weather restraints, etc.). 88-Not Attempted due to Medical Conditions or Safety Concerns. Eating (QC): 6 Oral Hygiene (QC): 6 Shower/Bathe Self (QC): 4 Upper Body Dressing (QC): 5 Lower Body Dressing (QC): 4 On/Off Footwear: 5 Toileting Hygiene (QC): 4 Toilet Transfer (QC): 4 Other Treatment Pt demonstrating better coordination and focus with ambulation, w/c mobility and functional mobility. See PT notes for ambulation progress. After session, pt sitting in recliner with call light/phone in reach. All needs met in room. Safety measures in place. BIMS CAM BIMS Expression of Ideas and Wants: Without Difficulty Understanding Verbal Content: Understands Brief Interview/Mental Status: Yes IRF RAI BIMS: IRF RAI BIMS Response (Comments) Value Repitition of Three Words Three 3 Recalls Socks Yes, After Cueing (Wear) 1 Recalls Blue Yes, No Cue Required 2 Recalls Bed Yes, After Cueing 1 Year Correct 3 Month Accurate Within 5 Days 2 Day Correct 1 Total 13 Patient Normally Able to Recal: Current Session, Location of own room, Staff Names and faces, That he/she in a hsp Should Staff Asses. Mental St.: No OT Short Term Goals Short Term Goals Time Frame: Aug 01, 2022 Lower body dressin Putting on/taking off footwear: 4 OT Senior Living Goals Senior Living Goals Time Frame: Aug 15, 2022 Acute change in mental status: 1 Inattention: 0 Disorganized thinkin Altered level of consciousness: 0 Eating (QC): 6 (met) Oral Hygiene (QC): 6 (met) Toileting Hygiene (QC): 6 (not met) Shower/Bathe Self (QC): 6 (not met) Upper Body Dressing (QC): 6 (not met) Lower Body Dressing (QC): 6 (not met) On/Off Footwear (QC): 6 (not met) Additional Goals: 1-Demonstrate ADL Tasks, 2-Verbalize Understanding, 3- ImproveStrength/Ellen 1=Demonstrate adherence to instructed precautions during ADL tasks. 2=Patient will verbalize/demonstrate understanding of assistive devices/modifications for ADL. 3=Patient will improve strength/tolerance for activity to enable patient to perform ADL's. OT Education/Plan Problem List/Assessment Assessment: Decreased Activ Tolerance, Impaired Coordination, Impaired Funct Balance, Impaired Self-Care Skills Discharge Recommendations Plan/Recommendations: Continue POC Treatment Plan/Plan of Care Patient would benefit from OT for education, treatment and training to promote independence in ADL's, mobility, safety and/or upper extremity function for ADL's. Plan of Care: ADL Retraining, Functional Mobility, Group Exercise/Act as Ind, UE Funct Exercise/Act, UE Neuromus Re-Ed/Coord, Visual/Perceptual Retrain Treatment Duration: Aug 15, 2022 Frequency: At least 5 of 7 days/Wk (IRF) Estimated Hrs Per Day: 1.5 hours per day Agreement: Yes Rehab Potential: Fair Time Start Time: 10:00 Stop Time: 11:00 DATE: Aug 01, 2022 Total Time Billed (hr/min): 60 Billed Treatment Time 1 visit-ADL 2 (30 min) FA 2 (30 min) co-treat with PT [id number], individual [id number] JENNY ALBERTS Aug 01, 2022 12:45
--- NOTE | 2022-08-01 14:22 | Therapy Group Daily Note ---
Therapy Daily Group Note Patient Education Topic Fall Prevention, Home Safety, Exercises Exercises LE Seated Exercise, UE Exercise Session Ratio (pt:therapist): 3:1 Goal of Session: Education on ARU Expectations, Home Safety Strategies, UE/LE Strengthing, Safety with Transfers, Use of Adaptive Equipment Goal Met for this Session: Yes Pt Benefit of Group: Contributions to Others, F/U Use of Strategies @Home, Increased Functional Safety, Increased Functional Strength, Improved Cognition, Recognition of Peers, Socialization Other/Notes Pt transported to w/c in therapy gym for OT/PT group. Group consisted on introductions (name, place living, home fall history), socialization, B UE/LE seated exercises and education on home safety. Pt introduced self appropriately and actively listened to peers. Pt able to complete B UE/LE seated exercises, tolerated well. Pt acknowledged understanding of educational topic by answering questions on subject through [employer] game. After session, pt lying in bed with call light/phone in reach. All needs met in room. Start Time: 13:00 Stop Time: 14:15 Total Billed Treatment Time: 75 Total Billed Treatment 1 visit GRP x 1 JOYCELYN CRUZ LEAD LOADER Aug 01, 2022 14:22
[2022-08-01] MEDS: polyethylene glycoL POWDER 17 GM (MIRALAX) PACK PO SCH ×2 (15:39→19:43)
[2022-08-01] MEDS: SENNOSIDES 8.6 MG (SENOKOT) TAB PO SCH ×2 (15:39→19:43)
[2022-08-01] MEDS: DOCUSATE SODIUM 100 MG (COLACE) CAP PO SCH ×2 (15:39→19:43)
[2022-08-01] MEDS: SENNA W/DOCUSATE (SENOKOT S) TABLET PO SCH ×2 (15:39→19:43)
[2022-08-01] MEDS: NICOTINE PATCH TP SCH (15:40)
[2022-08-01] MEDS: ENOXAPARIN 40 MG/0.4 ML (LOVENOX) SYR SC SCH (17:26)
[2022-08-01 19:32] VITALS: BP 109/55
[2022-08-02] MEDS: HYDROcodone/APAP 5 MG/325 MG (LORTAB) TAB PO PRN ×2 (03:26→17:13)
[2022-08-02] MEDS: MULTIVIT W/MINERALS TAB (THERAGRAN M) PO SCH (06:11)
--- NOTE | 2022-08-02 07:26 | PM&R Progress Note ---
Subjective HPI/CC On Admission Date Seen by Provider: Aug 02, 2022 Time Seen by Provider: 12:00 Subjective/Events-last exam 08/02/2022: Doing well No pain reported Improved function 08/01/2022: Doing well SNF not really an option Needs DC home with family 07/31/2022: No major issues DC to SNF tomorrow? 07/30/2022: No major issues Set for SNF soon Eating well Cognition is much improved 07/29/2022: No major events No falls Working hard in therapy No pain except neuropathic type 07/28/2022: No major issues Memory loss and impulsiveness has brought the daughter to the conclusion she needs to go skilled care Hip xray no fracture 07/27/2022: Improved overall Right hip pain since fall so will order xray Daughter asked about DEXA scan and that would be outpatient 07/26/2022: No major issues Reviewed UA and no wbc's so no needed treatment No major concerns 07/25/2022: Doing well Improved already BM+ No pain 07/24/2022: Doing well Able to walk with therapy with assist No pain reported Reviewed meds and labs Daughter at bedside Review of Systems General: Fatigue, Malaise Objective Exam Vital Signs Vital Signs Date Time Temp Pulse Resp B/P (MAP) Pulse Ox O2 Delivery O2 Flow Rate FiO2 08/02/22 20:07 Room Air 08/02/22 19:58 36.7 66 16 106/67 (80) 98 08/02/22 09:56 0.00 07/29/22 19:08 21 Capillary Refill : General Appearance: No Apparent Distress, WD/WN, Chronically ill HEENT: PERRL/EOMI, Normal ENT Inspection, Pharynx Normal Neck: Full Range of Motion, Normal Inspection, Non Tender, Supple, Carotid Bruit Respiratory: Chest Non Tender, Lungs Clear, Normal Breath Sounds, No Accessory Muscle Use, No Respiratory Distress Cardiovascular: Regular Rate, Rhythm, No Edema, No Gallop, No JVD, No Murmur, Normal Peripheral Pulses Gastrointestinal: Normal Bowel Sounds, No Organomegaly, No Pulsatile Mass, Non Tender, Soft Back: Normal Inspection, No CVA Tenderness, No Vertebral Tenderness Extremity: Normal Capillary Refill, Normal Inspection, Normal Range of Motion, Non Tender, No Calf Tenderness, No Pedal Edema Neurologic/Psychiatric: Alert, Oriented x3, Normal Mood/Affect, laundry worker II-XII Norm as Tested, Abnormal Gait, Depressed Affect, Motor Weakness Skin: Normal Color, Warm/Dry Lymphatic: No Adenopathy Results/Procedures Lab Patient resulted labs reviewed. FIM Transfers Therapy Code Descriptions/Definitions Functional [place] Measure: 0=Not Assessed/NA 4=Minimal Assistance 1=Total Assistance 5=Supervision or Setup 2=Maximal Assistance 6=Modified [place] 3=Moderate Assistance 7=Complete IndependenceSCALE: Activities may be completed with or without assistive devices. 0-Znbnyznjdz-xljgnup completes the activity by him/herself with no assistance from a helper. 5-Set-up or Clean-up Assistance-helper sets up or cleans up; patient completes activity. [place] assists only prior to or following the activity. 4-Supervision or Touching Assistance-helper provides verbal cues and/or touching/steadying and/or contact guard assistance as patient completes activity. Assistance may be provided throughout the activity or intermittently. 3-Partial/Moderate Assistance-helper does LESS THAN HALF the effort. [place] lifts, holds or supports trunk or limbs, but provides less than half the effort. 2-Substantial/Maximal Assistance-helper does MORE THAN HALF the effort. [place] lifts or holds trunk or limbs and provides more than half the effort. 4-Dqteicsdz-gzxhzj does ALL the effort. Patient does none of the effort to complete the activity. Or, the assistance of 2 or more helpers is required for the patient to complete the activity. If activity was not attempted, code reason: 7-Patient Refused. 9-Not Applicable-not attempted and the patient did not perform the activity before the current illness, exacerbation or injury. 10-Not Attempted due to Environmental Limitations-(lack of equipment, weather restraints, etc.). 88-Not Attempted due to Medical Conditions or Safety Concerns. Roll Left to Right (QC): 4 Sit to Lying (QC): 4 Sit to Stand (QC): 4 Chair/Awk-ag-Lkzqk Xfer(QC): 4 Car Transfer (QC): 4 Gait Training Does the Patient Walk?: Yes Distance: 50, 400 Walk 10 feet (QC): 4 Walk 50 ft with 2 Turns(QC): 4 Walk 150 ft (QC): 4 Walking 10ft/uneven surface-QC: 4 Gait Persons Needed: 1 Gait Assistive Device: FWW Wheelchair Training Does the Pt Use a Wheelchair?: Yes Distance: 50' Wheel 50 ft with 2 turns (QC): 4 Wheel 150 ft (QC): 4 Type of Wheelchair: Manual Stair Training Stair Training: Handrails/: 2 handrails #of Steps: 12 1 Step (curb) (QC): 4 4 Steps (QC): 4 12 Steps (QC): 4 Stairs: Pattern: Step to Balance Picking up an Object (QC): 4 ADL-Treatment Eating (QC): 6 Oral Hygiene (QC): 6 Shower/Bathe Self (QC): 4 Upper Body Dressing (QC): 5 Lower Body Dressing (QC): 4 On/Off Footwear (QC): 5 Toileting Hygiene (QC): 4 Toilet Transfer (QC): 4 Assessment/Plan Assessment and Plan Assess & Plan/Chief Complaint Assessment: 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 07/31/2022: Loop recorder no issues 08/01/2022: Monitor closely 08/02/2022: Monitor closely (1) Acute ischemic multifocal posterior circulation stroke involving left-sided vessel Status: Acute (2) Non-ST elevated myocardial infarction Status: Acute (3) Elevated liver enzymes Status: Acute (4) PTSD (post-traumatic stress disorder) Status: Chronic (5) WENDY (generalized anxiety disorder) Status: Chronic (6) Hypertension Status: Chronic (7) COPD (chronic obstructive pulmonary disease) Status: Chronic UCHE WALL DO Aug 02, 2022 07:26
[2022-08-02 07:35] VITALS: BP 120/80
[2022-08-02] MEDS: LOSARTAN 100 MG (COZAAR) TABLET PO SCH (09:30)
[2022-08-02] MEDS: amLODIPine 5 MG (NORVASC) TAB PO SCH (09:30)
[2022-08-02] MEDS: DULoxetine 30 MG (CYMBALTA) CAP PO SCH (09:30)
[2022-08-02] MEDS: hydrOXYzine (VISTARIL/ATARAX) 25 MG capsule/tablet PO SCH (09:30)
[2022-08-02] MEDS: GABAPENTIN 300 MG (NEURONTIN) CAP PO SCH ×3 (09:30→20:25)
[2022-08-02] MEDS: FOLIC ACID 1 MG TAB PO SCH (09:30)
[2022-08-02] MEDS: ASPIRIN E.C. 81 MG (ECOTRIN) TAB PO SCH (09:30)
[2022-08-02] MEDS: NICOTINE 21 MG (NICODERM) PATCH TD SCH (09:30)
[2022-08-02] MEDS: CLOPIDOGREL 75 MG (PLAVIX) TABLET PO SCH (09:30)
[2022-08-02] MEDS: polyethylene glycoL POWDER 17 GM (MIRALAX) PACK PO SCH ×2 (09:31→19:44)
[2022-08-02] MEDS: SENNOSIDES 8.6 MG (SENOKOT) TAB PO SCH ×2 (09:31→19:44)
[2022-08-02] MEDS: SENNA W/DOCUSATE (SENOKOT S) TABLET PO SCH ×2 (09:31→19:44)
[2022-08-02] MEDS: DOCUSATE SODIUM 100 MG (COLACE) CAP PO SCH ×2 (09:31→19:44)
[2022-08-02] MEDS: MELOXICAM 7.5 MG (MOBIC) TABLET PO SCH (09:31)
[2022-08-02] MEDS: NICOTINE PATCH TP SCH (09:47)
[2022-08-02] MEDS: ENOXAPARIN 40 MG/0.4 ML (LOVENOX) SYR SC SCH (17:13)
[2022-08-02 19:58] VITALS: BP 106/67
[2022-08-03] MEDS: HYDROcodone/APAP 5 MG/325 MG (LORTAB) TAB PO PRN ×5 (00:11→20:12)
--- NOTE | 2022-08-03 06:09 | PM&R Progress Note ---
Subjective HPI/CC On Admission Date Seen by Provider: Aug 03, 2022 Time Seen by Provider: 09:00 Subjective/Events-last exam 08/03/2022: Improved No pain reported No falls 08/02/2022: Doing well No pain reported Improved function 08/01/2022: Doing well SNF not really an option Needs DC home with family 07/31/2022: No major issues DC to SNF tomorrow? 07/30/2022: No major issues Set for SNF soon Eating well Cognition is much improved 07/29/2022: No major events No falls Working hard in therapy No pain except neuropathic type 07/28/2022: No major issues Memory loss and impulsiveness has brought the daughter to the conclusion she needs to go skilled care Hip xray no fracture 07/27/2022: Improved overall Right hip pain since fall so will order xray Daughter asked about DEXA scan and that would be outpatient 07/26/2022: No major issues Reviewed UA and no wbc's so no needed treatment No major concerns 07/25/2022: Doing well Improved already BM+ No pain 07/24/2022: Doing well Able to walk with therapy with assist No pain reported Reviewed meds and labs Daughter at bedside Review of Systems General: Fatigue, Malaise Objective Exam Vital Signs Vital Signs Date Time Temp Pulse Resp B/P (MAP) Pulse Ox O2 Delivery O2 Flow Rate FiO2 08/03/22 09:30 Room Air 08/03/22 08:51 97 08/03/22 07:53 36.4 77 18 115/64 (81) 08/02/22 09:56 0.00 07/29/22 19:08 21 Capillary Refill : General Appearance: No Apparent Distress, WD/WN, Chronically ill HEENT: PERRL/EOMI, Normal ENT Inspection, Pharynx Normal Neck: Full Range of Motion, Normal Inspection, Non Tender, Supple, Carotid Bruit Respiratory: Chest Non Tender, Lungs Clear, Normal Breath Sounds, No Accessory Muscle Use, No Respiratory Distress Cardiovascular: Regular Rate, Rhythm, No Edema, No Gallop, No JVD, No Murmur, Normal Peripheral Pulses Gastrointestinal: Normal Bowel Sounds, No Organomegaly, No Pulsatile Mass, Non Tender, Soft Back: Normal Inspection, No CVA Tenderness, No Vertebral Tenderness Extremity: Normal Capillary Refill, Normal Inspection, Normal Range of Motion, Non Tender, No Calf Tenderness, No Pedal Edema Neurologic/Psychiatric: Alert, Oriented x3, Normal Mood/Affect, support services rep II-XII Norm as Tested, Abnormal Gait, Depressed Affect, Motor Weakness Skin: Normal Color, Warm/Dry Lymphatic: No Adenopathy Results/Procedures Lab Patient resulted labs reviewed. FIM Transfers Therapy Code Descriptions/Definitions Functional [place] Measure: 0=Not Assessed/NA 4=Minimal Assistance 1=Total Assistance 5=Supervision or Setup 2=Maximal Assistance 6=Modified [place] 3=Moderate Assistance 7=Complete IndependenceSCALE: Activities may be completed with or without assistive devices. 1-Ngmhmbcavw-sgivksq completes the activity by him/herself with no assistance from a helper. 5-Set-up or Clean-up Assistance-helper sets up or cleans up; patient completes activity. [place] assists only prior to or following the activity. 4-Supervision or Touching Assistance-helper provides verbal cues and/or touching/steadying and/or contact guard assistance as patient completes activity. Assistance may be provided throughout the activity or intermittently. 3-Partial/Moderate Assistance-helper does LESS THAN HALF the effort. [place] lifts, holds or supports trunk or limbs, but provides less than half the effort. 2-Substantial/Maximal Assistance-helper does MORE THAN HALF the effort. [place] lifts or holds trunk or limbs and provides more than half the effort. 1-Tcvhjdmbb-kmoihc does ALL the effort. Patient does none of the effort to complete the activity. Or, the assistance of 2 or more helpers is required for the patient to complete the activity. If activity was not attempted, code reason: 7-Patient Refused. 9-Not Applicable-not attempted and the patient did not perform the activity before the current illness, exacerbation or injury. 10-Not Attempted due to Environmental Limitations-(lack of equipment, weather restraints, etc.). 88-Not Attempted due to Medical Conditions or Safety Concerns. Roll Left to Right (QC): 4 Sit to Lying (QC): 4 Sit to Stand (QC): 4 Chair/Uyl-sy-Ctiiw Xfer(QC): 4 Car Transfer (QC): 4 Gait Training Does the Patient Walk?: Yes Distance: 50, 400 Walk 10 feet (QC): 4 Walk 50 ft with 2 Turns(QC): 4 Walk 150 ft (QC): 4 Walking 10ft/uneven surface-QC: 4 Gait Persons Needed: 1 Gait Assistive Device: FWW Wheelchair Training Does the Pt Use a Wheelchair?: Yes Distance: 50' Wheel 50 ft with 2 turns (QC): 4 Wheel 150 ft (QC): 4 Type of Wheelchair: Manual Stair Training Stair Training: Handrails/: 2 handrails #of Steps: 12 1 Step (curb) (QC): 4 4 Steps (QC): 4 12 Steps (QC): 4 Stairs: Pattern: Step to Balance Picking up an Object (QC): 4 ADL-Treatment Eating (QC): 6 Oral Hygiene (QC): 6 Shower/Bathe Self (QC): 4 Upper Body Dressing (QC): 5 Lower Body Dressing (QC): 4 On/Off Footwear (QC): 5 Toileting Hygiene (QC): 4 Toilet Transfer (QC): 4 Assessment/Plan Assessment and Plan Assess & Plan/Chief Complaint Assessment: 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 07/31/2022: Loop recorder no issues 08/01/2022: Monitor closely 08/02/2022: Monitor closely 08/03/2022: DC soon (1) Acute ischemic multifocal posterior circulation stroke involving left-sided vessel Status: Acute (2) Non-ST elevated myocardial infarction Status: Acute (3) Elevated liver enzymes Status: Acute (4) PTSD (post-traumatic stress disorder) Status: Chronic (5) WENDY (generalized anxiety disorder) Status: Chronic (6) Hypertension Status: Chronic (7) COPD (chronic obstructive pulmonary disease) Status: Chronic UCHE WALL DO Aug 03, 2022 06:09
[2022-08-03] MEDS: MULTIVIT W/MINERALS TAB (THERAGRAN M) PO SCH (06:37)
[2022-08-03 07:53] VITALS: BP 115/64
[2022-08-03] MEDS: NICOTINE PATCH TP SCH (07:55)
[2022-08-03] MEDS: FOLIC ACID 1 MG TAB PO SCH (07:56)
[2022-08-03] MEDS: MELOXICAM 7.5 MG (MOBIC) TABLET PO SCH (07:56)
[2022-08-03] MEDS: hydrOXYzine (VISTARIL/ATARAX) 25 MG capsule/tablet PO SCH (07:56)
[2022-08-03] MEDS: GABAPENTIN 300 MG (NEURONTIN) CAP PO SCH ×3 (07:56→20:12)
[2022-08-03] MEDS: CLOPIDOGREL 75 MG (PLAVIX) TABLET PO SCH (07:56)
[2022-08-03] MEDS: LOSARTAN 100 MG (COZAAR) TABLET PO SCH (07:56)
[2022-08-03] MEDS: DULoxetine 30 MG (CYMBALTA) CAP PO SCH (07:56)
[2022-08-03] MEDS: ASPIRIN E.C. 81 MG (ECOTRIN) TAB PO SCH (07:56)
[2022-08-03] MEDS: NICOTINE 21 MG (NICODERM) PATCH TD SCH (07:57)
[2022-08-03] MEDS: amLODIPine 5 MG (NORVASC) TAB PO SCH (07:57)
[2022-08-03] MEDS: DOCUSATE SODIUM 100 MG (COLACE) CAP PO SCH ×2 (10:08→19:23)
[2022-08-03] MEDS: polyethylene glycoL POWDER 17 GM (MIRALAX) PACK PO SCH ×2 (10:08→19:23)
[2022-08-03] MEDS: SENNA W/DOCUSATE (SENOKOT S) TABLET PO SCH ×2 (10:09→19:23)
[2022-08-03] MEDS: SENNOSIDES 8.6 MG (SENOKOT) TAB PO SCH ×2 (10:09→19:23)
[2022-08-03] MEDS: ENOXAPARIN 40 MG/0.4 ML (LOVENOX) SYR SC SCH (17:19)
[2022-08-03 19:58] VITALS: BP 105/63
[2022-08-03] MEDS: MELATONIN 3 MG TABLET PO PRN (20:12)
[2022-08-04] MEDS: HYDROcodone/APAP 5 MG/325 MG (LORTAB) TAB PO PRN ×6 (00:12→22:53)
--- NOTE | 2022-08-04 05:23 | PM&R Progress Note ---
Subjective HPI/CC On Admission Date Seen by Provider: Aug 04, 2022 Time Seen by Provider: 09:00 Subjective/Events-last exam 08/04/2022: Supportive care No pain reported Walking well 08/03/2022: Improved No pain reported No falls 08/02/2022: Doing well No pain reported Improved function 08/01/2022: Doing well SNF not really an option Needs DC home with family 07/31/2022: No major issues DC to SNF tomorrow? 07/30/2022: No major issues Set for SNF soon Eating well Cognition is much improved 07/29/2022: No major events No falls Working hard in therapy No pain except neuropathic type 07/28/2022: No major issues Memory loss and impulsiveness has brought the daughter to the conclusion she needs to go skilled care Hip xray no fracture 07/27/2022: Improved overall Right hip pain since fall so will order xray Daughter asked about DEXA scan and that would be outpatient 07/26/2022: No major issues Reviewed UA and no wbc's so no needed treatment No major concerns 07/25/2022: Doing well Improved already BM+ No pain 07/24/2022: Doing well Able to walk with therapy with assist No pain reported Reviewed meds and labs Daughter at bedside Review of Systems General: Fatigue, Malaise Objective Exam Vital Signs Vital Signs Date Time Temp Pulse Resp B/P (MAP) Pulse Ox O2 Delivery O2 Flow Rate FiO2 08/04/22 20:58 36.6 74 18 135/66 (89) 94 Room Air 08/02/22 09:56 0.00 Capillary Refill : General Appearance: No Apparent Distress, WD/WN, Chronically ill HEENT: PERRL/EOMI, Normal ENT Inspection, Pharynx Normal Neck: Full Range of Motion, Normal Inspection, Non Tender, Supple, Carotid Bruit Respiratory: Chest Non Tender, Lungs Clear, Normal Breath Sounds, No Accessory Muscle Use, No Respiratory Distress Cardiovascular: Regular Rate, Rhythm, No Edema, No Gallop, No JVD, No Murmur, Normal Peripheral Pulses Gastrointestinal: Normal Bowel Sounds, No Organomegaly, No Pulsatile Mass, Non Tender, Soft Back: Normal Inspection, No CVA Tenderness, No Vertebral Tenderness Extremity: Normal Capillary Refill, Normal Inspection, Normal Range of Motion, Non Tender, No Calf Tenderness, No Pedal Edema Neurologic/Psychiatric: Alert, Oriented x3, Normal Mood/Affect, advertising clerk II-XII Norm as Tested, Abnormal Gait, Depressed Affect, Motor Weakness Skin: Normal Color, Warm/Dry Lymphatic: No Adenopathy Results/Procedures Lab Patient resulted labs reviewed. FIM Transfers Therapy Code Descriptions/Definitions Functional [place] Measure: 0=Not Assessed/NA 4=Minimal Assistance 1=Total Assistance 5=Supervision or Setup 2=Maximal Assistance 6=Modified [place] 3=Moderate Assistance 7=Complete IndependenceSCALE: Activities may be completed with or without assistive devices. 6-Pllybpcjht-xnqykuk completes the activity by him/herself with no assistance from a helper. 5-Set-up or Clean-up Assistance-helper sets up or cleans up; patient completes activity. [place] assists only prior to or following the activity. 4-Supervision or Touching Assistance-helper provides verbal cues and/or touc chase/steadying and/or contact guard assistance as patient completes activity. Assistance may be provided throughout the activity or intermittently. 3-Partial/Moderate Assistance-helper does LESS THAN HALF the effort. [place] lifts, holds or supports trunk or limbs, but provides less than half the effort. 2-Substantial/Maximal Assistance-helper does MORE THAN HALF the effort. [place] lifts or holds trunk or limbs and provides more than half the effort. 5-Ryzehbpsd-ocncmw does ALL the effort. Patient does none of the effort to complete the activity. Or, the assistance of 2 or more helpers is required for the patient to complete the activity. If activity was not attempted, code reason: 7-Patient Refused. 9-Not Applicable-not attempted and the patient did not perform the activity before the current illness, exacerbation or injury. 10-Not Attempted due to Environmental Limitations-(lack of equipment, weather restraints, etc.). 88-Not Attempted due to Medical Conditions or Safety Concerns. Roll Left to Right (QC): 4 Sit to Lying (QC): 4 Sit to Stand (QC): 4 Chair/Blm-qq-Nhvil Xfer(QC): 4 Car Transfer (QC): 4 Gait Training Does the Patient Walk?: Yes Distance: 50, 400 Walk 10 feet (QC): 4 Walk 50 ft with 2 Turns(QC): 4 Walk 150 ft (QC): 4 Walking 10ft/uneven surface-QC: 4 Gait Persons Needed: 1 Gait Assistive Device: FWW Wheelchair Training Does the Pt Use a Wheelchair?: Yes Distance: 50' Wheel 50 ft with 2 turns (QC): 4 Wheel 150 ft (QC): 4 Type of Wheelchair: Manual Stair Training Stair Training: Handrails/: 2 handrails #of Steps: 12 1 Step (curb) (QC): 4 4 Steps (QC): 4 12 Steps (QC): 4 Stairs: Pattern: Step to Balance Picking up an Object (QC): 4 ADL-Treatment Eating (QC): 6 Oral Hygiene (QC): 6 Shower/Bathe Self (QC): 4 Upper Body Dressing (QC): 5 Lower Body Dressing (QC): 4 On/Off Footwear (QC): 5 Toileting Hygiene (QC): 4 Toilet Transfer (QC): 4 Assessment/Plan Assessment and Plan Assess & Plan/Chief Complaint Assessment: 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 07/31/2022: Loop recorder no issues 08/01/2022: Monitor closely 08/02/2022: Monitor closely 08/03/2022: DC soon 08/04/2022: Monitor closely (1) Acute ischemic multifocal posterior circulation stroke involving left-sided vessel Status: Acute (2) Non-ST elevated myocardial infarction Status: Acute (3) Elevated liver enzymes Status: Acute (4) PTSD (post-traumatic stress disorder) Status: Chronic (5) WENDY (generalized anxiety disorder) Status: Chronic (6) Hypertension Status: Chronic (7) COPD (chronic obstructive pulmonary disease) Status: Chronic UCHE WALL DO Aug 04, 2022 05:23
[2022-08-04] MEDS: MULTIVIT W/MINERALS TAB (THERAGRAN M) PO SCH (06:49)
--- NOTE | 2022-08-04 07:28 | Occupational Ther Daily Note ---
OT Current Status-Daily Note Subjective Pt alert, sitting on EOB. Pt agrees to therapy. No c/o pain. Pt continues to have STM issues on progression of skills and medications. Pt states that she would do better if she could do more for herself, JOSEPH reassured pt that her coordination on R side is progressing well and is able to do more for herself, that she just needs supervision for safety. Mental Status/Objective Patient Orientation: Person, Place, Time, Situation ADL-Treatment Pt able to hold onto packages with R hand and open with L hand. Pt utilizes L hand to eat with regular utensils. Pt is independent though slow with set up and eating meal. After session, pt sitting EOB with call light/phone in reach. All needs met in room. Therapy Code Descriptions/Definitions Functional [place] Measure: 0=Not Assessed/NA 4=Minimal Assistance 1=Total Assistance 5=Supervision or Setup 2=Maximal Assistance 6=Modified [place] 3=Moderate Assistance 7=Complete IndependenceSCALE: Activities may be completed with or without assistive devices. 7-Ppnahrzlmk-bvfxddz completes the activity by him/herself with no assistance from a helper. 5-Set-up or Clean-up Assistance-helper sets up or cleans up; patient completes activity. [place] assists only prior to or following the activity. 4-Supervision or Touching Assistance-helper provides verbal cues and/or touching/steadying and/or contact guard assistance as patient completes activity. Assistance may be provided throughout the activity or intermittently. 3-Partial/Moderate Assistance-helper does LESS THAN HALF the effort. [place] lifts, holds or supports trunk or limbs, but provides less than half the effort. 2-Substantial/Maximal Assistance-helper does MORE THAN HALF the effort. [place] lifts or holds trunk or limbs and provides more than half the effort. 8-Aglwqkebs-roxqxa does ALL the effort. Patient does none of the effort to complete the activity. Or, the assistance of 2 or more helpers is required for the patient to complete the activity. If activity was not attempted, code reason: 7-Patient Refused. 9-Not Applicable-not attempted and the patient did not perform the activity before the current illness, exacerbation or injury. 10-Not Attempted due to Environmental Limitations-(lack of equipment, weather restraints, etc.). 88-Not Attempted due to Medical Conditions or Safety Concerns. OT Short Term Goals Short Term Goals Time Frame: Aug 01, 2022 Lower body dressin Putting on/taking off footwear: 4 OT Jukebox Checker Goals Jukebox Checker Goals Time Frame: Aug 15, 2022 Acute change in mental status: 1 Inattention: 0 Disorganized thinkin Altered level of consciousness: 0 Eating (QC): 6 (met) Oral Hygiene (QC): 6 (met) Toileting Hygiene (QC): 6 (not met) Shower/Bathe Self (QC): 6 (not met) Upper Body Dressing (QC): 6 (not met) Lower Body Dressing (QC): 6 (not met) On/Off Footwear (QC): 6 (not met) Additional Goals: 1-Demonstrate ADL Tasks, 2-Verbalize Understanding, 3-ImproveStrength/Ellen 1=Demonstrate adherence to instructed precautions during ADL tasks. 2=Patient will verbalize/demonstrate understanding of assistive devices/modifications for ADL. 3=Patient will improve strength/tolerance for activity to enable patient to perform ADL's. OT Education/Plan Problem List/Assessment Assessment: Decreased Activ Tolerance, Decreased Safety Aware, Decreased UE Strength, Impaired Self-Care Skills, Restricted Funct UE ROM Discharge Recommendations Plan/Recommendations: Continue POC Treatment Plan/Plan of Care Patient would benefit from OT for education, treatment and training to promote independence in ADL's, mobility, safety and/or upper extremity function for ADL's. Plan of Care: ADL Retraining, Functional Mobility, Group Exercise/Act as Ind, UE Funct Exercise/Act, UE Neuromus Re-Ed/Coord, Visual/Perceptual Retrain Treatment Duration: Aug 15, 2022 Frequency: At least 5 of 7 days/Wk (IRF) Estimated Hrs Per Day: 1.5 hours per day Agreement: Yes Rehab Potential: Fair Time Start Time: 06:45 Stop Time: 07:00 DATE: Aug 04, 2022 Total Time Billed (hr/min): 15 Billed Treatment Time 1 visit-ADL 1 (15 min) JENNY ALBERTS Aug 04, 2022 07:27
[2022-08-04 07:57] VITALS: BP 109/62
[2022-08-04] MEDS: GABAPENTIN 300 MG (NEURONTIN) CAP PO SCH ×3 (07:59→20:24)
[2022-08-04] MEDS: CLOPIDOGREL 75 MG (PLAVIX) TABLET PO SCH (07:59)
[2022-08-04] MEDS: amLODIPine 5 MG (NORVASC) TAB PO SCH (07:59)
[2022-08-04] MEDS: hydrOXYzine (VISTARIL/ATARAX) 25 MG capsule/tablet PO SCH (07:59)
[2022-08-04] MEDS: DULoxetine 30 MG (CYMBALTA) CAP PO SCH (07:59)
[2022-08-04] MEDS: LOSARTAN 100 MG (COZAAR) TABLET PO SCH (07:59)
[2022-08-04] MEDS: ASPIRIN E.C. 81 MG (ECOTRIN) TAB PO SCH (08:00)
[2022-08-04] MEDS: FOLIC ACID 1 MG TAB PO SCH (08:00)
[2022-08-04] MEDS: MELOXICAM 7.5 MG (MOBIC) TABLET PO SCH (08:00)
[2022-08-04] MEDS: NICOTINE 21 MG (NICODERM) PATCH TD SCH (08:00)
[2022-08-04] MEDS: SENNOSIDES 8.6 MG (SENOKOT) TAB PO SCH ×2 (08:01→19:31)
[2022-08-04] MEDS: SENNA W/DOCUSATE (SENOKOT S) TABLET PO SCH ×2 (08:01→19:31)
[2022-08-04] MEDS: polyethylene glycoL POWDER 17 GM (MIRALAX) PACK PO SCH ×2 (08:01→19:30)
[2022-08-04] MEDS: DOCUSATE SODIUM 100 MG (COLACE) CAP PO SCH ×2 (08:01→19:30)
--- NOTE | 2022-08-04 08:46 | Cardiology Progress Note ---
Subjective Date Seen by Provider: Aug 04, 2022 Time Seen by Provider: 08:00 Subjective/Events-last exam Patient sitting up at bedside, no new complaints. denies any chest pain or dyspnea. Objective-Cardiology Exam Last Set of Vital Signs Vital Signs 08/02/22 08/05/22 09:56 07:52 Temp 36.3 Pulse 68 Resp 16 B/P (MAP) 115/59 (77) Pulse Ox 95 O2 Delivery Room Air O2 Flow Rate 0.00 I&O Intake and Output 08/05/22 00:00 Intake Total 1340 ml Balance 1340 ml Intake Oral 1340 ml # Voids 6 General: Alert, Oriented X3 HEENT: Atraumatic, PERRLA Lungs: Clear to Auscultation, Normal Air Movement Heart: Regular Rate, Normal S1, Normal S2 Abdomen: Soft, No Tenderness Extremities: No Clubbing, No Edema Skin: No Rashes, No Significant Lesion Neuro: Other (right sided weakness) Psych/Mental Status: Mental Status NL, Mood NL Results Lab Laboratory Tests 08/05/22 05:42 A/P-Cardiology Admission Diagnosis CVA NSTEMI HTN Weakness/debility Assessment/Plan Status post acute CVA CT angiogram reported as distal left ADVERTISING COORDINATOR occlusion Currently on aspirin and Plavix Still having aphasia and right hemiplegia. Receiving physical therapy. 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 Steri strips in place. Elevated troponin, non-ST elevation myocardial infarction. No acute EKG changes. Troponin is trending down. Stress test was done on July 31, 2022 with no ischemia or infarction on SPECT images and normal ejection fraction Continue with aspirin and Plavix 2D echo was done on July 19, 2022 which showing normal left ventricular size with ejection fraction 60 to 65%, grade 1 diastolic dysfunction, mild mitral regurgitation, PA pressure 40 to 45 mmHg. No shunt was detected by using contrast Hypertension, controlled. Currently on losartan 100mg, amlodipine 5mg Lipid profile was done on July 19, 2022 and it was normal. Multiple bruises which trauma to the knee. Moderate elevation in CPK. Continue with IV fluid and monitor Tobaccoism, advised to stop smoking Alcoholism. Patient reported that she drinks wine over the weekend GEOFF VINES Aug 04, 2022 08:46 REMEDIOS COHEN MD Aug 05, 2022 08:46
--- NOTE | 2022-08-04 08:47 | Speech Therapy Daily Note ---
Speech Daily Progress Note Subjective Date Seen by Provider: Aug 04, 2022 Time Seen by Provider: 08:35 The patient was lying in bed, sleeping, upon entrance to her room by the clinician. The patient woke easily with a verbal greeting from the clinician and was agreeable to participation in the skilled cognitive treatment session. Objective The patient voices her concerns regarding her frustration of her time throughout the weekend. "It was terrible. I was locked up in here. Either locked to the bed or locked to the chair." The clinician provided patient listening and education regarding safety measures (bed alarms and chair alarm). Functional recall: The patient does not recall previous occupational therapy on this date (approximately one hour prior). With verbal cueing, the patient does recall the occupational therapist present throughout breakfast and providing assistance with meal set-up and "the right arm." Additionally, the patient recalled each therapist name stated, "I just adore you, Ben, and Arline. You really bring paige to me." Orientation: The patient was able to independently recall the month, day of the week, date, and year. Per patient, "I couldn't remember the date but I knew last Thursday was my son's birthday and that was the 5th. I knew today was Thursday so I just went back to Thursday and counted forward." The patient displayed an excellent orientation strategy, independently. The patient continues to display short term memory deficits and the clinician continues to recommend medication administration assistance and safety s upervision following discharge. Assessment Assessment Current Status: Good Progress Treatment Plan Continue Plan of Care Speech Short Term Goals Short Term Goals Short Term Goals 1. The patient will demonstrate functional memory strategies with 80% accuracy and mild verbal and visual cueing. Time Frame-STG: One Week. Speech Senior Care Goals Senior Care Goals 1. The patient will improve cognitive linguistic communication for safe discharge to the least restrictive environment. Time Frame: Two Weeks. Speech-Plan Treatment Plan Speech Therapy Treatment Plan: Continue Plan of Care Treatment Duration: Aug 01, 2022 Frequency: Modified Program (IRF) Estimated Hrs Per Day: .5 hour per day Rehab Potential: Fair Safety Risks/Education Teaching Recipient: Patient Teaching Methods: Discussion Response to Teaching: Return Demonstration Education Topics Provided: Orientation Strategies Time Speech Therapy Time In: 08:35 Speech Therapy Time Out: 09:05 DATE: Aug 04, 2022 Total Billed Time: 30 Billed Treatment Time 1, JAIR MORENO Aug 04, 2022 08:47
[2022-08-04] MEDS: NICOTINE PATCH TP SCH (11:22)
--- NOTE | 2022-08-04 12:55 | Occupational Ther Daily Note ---
OT Current Status-Daily Note Subjective Pt alert, sitting in recliner. Pt agrees to therapy. No c/o pain at this time. Mental Status/Objective Patient Orientation: Person, Place, Time, Situation ADL-Treatment Pt progressing with R UE/LE coordination when single task is being completed, ie hiking pants, donning/doffing socks, opening packages. Pt continues to have difficulties while completing tasks that required movement with LE's and incorporating UE's, ie gathering items out of closet, turning to reach for items. When completing these types of tasks pt will lose balance then requires assist to regain balance. Pt is safety minded but will forget what she is supposed to do next or what she was doing, requires 1 cue to remember. Impulsiveness is improving though when focusing on task pt will stand or reach for items without positioning body correctly. SBA for shower using shower bench, grabbars and hand held shower. CGA for safety while pt processed what clothing to retrieve from closet while standing and stabilizing with wall or FWW. Pt don/doffs upper body clothing and footwear by self. SBA for safety to don/doff lower body clothing by self. Sitting at sink, pt completes oral care independently. After session, pt sitting in recliner with call light/phone in reach. All needs met in room. Therapy Code Descriptions/Definitions Functional [place] Measure: 0=Not Assessed/NA 4=Minimal Assistance 1=Total Assistance 5=Supervision or Setup 2=Maximal Assistance 6=Modified [place] 3=Moderate Assistance 7=Complete IndependenceSCALE: Activities may be completed with or without assistive devices. 2-Znzdwfzdij-owedxdu completes the activity by him/herself with no assistance from a helper. 5-Set-up or Clean-up Assistance-helper sets up or cleans up; patient completes activity. [place] assists only prior to or following the activity. 4-Supervision or Touching Assistance-helper provides verbal cues and/or touching/steadying and/or contact guard assistance as patient completes activity. Assistance may be provided throughout the activity or intermittently. 3-Partial/Moderate Assistance-helper does LESS THAN HALF the effort. [place] lifts, holds or supports trunk or limbs, but provides less than half the effort. 2-Substantial/Maximal Assistance-helper does MORE THAN HALF the effort. [place] lifts or holds trunk or limbs and provides more than half the effort. 2-Ylqobsemm-oxqkea does ALL the effort. Patient does none of the effort to complete the activity. Or, the assistance of 2 or more helpers is required for the patient to complete the activity. If activity was not attempted, code reason: 7-Patient Refused. 9-Not Applicable-not attempted and the patient did not perform the activity bef ore the current illness, exacerbation or injury. 10-Not Attempted due to Environmental Limitations-(lack of equipment, weather r estraints, etc.). 88-Not Attempted due to Medical Conditions or Safety Concerns. Oral Hygiene (QC): 6 Shower/Bathe Self (QC): 4 Upper Body Dressing (QC): 5 Lower Body Dressing (QC): 4 On/Off Footwear: 5 Toileting Hygiene (QC): 4 (demonstrates ability to complete with SBA.) Toilet Transfer (QC): 4 OT Short Term Goals Short Term Goals Time Frame: Aug 01, 2022 Lower body dressin Putting on/taking off footwear: 4 OT Long-Term Goals Refueling [place] Goals Time Frame: Aug 15, 2022 Acute change in mental status: 1 Inattention: 0 Disorganized thinkin Altered level of consciousness: 0 Eating (QC): 6 (met) Oral Hygiene (QC): 6 (met) Toileting Hygiene (QC): 6 (not met) Shower/Bathe Self (QC): 6 (not met) Upper Body Dressing (QC): 6 (not met) Lower Body Dressing (QC): 6 (not met) On/Off Footwear (QC): 6 (not met) Additional Goals: 1-Demonstrate ADL Tasks, 2-Verbalize Understanding, 3- ImproveStrength/Ellen 1=Demonstrate adherence to instructed precautions during ADL tasks. 2=Patient will verbalize/demonstrate understanding of assistive devices/modifications for ADL. 3=Patient will improve strength/tolerance for activity to enable patient to perform ADL's. OT Education/Plan Problem List/Assessment Assessment: Decreased Activ Tolerance, Decreased UE Strength, Impaired Coordination, Impaired Funct Balance, Impaired I ADL's, Impaired Self-Care Skills, Restricted Funct UE ROM Discharge Recommendations Plan/Recommendations: Continue POC Treatment Plan/Plan of Care Patient would benefit from OT for education, treatment and training to promote independence in ADL's, mobility, safety and/or upper extremity function for ADL's. Plan of Care: ADL Retraining, Functional Mobility, Group Exercise/Act as Ind, UE Funct Exercise/Act, UE Neuromus Re-Ed/Coord, Visual/Perceptual Retrain Treatment Duration: Aug 15, 2022 Frequency: At least 5 of 7 days/Wk (IRF) Estimated Hrs Per Day: 1.5 hours per day Agreement: Yes Rehab Potential: Fair Time Start Time: 10:45 Stop Time: 12:00 DATE: Aug 04, 2022 Total Time Billed (hr/min): 75 Billed Treatment Time 1 visit-ADL 5 (75 min) JENNY ALBERTS Aug 04, 2022 12:55
--- NOTE | 2022-08-04 13:00 | Physical Therapy Daily Note ---
PT Daily Note-Current Subjective Pt found seated in recliner upon entry. Agreed to PT. Reports that she did not do much this weekend. States that she has been sitting to much and is ready to leave so she can do more. Pt reports that the only pain she is having is in her R hand but does not rate. Pain Section J - Health Conditions 1. Rarely or not at all 2. Occasionally 3. Frequently 4. Almost constantly 8. Unable to answer Pain Effect on Sleep: 1 Pain Interference with Therapy: 1 (pins and needles in (R) UE) Pain Interference w/Day-to-Day: 1 Mental Status Patient Orientation: Person, Place Transfers SCALE: Activities may be completed with or without assistive devices. 8-Yyucdxliqh-ghuncum completes the activity by him/herself with no assistance from a helper. 5-Set-up or Clean-up Assistance-helper sets up or cleans up; patient completes activity. [place] assists only prior to or following the activity. 4-Supervision or Touching Assistance-helper provides verbal cues and/or touching/steadying and/or contact guard assistance as patient completes activity. Assistance may be provided throughout the activity or intermittently. 3-Partial/Moderate Assistance-helper does LESS THAN HALF the effort. [place] lifts, holds or supports trunk or limbs, but provides less than half the effort. 2-Substantial/Maximal Assistance-helper does MORE THAN HALF the effort. [place] lifts or holds trunk or limbs and provides more than half the effort. 7-Qdujxfxwc-nfgvdj does ALL the effort. Patient does none of the effort to complete the activity. Or, the assistance of 2 or more helpers is required for the patient to complete the activity. If activity was not attempted, code reason: 7-Patient Refused. 9-Not Applicable-not attempted and the patient did not perform the activity before the current illness, exacerbation or injury. 10-Not Attempted due to Environmental Limitations-(lack of equipment, weather restraints, etc.). 88-Not Attempted due to Medical Conditions or Safety Concerns. Sit to Stand (QC): 4 Pt CGA with sit to stand transfers due to tendency to quickly perform transfers and impaired safety awareness. Weight Bearing Weight Bearing/Tolerated Weight Bearing/Tolerated Gait Training Does the Patient Walk?: Yes Distance: 120, 200 Walk 10 feet (QC): 4 Walk 50 ft with 2 Turns(QC): 4 Walk 150 ft (QC): 4 Gait Persons Needed: 1 Gait Assistive Device: FWW Pt ambulated 320 feet total /c use of FWW and required CGA. Pt displays steady gait pattern with short step lengths. Displays poor heel strike throughout janny tment. No loss of balance displayed. Exercises NuStep Minutes: 15 NuStep Workload: 5 Assessment Current Status: Good Progress Pt ambulation tolerance is improving. Pt reported she is able to ambulate easier after completing nu step. Ambulates up to 200 feet before requiring a seated rest break. Continue to progress pt as tolerated per POC to improve strength, endurance, and safety awareness. PT Footwear Stitcher Goals Custodial Goals PT Footwear Stitcher Goals Time Frame: Aug 13, 2022 Roll Left & Right (QC): 6 Sit to Lying (QC): 6 Lying-Sitting on Side/Bed(QC): 6 Sit to Stand (QC): 6 Chair/Kjh-fc-Lwuce Xfer(QC): 6 Toilet Transfer (QC): 6 Car Transfer (QC): 5 Does the Patient Walk: Yes Walk 10 feet (QC): 5 Walk 50ft with 2 Turns (QC): 5 (with least restrictive device with less (R) LE ataxia) Walk 150 ft (QC): 5 (with least restrictive device with less (R) LE ataxia) Walking 10ft on Uneven Surface: 5 (with least restrictive device with less (R) LE ataxia) 1 Step (curb) (QC): 5 (with least restrictive device) 4 Steps (QC): 5 (with (B) rails) 12 Steps (QC): 4 (Min (A) with (B) rails) Picking up an Object (QC): 5 Does the Pt use WC or Scooter?: Yes Wheel 50 feet with 2 turns (QC: 6 Type: Manual Wheel 150 feet: 6 Type: Manual PT Plan Treatment/Plan Treatment Plan: Continue Plan of Care Treatment Plan: Bed Mobility, Education, Functional Activity Ellen, Functional Strength, Group Therapy, Gait, Safety, Therapeutic Exercise, Transfers, Other Treatment Duration: Aug 13, 2022 Frequency: At least 5 of 7 days/Wk (IRF) Estimated Hrs Per Day: 1.5 hours per day Patient and/or Family Agrees t: Yes Time Time In: 1000 Time Out: 1045 DATE: Aug 04, 2022 Total Billed Treatment Time: 45 Total Billed Treatment 1 visit GT x 2 EX x 1 MAJOR,JOYCELYN SERNA Aug 04, 2022 13:00
--- NOTE | 2022-08-04 13:41 | Physical Therapy Daily Note ---
PT Daily Note-Current Subjective Pt found seated in recliner upon entry. Agreed to PT. Pt reports sharp pain in upper region of RLE. States that she believes it is her sciatica. Pain Section J - Health Conditions 1. Rarely or not at all 2. Occasionally 3. Frequently 4. Almost constantly 8. Unable to answer Pain Effect on Sleep: 1 Pain Interference with Therapy: 1 (pins and needles in (R) UE) Pain Interference w/Day-to-Day: 1 Mental Status Patient Orientation: Person, Place Transfers SCALE: Activities may be completed with or without assistive devices. 0-Prclwquxbs-lcrcsfx completes the activity by him/herself with no assistance from a helper. 5-Set-up or Clean-up Assistance-helper sets up or cleans up; patient completes activity. [place] assists only prior to or following the activity. 4-Supervision or Touching Assistance-helper provides verbal cues and/or touching/steadying and/or contact guard assistance as patient completes activity. Assistance may be provided throughout the activity or intermittently. 3-Partial/Moderate Assistance-helper does LESS THAN HALF the effort. [place] lifts, holds or supports trunk or limbs, but provides less than half the effort. 2-Substantial/Maximal Assistance-helper does MORE THAN HALF the effort. [place] lifts or holds trunk or limbs and provides more than half the effort. 7-Kddniplua-hgahuy does ALL the effort. Patient does none of the effort to complete the activity. Or, the assistance of 2 or more helpers is required for the patient to complete the activity. If activity was not attempted, code reason: 7-Patient Refused. 9-Not Applicable-not attempted and the patient did not perform the activity before the current illness, exacerbation or injury. 10-Not Attempted due to Environmental Limitations-(lack of equipment, weather restraints, etc.). 88-Not Attempted due to Medical Conditions or Safety Concerns. Roll Left & Right (QC): 6 Sit to Lying (QC): 4 Lying to Sitting/Side of Bed(Q: 4 Sit to Stand (QC): 4 Chair/Qne-eq-Wsvzo Xfer(QC): 4 Toilet Transfer (QC): 4 Car Transfer (QC): 4 Pt independent /c rolling in bed and uses no assistive device. Pt completes sit to lying and ly to sitting transfers with SBA for safety due to impaired safety awareness. Pt frequently requires verbal cues for proper hand placement while completing sit to stand transfers. Also requires verbal cues to complete transfers slowly to ensure safety. Pt CGA with sit to stands, toilet transfers, and bed to chair transfers. Weight Bearing Weight Bearing/Tolerated Weight Bearing/Tolerated Gait Training Does the Patient Walk?: Yes Distance: 60, 300, 50, 50 Walk 10 feet (QC): 4 Walk 50 ft with 2 Turns(QC): 4 Walk 150 ft (QC): 4 Walking 10ft/uneven surface-QC: 4 Gait Persons Needed: 1 Gait Assistive Device: FWW Pt CGA /c gait training while using a FWW. Continues to displays improved endurance with ambulation. Demonstrated short step length, poor heel strike, and inability to fully extend knees on bilateral sides during gait training. Ambulated 460 feet total with short seated rest breaks. Pt demonstrates loss of balance 1x during gait training due to R toe getting caught on floor and requ ired steadying assistance from helper. Pt begin to slightly stumble occasionally and demonstrates less muscle control and coordination on R side near end of gait training likely due to fatigue. Wheelchair Training Does the Pt Use a Wheelchair?: No Stair Training Stair Training: Handrails/: 2 handrails #of Steps: 12 1 Step (curb) (QC): 4 4 Steps (QC): 4 12 Steps (QC): 4 Stairs: Pattern: Step to Pt completes 12 steps during stair training /c use of 2 handrails. Required frequent verbal cues for proper step pattern. Displays loss of balance 2x during stair training caused by quick movements while descending steps. No loss of balance demonstrated /c ascending steps. Fatigue displayed near end of stair training. Balance Picking up an Object (QC): 4 Special Test Comments CGA required for safety due to impaired safety awareness while pt picks up small object from floor. Pt able to bend at knees and hips before picking up object with L hand. No loss of balance displayed but does demonstrate slight sway after squatting/bending over. Assessment Current Status: Good Progress Pt muscle endurance and strength continues to improved. Pt continues to require frequent verbal and tactile cues for proper completion of transfers. Pt now independent /c rolling in bed. Required verbal cues to complete transfers slowly and safety due to pt's frequent impulsive behavior. Pt gait speed and distance is improving. Displays short step length, poor heel strike, and inability to fully extend knee during ambulation /c use of FWW. Continue to progress pt as tolerated per POC to improve safety awareness, functional ability, strength, and endurance. PT [facility] Goals Sausage Canner Goals PT [facility] Goals Time Frame: Aug 13, 2022 Roll Left & Right (QC): 6 Sit to Lying (QC): 6 Lying-Sitting on Side/Bed(QC): 6 Sit to Stand (QC): 6 Chair/Hjb-sj-Lxmih Xfer(QC): 6 Toilet Transfer (QC): 6 Car Transfer (QC): 5 Does the Patient Walk: Yes Walk 10 feet (QC): 5 Walk 50ft with 2 Turns (QC): 5 (with least restrictive device with less (R) LE ataxia) Walk 150 ft (QC): 5 (with least restrictive device with less (R) LE ataxia) Walking 10ft on Uneven Surface: 5 (with least restrictive device with less (R) LE ataxia) 1 Step (curb) (QC): 5 (with least restrictive device) 4 Steps (QC): 5 (with (B) rails) 12 Steps (QC): 4 (Min (A) with (B) rails) Picking up an Object (QC): 5 Does the Pt use WC or Scooter?: Yes Wheel 50 feet with 2 turns (QC: 6 Type: Manual Wheel 150 feet: 6 Type: Manual PT Plan Treatment/Plan Treatment Plan: Continue Plan of Care Treatment Plan: Bed Mobility, Education, Functional Activity Ellen, Functional Strength, Group Therapy, Gait, Safety, Therapeutic Exercise, Transfers, Other Treatment Duration: Aug 13, 2022 Frequency: At least 5 of 7 days/Wk (IRF) Estimated Hrs Per Day: 1.5 hours per day Patient and/or Family Agrees t: Yes Time Time In: 1300 Time Out: 1330 DATE: Aug 04, 2022 Total Billed Treatment Time: 30 Total Billed Treatment 1 visit GT x 1 FA x 1 JOYCELYN CRUZ LUBRICATING MACHINE TENDER Aug 04, 2022 13:41
[2022-08-04] MEDS: ENOXAPARIN 40 MG/0.4 ML (LOVENOX) SYR SC SCH (17:20)
[2022-08-04] MEDS: ONDANSETRON 4 MG (ZOFRAN) ORAL DISSOLVE TAB SL PRN (17:24)
[2022-08-04] MEDS: MELATONIN 3 MG TABLET PO PRN (20:24)
[2022-08-04 20:58] VITALS: BP 135/66
[2022-08-05] MEDS: HYDROcodone/APAP 5 MG/325 MG (LORTAB) TAB PO PRN ×4 (02:56→20:49)
--- NOTE | 2022-08-05 04:43 | PM&R Progress Note ---
Subjective HPI/CC On Admission Date Seen by Provider: Aug 05, 2022 Time Seen by Provider: 08:30 Subjective/Events-last exam 08/05/2022: Doing well Set for DC 08/08 No pain reported Labs stable 08/04/2022: Supportive care No pain reported Walking well 08/03/2022: Improved No pain reported No falls 08/02/2022: Doing well No pain reported Improved function 08/01/2022: Doing well SNF not really an option Needs DC home with family 07/31/2022: No major issues DC to SNF tomorrow? 07/30/2022: No major issues Set for SNF soon Eating well Cognition is much improved 07/29/2022: No major events No falls Working hard in therapy No pain except neuropathic type 07/28/2022: No major issues Memory loss and impulsiveness has brought the daughter to the conclusion she needs to go skilled care Hip xray no fracture 07/27/2022: Improved overall Right hip pain since fall so will order xray Daughter asked about DEXA scan and that would be outpatient 07/26/2022: No major issues Reviewed UA and no wbc's so no needed treatment No major concerns 07/25/2022: Doing well Improved already BM+ No pain 07/24/2022: Doing well Able to walk with therapy with assist No pain reported Reviewed meds and labs Daughter at bedside Review of Systems General: Fatigue, Malaise Neurological: Weakness, Incoordination Objective Exam Vital Signs Vital Signs Date Time Temp Pulse Resp B/P (MAP) Pulse Ox O2 Delivery O2 Flow Rate FiO2 08/05/22 20:54 36.2 71 18 120/56 (77) 95 Room Air 08/02/22 09:56 0.00 Capillary Refill : General Appearance: No Apparent Distress, WD/WN, Chronically ill HEENT: PERRL/EOMI, Normal ENT Inspection, Pharynx Normal Neck: Full Range of Motion, Normal Inspection, Non Tender, Supple, Carotid Bruit Respiratory: Chest Non Tender, Lungs Clear, Normal Breath Sounds, No Accessory Muscle Use, No Respiratory Distress Cardiovascular: Regular Rate, Rhythm, No Edema, No Gallop, No JVD, No Murmur, Normal Peripheral Pulses Gastrointestinal: Normal Bowel Sounds, No Organomegaly, No Pulsatile Mass, Non Tender, Soft Back: Normal Inspection, No CVA Tenderness, No Vertebral Tenderness Extremity: Normal Capillary Refill, Normal Inspection, Normal Range of Motion, Non Tender, No Calf Tenderness, No Pedal Edema Neurologic/Psychiatric: Alert, Oriented x3, Normal Mood/Affect, senior compliance officer II-XII Norm as Tested, Abnormal Gait, Depressed Affect, Motor Weakness Skin: Normal Color, Warm/Dry Lymphatic: No Adenopathy Results/Procedures Lab Laboratory Tests 08/05/22 05:42 Patient resulted labs reviewed. FIM Transfers Therapy Code Descriptions/Definitions Functional [place] Measure: 0=Not Assessed/NA 4=Minimal Assistance 1=Total Assistance 5=Supervision or Setup 2=Maximal Assistance 6=Modified [place] 3=Moderate Assistance 7=Complete IndependenceSCALE: Activities may be completed with or without assistive devices. 4-Zqyevbseux-roxyted completes the activity by him/herself with no assistance from a helper. 5-Set-up or Clean-up Assistance-helper sets up or cleans up; patient completes activity. [place] assists only prior to or following the activity. 4-Supervision or Touching Assistance-helper provides verbal cues and/or touching/steadying and/or contact guard assistance as patient completes activity. Assistance may be provided throughout the activity or intermittently. 3-Partial/Moderate Assistance-helper does LESS THAN HALF the effort. [place] lifts, holds or supports trunk or limbs, but provides less than half the effort. 2-Substantial/Maximal Assistance-helper does MORE THAN HALF the effort. [place] lifts or holds trunk or limbs and provides more than half the effort. 8-Vbxvbiunl-kyylym does ALL the effort. Patient does none of the effort to complete the activity. Or, the assistance of 2 or more helpers is required for the patient to complete the activity. If activity was not attempted, code reason: 7-Patient Refused. 9-Not Applicable-not attempted and the patient did not perform the activity before the current illness, exacerbation or injury. 10-Not Attempted due to Environmental Limitations-(lack of equipment, weather restraints, etc.). 88-Not Attempted due to Medical Conditions or Safety Concerns. Roll Left to Right (QC): 6 Sit to Lying (QC): 4 Sit to Stand (QC): 4 Chair/Gfn-nf-Zmzxk Xfer(QC): 4 Car Transfer (QC): 4 Gait Training Does the Patient Walk?: Yes Distance: 60, 300, 50, 50 Walk 10 feet (QC): 4 Walk 50 ft with 2 Turns(QC): 4 Walk 150 ft (QC): 4 Walking 10ft/uneven surface-QC: 4 Gait Persons Needed: 1 Gait Assistive Device: FWW Wheelchair Training Does the Pt Use a Wheelchair?: No Distance: 50' Wheel 50 ft with 2 turns (QC): 4 Wheel 150 ft (QC): 4 Type of Wheelchair: Manual Stair Training Stair Training: Handrails/: 2 handrails #of Steps: 12 1 Step (curb) (QC): 4 4 Steps (QC): 4 12 Steps (QC): 4 Stairs: Pattern: Step to Balance Picking up an Object (QC): 4 ADL-Treatment Eating (QC): 6 Oral Hygiene (QC): 6 Shower/Bathe Self (QC): 4 Upper Body Dressing (QC): 5 Lower Body Dressing (QC): 4 On/Off Footwear (QC): 5 Toileting Hygiene (QC): 4 (demonstrates ability to complete with SBA.) Toilet Transfer (QC): 4 Assessment/Plan Assessment and Plan Assess & Plan/Chief Complaint Assessment: 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 07/31/2022: Loop recorder no issues 08/01/2022: Monitor closely 08/02/2022: Monitor closely 08/03/2022: DC soon 08/04/2022: Monitor closely 08/05/2022: Continue aggressive rehab (1) Acute ischemic multifocal posterior circulation stroke involving left-sided vessel Status: Acute (2) Non-ST elevated myocardial infarction Status: Acute (3) Elevated liver enzymes Status: Acute (4) PTSD (post-traumatic stress disorder) Status: Chronic (5) WENDY (generalized anxiety disorder) Status: Chronic (6) Hypertension Status: Chronic (7) COPD (chronic obstructive pulmonary disease) Status: Chronic UCHE WALL DO Aug 05, 2022 04:43
[2022-08-05 05:57] LABS: MEAN CORPUSCULAR VOLUME 99 fL (80-99); MEAN PLATELET VOLUME 10.9 fL (9.0-12.2)
[2022-08-05 05:59] LABS: BASOPHILS % (AUTO) 1 % (0-10); EOSINOPHILS # (AUTO) 0.1 10^3/uL (0.0-0.3); EOSINOPHILS % (AUTO) 2 % (0-10); HEMATOCRIT 34 % (35-52); LYMPHOCYTES # (AUTO) 1.3 10^3/uL (1.0-4.0); LYMPHOCYTES % (AUTO) 36 % (12-44); MEAN CORPUSCULAR HEMOGLOBIN 32 pg (25-34); MEAN CORPUSCULAR HGB CONC 33 g/dL (32-36); MONOCYTES # (AUTO) 0.3 10^3/uL (0.0-1.0); MONOCYTES % (AUTO) 10 % (0-12); NEUTROPHILS # (AUTO) 1.9 10^3/uL (1.8-7.8); NEUTROPHILS % (AUTO) 52 % (42-75); PLATELET COUNT 115 10^3/uL (130-400); WHITE BLOOD COUNT 3.6 10^3/uL (4.3-11.0)
[2022-08-05 06:03] LABS: SMEAR SCAN COMMENT YES
[2022-08-05 06:13] LABS: ALBUMIN 2.8 GM/DL (3.2-4.5); BILIRUBIN,TOTAL 0.3 MG/DL (0.1-1.0); CALCIUM 8.7 MG/DL (8.5-10.1); CREATININE SERUM 0.56 MG/DL (0.60-1.30); POTASSIUM 4.1 MMOL/L (3.6-5.0); TOTAL PROTEIN 5.3 GM/DL (6.4-8.2)
[2022-08-05] MEDS: MULTIVIT W/MINERALS TAB (THERAGRAN M) PO SCH (06:23)
[2022-08-05 07:52] VITALS: BP 115/59
[2022-08-05] MEDS: MELOXICAM 7.5 MG (MOBIC) TABLET PO SCH (08:00)
[2022-08-05] MEDS: GABAPENTIN 300 MG (NEURONTIN) CAP PO SCH ×3 (08:00→20:49)
[2022-08-05] MEDS: DULoxetine 30 MG (CYMBALTA) CAP PO SCH (08:01)
[2022-08-05] MEDS: LOSARTAN 100 MG (COZAAR) TABLET PO SCH (08:01)
[2022-08-05] MEDS: ASPIRIN E.C. 81 MG (ECOTRIN) TAB PO SCH (08:01)
[2022-08-05] MEDS: hydrOXYzine (VISTARIL/ATARAX) 25 MG capsule/tablet PO SCH (08:01)
[2022-08-05] MEDS: CLOPIDOGREL 75 MG (PLAVIX) TABLET PO SCH (08:01)
[2022-08-05] MEDS: amLODIPine 5 MG (NORVASC) TAB PO SCH (08:01)
[2022-08-05] MEDS: FOLIC ACID 1 MG TAB PO SCH (08:01)
[2022-08-05] MEDS: DOCUSATE SODIUM 100 MG (COLACE) CAP PO SCH ×2 (08:02→19:48)
[2022-08-05] MEDS: SENNA W/DOCUSATE (SENOKOT S) TABLET PO SCH ×2 (08:03→19:48)
[2022-08-05] MEDS: SENNOSIDES 8.6 MG (SENOKOT) TAB PO SCH ×2 (08:04→19:48)
[2022-08-05] MEDS: NICOTINE 21 MG (NICODERM) PATCH TD SCH (08:04)
[2022-08-05] MEDS: polyethylene glycoL POWDER 17 GM (MIRALAX) PACK PO SCH ×2 (08:04→19:48)
[2022-08-05] MEDS: NICOTINE PATCH TP SCH (08:05)
--- NOTE | 2022-08-05 08:28 | Cardiology Progress Note ---
Subjective Date Seen by Provider: Aug 05, 2022 Time Seen by Provider: 08:05 Subjective/Events-last exam Patient is sitting up in chair, no new complaints. Objective-Cardiology Exam Last Set of Vital Signs Vital Signs 08/02/22 08/05/22 09:56 07:52 Temp 36.3 Pulse 68 Resp 16 B/P (MAP) 115/59 (77) Pulse Ox 95 O2 Delivery Room Air O2 Flow Rate 0.00 I&O Intake and Output 08/05/22 00:00 Intake Total 1340 ml Balance 1340 ml Intake Oral 1340 ml # Voids 6 General: Alert, Oriented X3 HEENT: Atraumatic, PERRLA Lungs: Clear to Auscultation, Normal Air Movement Heart: Regular Rate, Normal S1, Normal S2 Abdomen: Soft, No Tenderness Extremities: No Clubbing, No Edema Skin: No Rashes, No Significant Lesion Neuro: Other (right sided weakness) Psych/Mental Status: Mental Status NL, Mood NL Results Lab Laboratory Tests 08/05/22 05:42 A/P-Cardiology Admission Diagnosis CVA NSTEMI HTN Weakness/debility Assessment/Plan Status post acute CVA CT angiogram reported as distal left DISTRICT SUPERINTENDENT occlusion Currently on aspirin and Plavix Still having right hemiplegia, slowly improving Receiving physical therapy. 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 Steri strips in place. Elevated troponin, non-ST elevation myocardial infarction. No acute EKG changes. Troponin is trending down. Stress test was done on July 31, 2022 with no ischemia or infarction on SPECT images and normal ejection fraction Continue with aspirin and Plavix 2D echo was done on July 19, 2022 which showing normal left ventricular size with ejection fraction 60 to 65%, grade 1 diastolic dysfunction, mild mitral regurgitation, PA pressure 40 to 45 mmHg. No shunt was detected by using contrast Hypertension, controlled. Currently on losartan 100mg, amlodipine 5mg Lipid profile was done on July 19, 2022 and it was normal. Tobaccoism, advised to stop smoking Alcoholism. Patient reported that she drinks wine over the weekend Supervisory-Addendum Brief Supervisory Addendum Participated in pt care: history, MDM, physical Personally performed: exam, history, MDM Care discussed with: MARK Results interpretation: Verified all documentation Notes: Patient was seen and evaluated with Geoff, examination performed, management plan was discussed, agree with the current scribed note, I made few changes to the note using Italic font Patient was seen at bedside, sitting comfortably, still having weakness on the right side Loop monitor site is healing well Continue to monitor and continue current medication GEOFF VINES Aug 05, 2022 08:28 REMEDIOS COHEN MD Aug 05, 2022 08:46
--- NOTE | 2022-08-05 09:41 | Occupational Ther Daily Note ---
OT Current Status-Daily Note Subjective Pt alert, sitting in recliner. Pt agrees to therapy. Pt focusing on what she can't do instead of the progress that she has made. JAKE reminds pt that she has been working hard with therapies and that she has exercise items in room to work with when not in therapy. Blue therapy sponge on bedside table within reach and eye sight. Mental Status/Objective Patient Orientation: Person, Place, Time, Situation ADL-Treatment Therapy Code Descriptions/Definitions Functional [place] Measure: 0=Not Assessed/NA 4=Minimal Assistance 1=Total Assistance 5=Supervision or Setup 2=Maximal Assistance 6=Modified [place] 3=Moderate Assistance 7=Complete IndependenceSCALE: Activities may be completed with or without assistive devices. 7-Ysgtypxpvt-kteechp completes the activity by him/herself with no assistance from a helper. 5-Set-up or Clean-up Assistance-helper sets up or cleans up; patient completes activity. [place] assists only prior to or following the activity. 4-Supervision or Touching Assistance-helper provides verbal cues and/or touching/steadying and/or contact guard assistance as patient completes activity. Assistance may be provided throughout the activity or intermittently. 3-Partial/Moderate Assistance-helper does LESS THAN HALF the effort. [place] lifts, holds or supports trunk or limbs, but provides less than half the effort. 2-Substantial/Maximal Assistance-helper does MORE THAN HALF the effort. [place] lifts or holds trunk or limbs and provides more than half the effort. 1-Zqjqqzgil-juadil does ALL the effort. Patient does none of the effort to complete the activity. Or, the assistance of 2 or more helpers is required for the patient to complete the activity. If activity was not attempted, code reason: 7-Patient Refused. 9-Not Applicable-not attempted and the patient did not perform the activity before the current illness, exacerbation or injury. 10-Not Attempted due to Environmental Limitations-(lack of equipment, weather restraints, etc.). 88-Not Attempted due to Medical Conditions or Safety Concerns. Pt continues to improve with overall mobility and coordination when completing simple 1-2 step task. When pt is required to do 2-3 step with cognitive and physical component pt requires increased focus and intermittent cues to remember sequence needed to finish task. Balance is challenged when completing these types of tasks. Other Treatment Pt completed dynamic standing tasks without arm support from parallel bars, CGA just for safety. Pt working on balance, squatting, reaching/grasping at varying heights to place items in designated areas with and without resistance. Pt able to complete without LOB though continues on progressing with grasp/release efficiency. Pt completed R shldr abduction with resistance 20's, no recovery breaks. After session, pt sitting in recliner with call light/phone in reach. All needs met in room. OT Short Term Goals Short Term Goals Time Frame: Aug 01, 2022 Lower body dressin Putting on/taking off footwear: 4 OT Alf Goals Alf Goals Time Frame: Aug 15, 2022 Acute change in mental status: 1 Inattention: 0 Disorganized thinkin Altered level of consciousness: 0 Eating (QC): 6 (met) Oral Hygiene (QC): 6 (met) Toileting Hygiene (QC): 6 (not met) Shower/Bathe Self (QC): 6 (not met) Upper Body Dressing (QC): 6 (not met) Lower Body Dressing (QC): 6 (not met) On/Off Footwear (QC): 6 (not met) Additional Goals: 1-Demonstrate ADL Tasks, 2-Verbalize Understanding, 3- ImproveStrength/Ellen 1=Demonstrate adherence to instructed precautions during ADL tasks. 2=Patient will verbalize/demonstrate understanding of assistive devices/modifications for ADL. 3=Patient will improve strength/tolerance for activity to enable patient to perform ADL's. OT Education/Plan Problem List/Assessment Assessment: Decreased UE Strength, Impaired Coordination, Impaired Funct Balance, Impaired Self-Care Skills Discharge Recommendations Plan/Recommendations: Continue POC Treatment Plan/Plan of Care Patient would benefit from OT for education, treatment and training to promote independence in ADL's, mobility, safety and/or upper extremity function for ADL's. Plan of Care: ADL Retraining, Functional Mobility, Group Exercise/Act as Ind, UE Funct Exercise/Act, UE Neuromus Re-Ed/Coord, Visual/Perceptual Retrain Treatment Duration: Aug 15, 2022 Frequency: At least 5 of 7 days/Wk (IRF) Estimated Hrs Per Day: 1.5 hours per day Agreement: Yes Rehab Potential: Fair Time Start Time: 09:00 Stop Time: 09:30 DATE: Aug 05, 2022 Total Time Billed (hr/min): 30 Billed Treatment Time 1 visit-[place] 2 (30 min) JENNY ALBERTS Aug 05, 2022 09:41
--- NOTE | 2022-08-05 10:45 | Physical Therapy Daily Note ---
PT Daily Note-Current Subjective Pt found seated in recliner upon entry. Agreed to PT. States that her R side is very itchy and pauses during gait training to scratch R side. Reports that she does not have any pain currently but sometimes has pain in R hip. Pain Section J - Health Conditions 1. Rarely or not at all 2. Occasionally 3. Frequently 4. Almost constantly 8. Unable to answer Pain Effect on Sleep: 1 Pain Interference with Therapy: 1 (pins and needles in (R) UE) Pain Interference w/Day-to-Day: 1 Mental Status Patient Orientation: Person, Place Transfers SCALE: Activities may be completed with or without assistive devices. 6-Gahafgnnwa-gemglhd completes the activity by him/herself with no assistance from a helper. 5-Set-up or Clean-up Assistance-helper sets up or cleans up; patient completes activity. [place] assists only prior to or following the activity. 4-Supervision or Touching Assistance-helper provides verbal cues and/or touching/steadying and/or contact guard assistance as patient completes activity. Assistance may be provided throughout the activity or intermittently. 3-Partial/Moderate Assistance-helper does LESS THAN HALF the effort. [place] lifts, holds or supports trunk or limbs, but provides less than half the effort. 2-Substantial/Maximal Assistance-helper does MORE THAN HALF the effort. [place] lifts or holds trunk or limbs and provides more than half the effort. 5-Befliqvho-nclfkj does ALL the effort. Patient does none of the effort to complete the activity. Or, the assistance of 2 or more helpers is required for the patient to complete the activity. If activity was not attempted, code reason: 7-Patient Refused. 9-Not Applicable-not attempted and the patient did not perform the activity before the current illness, exacerbation or injury. 10-Not Attempted due to Environmental Limitations-(lack of equipment, weather restraints, etc.). 88-Not Attempted due to Medical Conditions or Safety Concerns. Sit to Stand (QC): 4 Pt SBA with sit to stand transfers due to impaired safety awareness and weakness. Weight Bearing Weight Bearing/Tolerated Weight Bearing/Tolerated Gait Training Does the Patient Walk?: Yes Distance: 400, 300, 100 Walk 10 feet (QC): 4 Walk 50 ft with 2 Turns(QC): 4 Walk 150 ft (QC): 4 Gait Persons Needed: 1 Gait Assistive Device: FWW Pt CGA with ambulation. Occasionally displays loss of balance due to R toe drag on floor. Able to self correct before steadying assistance is required. Displays good gait speed and improved step length. Ambulated 400, 300, 100 feet /c use of FWW. Exercises NuStep Minutes: 15 NuStep Workload: 5 Assessment Current Status: Good Progress Pt muscle strength and endurance continues to improve. No shortness of breath displayed throughout visit. Able to ambulate up to 400 feet before requiring a short seated rest break. Pt required occasional verbal cues for hand placement while completing sit to stand transfers. Continue to progress pt as tolerated per POC to improve strength, endurance, and functional ability. PT Supervisor Coffee Goals Supervisor Coffee Goals PT Halfway Goals Time Frame: Aug 13, 2022 Roll Left & Right (QC): 6 Sit to Lying (QC): 6 Lying-Sitting on Side/Bed(QC): 6 Sit to Stand (QC): 6 Chair/Evu-rr-Vpirb Xfer(QC): 6 Toilet Transfer (QC): 6 Car Transfer (QC): 5 Does the Patient Walk: Yes Walk 10 feet (QC): 5 Walk 50ft with 2 Turns (QC): 5 (with least restrictive device with less (R) LE ataxia) Walk 150 ft (QC): 5 (with least restrictive device with less (R) LE ataxia) Walking 10ft on Uneven Surface: 5 (with least restrictive device with less (R) LE ataxia) 1 Step (curb) (QC): 5 (with least restrictive device) 4 Steps (QC): 5 (with (B) rails) 12 Steps (QC): 4 (Min (A) with (B) rails) Picking up an Object (QC): 5 Does the Pt use WC or Scooter?: Yes Wheel 50 feet with 2 turns (QC: 6 Type: Manual Wheel 150 feet: 6 Type: Manual PT Plan Treatment/Plan Treatment Plan: Continue Plan of Care Treatment Plan: Bed Mobility, Education, Functional Activity Ellen, Functional Strength, Group Therapy, Gait, Safety, Therapeutic Exercise, Transfers, Other Treatment Duration: Aug 13, 2022 Frequency: At least 5 of 7 days/Wk (IRF) Estimated Hrs Per Day: 1.5 hours per day Patient and/or Family Agrees t: Yes Time Time In: 1000 Time Out: 1045 DATE: Aug 05, 2022 Total Billed Treatment Time: 45 Total Billed Treatment 1 visit GT x 2 EX x 1 JOYCELYN CRUZ PTA Aug 05, 2022 10:45
--- NOTE | 2022-08-05 12:58 | Occupational Ther Daily Note ---
OT Current Status-Daily Note Subjective Pt alert, sitting in recliner. Pt agrees to therapy. No c/o pain at beginning of session, by end of session pt requesting pain meds. Reported to nrsg. Mental Status/Objective Patient Orientation: Person, Place, Time, Situation ADL-Treatment Therapy Code Descriptions/Definitions Functional [place] Measure: 0=Not Assessed/NA 4=Minimal Assistance 1=Total Assistance 5=Supervision or Setup 2=Maximal Assistance 6=Modified [place] 3=Moderate Assistance 7=Complete IndependenceSCALE: Activities may be completed with or without assistive devices. 7-Qmfsigebdd-qthtnse completes the activity by him/herself with no assistance from a helper. 5-Set-up or Clean-up Assistance-helper sets up or cleans up; patient completes activity. [place] assists only prior to or following the activity. 4-Supervision or Touching Assistance-helper provides verbal cues and/or touching/steadying and/or contact guard assistance as patient completes activity. Assistance may be provided throughout the activity or intermittently. 3-Partial/Moderate Assistance-helper does LESS THAN HALF the effort. [place] lifts, holds or supports trunk or limbs, but provides less than half the effort. 2-Substantial/Maximal Assistance-helper does MORE THAN HALF the effort. [place] lifts or holds trunk or limbs and provides more than half the effort. 8-Rbysnpfnp-yqnutt does ALL the effort. Patient does none of the effort to complete the activity. Or, the assistance of 2 or more helpers is required for the patient to complete the activity. If activity was not attempted, code reason: 7-Patient Refused. 9-Not Applicable-not attempted and the patient did not perform the activity before the current illness, exacerbation or injury. 10-Not Attempted due to Environmental Limitations-(lack of equipment, weather restraints, etc.). 88-Not Attempted due to Medical Conditions or Safety Concerns. Other Treatment Pt continues to demonstrate STM concerns during tasks, ie not remembering what comes next, not remembering that exercises completed. Pt ambulated to therapy gym using FWW with close SBA. Skilled instruction for all exercises and cognitive tasks that were performed during session. Pt able to complete 2-3 step task with minimal cues after initial explanation and demonstration. Pt able to read instruction and retain information to place item in designated area after 1-2 steps/ambulation to area. Pt then completed fine motor dexterity/ship's cook rdination tasks for R hand with minimal modifications to isolate/stabilize object to medicinal plant picker with gross pincer grasp. Pt given light resistance theraputty with 11 beads hidden for in it for use in room and after discharge. After therapy, pt sitting in recliner with call light/phone in reach. Safety measures in place. OT Short Term Goals Short Term Goals Time Frame: Aug 01, 2022 Lower body dressin Putting on/taking off footwear: 4 OT Internal Auditor Goals Internal Auditor Goals Time Frame: Aug 15, 2022 Acute change in mental status: 1 Inattention: 0 Disorganized thinkin Altered level of consciousness: 0 Eating (QC): 6 (met) Oral Hygiene (QC): 6 (met) Toileting Hygiene (QC): 6 (not met) Shower/Bathe Self (QC): 6 (not met) Upper Body Dressing (QC): 6 (not met) Lower Body Dressing (QC): 6 (not met) On/Off Footwear (QC): 6 (not met) Additional Goals: 1-Demonstrate ADL Tasks, 2-Verbalize Understanding, 3- ImproveStrength/Ellen 1=Demonstrate adherence to instructed precautions during ADL tasks. 2=Patient will verbalize/demonstrate understanding of assistive devices/modifications for ADL. 3=Patient will improve strength/tolerance for activity to enable patient to perform ADL's. OT Education/Plan Problem List/Assessment Assessment: Decreased Activ Tolerance, Decreased UE Strength (e), Impaired Self-Care Skills, Restricted Funct UE ROM Discharge Recommendations Plan/Recommendations: Continue POC Treatment Plan/Plan of Care Patient would benefit from OT for education, treatment and training to promote independence in ADL's, mobility, safety and/or upper extremity function for ADL's. Plan of Care: ADL Retraining, Functional Mobility, Group Exercise/Act as Ind, UE Funct Exercise/Act, UE Neuromus Re-Ed/Coord, Visual/Perceptual Retrain Treatment Duration: Aug 15, 2022 Frequency: At least 5 of 7 days/Wk (IRF) Estimated Hrs Per Day: 1.5 hours per day Agreement: Yes Rehab Potential: Fair Time Start Time: 11:00 Stop Time: 12:00 DATE: Aug 05, 2022 Total Time Billed (hr/min): 60 Billed Treatment Time 1 visit-[place] 4 (60 min) JENNY ALBERTS [facility] Aug 05, 2022 12:58
--- NOTE | 2022-08-05 13:32 | Physical Therapy Daily Note ---
PT Daily Note-Current Subjective Pt found seated in recliner upon entry. Agreed to PT. Reports that she is very worn out from her OT/PT treatments today. No reports of pain. Pain Section J - Health Conditions 1. Rarely or not at all 2. Occasionally 3. Frequently 4. Almost constantly 8. Unable to answer Pain Effect on Sleep: 1 Pain Interference with Therapy: 1 (pins and needles in (R) UE) Pain Interference w/Day-to-Day: 1 Mental Status Patient Orientation: Person, Confused, Place Transfers SCALE: Activities may be completed with or without assistive devices. 5-Umgrnyauur-aftklnp completes the activity by him/herself with no assistance from a helper. 5-Set-up or Clean-up Assistance-helper sets up or cleans up; patient completes activity. [place] assists only prior to or following the activity. 4-Supervision or Touching Assistance-helper provides verbal cues and/or touching/steadying and/or contact guard assistance as patient completes activity. Assistance may be provided throughout the activity or intermittently. 3-Partial/Moderate Assistance-helper does LESS THAN HALF the effort. [place] lifts, holds or supports trunk or limbs, but provides less than half the effort. 2-Substantial/Maximal Assistance-helper does MORE THAN HALF the effort. [place] lifts or holds trunk or limbs and provides more than half the effort. 1-Hwxipeqac-ylxvjz does ALL the effort. Patient does none of the effort to complete the activity. Or, the assistance of 2 or more helpers is required for the patient to complete the activity. If activity was not attempted, code reason: 7-Patient Refused. 9-Not Applicable-not attempted and the patient did not perform the activity before the current illness, exacerbation or injury. 10-Not Attempted due to Environmental Limitations-(lack of equipment, weather restraints, etc.). 88-Not Attempted due to Medical Conditions or Safety Concerns. Sit to Stand (QC): 4 Pt SBA /c sit to stand transfers due to lack of safety awareness and R sided weakness. Weight Bearing Weight Bearing/Tolerated Weight Bearing/Tolerated Gait Training Does the Patient Walk?: Yes Distance: 300, 100, 100 Walk 10 feet (QC): 4 Walk 50 ft with 2 Turns(QC): 4 Walk 150 ft (QC): 4 Gait Persons Needed: 1 Gait Assistive Device: FWW Pt CGA /c gait training. Displays loss of balance 1x during ambulation /c use of FWW. Able to self correct without steadying assistance. Demonstrated good gait speed /c poor heel strike during gait cycle. Ambulated 300, 100, 100 feet. Treatments Standing exercises: Marches x 10 Side stepping at // x 3 trips Heel/toe raises Hip flx/ext/abd /c RTB x 10 ea B Hamstring curls /c 2# x 10 B LAQs 2# x 10 B Assessment Current Status: Good Progress Pt tolerated increased weight/resistance training well. Continues to display improved gait tolerance. Demonstrated signs of fatigue during therapeutic exercise and required short seated rest breaks. Continue to progress pt as tolerated per POC to improve strength, endurance, and safety awareness. PT Master At Arms Goals [facility] Goals PT Master At Arms Goals Time Frame: Aug 13, 2022 Roll Left & Right (QC): 6 Sit to Lying (QC): 6 Lying-Sitting on Side/Bed(QC): 6 Sit to Stand (QC): 6 Chair/Zub-mt-Junjw Xfer(QC): 6 Toilet Transfer (QC): 6 Car Transfer (QC): 5 Does the Patient Walk: Yes Walk 10 feet (QC): 5 Walk 50ft with 2 Turns (QC): 5 (with least restrictive device with less (R) LE ataxia) Walk 150 ft (QC): 5 (with least restrictive device with less (R) LE ataxia) Walking 10ft on Uneven Surface: 5 (with least restrictive device with less (R) LE ataxia) 1 Step (curb) (QC): 5 (with least restrictive device) 4 Steps (QC): 5 (with (B) rails) 12 Steps (QC): 4 (Min (A) with (B) rails) Picking up an Object (QC): 5 Does the Pt use WC or Scooter?: Yes Wheel 50 feet with 2 turns (QC: 6 Type: Manual Wheel 150 feet: 6 Type: Manual PT Plan Treatment/Plan Treatment Plan: Continue Plan of Care Treatment Plan: Bed Mobility, Education, Functional Activity Ellen, Functional Strength, Group Therapy, Gait, Safety, Therapeutic Exercise, Transfers, Other Treatment Duration: Aug 13, 2022 Frequency: At least 5 of 7 days/Wk (IRF) Estimated Hrs Per Day: 1.5 hours per day Patient and/or Family Agrees t: Yes Time Time In: 1230 Time Out: 1315 DATE: Aug 05, 2022 Total Billed Treatment Time: 45 Total Billed Treatment 1 visit GT x 1 EX x 2 MAJOR,JOYCELYN TRAUMA THERAPIST Aug 05, 2022 13:31
[2022-08-05] MEDS: ENOXAPARIN 40 MG/0.4 ML (LOVENOX) SYR SC SCH (17:04)
[2022-08-05] MEDS: MELATONIN 3 MG TABLET PO PRN (20:49)
[2022-08-05 20:54] VITALS: BP 120/56
--- NOTE | 2022-08-06 05:14 | PM&R Progress Note ---
Subjective HPI/CC On Admission Date Seen by Provider: Aug 06, 2022 Time Seen by Provider: 11:00 Subjective/Events-last exam 08/06/2022: No major issues No pain Cognition is improved 08/05/2022: Doing well Set for DC 08/08 No pain reported Labs stable 08/04/2022: Supportive care No pain reported Walking well 08/03/2022: Improved No pain reported No falls 08/02/2022: Doing well No pain reported Improved function 08/01/2022: Doing well SNF not really an option Needs DC home with family 07/31/2022: No major issues DC to SNF tomorrow? 07/30/2022: No major issues Set for SNF soon Eating well Cognition is much improved 07/29/2022: No major events No falls Working hard in therapy No pain except neuropathic type 07/28/2022: No major issues Memory loss and impulsiveness has brought the daughter to the conclusion she needs to go skilled care Hip xray no fracture 07/27/2022: Improved overall Right hip pain since fall so will order xray Daughter asked about DEXA scan and that would be outpatient 07/26/2022: No major issues Reviewed UA and no wbc's so no needed treatment No major concerns 07/25/2022: Doing well Improved already BM+ No pain 07/24/2022: Doing well Able to walk with therapy with assist No pain reported Reviewed meds and labs Daughter at bedside Review of Systems General: Fatigue, Malaise Objective Exam Vital Signs Vital Signs Date Time Temp Pulse Resp B/P (MAP) Pulse Ox O2 Delivery O2 Flow Rate FiO2 08/06/22 20:52 Room Air 08/06/22 20:22 36.5 72 16 110/56 (74) 95 08/02/22 09:56 0.00 Capillary Refill : General Appearance: No Apparent Distress, WD/WN, Chronically ill HEENT: PERRL/EOMI, Normal ENT Inspection, Pharynx Normal Neck: Full Range of Motion, Normal Inspection, Non Tender, Supple, Carotid Bruit Respiratory: Chest Non Tender, Lungs Clear, Normal Breath Sounds, No Accessory Muscle Use, No Respiratory Distress Cardiovascular: Regular Rate, Rhythm, No Edema, No Gallop, No JVD, No Murmur, Normal Peripheral Pulses Gastrointestinal: Normal Bowel Sounds, No Organomegaly, No Pulsatile Mass, Non Tender, Soft Back: Normal Inspection, No CVA Tenderness, No Vertebral Tenderness Extremity: Normal Capillary Refill, Normal Inspection, Normal Range of Motion, Non Tender, No Calf Tenderness, No Pedal Edema Neurologic/Psychiatric: Alert, Oriented x3, Normal Mood/Affect, supervising broker II-XII Norm as Tested, Abnormal Gait, Depressed Affect, Motor Weakness Skin: Normal Color, Warm/Dry Lymphatic: No Adenopathy Results/Procedures Lab Patient resulted labs reviewed. FIM Transfers Therapy Code Descriptions/Definitions Functional [place] Measure: 0=Not Assessed/NA 4=Minimal Assistance 1=Total Assistance 5=Supervision or Setup 2=Maximal Assistance 6=Modified [place] 3=Moderate Assistance 7=Complete IndependenceSCALE: Activities may be completed with or without assistive devices. 7-Brngihrqva-fsqaqmd completes the activity by him/herself with no assistance from a helper. 5-Set-up or Clean-up Assistance-helper sets up or cleans up; patient completes activity. [place] assists only prior to or following the activity. 4-Supervision or Touching Assistance-helper provides verbal cues and/or touching/steadying and/or contact guard assistance as patient completes activity. Assistance may be provided throughout the activity or intermittently. 3-Partial/Moderate Assistance-helper does LESS THAN HALF the effort. [place] l ifts, holds or supports trunk or limbs, but provides less than half the effort. 2-Substantial/Maximal Assistance-helper does MORE THAN HALF the effort. [place] lifts or holds trunk or limbs and provides more than half the effort. 3-Yjievhmdx-urgvdu does ALL the effort. Patient does none of the effort to complete the activity. Or, the assistance of 2 or more helpers is required for t he patient to complete the activity. If activity was not attempted, code reason: 7-Patient Refused. 9-Not Applicable-not attempted and the patient did not perform the activity before the current illness, exacerbation or injury. 10-Not Attempted due to Environmental Limitations-(lack of equipment, weather restraints, etc.). 88-Not Attempted due to Medical Conditions or Safety Concerns. Roll Left to Right (QC): 6 Sit to Lying (QC): 4 Sit to Stand (QC): 4 Chair/Ldv-fz-Pzhld Xfer(QC): 4 Car Transfer (QC): 4 Gait Training Does the Patient Walk?: Yes Distance: 300, 100, 100 Walk 10 feet (QC): 4 Walk 50 ft with 2 Turns(QC): 4 Walk 150 ft (QC): 4 Walking 10ft/uneven surface-QC: 4 Gait Persons Needed: 1 Gait Assistive Device: FWW Wheelchair Training Does the Pt Use a Wheelchair?: No Distance: 50' Wheel 50 ft with 2 turns (QC): 4 Wheel 150 ft (QC): 4 Type of Wheelchair: Manual Stair Training Stair Training: Handrails/: 2 handrails #of Steps: 12 1 Step (curb) (QC): 4 4 Steps (QC): 4 12 Steps (QC): 4 Stairs: Pattern: Step to Balance Picking up an Object (QC): 4 ADL-Treatment Eating (QC): 6 Oral Hygiene (QC): 6 Shower/Bathe Self (QC): 4 Upper Body Dressing (QC): 5 Lower Body Dressing (QC): 4 On/Off Footwear (QC): 5 Toileting Hygiene (QC): 4 (demonstrates ability to complete with SBA.) Toilet Transfer (QC): 4 Assessment/Plan Assessment and Plan Assess & Plan/Chief Complaint Assessment: 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 07/31/2022: Loop recorder no issues 08/01/2022: Monitor closely 08/02/2022: Monitor closely 08/03/2022: DC soon 08/04/2022: Monitor closely 08/05/2022: Continue aggressive rehab 08/06/2022: Monitoring closely (1) Acute ischemic multifocal posterior circulation stroke involving left-sided vessel Status: Acute (2) Non-ST elevated myocardial infarction Status: Acute (3) Elevated liver enzymes Status: Acute (4) PTSD (post-traumatic stress disorder) Status: Chronic (5) WENDY (generalized anxiety disorder) Status: Chronic (6) Hypertension Status: Chronic (7) COPD (chronic obstructive pulmonary disease) Status: Chronic UCHE WALL DO Aug 06, 2022 05:14
[2022-08-06] MEDS: MULTIVIT W/MINERALS TAB (THERAGRAN M) PO SCH (06:02)
[2022-08-06] MEDS: HYDROcodone/APAP 5 MG/325 MG (LORTAB) TAB PO PRN ×3 (06:02→18:07)
[2022-08-06 07:53] VITALS: BP 119/58
[2022-08-06] MEDS: NICOTINE 21 MG (NICODERM) PATCH TD SCH (07:59)
[2022-08-06] MEDS: DOCUSATE SODIUM 100 MG (COLACE) CAP PO SCH ×2 (08:00→20:20)
[2022-08-06] MEDS: amLODIPine 5 MG (NORVASC) TAB PO SCH (08:00)
[2022-08-06] MEDS: polyethylene glycoL POWDER 17 GM (MIRALAX) PACK PO SCH ×2 (08:00→20:21)
[2022-08-06] MEDS: hydrOXYzine (VISTARIL/ATARAX) 25 MG capsule/tablet PO SCH (08:00)
[2022-08-06] MEDS: GABAPENTIN 300 MG (NEURONTIN) CAP PO SCH ×3 (08:00→20:20)
[2022-08-06] MEDS: ASPIRIN E.C. 81 MG (ECOTRIN) TAB PO SCH (08:01)
[2022-08-06] MEDS: FOLIC ACID 1 MG TAB PO SCH (08:01)
[2022-08-06] MEDS: LOSARTAN 100 MG (COZAAR) TABLET PO SCH (08:01)
[2022-08-06] MEDS: DULoxetine 30 MG (CYMBALTA) CAP PO SCH (08:01)
[2022-08-06] MEDS: MELOXICAM 7.5 MG (MOBIC) TABLET PO SCH (08:01)
[2022-08-06] MEDS: SENNA W/DOCUSATE (SENOKOT S) TABLET PO SCH ×2 (08:01→20:21)
[2022-08-06] MEDS: SENNOSIDES 8.6 MG (SENOKOT) TAB PO SCH ×2 (08:01→20:20)
[2022-08-06] MEDS: CLOPIDOGREL 75 MG (PLAVIX) TABLET PO SCH (08:02)
[2022-08-06 08:15] VITALS: BP 141/75
--- NOTE | 2022-08-06 08:57 | Physical Therapy Daily Note ---
PT Daily Note-Current Subjective Pt found seated on edge of bed /c nurse present. Agreed to PT. Reports that she just woke up a few minutes ago. Pt reports she has increased burning and tingling in R hand. No other reports of pain. Pain Section J - Health Conditions 1. Rarely or not at all 2. Occasionally 3. Frequently 4. Almost constantly 8. Unable to answer Pain Effect on Sleep: 1 Pain Interference with Therapy: 1 (pins and needles in (R) UE) Pain Interference w/Day-to-Day: 1 Mental Status Patient Orientation: Person, Confused, Place Transfers SCALE: Activities may be completed with or without assistive devices. 2-Ujjgdrtvgy-uqekraf completes the activity by him/herself with no assistance from a helper. 5-Set-up or Clean-up Assistance-helper sets up or cleans up; patient completes activity. [place] assists only prior to or following the activity. 4-Supervision or Touching Assistance-helper provides verbal cues and/or touching/steadying and/or contact guard assistance as patient completes activity. Assistance may be provided throughout the activity or intermittently. 3-Partial/Moderate Assistance-helper does LESS THAN HALF the effort. [place] lifts, holds or supports trunk or limbs, but provides less than half the effort. 2-Substantial/Maximal Assistance-helper does MORE THAN HALF the effort. [place] lifts or holds trunk or limbs and provides more than half the effort. 5-Vvqlrstns-khtyap does ALL the effort. Patient does none of the effort to complete the activity. Or, the assistance of 2 or more helpers is required for the patient to complete the activity. If activity was not attempted, code reason: 7-Patient Refused. 9-Not Applicable-not attempted and the patient did not perform the activity before the current illness, exacerbation or injury. 10-Not Attempted due to Environmental Limitations-(lack of equipment, weather restraints, etc.). 88-Not Attempted due to Medical Conditions or Safety Concerns. Roll Left & Right (QC): 6 Sit to Lying (QC): 6 Lying to Sitting/Side of Bed(Q: 6 Sit to Stand (QC): 4 Chair/Cwc-bz-Mjdcc Xfer(QC): 4 Pt independent /c all bed mobility. SBA /c sit to stand and CGA bed to chair transfers for safety due to balance and safety awareness deficits. Weight Bearing Weight Bearing/Tolerated Weight Bearing/Tolerated Gait Training Does the Patient Walk?: Yes Distance: 400, 50, 50 Walk 10 feet (QC): 4 Walk 50 ft with 2 Turns(QC): 4 Walk 150 ft (QC): 4 Gait Persons Needed: 1 Gait Assistive Device: FWW Pt CGA /c gait training training for safety due to balance and safety awareness deficits. Ambulates /c use of FWW. Displays loss of balance 1x due to RLE kicking FWW. Step length has improved and pt now displays adequate heel strike during gait cycle. Treatments Standing exercise: RTB hip 3-ways x 10 ea B RTB marching x 15 RTB side-stepping at // x 5 trips Heel/toe raises on AirX x 15 Supine exercise: 2# 4-way SLRs x 10 ea (RLE only) Assessment Current Status: Good Progress Pt continues to show improved muscle strength and control. Displays improved balance /c ambulation and ambulates up to 400 feet before requiring a seated rest break. Pt demonstrates less impulsiveness during transfers this visit but still requires verbal cues to complete transfers slowly for safety. Required short seated rest breaks between therapeutic exercises. Continue to progress pt as tolerated per POC to improve strength, endurance, and safety awareness. PT Hand Bunch Maker Goals Shelter Goals PT Shelter Goals Time Frame: Aug 13, 2022 Roll Left & Right (QC): 6 Sit to Lying (QC): 6 Lying-Sitting on Side/Bed(QC): 6 Sit to Stand (QC): 6 Chair/Sbb-rl-Xreja Xfer(QC): 6 Toilet Transfer (QC): 6 Car Transfer (QC): 5 Does the Patient Walk: Yes Walk 10 feet (QC): 5 Walk 50ft with 2 Turns (QC): 5 (with least restrictive device with less (R) LE ataxia) Walk 150 ft (QC): 5 (with least restrictive device with less (R) LE ataxia) Walking 10ft on Uneven Surface: 5 (with least restrictive device with less (R) LE ataxia) 1 Step (curb) (QC): 5 (with least restrictive device) 4 Steps (QC): 5 (with (B) rails) 12 Steps (QC): 4 (Min (A) with (B) rails) Picking up an Object (QC): 5 Does the Pt use WC or Scooter?: Yes Wheel 50 feet with 2 turns (QC: 6 Type: Manual Wheel 150 feet: 6 Type: Manual PT Plan Treatment/Plan Treatment Plan: Continue Plan of Care Treatment Plan: Bed Mobility, Education, Functional Activity Ellen, Functional Strength, Group Therapy, Gait, Safety, Therapeutic Exercise, Transfers, Other Treatment Duration: Aug 13, 2022 Frequency: At least 5 of 7 days/Wk (IRF) Estimated Hrs Per Day: 1.5 hours per day Patient and/or Family Agrees t: Yes Time Time In: 0755 Time Out: 854 DATE: Aug 06, 2022 Total Billed Treatment Time: 60 Total Billed Treatment 1 visit GT x 2 EX x 2 MAJOR,JOYCELYN SUPERVISOR PLATE PASTING Aug 06, 2022 08:57
--- NOTE | 2022-08-06 09:22 | Cardiology Progress Note ---
Subjective Date Seen by Provider: Aug 06, 2022 Time Seen by Provider: 08:10 Subjective/Events-last exam Patient with PT, denies any chest pain or dyspnea. Objective-Cardiology Exam Last Set of Vital Signs Vital Signs 08/02/22 08/06/22 08/06/22 08/06/22 09:56 07:53 08:33 09:30 Temp 36.4 Pulse 68 Resp 16 B/P (MAP) 119/58 (78) Pulse Ox 97 O2 Delivery Room Air O2 Flow Rate 0.00 I&O Intake and Output 08/06/22 00:00 Intake Total 1330 ml Balance 1330 ml Intake Oral 1330 ml # Voids 6 # Bowel Movements 1 General: Alert, Oriented X3 HEENT: Atraumatic, PERRLA Lungs: Clear to Auscultation, Normal Air Movement Heart: Regular Rate, Normal S1, Normal S2 Abdomen: Soft, No Tenderness Extremities: No Clubbing, No Edema Skin: No Rashes, No Significant Lesion Neuro: Other (right sided weakness) Psych/Mental Status: Mental Status NL, Mood NL A/P-Cardiology Admission Diagnosis CVA NSTEMI HTN Weakness/debility Assessment/Plan Status post acute CVA CT angiogram reported as distal left 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 Steri strips in place. Elevated troponin, non-ST elevation myocardial infarction. No acute EKG changes. Troponin is trending down. Stress test was done on July 31, 2022 with no ischemia or infarction on SPECT images and normal ejection fraction Continue with aspirin and Plavix 2D echo was done on July 19, 2022 which showing normal left ventricular size with ejection fraction 60 to 65%, grade 1 diastolic dysfunction, mild mitral regurgitation, PA pressure 40 to 45 mmHg. No shunt was detected by using contrast Hypertension, controlled. Currently on losartan 100mg, amlodipine 5mg Lipid profile was done on July 19, 2022 and it was normal. Tobaccoism, advised to stop smoking Alcoholism. Patient reported that she drinks wine over the weekend Supervisory-Addendum Brief Supervisory Addendum Participated in pt care: history, MDM, physical Personally performed: exam, history, MDM Care discussed with: MARK Results interpretation: Verified all documentation Notes: Patient was seen and evaluated with Geoff, examination performed, management plan was discussed, agree with the current scribed note, I made few changes to the note using Italic font Patient is recovering well. No new complain Continue to monitor GEOFF VINES Aug 06, 2022 09:22 REMEDIOS COHEN MD Aug 06, 2022 16:47
[2022-08-06] MEDS: ONDANSETRON 4 MG (ZOFRAN) ORAL DISSOLVE TAB SL PRN (09:23)
--- NOTE | 2022-08-06 09:31 | Occupational Ther Daily Note ---
OT Current Status-Daily Note Subjective Pt alert, sitting in recliner. Pt appears anxious, change of routine this morning put pt out of sorts. Pt agrees to therapy after having a cup of coffee. Mental Status/Objective Patient Orientation: Person, Place, Time, Situation ADL-Treatment Pt requested to use bathroom. Pt ambulated with CGA for safety using FWW. Pt is impulsive and requires verbal cues for safety. CGA for toilet transfer. SBA for clothing manipulation and hygiene. Pt then ambulated to sink and washed hands with SBA for safety using counter to stabilize. Pt ambulated back to recliner to complete drinking coffee and take medications from [facility]. Call light /phone in reach at end of session. Safety measures in place. Therapy Code Descriptions/Definitions Functional [place] Measure: 0=Not Assessed/NA 4=Minimal Assistance 1=Total Assistance 5=Supervision or Setup 2=Maximal Assistance 6=Modified [place] 3=Moderate Assistance 7=Complete IndependenceSCALE: Activities may be completed with or without assistive devices. 9-Wfpcveyhyf-elmwfgy completes the activity by him/herself with no assistance from a helper. 5-Set-up or Clean-up Assistance-helper sets up or cleans up; patient completes activity. [place] assists only prior to or following the activity. 4-Supervision or Touching Assistance-helper provides verbal cues and/or touching/steadying and/or contact guard assistance as patient completes activity. Assistance may be provided throughout the activity or intermittently. 3-Partial/Moderate Assistance-helper does LESS THAN HALF the effort. [place] lifts, holds or supports trunk or limbs, but provides less than half the effort. 2-Substantial/Maximal Assistance-helper does MORE THAN HALF the effort. [place] lifts or holds trunk or limbs and provides more than half the effort. 3-Atwhvpcmj-esmrvd does ALL the effort. Patient does none of the effort to complete the activity. Or, the assistance of 2 or more helpers is required for the patient to complete the activity. If activity was not attempted, code reason: 7-Patient Refused. 9-Not Applicable-not attempted and the patient did not perform the activity before the current illness, exacerbation or injury. 10-Not Attempted due to Environmental Limitations-(lack of equipment, weather restraints, etc.). 88-Not Attempted due to Medical Conditions or Safety Concerns. Eating (QC): 6 Toileting Hygiene (QC): 4 Toilet Transfer (QC): 4 BIMS CAM BIMS Patient Normally Able to Recal: Current Session, Location of own room, Staff Names and faces, That he/she in a [facility]sp OT Short Term Goals Short Term Goals Time Frame: Aug 01, 2022 Lower body dressin Putting on/taking off footwear: 4 OT Substation Operator Goals Substation Operator Goals Time Frame: Aug 15, 2022 Acute change in mental status: 1 Inattention: 0 Disorganized thinkin Altered level of consciousness: 0 Eating (QC): 6 (met) Oral Hygiene (QC): 6 (met) Toileting Hygiene (QC): 6 (not met) Shower/Bathe Self (QC): 6 (not met) Upper Body Dressing (QC): 6 (not met) Lower Body Dressing (QC): 6 (not met) On/Off Footwear (QC): 6 (not met) Additional Goals: 1-Demonstrate ADL Tasks, 2-Verbalize Understanding, 3- ImproveStrength/Ellen 1=Demonstrate adherence to instructed precautions during ADL tasks. 2=Patient will verbalize/demonstrate understanding of assistive devices/modifications for ADL. 3=Patient will improve strength/tolerance for activity to enable patient to perform ADL's. OT Education/Plan Problem List/Assessment Assessment: Impaired Coordination, Impaired Self-Care Skills, Restricted Funct UE ROM, Visual-Perceptual Deficit Discharge Recommendations Plan/Recommendations: Continue POC Treatment Plan/Plan of Care Patient would benefit from OT for education, treatment and training to promote independence in ADL's, mobility, safety and/or upper extremity function for ADL's. Plan of Care: ADL Retraining, Functional Mobility, Group Exercise/Act as Ind, UE Funct Exercise/Act, UE Neuromus Re-Ed/Coord, Visual/Perceptual Retrain Treatment Duration: Aug 15, 2022 Frequency: At least 5 of 7 days/Wk (IRF) Estimated Hrs Per Day: 1.5 hours per day Agreement: Yes Rehab Potential: Fair Time Start Time: 09:00 Stop Time: 09:30 DATE: Aug 06, 2022 Total Time Billed (hr/min): 30 Billed Treatment Time 1 visit-ADL 2 (30 min) JENNY ALBERTS Aug 06, 2022 09:31
[2022-08-06] MEDS: NICOTINE PATCH TP SCH (10:14)
--- NOTE | 2022-08-06 12:06 | Speech Therapy Daily Note ---
Speech Daily Progress Note Subjective Date Seen by Provider: Aug 06, 2022 Time Seen by Provider: 10:15 The patient was seated upright in her recliner, awake and alert, upon entrance to her room by the clinician. The patient greeted the clinician appropriately and was agreeable to participation in the cognitive treatment session. Objective - Orientation: With moderate verbal and visual cueing, the patient was oriented to month (initially stated "June), year, and day of the week. The patient was able to identify the accurate date with the use of a printable calendar provided by the clinician. At the close of the session, reduced verbal cueing was required to recall accurate orientation information. - Functional Recall: With mild verbal cueing, the patient was able to recall his PT and OT therapists' names and the exercises completed throughout each session. The patient and clinician practiced phone use, specifically contacting (via phone or text message) familiar individuals and emergency contacts. Moderate verbal cueing was provided throughout the task. The patient continues to display difficulty with medication recall and the clinician continues to request medication administration upcoming times be placed on the patient's in-room white board to aid in recall ability. Assessment Assessment Current Status: Good Progress Treatment Plan Continue Plan of Care Speech Short Term Goals Short Term Goals Short Term Goals 1. The patient will demonstrate functional memory strategies with 80% accuracy and mild verbal and visual cueing. Time Frame-STG: One Week. Speech Lithoplate Maker Goals Group Home Goals 1. The patient will improve cognitive linguistic communication for safe discharge to the least restrictive environment. Time Frame: Two Weeks. Speech-Plan Treatment Plan Speech Therapy Treatment Plan: Continue Plan of Care Treatment Duration: Aug 01, 2022 Frequency: Modified Program (IRF) Estimated Hrs Per Day: .5 hour per day Rehab Potential: Fair Pt/Family Agrees to Plan: Yes Safety Risks/Education Teaching Recipient: Patient Teaching Methods: Demonstration, Discussion Response to Teaching: Return Demonstration, Reinforcement Needed Education Topics Provided: Internal and External Memory Strategies Time Speech Therapy Time In: 10:15 Speech Therapy Time Out: 10:45 DATE: Aug 06, 2022 Total Billed Time: 30 Billed Treatment Time KIERSTEN Coronado [facility] Aug 06, 2022 12:06
--- NOTE | 2022-08-06 13:29 | Occupational Ther Daily Note ---
OT Current Status-Daily Note Subjective Pt alert, sitting in recliner. Pt agrees to therapy. No c/o pain. Pt is progressing with sequencing tasks and decreasing need of verbal cues to remember what task comes next. Mental Status/Objective Patient Orientation: Person, Place, Time, Situation ADL-Treatment Pt agrees to shower. Pt gathered clothing using FWW with SBA for safety then transported to bathroom. Pt completed shower using shower bench, grabbars and hand held shower with supervision for safety. Pt donned/doffed UBD by self. Pt donned/doffed LBD with SBA. Pt completed footwear by self. Pt able to complete oral care independently in sitting. After session, pt sitting in recliner with call light/phone in reach. All needs met in room. Safety measures in place. Therapy Code Descriptions/Definitions Functional [place] Measure: 0=Not Assessed/NA 4=Minimal Assistance 1=Total Assistance 5=Supervision or Setup 2=Maximal Assistance 6=Modified [place] 3=Moderate Assistance 7=Complete IndependenceSCALE: Activities may be completed with or without assistive devices. 2-Giklawcfnq-daxpezt completes the activity by him/herself with no assistance from a helper. 5-Set-up or Clean-up Assistance-helper sets up or cleans up; patient completes activity. [place] assists only prior to or following the activity. 4-Supervision or Touching Assistance-helper provides verbal cues and/or touching/steadying and/or contact guard assistance as patient completes activity. Assistance may be provided throughout the activity or intermittently. 3-Partial/Moderate Assistance-helper does LESS THAN HALF the effort. [place] lifts, holds or supports trunk or limbs, but provides less than half the effort. 2-Substantial/Maximal Assistance-helper does MORE THAN HALF the effort. [place] lifts or holds trunk or limbs and provides more than half the effort. 0-Regtdfgsl-qzjpzk does ALL the effort. Patient does none of the effort to complete the activity. Or, the assistance of 2 or more helpers is required for the patient to complete the activity. If activity was not attempted, code reason: 7-Patient Refused. 9-Not Applicable-not attempted and the patient did not perform the activity before the current illness, exacerbation or injury. 10-Not Attempted due to Environmental Limitations-(lack of equipment, weather restraints, etc.). 88-Not Attempted due to Medical Conditions or Safety Concerns. Eating (QC): 6 Oral Hygiene (QC): 6 Shower/Bathe Self (QC): 4 (Supervision) Upper Body Dressing (QC): 4 (Dressing by self, SBA to gather clothing.) Lower Body Dressing (QC): 4 On/Off Footwear: 4 (Footwear by self, SBA for gathering clothing.) BIMS CAM BIMS Expression of Ideas and Wants: Without Difficulty Understanding Verbal Content: Understands Brief Interview/Mental Status: Yes IRF RAI BIMS: IRF RAI BIMS Response (Comments) Value Repitition of Three Words Three 3 Recalls Socks Yes, No Cue Required 2 Recalls Blue Yes, No Cue Required 2 Recalls Bed Yes, No Cue Required 2 Year Correct 3 Month Accurate Within 5 Days 2 Day Correct 1 Total 15 Patient Normally Able to Recal: Current Session, Location of own room, Staff Names and faces, That he/she in a hsp Should Staff Asses. Mental St.: No CAM Mental Status Change/Baseline: 0 Inattention: 0 Disorganized thinkin Altered level of consciousness: 0 OT Short Term Goals Short Term Goals Time Frame: Aug 01, 2022 Lower body dressin Putting on/taking off footwear: 4 OT Social And Political Studies Professor Goals Social And Political Studies Professor Goals Time Frame: Aug 15, 2022 Eating (QC): 6 (met) Oral Hygiene (QC): 6 (met) Toileting Hygiene (QC): 6 (not met) Shower/Bathe Self (QC): 6 (not met) Upper Body Dressing (QC): 6 (not met) Lower Body Dressing (QC): 6 (not met) On/Off Footwear (QC): 6 (not met) Additional Goals: 1-Demonstrate ADL Tasks, 2-Verbalize Understanding, 3- ImproveStrength/Ellen 1=Demonstrate adherence to instructed precautions during ADL tasks. 2=Patient will verbalize/demonstrate understanding of assistive devices/modifications for ADL. 3=Patient will improve strength/tolerance for activity to enable patient to perform ADL's. OT Education/Plan Problem List/Assessment Assessment: Impaired Coordination, Impaired Self-Care Skills, Restricted Funct UE ROM, Visual-Perceptual Deficit Discharge Recommendations Plan/Recommendations: Continue POC Treatment Plan/Plan of Care Patient would benefit from OT for education, treatment and training to promote independence in ADL's, mobility, safety and/or upper extremity function for ADL's. Plan of Care: ADL Retraining, Functional Mobility, Group Exercise/Act as Ind, UE Funct Exercise/Act, UE Neuromus Re-Ed/Coord, Visual/Perceptual Retrain Treatment Duration: Aug 15, 2022 Frequency: At least 5 of 7 days/Wk (IRF) Estimated Hrs Per Day: 1.5 hours per day Agreement: Yes Rehab Potential: Fair Time Start Time: 11:00 Stop Time: 12:00 DATE: Aug 06, 2022 Total Time Billed (hr/min): 60 Billed Treatment Time 1 visit-ADL 4 (60 min) JENNY ALBERTS Aug 06, 2022 13:29
--- NOTE | 2022-08-06 14:06 | Physical Therapy Daily Note ---
PT Daily Note-Current Subjective Pt found seated in recliner upon entry. Agreed to PT. No report of pain throughout visit. Pain Section J - Health Conditions 1. Rarely or not at all 2. Occasionally 3. Frequently 4. Almost constantly 8. Unable to answer Pain Effect on Sleep: 1 Pain Interference with Therapy: 1 (pins and needles in (R) UE) Pain Interference w/Day-to-Day: 1 Mental Status Patient Orientation: Person, Confused, Place Transfers SCALE: Activities may be completed with or without assistive devices. 9-Svejvfqcii-uzncedi completes the activity by him/herself with no assistance from a helper. 5-Set-up or Clean-up Assistance-helper sets up or cleans up; patient completes activity. [place] assists only prior to or following the activity. 4-Supervision or Touching Assistance-helper provides verbal cues and/or touchi ng/steadying and/or contact guard assistance as patient completes activity. Assistance may be provided throughout the activity or intermittently. 3-Partial/Moderate Assistance-helper does LESS THAN HALF the effort. [place] lifts, holds or supports trunk or limbs, but provides less than half the effort. 2-Substantial/Maximal Assistance-helper does MORE THAN HALF the effort. [place] lifts or holds trunk or limbs and provides more than half the effort. 2-Fvwpbgypq-vngfof does ALL the effort. Patient does none of the effort to complete the activity. Or, the assistance of 2 or more helpers is required for the patient to complete the activity. If activity was not attempted, code reason: 7-Patient Refused. 9-Not Applicable-not attempted and the patient did not perform the activity before the current illness, exacerbation or injury. 10-Not Attempted due to Environmental Limitations-(lack of equipment, weather restraints, etc.). 88-Not Attempted due to Medical Conditions or Safety Concerns. Sit to Stand (QC): 4 SBA /c sit to stand transfers due to balance and safety awareness deficits. Weight Bearing Weight Bearing/Tolerated Weight Bearing/Tolerated Gait Training Does the Patient Walk?: Yes Distance: 40, 40 Walk 10 feet (QC): 4 Walk 50 ft with 2 Turns(QC): 4 Gait Persons Needed: 1 Gait Assistive Device: FWW Pt ambulated 40 feet x 2 /c use of FWW and CGA. No loss of balance displayed throughout visit. Continues to displays improved heel strength /c steady gait speed. Exercises NuStep Minutes: 8 NuStep Workload: 7 Assessment Current Status: Good Progress Pt tolerated strength and endurance training well /c no signs or report of increased fatigue. No loss of balance displayed /c gait training. Pt required no rest breaks throughout treatment. Continue to progress pt as tolerated per POC to improve strength, endurance, and safety awareness. PT Manager Technical Services Goals [facility] Goals PT [facility] Goals Time Frame: Aug 13, 2022 Roll Left & Right (QC): 6 Sit to Lying (QC): 6 Lying-Sitting on Side/Bed(QC): 6 Sit to Stand (QC): 6 Chair/Ybw-qi-Xdgdp Xfer(QC): 6 Toilet Transfer (QC): 6 Car Transfer (QC): 5 Does the Patient Walk: Yes Walk 10 feet (QC): 5 Walk 50ft with 2 Turns (QC): 5 (with least restrictive device with less (R) LE ataxia) Walk 150 ft (QC): 5 (with least restrictive device with less (R) LE ataxia) Walking 10ft on Uneven Surface: 5 (with least restrictive device with less (R) LE ataxia) 1 Step (curb) (QC): 5 (with least restrictive device) 4 Steps (QC): 5 (with (B) rails) 12 Steps (QC): 4 (Min (A) with (B) rails) Picking up an Object (QC): 5 Does the Pt use WC or Scooter?: Yes Wheel 50 feet with 2 turns (QC: 6 Type: Manual Wheel 150 feet: 6 Type: Manual PT Plan Treatment/Plan Treatment Plan: Continue Plan of Care Treatment Plan: Bed Mobility, Education, Functional Activity Ellen, Functional Strength, Group Therapy, Gait, Safety, Therapeutic Exercise, Transfers, Other Treatment Duration: Aug 13, 2022 Frequency: At least 5 of 7 days/Wk (IRF) Estimated Hrs Per Day: 1.5 hours per day Patient and/or Family Agrees t: Yes Time Time In: 1045 Time Out: 1100 DATE: Aug 06, 2022 Total Billed Treatment Time: 15 Total Billed Treatment 1 visit EX x 1 JOYCELYN CRUZ HELP DESK ADMINISTRATOR Aug 06, 2022 14:06
[2022-08-06] MEDS: ENOXAPARIN 40 MG/0.4 ML (LOVENOX) SYR SC SCH (17:27)
[2022-08-06] MEDS: MELATONIN 3 MG TABLET PO PRN (20:20)
[2022-08-06 20:22] VITALS: BP 110/56
[2022-08-07] MEDS: HYDROcodone/APAP 5 MG/325 MG (LORTAB) TAB PO PRN ×4 (01:59→20:16)
--- NOTE | 2022-08-07 06:17 | PM&R Progress Note ---
Subjective HPI/CC On Admission Date Seen by Provider: Aug 07, 2022 Time Seen by Provider: 11:00 Subjective/Events-last exam 08/07/2022: No major issues Complaints of pain but treated appropriately No falls 08/06/2022: No major issues No pain Cognition is improved 08/05/2022: Doing well Set for DC 08/08 No pain reported Labs stable 08/04/2022: Supportive care No pain reported Walking well 08/03/2022: Improved No pain reported No falls 08/02/2022: Doing well No pain reported Improved function 08/01/2022: Doing well SNF not really an option Needs DC home with family 07/31/2022: No major issues DC to SNF tomorrow? 07/30/2022: No major issues Set for SNF soon Eating well Cognition is much improved 07/29/2022: No major events No falls Working hard in therapy No pain except neuropathic type 07/28/2022: No major issues Memory loss and impulsiveness has brought the daughter to the conclusion she needs to go skilled care Hip xray no fracture 07/27/2022: Improved overall Right hip pain since fall so will order xray Daughter asked about DEXA scan and that would be outpatient 07/26/2022: No major issues Reviewed UA and no wbc's so no needed treatment No major concerns 07/25/2022: Doing well Improved already BM+ No pain 07/24/2022: Doing well Able to walk with therapy with assist No pain reported Reviewed meds and labs Daughter at bedside Review of Systems General: Fatigue, Malaise Objective Exam Vital Signs Vital Signs Date Time Temp Pulse Resp B/P (MAP) Pulse Ox O2 Delivery O2 Flow Rate FiO2 08/07/22 20:05 Room Air 08/07/22 19:53 36.3 68 20 125/66 (85) 96 08/02/22 09:56 0.00 Capillary Refill : General Appearance: No Apparent Distress, WD/WN, Chronically ill HEENT: PERRL/EOMI, Normal ENT Inspection, Pharynx Normal Neck: Full Range of Motion, Normal Inspection, Non Tender, Supple, Carotid Bruit Respiratory: Chest Non Tender, Lungs Clear, Normal Breath Sounds, No Accessory Muscle Use, No Respiratory Distress Cardiovascular: Regular Rate, Rhythm, No Edema, No Gallop, No JVD, No Murmur, Normal Peripheral Pulses Gastrointestinal: Normal Bowel Sounds, No Organomegaly, No Pulsatile Mass, Non Tender, Soft Back: Normal Inspection, No CVA Tenderness, No Vertebral Tenderness Extremity: Normal Capillary Refill, Normal Inspection, Normal Range of Motion, Non Tender, No Calf Tenderness, No Pedal Edema Neurologic/Psychiatric: Alert, Oriented x3, Normal Mood/Affect, apple solutions consultant II-XII Norm as Tested, Abnormal Gait, Depressed Affect, Motor Weakness Skin: Normal Color, Warm/Dry Lymphatic: No Adenopathy Results/Procedures Lab Patient resulted labs reviewed. FIM Transfers Therapy Code Descriptions/Definitions Functional [place] Measure: 0=Not Assessed/NA 4=Minimal Assistance 1=Total Assistance 5=Supervision or Setup 2=Maximal Assistance 6=Modified [place] 3=Moderate Assistance 7=Complete IndependenceSCALE: Activities may be completed with or without assistive devices. 9-Mhdpwkqklu-oxpjnoy completes the activity by him/herself with no assistance from a helper. 5-Set-up or Clean-up Assistance-helper sets up or cleans up; patient completes activity. [place] assists only prior to or following the activity. 4-Supervision or Touching Assistance-helper provides verbal cues and/or touching/steadying and/or contact guard assistance as patient completes activity. Assistance may be provided throughout the activity or intermittently. 3-Partial/Moderate Assistance-helper does LESS THAN HALF the effort. [place] lifts, holds or supports trunk or limbs, but provides less than half the effort. 2-Substantial/Maximal Assistance-helper does MORE THAN HALF the effort. [place] lifts or holds trunk or limbs and provides more than half the effort. 8-Jnbugocct-mltuip does ALL the effort. Patient does none of the effort to complete the activity. Or, the assistance of 2 or more helpers is required for the patient to complete the activity. If activity was not attempted, code reason: 7-Patient Refused. 9-Not Applicable-not attempted and the patient did not perform the activity before the current illness, exacerbation or injury. 10-Not Attempted due to Environmental Limitations-(lack of equipment, weather restraints, etc.). 88-Not Attempted due to Medical Conditions or Safety Concerns. Roll Left to Right (QC): 6 Sit to Lying (QC): 6 Sit to Stand (QC): 4 Chair/Vij-kp-Jeocn Xfer(QC): 4 Car Transfer (QC): 4 Gait Training Does the Patient Walk?: Yes Distance: 40, 40 Walk 10 feet (QC): 4 Walk 50 ft with 2 Turns(QC): 4 Walk 150 ft (QC): 4 Walking 10ft/uneven surface-QC: 4 Gait Persons Needed: 1 Gait Assistive Device: FWW Wheelchair Training Does the Pt Use a Wheelchair?: No Distance: 50' Wheel 50 ft with 2 turns (QC): 4 Wheel 150 ft (QC): 4 Type of Wheelchair: Manual Stair Training Stair Training: Handrails/: 2 handrails #of Steps: 12 1 Step (curb) (QC): 4 4 Steps (QC): 4 12 Steps (QC): 4 Stairs: Pattern: Step to Balance Picking up an Object (QC): 4 ADL-Treatment Eating (QC): 6 Oral Hygiene (QC): 6 Shower/Bathe Self (QC): 4 (Supervision) Upper Body Dressing (QC): 4 (Dressing by self, SBA to gather clothing.) Lower Body Dressing (QC): 4 On/Off Footwear (QC): 4 (Footwear by self, SBA for gathering clothing.) Toileting Hygiene (QC): 4 Toilet Transfer (QC): 4 Assessment/Plan Assessment and Plan Assess & Plan/Chief Complaint Assessment: 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 07/31/2022: Loop recorder no issues 08/01/2022: Monitor closely 08/02/2022: Monitor closely 08/03/2022: DC soon 08/04/2022: Monitor closely 08/05/2022: Continue aggressive rehab 08/06/2022: Monitoring closely 08/07/2022: DC to NH tomorrow (1) Acute ischemic multifocal posterior circulation stroke involving left-sided vessel Status: Acute (2) Non-ST elevated myocardial infarction Status: Acute (3) Elevated liver enzymes Status: Acute (4) PTSD (post-traumatic stress disorder) Status: Chronic (5) WENDY (generalized anxiety disorder) Status: Chronic (6) Hypertension Status: Chronic (7) COPD (chronic obstructive pulmonary disease) Status: Chronic UCHE WALL DO Aug 07, 2022 06:17
[2022-08-07] MEDS: MULTIVIT W/MINERALS TAB (THERAGRAN M) PO SCH (06:27)
[2022-08-07 07:43] VITALS: BP 120/67
[2022-08-07] MEDS: NICOTINE PATCH TP SCH (07:57)
[2022-08-07] MEDS: NICOTINE 21 MG (NICODERM) PATCH TD SCH (07:59)
[2022-08-07] MEDS: amLODIPine 5 MG (NORVASC) TAB PO SCH (08:00)
[2022-08-07] MEDS: DOCUSATE SODIUM 100 MG (COLACE) CAP PO SCH ×2 (08:00→20:15)
[2022-08-07] MEDS: SENNA W/DOCUSATE (SENOKOT S) TABLET PO SCH ×2 (08:00→20:15)
[2022-08-07] MEDS: FOLIC ACID 1 MG TAB PO SCH (08:00)
[2022-08-07] MEDS: LOSARTAN 100 MG (COZAAR) TABLET PO SCH (08:00)
[2022-08-07] MEDS: hydrOXYzine (VISTARIL/ATARAX) 25 MG capsule/tablet PO SCH (08:00)
[2022-08-07] MEDS: CLOPIDOGREL 75 MG (PLAVIX) TABLET PO SCH (08:00)
[2022-08-07] MEDS: GABAPENTIN 300 MG (NEURONTIN) CAP PO SCH ×3 (08:00→20:16)
[2022-08-07] MEDS: MELOXICAM 7.5 MG (MOBIC) TABLET PO SCH (08:00)
[2022-08-07] MEDS: DULoxetine 30 MG (CYMBALTA) CAP PO SCH (08:01)
[2022-08-07] MEDS: ASPIRIN E.C. 81 MG (ECOTRIN) TAB PO SCH (08:01)
[2022-08-07] MEDS: polyethylene glycoL POWDER 17 GM (MIRALAX) PACK PO SCH ×2 (08:02→20:15)
[2022-08-07] MEDS: SENNOSIDES 8.6 MG (SENOKOT) TAB PO SCH ×2 (08:03→20:15)
--- NOTE | 2022-08-07 08:23 | Cardiology Progress Note ---
Subjective Date Seen by Provider: Aug 07, 2022 Time Seen by Provider: 08:22 Subjective/Events-last exam Patient up walking with walker. No new complaints. Denies any chest pain or dyspnea. Objective-Cardiology Exam Last Set of Vital Signs Vital Signs 08/02/22 08/07/22 09:56 07:43 Temp 36.1 Pulse 76 Resp 18 B/P (MAP) 120/67 (84) Pulse Ox 95 O2 Delivery Room Air O2 Flow Rate 0.00 I&O Intake and Output 08/07/22 00:00 Intake Total 1100 ml Balance 1100 ml Intake Oral 1100 ml # Voids 7 # Bowel Movements 1 General: Alert, Oriented X3 HEENT: Atraumatic, PERRLA Lungs: Clear to Auscultation, Normal Air Movement Heart: Regular Rate, Normal S1, Normal S2 Abdomen: Soft, No Tenderness Extremities: No Clubbing, No Edema Skin: No Rashes, No Significant Lesion Neuro: Other (right sided weakness) Psych/Mental Status: Mental Status NL, Mood NL A/P-Cardiology Admission Diagnosis CVA NSTEMI HTN Weakness/debility Assessment/Plan Status post acute CVA CT angiogram reported as distal 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 Steri strips in place. Elevated troponin, non-ST elevation myocardial infarction. No acute EKG changes. Troponin is trending down. Stress test was done on July 31, 2022 with no ischemia or infarction on SPECT images and normal ejection fraction Continue with aspirin and Plavix 2D echo was done on July 19, 2022 which showing normal left ventricular size with ejection fraction 60 to 65%, grade 1 diastolic dysfunction, mild mitral regurgitation, PA pressure 40 to 45 mmHg. No shunt was detected by using contrast Hypertension, controlled. Currently on losartan 100mg, amlodipine 5mg Lipid profile was done on July 19, 2022 and it was normal. Tobaccoism, advised to stop smoking Alcoholism. Patient reported that she drinks wine over the weekend Supervisory-Addendum Brief Supervisory Addendum Participated in pt care: history, MDM, physical Personally performed: exam, history, MDM Care discussed with: MARK Results interpretation: Verified all documentation Notes: Patient was seen and evaluated with Geoff, examination performed, management plan was discussed, agree with the current scribed note, I made few changes to the note using Italic font Patient seen at bedside, sitting comfortably Reporting improvement Continue to monitor GEOFF VINES Aug 07, 2022 08:23 REMEDIOS COHEN MD Aug 07, 2022 08:48
--- NOTE | 2022-08-07 10:17 | Speech Therapy Daily Note ---
Speech Daily Progress Note Subjective Date Seen by Provider: Aug 07, 2022 Time Seen by Provider: 09:30 The patient was seated upright in her recliner, awake and alert, upon entrance to her room by the clinician. The patient greeted the clinician appropriately and was agreeable to participation in the cognitive treatment session. Objective The patient was easily distracted on this date, requiring increased verbal redirection to task. The patient recently completed a phone call with her daughter, who stated the patient's roommates were only allowing her children specific times to enter the house and retrieve the patient's items. The patient is extremely upset at her roommates for the inconvenience they have placed on her children. The patient displays topic perseveration, consistently returning to the conversation surrounding her roommates and her anger towards them. Orientation: The patient is independently oriented to month (following one self- correction) and year. The patient stated the day of the week was "Thursday" and the date was "the ." The clinician continues to encourage the patient to utilize visual and environmental cues to aid with orientation (in room white board, printable calendar provided by the clinician), however, the patient stated "I don't want to cheat." The clinician encourages the patient, stating using visual cues is not "cheating," it is reducing the mental load the patient's memory is being required to "carry." Functional Recall: With moderate clinician verbal cueing, the patient is able to recall the names of each of her therapist, as well as, a specific exercise she has learned from each one. Assessment Assessment Current Status: Good Progress Treatment Plan Continue Plan of Care Speech Short Term Goals Short Term Goals Short Term Goals 1. The patient will demonstrate functional memory strategies with 80% accuracy and mild verbal and visual cueing. Time Frame-STG: One Week. Speech Environmental Specialist Goals Skilled Nursing Goals 1. The patient will improve cognitive linguistic communication for safe discharge to the least restrictive environment. Time Frame: Two Weeks. Speech-Plan Treatment Plan Speech Therapy Treatment Plan: Continue Plan of Care Treatment Duration: Aug 01, 2022 Frequency: Modified Program (IRF) Estimated Hrs Per Day: .5 hour per day Rehab Potential: Fair Safety Risks/Education Teaching Recipient: Patient Teaching Methods: Discussion Response to Teaching: Reinforcement Needed Education Topics Provided: Orientation and Memory Strategies Time Speech Therapy Time In: 09:30 Speech Therapy Time Out: 10:00 DATE: Aug 07, 2022 Total Billed Time: 30 Billed Treatment Time 1, JAIR MORENO Aug 07, 2022 10:17
--- NOTE | 2022-08-07 11:00 | Physical Therapy Daily Note ---
PT Daily Note-Current Subjective Pt found seated in recliner upon entry. Agreed to PT. Reports that she is having increased R hip and hand pain /c burning. Does not rate. Pain Section J - Health Conditions 1. Rarely or not at all 2. Occasionally 3. Frequently 4. Almost constantly 8. Unable to answer Pain Effect on Sleep: 1 Pain Interference with Therapy: 1 (pins and needles in (R) UE) Pain Interference w/Day-to-Day: 1 Mental Status Patient Orientation: Person, Confused, Place Transfers SCALE: Activities may be completed with or without assistive devices. 1-Vewivklyke-epzxdus completes the activity by him/herself with no assistance from a helper. 5-Set-up or Clean-up Assistance-helper sets up or cleans up; patient completes activity. [place] assists only prior to or following the activity. 4-Supervision or Touching Assistance-helper provides verbal cues and/or touching/steadying and/or contact guard assistance as patient completes activity. Assistance may be provided throughout the activity or intermittently. 3-Partial/Moderate Assistance-helper does LESS THAN HALF the effort. [place] lifts, holds or supports trunk or limbs, but provides less than half the effort. 2-Substantial/Maximal Assistance-helper does MORE THAN HALF the effort. [place] lifts or holds trunk or limbs and provides more than half the effort. 1-Rkaenavhu-iwdysl does ALL the effort. Patient does none of the effort to complete the activity. Or, the assistance of 2 or more helpers is required for the patient to complete the activity. If activity was not attempted, code reason: 7-Patient Refused. 9-Not Applicable-not attempted and the patient did not perform the activity before the current illness, exacerbation or injury. 10-Not Attempted due to Environmental Limitations-(lack of equipment, weather restraints, etc.). 88-Not Attempted due to Medical Conditions or Safety Concerns. Roll Left & Right (QC): 6 Sit to Lying (QC): 6 Lying to Sitting/Side of Bed(Q: 6 Sit to Stand (QC): 4 Chair/Teq-ob-Ucqeq Xfer(QC): 4 Toilet Transfer (QC): 4 Car Transfer (QC): 4 Pt independent /c all bed mobility using bed rails for assistance. SBA /c all other completed transfers due to impaired safety awareness. Occasionally requires verbal cues for correct hand placement and slow movements while completing transfers. Weight Bearing Weight Bearing/Tolerated Weight Bearing/Tolerated Gait Training Does the Patient Walk?: Yes Distance: 50, 450 Walk 10 feet (QC): 4 Walk 50 ft with 2 Turns(QC): 4 Walk 150 ft (QC): 4 Walking 10ft/uneven surface-QC: 4 Gait Persons Needed: 1 Gait Assistive Device: FWW Pt CGA /c gait training and uses a FWW. Able to ambulate up to 450 feet before requiring a short seated rest break. Displays good step lengths and steady gait speed. No loss of balance displayed throughout visit. Stair Training Stair Training: Handrails/: 2 handrails #of Steps: 12 1 Step (curb) (QC): 4 4 Steps (QC): 4 12 Steps (QC): 4 Stairs: Pattern: Step to Pt required SBA /c verbal cues for proper step pattern during stair training. Completes 12 steps total. No loss of balance displayed throughout. Balance Picking up an Object (QC): 4 Special Test Comments CGA /c picking up small object from floor. Able to hinge at hips using FWW and brass pickler object /c L hand. Exercises NuStep Minutes: 15 NuStep Workload: 8 Neuromuscular Balance/coordination training: NBOS AirX looking up/down, sideways 30 seconds ea Eyes closed on AirX /c normal stance 60 seconds Heel over toe ambulation /c 1 hand support at // x 2 trips Assessment Current Status: Good Progress Pt continues to display improved tolerance and balance /c gait training. Demonstrates occasional loss of balance during balance training but is able to self-correct without assistance. Muscle strength and endurance continues to improve. No loss of balance demonstrated /c gait training. Performs bed mobility independently. Continue to progress pt as tolerated per POC to improve strength, endurance, and safety awareness. PT Group Home Goals Ore Dryer Goals PT Group Home Goals Time Frame: Aug 13, 2022 Roll Left & Right (QC): 6 Sit to Lying (QC): 6 Lying-Sitting on Side/Bed(QC): 6 Sit to Stand (QC): 6 Chair/Jeo-ff-Hjnhh Xfer(QC): 6 Toilet Transfer (QC): 6 Car Transfer (QC): 5 Does the Patient Walk: Yes Walk 10 feet (QC): 5 Walk 50ft with 2 Turns (QC): 5 (with least restrictive device with less (R) LE ataxia) Walk 150 ft (QC): 5 (with least restrictive device with less (R) LE ataxia) Walking 10ft on Uneven Surface: 5 (with least restrictive device with less (R) LE ataxia) 1 Step (curb) (QC): 5 (with least restrictive device) 4 Steps (QC): 5 (with (B) rails) 12 Steps (QC): 4 (Min (A) with (B) rails) Picking up an Object (QC): 5 Does the Pt use WC or Scooter?: Yes Wheel 50 feet with 2 turns (QC: 6 Type: Manual Wheel 150 feet: 6 Type: Manual PT Plan Treatment/Plan Treatment Plan: Continue Plan of Care Treatment Plan: Bed Mobility, Education, Functional Activity Ellen, Functional Strength, Group Therapy, Gait, Safety, Therapeutic Exercise, Transfers, Other Treatment Duration: Aug 13, 2022 Frequency: At least 5 of 7 days/Wk (IRF) Estimated Hrs Per Day: 1.5 hours per day Patient and/or Family Agrees t: Yes Time Time In: 1000 Time Out: 1100 DATE: Aug 07, 2022 Total Billed Treatment Time: 60 Total Billed Treatment 1 visit FA x 2 NM x 1 GT x 1 JOYCELYN CRUZ MANPOWER DEVELOPMENT SPECIALIST Aug 07, 2022 11:00
--- NOTE | 2022-08-07 11:59 | Occupational Ther Daily Note ---
OT Current Status-Daily Note Subjective Took over care from MEASURER. Pt agrees to therapy. No c/o pain at beginning of session, c/o pain at end of session. Mental Status/Objective Patient Orientation: Person, Place, Time, Situation ADL-Treatment Therapy Code Descriptions/Definitions Functional Iron Measure: 0=Not Assessed/NA 4=Minimal Assistance 1=Total Assistance 5=Supervision or Setup 2=Maximal Assistance 6=Modified Iron 3=Moderate Assistance 7=Complete IndependenceSCALE: Activities may be completed with or without assistive devices. 4-Xezllrczwu-wittjjj completes the activity by him/herself with no assistance from a helper. 5-Set-up or Clean-up Assistance-helper sets up or cleans up; patient completes activity. [place] assists only prior to or following the activity. 4-Supervision or Touching Assistance-helper provides verbal cues and/or touching/steadying and/or contact guard assistance as patient completes activity. Assistance may be provided throughout the activity or intermittently. 3-Partial/Moderate Assistance-helper does LESS THAN HALF the effort. [place] lifts, holds or supports trunk or limbs, but provides less than half the effort. 2-Substantial/Maximal Assistance-helper does MORE THAN HALF the effort. [place] lifts or holds trunk or limbs and provides more than half the effort. 9-Bigbtsmvd-ecnyug does ALL the effort. Patient does none of the effort to complete the activity. Or, the assistance of 2 or more helpers is required for the patient to complete the activity. If activity was not attempted, code reason: 7-Patient Refused. 9-Not Applicable-not attempted and the patient did not perform the activity before the current illness, exacerbation or injury. 10-Not Attempted due to Environmental Limitations-(lack of equipment, weather restraints, etc.). 88-Not Attempted due to Medical Conditions or Safety Concerns. Other Treatment Pt completed multiple fine/gross motor exercises focusing on R UE to regain strength and coordination for daily functional tasks. Pt is progressing with gross motor and gross fine motor skills, continue to work on intricate fine motor skills. HEP given for medium resistance theraband exercises for use in room and when discharged. Skilled instructions given for correct technique and cues for memory of each exercise written on HEP. List of all exercise reviewed with pt in pt's own words for memory cues. Pt able to verbalize exercises from list and will continue to work on memory of each exercise. Pt demonstrates understanding of each exercise while completing, will continue to review during each therapy session. After session, pt sitting in recliner with call light/phone in reach. All needs met in room. Safety measures in place. OT Short Term Goals Short Term Goals Time Frame: Aug 01, 2022 Lower body dressin Putting on/taking off footwear: 4 OT Podiatric Medicine Doctor Goals Podiatric Medicine Doctor Goals Time Frame: Aug 15, 2022 Acute change in mental status: 0 Inattention: 0 Disorganized thinkin Altered level of consciousness: 0 Eating (QC): 6 (met) Oral Hygiene (QC): 6 (met) Toileting Hygiene (QC): 6 (not met) Shower/Bathe Self (QC): 6 (not met) Upper Body Dressing (QC): 6 (not met) Lower Body Dressing (QC): 6 (not met) On/Off Footwear (QC): 6 (not met) Additional Goals: 1-Demonstrate ADL Tasks, 2-Verbalize Understanding, 3- ImproveStrength/Ellen 1=Demonstrate adherence to instructed precautions during ADL tasks. 2=Patient will verbalize/demonstrate understanding of assistive aracely josh/modifications for ADL. 3=Patient will improve strength/tolerance for activity to enable patient to perform ADL's. OT Education/Plan Problem List/Assessment Assessment: Decreased Activ Tolerance, Decreased UE Strength, Restricted Funct UE ROM, Visual-Perceptual Deficit Discharge Recommendations Plan/Recommendations: Continue POC Treatment Plan/Plan of Care Patient would benefit from OT for education, treatment and training to promote independence in ADL's, mobility, safety and/or upper extremity function for ADL's. Plan of Care: ADL Retraining, Functional Mobility, Group Exercise/Act as Ind, UE Funct Exercise/Act, UE Neuromus Re-Ed/Coord, Visual/Perceptual Retrain Treatment Duration: Aug 15, 2022 Frequency: At least 5 of 7 days/Wk (IRF) Estimated Hrs Per Day: 1.5 hours per day Agreement: Yes Rehab Potential: Fair Time Start Time: 11:00 Stop Time: 12:00 DATE: Aug 07, 2022 Total Time Billed (hr/min): 60 Billed Treatment Time 1 visit-NM 4 (60 min) JENNY ALBERTS Aug 07, 2022 11:59
--- NOTE | 2022-08-07 14:19 | Therapy Group Daily Note ---
Therapy Daily Group Note Patient Education Topic Home Safety, Other List Below (Environmental safety signs) Exercises LE Seated Exercise, UE Exercise Session Ratio (pt:therapist): 3:1 Goal of Session: Home Safety Strategies, UE/LE Strengthing Goal Met for this Session: Yes Pt Benefit of Group: Contributions to Others, F/U Use of Strategies @Home, Increased Functional Safety, Increased Functional Strength, Improved Cognition, Recognition of Peers, Socialization Other/Notes Pt ambulated using FWW to [facility] for OT/PT group. Group consisted of introductions (name, place living, favorite childhood game), socialization, B UE/LE seated exercises, Environmental Bingo with education on various topics from activity. Pt introduced self appropriately and actively listened to peers. Pt able to complete B UE/LE seated exercises, tolerated well. Pt was able to search, scan and place small items on designated spots to participate in fine/gross motor activity. Pt able to verbalize understanding of all topics and acknowledge understanding by giving personal examples. After group, pt sitting in recliner with call light/phone in reach. All needs met in room. Start Time: 13:00 Stop Time: 14:00 Total Billed Treatment Time: 60 Total Billed Treatment 1-GRP JENNY ALBERTS Aug 07, 2022 14:19
[2022-08-07] MEDS: ENOXAPARIN 40 MG/0.4 ML (LOVENOX) SYR SC SCH (17:10)
[2022-08-07 19:53] VITALS: BP 125/66
[2022-08-07] MEDS: MELATONIN 3 MG TABLET PO PRN (20:16)
[2022-08-08] MEDS: HYDROcodone/APAP 5 MG/325 MG (LORTAB) TAB PO PRN ×4 (03:18→22:30)
[2022-08-08] MEDS: MULTIVIT W/MINERALS TAB (THERAGRAN M) PO SCH (06:48)
[2022-08-08 08:00] VITALS: BP 113/56
--- NOTE | 2022-08-08 08:58 | Speech Therapy Daily Note ---
Speech Daily Progress Note Subjective Date Seen by Provider: Aug 08, 2022 Time Seen by Provider: 09:00 The patient was seated upright in the recliner, awake and alert, upon entrance to the patient's room by the clinician. The patient greeted the clinician appropriately and was agreeable to participation in the cognitive treatment session. Objective - Orientation: The patient independently recalled the month, day of the week, year, and location. The patient stated the date was the "." The patient was verbally cued to assess her surroundings for orientation information. At the close of the session, the patient independently recall all items, including the date (an approximate twenty minute delay). - SLUMS: The patient was provided the SLUMS ([facility] Mental Status Exam) and demonstrated a result of +. The patient's only area of impairment involved memory (five minute delayed recall of five words and recall of information following a brief paragraph). The patient was able to recall the five words following a category cue for each one. - Functional Recall: The patient was able to independently recall physical therapy session, exercises, and physical therapist. The patient recalled the events of the day prior, however, provided information to the clinician which was not accurate following a conversation with the patient's daughter. The patient stated her prior roommate "took off work and it all went well, etc." Per daughter, the patient's prior roommate was not present and she was not aware of additional items to receive. The patient's daughter stated, "No, that didn't happen. That's news to me." The patient continues to display moments of confusion throughout the session, requiring redirection for safety and topic maintenance. While impulsivity has improved, the clinician continues to hold concerns regarding the patient's ability to safely manage medications at home or inability to avoid specific areas of safety concerns when impulsivity arises (driving, etc.) At this time, the clinician continues to recommend 24/7 supervision for patient safety. Assessment Assessment Current Status: Good Progress Treatment Plan Continue Plan of Care Speech Short Term Goals Short Term Goals Short Term Goals 1. The patient will demonstrate functional memory strategies with 80% accuracy and mild verbal and visual cueing. Time Frame-STG: One Week. Speech Talent Management Specialist Goals Talent Management Specialist Goals 1. The patient will improve cognitive linguistic communication for safe discharge to the least restrictive environment. Time Frame: Two Weeks. Speech-Plan Treatment Plan Speech Therapy Treatment Plan: Continue Plan of Care Treatment Duration: Aug 01, 2022 Frequency: Modified Program (IRF) Estimated Hrs Per Day: .5 hour per day Rehab Potential: Fair Safety Risks/Education Teaching Recipient: Patient Teaching Methods: Discussion Response to Teaching: Reinforcement Needed Education Topics Provided: Orientation Strategies, Memory Strategies Discharge Recommendations 24 Hour Supervision, Post Acute ST Time Speech Therapy Time In: 09:00 Speech Therapy Time Out: 09:30 DATE: Aug 08, 2022 Total Billed Time: 30 Billed Treatment Time 1, JAIR MORENO Aug 08, 2022 08:58
--- NOTE | 2022-08-08 09:01 | Physical Therapy Progress Note ---
Therapy Progress Note Patient will require a FWW upon discharge. Patient is unable to complete ADLs with use of a cane. Patient has demonstrated ability to safely ambulate with use of a FWW. The patient's functional mobility deficits can be sufficiently resolved with use of a FWW. JOYCELYN CRUZ GUIDE CHANGER Aug 08, 2022 09:01
[2022-08-08] MEDS: hydrOXYzine (VISTARIL/ATARAX) 25 MG capsule/tablet PO SCH (09:36)
[2022-08-08] MEDS: ASPIRIN E.C. 81 MG (ECOTRIN) TAB PO SCH (09:36)
[2022-08-08] MEDS: DULoxetine 30 MG (CYMBALTA) CAP PO SCH (09:36)
[2022-08-08] MEDS: FOLIC ACID 1 MG TAB PO SCH (09:36)
[2022-08-08] MEDS: CLOPIDOGREL 75 MG (PLAVIX) TABLET PO SCH (09:36)
[2022-08-08] MEDS: GABAPENTIN 300 MG (NEURONTIN) CAP PO SCH ×3 (09:36→21:36)
[2022-08-08] MEDS: MELOXICAM 7.5 MG (MOBIC) TABLET PO SCH (09:36)
[2022-08-08] MEDS: LOSARTAN 100 MG (COZAAR) TABLET PO SCH (09:36)
[2022-08-08] MEDS: DOCUSATE SODIUM 100 MG (COLACE) CAP PO SCH ×2 (09:39→21:37)
[2022-08-08] MEDS: polyethylene glycoL POWDER 17 GM (MIRALAX) PACK PO SCH ×2 (09:39→21:37)
[2022-08-08] MEDS: SENNA W/DOCUSATE (SENOKOT S) TABLET PO SCH ×2 (09:40→21:38)
[2022-08-08] MEDS: SENNOSIDES 8.6 MG (SENOKOT) TAB PO SCH ×2 (09:40→21:38)
[2022-08-08] MEDS: NICOTINE 21 MG (NICODERM) PATCH TD SCH (10:19)
[2022-08-08] MEDS: amLODIPine 5 MG (NORVASC) TAB PO SCH (10:19)
[2022-08-08] MEDS: NICOTINE PATCH TP SCH (10:19)
--- NOTE | 2022-08-08 10:36 | Cardiology Progress Note ---
Subjective Date Seen by Provider: Aug 08, 2022 Time Seen by Provider: 10:35 Subjective/Events-last exam Patient was seen at bedside, sitting comfortably, feeling better No new Objective-Cardiology Exam Last Set of Vital Signs Vital Signs 08/02/22 08/08/22 09:56 08:00 Temp 36.5 Pulse 68 Resp 18 B/P (MAP) 113/56 (75) Pulse Ox 94 O2 Delivery Room Air O2 Flow Rate 0.00 I&O Intake and Output 08/08/22 00:00 Intake Total 1240 ml Balance 1240 ml Intake Oral 1240 ml # Voids 6 # Bowel Movements 1 General: Alert, Oriented X3 HEENT: Atraumatic, PERRLA Lungs: Clear to Auscultation, Normal Air Movement Heart: Regular Rate, Normal S1, Normal S2 Abdomen: Soft, No Tenderness Extremities: No Clubbing, No Edema Skin: No Rashes, No Significant Lesion Neuro: Normal Speech, Sensation Intact, Other (right sided weakness) Psych/Mental Status: Mental Status NL, Mood NL A/P-Cardiology Admission Diagnosis CVA NSTEMI HTN Weakness/debility Assessment/Plan 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 Site has healed well Elevated troponin, non-ST elevation myocardial infarction. No acute EKG changes. Troponin is trending down. Stress test was done on July 31, 2022 with no ischemia or infarction on SPECT images and normal ejection fraction Continue with aspirin and Plavix 2D echo was done on July 19, 2022 which showing normal left ventricular size with ejection fraction 60 to 65%, grade 1 diastolic dysfunction, mild mitral regurgitation, PA pressure 40 to 45 mmHg. No shunt was detected by using contrast Hypertension, controlled. Currently on losartan 100mg, amlodipine 5mg Lipid profile was done on July 19, 2022 and it was normal. Tobaccoism, advised to stop smoking Alcoholism. Patient reported that she drinks wine over the weekend REMEDIOS COHEN MD Aug 08, 2022 10:36
[2022-08-08] MEDS ORDERED: THIA100T66 PO (10:37)
[2022-08-08] MEDS ORDERED: ATOR80TA76 PO (10:37)
[2022-08-08] MEDS ORDERED: ASPI-1238 PO (10:37)
[2022-08-08] MEDS ORDERED: FOLI1TAB33 PO (10:37)
[2022-08-08] MEDS ORDERED: SENN-271 PO (10:37)
[2022-08-08] MEDS ORDERED: MONT-40 PO (10:37)
[2022-08-08] MEDS ORDERED: NICO1PAT34 TD (10:37)
[2022-08-08] MEDS ORDERED: LOSA100T57 PO (10:37)
[2022-08-08] MEDS ORDERED: AMLO-250 PO (10:37)
[2022-08-08] MEDS ORDERED: MELO15TA39 PO (10:37)
[2022-08-08] MEDS ORDERED: ACHD5005 PO (10:37)
[2022-08-08] MEDS ORDERED: DULO30CA49 PO (10:37)
[2022-08-08] MEDS ORDERED: FOLI-88 PO (10:37)
[2022-08-08] MEDS ORDERED: CLOP75TA28 PO (10:37)
[2022-08-08] MEDS ORDERED: HYDR-700 PO (10:37)
--- NOTE | 2022-08-08 10:39 | Discharge Inst-Skilled Nursing ---
Discharge Inst-Skilled NF Reconcile Patient Problems Problems Reviewed?: Yes Patient Instructions Patient Problems: Debility CVA Goal: [place] Consult/Follow Up/Orders Follow Up Appt.: PCP 1 week Skilled NF Admit to: Certification (SNF) I certify that SNF services are required to be given on an inpatient basis because of the above named patient's need for [facility] care on a continuing basis for the conditions(s) for which he/she was receiving inpatient hospital services prior to his/her transfer to the SNF. [facility] Facility Order: Nursing Services, Hot Dimpling Machine Operator-Evaluate & Treat, Speech Language-Evaluate & Treat Oxygen Delivery Method: Room Air Discharge Diet: No Restrictions Resuscitation Status: Full Code New & Resume Previous Orders New Medications: Thiamine HCl (B-1) 100 Mg Tablet 100 MG PO DAILY, #30 TAB Amlodipine Besylate (Amlodipine Besylate) 5 Mg Tablet 5 MG PO DAILY, #30 TAB Aspirin (Aspirin EC) 81 Mg Tablet.dr 81 MG PO DAILY, #30 TAB Atorvastatin Calcium (Atorvastatin Calcium) 80 Mg Tablet 80 MG PO DAILY, #30 TAB Clopidogrel Bisulfate (Clopidogrel) 75 Mg Tablet 75 MG PO DAILY, #30 TAB Folic Acid (Folic Acid) 1 Mg Tablet 1 MG PO DAILY, #30 TAB Hydrocodone/Acetaminophen (Hydrocodone-Acetamin 5-325 mg) 5 Mg-325 Mg Tablet 1 EA PO Q6HR PRN for PAIN-MODERATE (5-7), #20 TAB Nicotine (Nicoderm Cq) 21 Mg/24 Hour Patch.td24 21 MG TD DAILY@0900, #30 PATCH Sennosides/Docusate Sodium (Stool Softener-Laxative Tablet) 8.6 Mg-50 Mg Tablet 1 EA PO BID PRN for CONSTIPATION-3RD LINE, #15 TAB Changed Medications: Montelukast Sodium (Montelukast Sodium) 10 Mg Tablet 10 MG PO DAILY PRN for ALLERGIES, #30 TAB (Changed from: Removed Instructions) Continued Medications: Duloxetine HCl (Duloxetine HCl) 30 Mg Capsule.dr 30 MG PO DAILY, #30 CAP (This prescription has been renewed) FILLED 01-24-2022 #270/90 DAY SUPPLY Folic Acid/Multivit-Min/Lutein (Multi-Vitamin Gummies) 200 Mcg-137.5 Mcg Tab.chew 1 EACH PO DAILY, #30 TAB (This prescription has been renewed) Hydroxyzine HCl (Hydroxyzine HCl) 25 Mg Tablet 25 MG PO DAILY, #30 TAB (This prescription has been renewed) Losartan Potassium (Losartan Potassium) 100 Mg Tablet 100 MG PO DAILY, #30 TAB (This prescription has been renewed) Meloxicam (Meloxicam) 15 Mg Tablet 15 MG PO DAILY, #30 TAB (This prescription has been renewed) Peggy Abreu Aug 08, 2022 10:38 PEGGY ABREU DO Aug 08, 2022 10:39
--- NOTE | 2022-08-08 10:50 | PM&R Progress Note ---
Subjective HPI/CC On Admission Date Seen by Provider: Aug 08, 2022 Time Seen by Provider: 10:45 Subjective/Events-last exam 08/08/2022: No major issues Awaiting DC to SNF or detention care 08/07/2022: No major issues Complaints of pain but treated appropriately No falls 08/06/2022: No major issues No pain Cognition is improved 08/05/2022: Doing well Set for DC 08/08 No pain reported Labs stable 08/04/2022: Supportive care No pain reported Walking well 08/03/2022: Improved No pain reported No falls 08/02/2022: Doing well No pain reported Improved function 08/01/2022: Doing well SNF not really an option Needs DC home with family 07/31/2022: No major issues DC to SNF tomorrow? 07/30/2022: No major issues Set for SNF soon Eating well Cognition is much improved 07/29/2022: No major events No falls Working hard in therapy No pain except neuropathic type 07/28/2022: No major issues Memory loss and impulsiveness has brought the daughter to the conclusion she needs to go skilled care Hip xray no fracture 07/27/2022: Improved overall Right hip pain since fall so will order xray Daughter asked about DEXA scan and that would be outpatient 07/26/2022: No major issues Reviewed UA and no wbc's so no needed treatment No major concerns 07/25/2022: Doing well Improved already BM+ No pain 07/24/2022: Doing well Able to walk with therapy with assist No pain reported Reviewed meds and labs Daughter at bedside Review of Systems General: Fatigue, Malaise Objective Exam Vital Signs Vital Signs Date Time Temp Pulse Resp B/P (MAP) Pulse Ox O2 Delivery O2 Flow Rate FiO2 08/08/22 09:00 Room Air 08/08/22 08:00 36.5 68 18 113/56 (75) 94 08/02/22 09:56 0.00 Capillary Refill : General Appearance: No Apparent Distress, WD/WN, Chronically ill HEENT: PERRL/EOMI, Normal ENT Inspection, Pharynx Normal Neck: Full Range of Motion, Normal Inspection, Non Tender, Supple, Carotid Bruit Respiratory: Chest Non Tender, Lungs Clear, Normal Breath Sounds, No Accessory Muscle Use, No Respiratory Distress Cardiovascular: Regular Rate, Rhythm, No Edema, No Gallop, No JVD, No Murmur, Normal Peripheral Pulses Gastrointestinal: Normal Bowel Sounds, No Organomegaly, No Pulsatile Mass, Non Tender, Soft Back: Normal Inspection, No CVA Tenderness, No Vertebral Tenderness Extremity: Normal Capillary Refill, Normal Inspection, Normal Range of Motion, Non Tender, No Calf Tenderness, No Pedal Edema Neurologic/Psychiatric: Alert, Oriented x3, Normal Mood/Affect, puppy sitter II-XII Norm as Tested, Abnormal Gait, Depressed Affect, Motor Weakness Skin: Normal Color, Warm/Dry Lymphatic: No Adenopathy Results/Procedures Lab Patient resulted labs reviewed. FIM Transfers Therapy Code Descriptions/Definitions Functional [place] Measure: 0=Not Assessed/NA 4=Minimal Assistance 1=Total Assistance 5=Supervision or Setup 2=Maximal Assistance 6=Modified [place] 3=Moderate Assistance 7=Complete IndependenceSCALE: Activities may be completed with or without assistive devices. 7-Btwnxqvcuo-belqekv completes the activity by him/herself with no assistance from a helper. 5-Set-up or Clean-up Assistance-helper sets up or cleans up; patient completes activity. Walker assists only prior to or following the activity. 4-Supervision or Touching Assistance-helper provides verbal cues and/or touching/steadying and/or contact guard assistance as patient completes activity. Assistance may be provided throughout the activity or intermittently. 3-Partial/Moderate Assistance-helper does LESS THAN HALF the effort. Walker lifts, holds or supports trunk or limbs, but provides less than half the effort. 2-Substantial/Maximal Assistance-helper does MORE THAN HALF the effort. Walker lifts or holds trunk or limbs and provides more than half the effort. 2-Holaevshg-diluah does ALL the effort. Patient does none of the effort to complete the activity. Or, the assistance of 2 or more helpers is required for the patient to complete the activity. If activity was not attempted, code reason: 7-Patient Refused. 9-Not Applicable-not attempted and the patient did not perform the activity before the current illness, exacerbation or injury. 10-Not Attempted due to Environmental Limitations-(lack of equipment, weather restraints, etc.). 88-Not Attempted due to Medical Conditions or Safety Concerns. Roll Left to Right (QC): 6 Sit to Lying (QC): 6 Sit to Stand (QC): 4 Chair/Htq-fe-Dudte Xfer(QC): 4 Car Transfer (QC): 4 Gait Training Does the Patient Walk?: Yes Distance: 50, 450 Walk 10 feet (QC): 4 Walk 50 ft with 2 Turns(QC): 4 Walk 150 ft (QC): 4 Walking 10ft/uneven surface-QC: 4 Gait Persons Needed: 1 Gait Assistive Device: FWW Wheelchair Training Does the Pt Use a Wheelchair?: No Distance: 50' Wheel 50 ft with 2 turns (QC): 4 Wheel 150 ft (QC): 4 Type of Wheelchair: Manual Stair Training Stair Training: Handrails/: 2 handrails #of Steps: 12 1 Step (curb) (QC): 4 4 Steps (QC): 4 12 Steps (QC): 4 Stairs: Pattern: Step to Balance Picking up an Object (QC): 4 ADL-Treatment Eating (QC): 6 Oral Hygiene (QC): 6 Shower/Bathe Self (QC): 4 (Supervision) Upper Body Dressing (QC): 4 (Dressing by self, SBA to gather clothing.) Lower Body Dressing (QC): 4 On/Off Footwear (QC): 4 (Footwear by self, SBA for gathering clothing.) Toileting Hygiene (QC): 4 Toilet Transfer (QC): 4 Assessment/Plan Assessment and Plan Assess & Plan/Chief Complaint Assessment: 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 07/31/2022: Loop recorder no issues 08/01/2022: Monitor closely 08/02/2022: Monitor closely 08/03/2022: DC soon 08/04/2022: Monitor closely 08/05/2022: Continue aggressive rehab 08/06/2022: Monitoring closely 08/07/2022: DC to NH tomorrow 08/08/2022: Monitor closely (1) Acute ischemic multifocal posterior circulation stroke involving left-sided vessel Status: Acute (2) Non-ST elevated myocardial infarction Status: Acute (3) Elevated liver enzymes Status: Acute (4) PTSD (post-traumatic stress disorder) Status: Chronic (5) WENDY (generalized anxiety disorder) Status: Chronic (6) Hypertension Status: Chronic (7) COPD (chronic obstructive pulmonary disease) Status: Chronic UCHE WALL DO Aug 08, 2022 10:50
--- NOTE | 2022-08-08 11:57 | Physical Therapy Daily Note ---
PT Daily Note-Current Subjective Pt found seated in recliner upon entry. Agreed to PT. Reports 5/10 pain in R elbow pre-treatment. Pain Section J - Health Conditions 1. Rarely or not at all 2. Occasionally 3. Frequently 4. Almost constantly 8. Unable to answer Pain Effect on Sleep: 1 Pain Interference with Therapy: 1 (pins and needles in (R) UE) Pain Interference w/Day-to-Day: 1 Mental Status Patient Orientation: Person, Confused, Place Transfers SCALE: Activities may be completed with or without assistive devices. 5-Qplmhwysdx-hbuvuda completes the activity by him/herself with no assistance from a helper. 5-Set-up or Clean-up Assistance-helper sets up or cleans up; patient completes activity. [place] assists only prior to or following the activity. 4-Supervision or Touching Assistance-helper provides verbal cues and/or touching/steadying and/or contact guard assistance as patient completes activity. Assistance may be provided throughout the activity or intermittently. 3-Partial/Moderate Assistance-helper does LESS THAN HALF the effort. [place] lifts, holds or supports trunk or limbs, but provides less than half the effort. 2-Substantial/Maximal Assistance-helper does MORE THAN HALF the effort. [place] lifts or holds trunk or limbs and provides more than half the effort. 0-Cbihhilbh-cpggcb does ALL the effort. Patient does none of the effort to complete the activity. Or, the assistance of 2 or more helpers is required for the patient to complete the activity. If activity was not attempted, code reason: 7-Patient Refused. 9-Not Applicable-not attempted and the patient did not perform the activity before the current illness, exacerbation or injury. 10-Not Attempted due to Environmental Limitations-(lack of equipment, weather restraints, etc.). 88-Not Attempted due to Medical Conditions or Safety Concerns. Roll Left & Right (QC): 6 Sit to Lying (QC): 6 Lying to Sitting/Side of Bed(Q: 6 Sit to Stand (QC): 4 Chair/Laq-zk-Jiams Xfer(QC): 4 Toilet Transfer (QC): 4 Car Transfer (QC): 6 Pt independent /c all bed mobility using no assistive device. Independent /c car transfers. SBA for safety /c sit to stand, bed to chair, and toilet transfers. Weight Bearing Weight Bearing/Tolerated Weight Bearing/Tolerated Gait Training Does the Patient Walk?: Yes Distance: 50, 450, 50 Walk 10 feet (QC): 4 Walk 50 ft with 2 Turns(QC): 4 Walk 150 ft (QC): 4 Walking 10ft/uneven surface-QC: 4 Gait Persons Needed: 1 Gait Assistive Device: FWW Pt close SBA /c gait training up to 10 feet. CGA over 50 feet /c ambulation. Ambulated up to 450 feet /c use of FWW. Displays wide base of support /c gait training and steady gait speed. Occasionally demonstrates loss of balance due to kicking FWW or inability to advancing LE during swing phase. No verbal cues required. Wheelchair Training Does the Pt Use a Wheelchair?: No Stair Training Stair Training: Handrails/: 2 handrails #of Steps: 12 1 Step (curb) (QC): 4 4 Steps (QC): 4 12 Steps (QC): 4 Stairs: Pattern: Step to Pt required verbal cues for proper step pattern /c stair training. Completes 12 steps total /c use of 2 handrails. Balance Picking up an Object (QC): 4 Special Test Comments Close SBA /c picking up small object from floor. No steadying assistance required. Exercises NuStep Minutes: 15 NuStep Workload: 8 Neuromuscular Balance/strength training: NBOS x 1 minute Tandem stance 30 seconds x 2 B Heel/toe raises on AirX x 10 Retro-ambulation /c 180 degree turns x 20 feet Treatments Exercises: Mini squats x 10 Assessment Current Status: Good Progress Pt displays good tolerance to balance, endurance, and strength training. Able to ambulated up to 450 /c use of FWW. Occasional loss of balance displayed /c balance training and uses // for steadying assistance. Completes retro- ambulation /c CGA for safety and displays no loss of balance while completing 180 degree turns. Required verbal cues for proper completion of stair training and uses 2 handrails. Continue to progress pt as tolerated per POC to improve strength, endurance, and safety awareness. PT Assisted Goals Bundle Tier And Labeler Goals PT Assisted Goals Time Frame: Aug 13, 2022 Roll Left & Right (QC): 6 Sit to Lying (QC): 6 Lying-Sitting on Side/Bed(QC): 6 Sit to Stand (QC): 6 Chair/Mwj-cr-Rhjzd Xfer(QC): 6 Toilet Transfer (QC): 6 Car Transfer (QC): 5 Does the Patient Walk: Yes Walk 10 feet (QC): 5 Walk 50ft with 2 Turns (QC): 5 (with least restrictive device with less (R) LE ataxia) Walk 150 ft (QC): 5 (with least restrictive device with less (R) LE ataxia) Walking 10ft on Uneven Surface: 5 (with least restrictive device with less (R) LE ataxia) 1 Step (curb) (QC): 5 (with least restrictive device) 4 Steps (QC): 5 (with (B) rails) 12 Steps (QC): 4 (Min (A) with (B) rails) Picking up an Object (QC): 5 Does the Pt use WC or Scooter?: Yes Wheel 50 feet with 2 turns (QC: 6 Type: Manual Wheel 150 feet: 6 Type: Manual PT Plan Treatment/Plan Treatment Plan: Continue Plan of Care Treatment Plan: Bed Mobility, Education, Functional Activity Ellen, Functional Strength, Group Therapy, Gait, Safety, Therapeutic Exercise, Transfers, Other Treatment Duration: Aug 13, 2022 Frequency: At least 5 of 7 days/Wk (IRF) Estimated Hrs Per Day: 1.5 hours per day Patient and/or Family Agrees t: Yes Time Time In: 0800 Time Out: 0900 DATE: Aug 08, 2022 Total Billed Treatment Time: 60 Total Billed Treatment 1 visit GT x 1 FA x 1 NM x 1 EX x1 JOYCELYN CRUZ CATHODE RAY TUBE ASSEMBLER Aug 08, 2022 11:57
--- NOTE | 2022-08-08 12:32 | Physical Therapy Daily Note ---
PT Daily Note-Current Subjective Pt found seated in recliner /c family present. Agreed to PT. Pt appeared visibly upset. States it is due to issues /c insurance company. No reports of pain. Pain Section J - Health Conditions 1. Rarely or not at all 2. Occasionally 3. Frequently 4. Almost constantly 8. Unable to answer Pain Effect on Sleep: 1 Pain Interference with Therapy: 1 (pins and needles in (R) UE) Pain Interference w/Day-to-Day: 1 Mental Status Patient Orientation: Person, Confused, Place Transfers SCALE: Activities may be completed with or without assistive devices. 2-Svmwvmlxhd-ymbmyeh completes the activity by him/herself with no assistance from a helper. 5-Set-up or Clean-up Assistance-helper sets up or cleans up; patient completes activity. [place] assists only prior to or following the activity. 4-Supervision or Touching Assistance-helper provides verbal cues and/or touching/steadying and/or contact guard assistance as patient completes activity. Assistance may be provided throughout the activity or intermittently. 3-Partial/Moderate Assistance-helper does LESS THAN HALF the effort. [place] lifts, holds or supports trunk or limbs, but provides less than half the effort. 2-Substantial/Maximal Assistance-helper does MORE THAN HALF the effort. [place] lifts or holds trunk or limbs and provides more than half the effort. 1-Xvyacghjy-tllqqt does ALL the effort. Patient does none of the effort to complete the activity. Or, the assistance of 2 or more helpers is required for the patient to complete the activity. If activity was not attempted, code reason: 7-Patient Refused. 9-Not Applicable-not attempted and the patient did not perform the activity before the current illness, exacerbation or injury. 10-Not Attempted due to Environmental Limitations-(lack of equipment, weather restraints, etc.). 88-Not Attempted due to Medical Conditions or Safety Concerns. Sit to Stand (QC): 4 Pt SBA /c sit to stand transfers for safety due to balance deficits. Weight Bearing Weight Bearing/Tolerated Weight Bearing/Tolerated Gait Training Does the Patient Walk?: Yes Distance: 80, 150 Walk 10 feet (QC): 4 Walk 50 ft with 2 Turns(QC): 4 Walk 150 ft (QC): 4 Gait Persons Needed: 1 Gait Assistive Device: FWW Pt close SBA up to 10 feet of ambulation. CGA for 50 feet of gait and over. Ambulated /c use of FWW up to 150 feet. Short rest break required /c gait training. Assessment Current Status: Good Progress Pt displays good tolerance to gait training. No signs or reports of increased pain throughout visit. Displays wide base of supports /c good step lengths. Ambulated 230 feet total. Continue to progress pt as tolerated per POC to improve strength, endurance, and safety awareness. PT Fpc Goals Grinding And Spraying Supervisor Goals PT Grinding And Spraying Supervisor Goals Time Frame: Aug 13, 2022 Roll Left & Right (QC): 6 Sit to Lying (QC): 6 Lying-Sitting on Side/Bed(QC): 6 Sit to Stand (QC): 6 Chair/Dke-cn-Bbpzr Xfer(QC): 6 Toilet Transfer (QC): 6 Car Transfer (QC): 5 Does the Patient Walk: Yes Walk 10 feet (QC): 5 Walk 50ft with 2 Turns (QC): 5 (with least restrictive device with less (R) LE ataxia) Walk 150 ft (QC): 5 (with least restrictive device with less (R) LE ataxia) Walking 10ft on Uneven Surface: 5 (with least restrictive device with less (R) LE ataxia) 1 Step (curb) (QC): 5 (with least restrictive device) 4 Steps (QC): 5 (with (B) rails) 12 Steps (QC): 4 (Min (A) with (B) rails) Picking up an Object (QC): 5 Does the Pt use WC or Scooter?: Yes Wheel 50 feet with 2 turns (QC: 6 Type: Manual Wheel 150 feet: 6 Type: Manual PT Plan Treatment/Plan Treatment Plan: Continue Plan of Care Treatment Plan: Bed Mobility, Education, Functional Activity Ellen, Functional Strength, Group Therapy, Gait, Safety, Therapeutic Exercise, Transfers, Other Treatment Duration: Aug 13, 2022 Frequency: At least 5 of 7 days/Wk (IRF) Estimated Hrs Per Day: 1.5 hours per day Patient and/or Family Agrees t: Yes Time Time In: 1130 Time Out: 1145 DATE: Aug 08, 2022 Total Billed Treatment Time: 15 Total Billed Treatment 1 visit GT x 1 MAJOR,JOYCELYN CHILD PROTECTIVE SERVICES SPECIALIST Aug 08, 2022 12:32
--- NOTE | 2022-08-08 12:43 | Occupational Ther Daily Note ---
OT Current Status-Daily Note Subjective Pt seen in room, alert in chair, and agreed to participate in OT. No pain mentioned. Appearance Alert and cooperative Mental Status/Objective Patient Orientation: Person, Place, Time, Situation ADL-Treatment Pt removed socks and shoes while seated in chair with supervision. Pt then ambulated with FWW to bathroom shower bench with CGA. Pt required verbal cues to go into shower and sit on bench, CGA. Pt showered and bathed self with supervison. Pt attempted to use R hand/arm througout the duration of the shower, used R hand to squeeze shampoo bottle,and reach across body to wash self. With FWW and CGA pt ambulated out of the shower to a chair inside bathroom. Pt required SBA with upper body dressing, did dress upper body self. Pt then sequenced correctly with no verbal cues required. Lower body dressing required CGA when standing. Patient completed grooming while standing at sink, with CGA, if sitting pt is independent. Therapist helped pt with tedhose, but pt was able to put socks and shoes on by self.Toileting was completed during session, and pt required SBA. Toileting transfer required CGA, FWW. Pt demonstra [place] impulsivity, and over confidence during session today. Pt stated needs help opening packets during eating. Pt left in chair, with chair alarm. All needs met. Therapy Code Descriptions/Definitions Functional [place] Measure: 0=Not Assessed/NA 4=Minimal Assistance 1=Total Assistance 5=Supervision or Setup 2=Maximal Assistance 6=Modified [place] 3=Moderate Assistance 7=Complete IndependenceSCALE: Activities may be completed with or without assistive devices. 1-Fxdknnidlq-cxblwoe completes the activity by him/herself with no assistance from a helper. 5-Set-up or Clean-up Assistance-helper sets up or cleans up; patient completes activity. [place]ufus assists only prior to or following the activity. 4-Supervision or Touching Assistance-helper provides verbal cues and/or touchi ng/steadying and/or contact guard assistance as patient completes activity. Assistance may be provided throughout the activity or intermittently. 3-Partial/Moderate Assistance-helper does LESS THAN HALF the effort. Rufus lifts, holds or supports trunk or limbs, but provides less than half the effort. 2-Substantial/Maximal Assistance-helper does MORE THAN HALF the effort. Rufus lifts or holds trunk or limbs and provides more than half the effort. 1-Vtvsyqcxg-qrrlri does ALL the effort. Patient does none of the effort to complete the activity. Or, the assistance of 2 or more helpers is required for the patient to complete the activity. If activity was not attempted, code reason: 7-Patient Refused. 9-Not Applicable-not attempted and the patient did not perform the activity before the current illness, exacerbation or injury. 10-Not Attempted due to Environmental Limitations-(lack of equipment, weather restraints, etc.). 88-Not Attempted due to Medical Conditions or Safety Concerns. Eating (QC): 5 Oral Hygiene (QC): 6 Shower/Bathe Self (QC): 4 Upper Body Dressing (QC): 4 Lower Body Dressing (QC): 4 On/Off Footwear: 4 Toileting Hygiene (QC): 4 Toilet Transfer (QC): 4 Education OT Patient Education: Progress toward Goal/Update tx plan, Purpose of tx/functional activities, Safety issues, Transfer techniques Teaching Recipient: Patient Teaching Methods: Discussion Response to Teaching: Verbalize Understanding, Reinforcement Needed OT Short Term Goals Short Term Goals Time Frame: Aug 01, 2022 Lower body dressin Putting on/taking off footwear: 4 OT Nursing Home Goals Hairspring Vibrator Goals Time Frame: Aug 15, 2022 Acute change in mental status: 0 Inattention: 0 Disorganized thinkin Altered level of consciousness: 0 Eating (QC): 6 (met) Oral Hygiene (QC): 6 (met) Toileting Hygiene (QC): 6 (not met) Shower/Bathe Self (QC): 6 (not met) Upper Body Dressing (QC): 6 (not met) Lower Body Dressing (QC): 6 (not met) On/Off Footwear (QC): 6 (not met) Additional Goals: 1-Demonstrate ADL Tasks, 2-Verbalize Understanding, 3- ImproveStrength/Ellen 1=Demonstrate adherence to instructed precautions during ADL tasks. 2=Patient will verbalize/demonstrate understanding of assistive devices/modifications for ADL. 3=Patient will improve strength/tolerance for activity to enable patient to perform ADL's. OT Education/Plan Discharge Recommendations Plan/Recommendations: Continue POC Treatment Plan/Plan of Care Treatment,Training & Education: Yes Patient would benefit from OT for education, treatment and training to promote independence in ADL's, mobility, safety and/or upper extremity function for ADL's. Plan of Care: ADL Retraining, Functional Mobility, Group Exercise/Act as Ind, UE Funct Exercise/Act, UE Neuromus Re-Ed/Coord, Visual/Perceptual Retrain Treatment Duration: Aug 15, 2022 Frequency: At least 5 of 7 days/Wk (IRF) Estimated Hrs Per Day: 1.5 hours per day Agreement: Yes Rehab Potential: Fair Time Start Time: 09:30 Stop Time: 11:00 DATE: Aug 08, 2022 Total Time Billed (hr/min): 75 Billed Treatment Time Visit, 75 min of ADL ESTELA PATEL OT Aug 08, 2022 12:43
[2022-08-08 16:23] VITALS: BP 113/56
[2022-08-08] MEDS: ENOXAPARIN 40 MG/0.4 ML (LOVENOX) SYR SC SCH (16:27)
[2022-08-08 20:00] VITALS: BP 111/64
[2022-08-08] MEDS: MELATONIN 3 MG TABLET PO PRN (21:36)
--- NOTE | 2022-08-09 06:23 | PM&R Progress Note ---
Subjective HPI/CC On Admission Date Seen by Provider: Aug 09, 2022 Time Seen by Provider: 11:00 Subjective/Events-last exam 08/09/2022: Doing well Monitor closely 08/08/2022: No major issues Awaiting DC to SNF or alf care 08/07/2022: No major issues Complaints of pain but treated appropriately No falls 08/06/2022: No major issues No pain Cognition is improved 08/05/2022: Doing well Set for DC 08/08 No pain reported Labs stable 08/04/2022: Supportive care No pain reported Walking well 08/03/2022: Improved No pain reported No falls 08/02/2022: Doing well No pain reported Improved function 08/01/2022: Doing well SNF not really an option Needs DC home with family 07/31/2022: No major issues DC to SNF tomorrow? 07/30/2022: No major issues Set for SNF soon Eating well Cognition is much improved 07/29/2022: No major events No falls Working hard in therapy No pain except neuropathic type 07/28/2022: No major issues Memory loss and impulsiveness has brought the daughter to the conclusion she needs to go skilled care Hip xray no fracture 07/27/2022: Improved overall Right hip pain since fall so will order xray Daughter asked about DEXA scan and that would be outpatient 07/26/2022: No major issues Reviewed UA and no wbc's so no needed treatment No major concerns 07/25/2022: Doing well Improved already BM+ No pain 07/24/2022: Doing well Able to walk with therapy with assist No pain reported Reviewed meds and labs Daughter at bedside Review of Systems General: Fatigue, Malaise Objective Exam Vital Signs Vital Signs Date Time Temp Pulse Resp B/P (MAP) Pulse Ox O2 Delivery O2 Flow Rate FiO2 08/09/22 07:34 36.3 69 20 119/62 (81) 95 Room Air 08/08/22 16:23 21 Capillary Refill : General Appearance: No Apparent Distress, WD/WN, Chronically ill HEENT: PERRL/EOMI, Normal ENT Inspection, Pharynx Normal Neck: Full Range of Motion, Normal Inspection, Non Tender, Supple, Carotid Bruit Respiratory: Chest Non Tender, Lungs Clear, Normal Breath Sounds, No Accessory Muscle Use, No Respiratory Distress Cardiovascular: Regular Rate, Rhythm, No Edema, No Gallop, No JVD, No Murmur, Normal Peripheral Pulses Gastrointestinal: Normal Bowel Sounds, No Organomegaly, No Pulsatile Mass, Non Tender, Soft Back: Normal Inspection, No CVA Tenderness, No Vertebral Tenderness Extremity: Normal Capillary Refill, Normal Inspection, Normal Range of Motion, Non Tender, No Calf Tenderness, No Pedal Edema Neurologic/Psychiatric: Alert, Oriented x3, Normal Mood/Affect, core winder II-XII Norm as Tested, Abnormal Gait, Depressed Affect, Motor Weakness Skin: Normal Color, Warm/Dry Lymphatic: No Adenopathy Results/Procedures Lab Patient resulted labs reviewed. FIM Transfers Therapy Code Descriptions/Definitions Functional [place] Measure: 0=Not Assessed/NA 4=Minimal Assistance 1=Total Assistance 5=Supervision or Setup 2=Maximal Assistance 6=Modified [place] 3=Moderate Assistance 7=Complete IndependenceSCALE: Activities may be completed with or without assistive devices. 9-Yddwmuymhp-fhnylgm completes the activity by him/herself with no assistance from a helper. 5-Set-up or Clean-up Assistance-helper sets up or cleans up; patient completes activity. [place] assists only prior to or following the activity. 4-Supervision or Touching Assistance-helper provides verbal cues and/or touching/steadying and/or contact guard assistance as patient completes activity. Assistance may be provided throughout the activity or intermittently. 3-Partial/Moderate Assistance-helper does LESS THAN HALF the effort. [place] lifts, holds or supports trunk or limbs, but provides less than half the effort. 2-Substantial/Maximal Assistance-helper does MORE THAN HALF the effort. [place] lifts or holds trunk or limbs and provides more than half the effort. 0-Eqakfcnpa-hgxslf does ALL the effort. Patient does none of the effort to complete the activity. Or, the assistance of 2 or more helpers is required for the patient to complete the activity. If activity was not attempted, code reason: 7-Patient Refused. 9-Not Applicable-not attempted and the patient did not perform the activity before the current illness, exacerbation or injury. 10-Not Attempted due to Environmental Limitations-(lack of equipment, weather restraints, etc.). 88-Not Attempted due to Medical Conditions or Safety Concerns. Roll Left to Right (QC): 6 Sit to Lying (QC): 6 Sit to Stand (QC): 4 Chair/Yub-ep-Jktnn Xfer(QC): 4 Car Transfer (QC): 6 Gait Training Does the Patient Walk?: Yes Distance: 80, 150 Walk 10 feet (QC): 4 Walk 50 ft with 2 Turns(QC): 4 Walk 150 ft (QC): 4 Walking 10ft/uneven surface-QC: 4 Gait Persons Needed: 1 Gait Assistive Device: FWW Wheelchair Training Does the Pt Use a Wheelchair?: No Distance: 50' Wheel 50 ft with 2 turns (QC): 4 Wheel 150 ft (QC): 4 Type of Wheelchair: Manual Stair Training Stair Training: Handrails/: 2 handrails #of Steps: 12 1 Step (curb) (QC): 4 4 Steps (QC): 4 12 Steps (QC): 4 Stairs: Pattern: Step to Balance Picking up an Object (QC): 4 ADL-Treatment Eating (QC): 5 Oral Hygiene (QC): 6 Shower/Bathe Self (QC): 4 Upper Body Dressing (QC): 4 Lower Body Dressing (QC): 4 On/Off Footwear (QC): 4 Toileting Hygiene (QC): 4 Toilet Transfer (QC): 4 Assessment/Plan Assessment and Plan Assess & Plan/Chief Complaint Assessment: 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 07/31/2022: Loop recorder no issues 08/01/2022: Monitor closely 08/02/2022: Monitor closely 08/03/2022: DC soon 08/04/2022: Monitor closely 08/05/2022: Continue aggressive rehab 08/06/2022: Monitoring closely 08/07/2022: DC to NH tomorrow 08/08/2022: Monitor closely 08/09/2022: Monitor closely (1) Acute ischemic multifocal posterior circulation stroke involving left-sided vessel Status: Acute (2) Non-ST elevated myocardial infarction Status: Acute (3) Elevated liver enzymes Status: Acute (4) PTSD (post-traumatic stress disorder) Status: Chronic (5) WENDY (generalized anxiety disorder) Status: Chronic (6) Hypertension Status: Chronic (7) COPD (chronic obstructive pulmonary disease) Status: Chronic UCHE WALL DO Aug 09, 2022 06:23
[2022-08-09] MEDS: HYDROcodone/APAP 5 MG/325 MG (LORTAB) TAB PO PRN ×3 (06:24→18:41)
[2022-08-09] MEDS: MULTIVIT W/MINERALS TAB (THERAGRAN M) PO SCH (06:24)
[2022-08-09 07:34] VITALS: BP 119/62
[2022-08-09] MEDS: hydrOXYzine (VISTARIL/ATARAX) 25 MG capsule/tablet PO SCH (07:43)
[2022-08-09] MEDS: NICOTINE 21 MG (NICODERM) PATCH TD SCH (07:43)
[2022-08-09] MEDS: GABAPENTIN 300 MG (NEURONTIN) CAP PO SCH ×3 (07:44→21:29)
[2022-08-09] MEDS: LOSARTAN 100 MG (COZAAR) TABLET PO SCH (07:44)
[2022-08-09] MEDS: FOLIC ACID 1 MG TAB PO SCH (07:44)
[2022-08-09] MEDS: MELOXICAM 7.5 MG (MOBIC) TABLET PO SCH (07:44)
[2022-08-09] MEDS: NICOTINE PATCH TP SCH (07:44)
[2022-08-09] MEDS: DULoxetine 30 MG (CYMBALTA) CAP PO SCH (07:44)
[2022-08-09] MEDS: DOCUSATE SODIUM 100 MG (COLACE) CAP PO SCH ×2 (07:44→21:30)
[2022-08-09] MEDS: amLODIPine 5 MG (NORVASC) TAB PO SCH (07:44)
[2022-08-09] MEDS: ASPIRIN E.C. 81 MG (ECOTRIN) TAB PO SCH (07:45)
[2022-08-09] MEDS: CLOPIDOGREL 75 MG (PLAVIX) TABLET PO SCH (08:27)
[2022-08-09] MEDS: polyethylene glycoL POWDER 17 GM (MIRALAX) PACK PO SCH ×2 (09:58→21:30)
[2022-08-09] MEDS: SENNA W/DOCUSATE (SENOKOT S) TABLET PO SCH ×2 (09:59→21:31)
[2022-08-09] MEDS: SENNOSIDES 8.6 MG (SENOKOT) TAB PO SCH ×2 (09:59→21:31)
[2022-08-09] MEDS: ENOXAPARIN 40 MG/0.4 ML (LOVENOX) SYR SC SCH (16:25)
[2022-08-09 20:00] VITALS: BP 124/61
[2022-08-09] MEDS: MELATONIN 3 MG TABLET PO PRN (21:29)
[2022-08-10] MEDS: HYDROcodone/APAP 5 MG/325 MG (LORTAB) TAB PO PRN ×4 (00:52→18:53)
[2022-08-10] MEDS: MULTIVIT W/MINERALS TAB (THERAGRAN M) PO SCH (07:00)
--- NOTE | 2022-08-10 07:23 | PM&R Progress Note ---
Subjective HPI/CC On Admission Date Seen by Provider: Aug 10, 2022 Time Seen by Provider: 15:30 Subjective/Events-last exam 08/10/2022: Ready for DC tomorrow AL vs NH? Daughter at bedside 08/09/2022: Doing well Monitor closely 08/08/2022: No major issues Awaiting DC to SNF or snf care 08/07/2022: No major issues Complaints of pain but treated appropriately No falls 08/06/2022: No major issues No pain Cognition is improved 08/05/2022: Doing well Set for DC 08/08 No pain reported Labs stable 08/04/2022: Supportive care No pain reported Walking well 08/03/2022: Improved No pain reported No falls 08/02/2022: Doing well No pain reported Improved function 08/01/2022: Doing well SNF not really an option Needs DC home with family 07/31/2022: No major issues DC to SNF tomorrow? 07/30/2022: No major issues Set for SNF soon Eating well Cognition is much improved 07/29/2022: No major events No falls Working hard in therapy No pain except neuropathic type 07/28/2022: No major issues Memory loss and impulsiveness has brought the daughter to the conclusion she needs to go skilled care Hip xray no fracture 07/27/2022: Improved overall Right hip pain since fall so will order xray Daughter asked about DEXA scan and that would be outpatient 07/26/2022: No major issues Reviewed UA and no wbc's so no needed treatment No major concerns 07/25/2022: Doing well Improved already BM+ No pain 07/24/2022: Doing well Able to walk with therapy with assist No pain reported Reviewed meds and labs Daughter at bedside Review of Systems General: Fatigue, Malaise Objective Exam Vital Signs Vital Signs Date Time Temp Pulse Resp B/P (MAP) Pulse Ox O2 Delivery O2 Flow Rate FiO2 08/10/22 21:15 97 Room Air 08/10/22 19:27 36.3 69 20 120/78 (92) 08/08/22 16:23 21 Capillary Refill : General Appearance: No Apparent Distress, WD/WN, Chronically ill HEENT: PERRL/EOMI, Normal ENT Inspection, Pharynx Normal Neck: Full Range of Motion, Normal Inspection, Non Tender, Supple, Carotid Bruit Respiratory: Chest Non Tender, Lungs Clear, Normal Breath Sounds, No Accessory Muscle Use, No Respiratory Distress Cardiovascular: Regular Rate, Rhythm, No Edema, No Gallop, No JVD, No Murmur, Normal Peripheral Pulses Gastrointestinal: Normal Bowel Sounds, No Organomegaly, No Pulsatile Mass, Non Tender, Soft Back: Normal Inspection, No CVA Tenderness, No Vertebral Tenderness Extremity: Normal Capillary Refill, Normal Inspection, Normal Range of Motion, Non Tender, No Calf Tenderness, No Pedal Edema Neurologic/Psychiatric: Alert, Oriented x3, Normal Mood/Affect, newspaper photojournalist II-XII Norm as Tested, Abnormal Gait, Depressed Affect, Motor Weakness Skin: Normal Color, Warm/Dry Lymphatic: No Adenopathy Results/Procedures Lab Patient resulted labs reviewed. FIM Transfers Therapy Code Descriptions/Definitions Functional [place] Measure: 0=Not Assessed/NA 4=Minimal Assistance 1=Total Assistance 5=Supervision or Setup 2=Maximal Assistance 6=Modified [place] 3=Moderate Assistance 7=Complete IndependenceSCALE: Activities may be completed with or without assistive devices. 8-Luseyvrlmb-utdqyww completes the activity by him/herself with no assistance from a helper. 5-Set-up or Clean-up Assistance-helper sets up or cleans up; patient completes activity. [place] assists only prior to or following the activity. 4-Supervision or Touching Assistance-helper provides verbal cues and/or touching/steadying and/or contact guard assistance as patient completes activity. Assistance may be provided throughout the activity or intermittently. 3-Partial/Moderate Assistance-helper does LESS THAN HALF the effort. [place] lift s, holds or supports trunk or limbs, but provides less than half the effort. 2-Substantial/Maximal Assistance-helper does MORE THAN HALF the effort. [place] lifts or holds trunk or limbs and provides more than half the effort. 7-Cnfnxvptl-pkombx does ALL the effort. Patient does none of the effort to complete the activity. Or, the assistance of 2 or more helpers is required for the patient to complete the activity. If activity was not attempted, code reason: 7-Patient Refused. 9-Not Applicable-not attempted and the patient did not perform the activity before the current illness, exacerbation or injury. 10-Not Attempted due to Environmental Limitations-(lack of equipment, weather restraints, etc.). 88-Not Attempted due to Medical Conditions or Safety Concerns. Roll Left to Right (QC): 6 Sit to Lying (QC): 6 Sit to Stand (QC): 4 Chair/Dxp-dr-Bbsql Xfer(QC): 4 Car Transfer (QC): 6 Gait Training Does the Patient Walk?: Yes Distance: 80, 150 Walk 10 feet (QC): 4 Walk 50 ft with 2 Turns(QC): 4 Walk 150 ft (QC): 4 Walking 10ft/uneven surface-QC: 4 Gait Persons Needed: 1 Gait Assistive Device: FWW Wheelchair Training Does the Pt Use a Wheelchair?: No Distance: 50' Wheel 50 ft with 2 turns (QC): 4 Wheel 150 ft (QC): 4 Type of Wheelchair: Manual Stair Training Stair Training: Handrails/: 2 handrails #of Steps: 12 1 Step (curb) (QC): 4 4 Steps (QC): 4 12 Steps (QC): 4 Stairs: Pattern: Step to Balance Picking up an Object (QC): 4 ADL-Treatment Eating (QC): 5 Oral Hygiene (QC): 6 Shower/Bathe Self (QC): 4 Upper Body Dressing (QC): 4 Lower Body Dressing (QC): 4 On/Off Footwear (QC): 4 Toileting Hygiene (QC): 4 Toilet Transfer (QC): 4 Assessment/Plan Assessment and Plan Assess & Plan/Chief Complaint Assessment: 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 07/31/2022: Loop recorder no issues 08/01/2022: Monitor closely 08/02/2022: Monitor closely 08/03/2022: DC soon 08/04/2022: Monitor closely 08/05/2022: Continue aggressive rehab 08/06/2022: Monitoring closely 08/07/2022: DC to NH tomorrow 08/08/2022: Monitor closely 08/09/2022: Monitor closely 08/10/2022: DC tomorrow (1) Acute ischemic multifocal posterior circulation stroke involving left-sided vessel Status: Acute (2) Non-ST elevated myocardial infarction Status: Acute (3) Elevated liver enzymes Status: Acute (4) PTSD (post-traumatic stress disorder) Status: Chronic (5) WENDY (generalized anxiety disorder) Status: Chronic (6) Hypertension Status: Chronic (7) COPD (chronic obstructive pulmonary disease) Status: Chronic UCHE WALL DO Aug 10, 2022 07:23
[2022-08-10] MEDS: DULoxetine 30 MG (CYMBALTA) CAP PO SCH (08:22)
[2022-08-10] MEDS: GABAPENTIN 300 MG (NEURONTIN) CAP PO SCH ×3 (08:22→21:25)
[2022-08-10] MEDS: FOLIC ACID 1 MG TAB PO SCH (08:22)
[2022-08-10] MEDS: LOSARTAN 100 MG (COZAAR) TABLET PO SCH (08:22)
[2022-08-10] MEDS: hydrOXYzine (VISTARIL/ATARAX) 25 MG capsule/tablet PO SCH (08:22)
[2022-08-10] MEDS: NICOTINE 21 MG (NICODERM) PATCH TD SCH (08:22)
[2022-08-10] MEDS: CLOPIDOGREL 75 MG (PLAVIX) TABLET PO SCH (08:22)
[2022-08-10] MEDS: MELOXICAM 7.5 MG (MOBIC) TABLET PO SCH (08:22)
[2022-08-10] MEDS: amLODIPine 5 MG (NORVASC) TAB PO SCH (08:23)
[2022-08-10] MEDS: ASPIRIN E.C. 81 MG (ECOTRIN) TAB PO SCH (08:23)
[2022-08-10 08:24] VITALS: BP 123/65
--- NOTE | 2022-08-10 09:15 | Cardiology Progress Note ---
Subjective Date Seen by Provider: Aug 10, 2022 Time Seen by Provider: 09:14 Subjective/Events-last exam Patient was seen at bedside, sitting comfortably, feeling better Review of Systems General: No Chills, No Night Sweats, No Fatigue, No Malaise, No Appetite, No Other HEENT: No Head Aches, No Visual Changes, No Eye Pain, No Ear Pain, No Dysphasia, No Sinus Congestion, No Post Nasal Drip, No Sore Throat, No Other Pulmonary: No Dyspnea, No Cough, No Pleuritic Chest Pain, No Other Cardiovascular: No: Chest Pain, Palpitations, Orthopnea, Paroxysmal Noc. Dyspnea, Edema, Lt Headedness, Other Objective-Cardiology Exam Last Set of Vital Signs Vital Signs 08/08/22 08/10/22 16: 08:24 Temp 36.4 Pulse 78 Resp 18 B/P (MAP) 123/65 (84) Pulse Ox 98 O2 Delivery Room Air FiO2 21 I&O Intake and Output 08/10/22 00:00 Intake Total 1160 ml Balance 1160 ml Intake Oral 1160 ml # Voids 6 # Bowel Movements 1 General: Alert, Oriented X3 HEENT: Atraumatic, PERRLA Lungs: Clear to Auscultation, Normal Air Movement Heart: Regular Rate, Normal S1, Normal S2 Abdomen: Soft, No Tenderness Extremities: No Clubbing, No Edema Skin: No Rashes, No Significant Lesion Neuro: Normal Speech, Sensation Intact, Other (right sided weakness) Psych/Mental Status: Mental Status NL, Mood NL A/P-Cardiology Admission Diagnosis CVA NSTEMI HTN Weakness/debility Assessment/Plan Status post acute CVA. CT angiogram reported as distal left CELL TUBER MACHINE occlusion Currently on aspirin and Plavix Still having right hemiplegia, slowly improving Receiving physical therapy. 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 Site has healed well Elevated troponin, non-ST elevation myocardial infarction. No acute EKG changes. Troponin is trending down. Stress test was done on July 31, 2022 with no ischemia or infarction on SPECT images and normal ejection fraction Continue with aspirin and Plavix 2D echo was done on July 19, 2022 which showing normal left ventricular size with ejection fraction 60 to 65%, grade 1 diastolic dysfunction, mild mitral regurgitation, PA pressure 40 to 45 mmHg. No shunt was detected by using contrast Hypertension, controlled. Currently on losartan 100mg, amlodipine 5mg Lipid profile was done on July 19, 2022 and it was normal. Tobaccoism, advised to stop smoking Alcoholism. Patient reported that she drinks wine over the weekend REMEDIOS COHEN MD Aug 10, 2022 09:15
[2022-08-10] MEDS: DOCUSATE SODIUM 100 MG (COLACE) CAP PO SCH ×2 (11:34→21:24)
[2022-08-10] MEDS: NICOTINE PATCH TP SCH (11:34)
[2022-08-10] MEDS: SENNOSIDES 8.6 MG (SENOKOT) TAB PO SCH ×2 (11:35→21:25)
[2022-08-10] MEDS: polyethylene glycoL POWDER 17 GM (MIRALAX) PACK PO SCH ×2 (11:35→21:24)
[2022-08-10] MEDS: SENNA W/DOCUSATE (SENOKOT S) TABLET PO SCH ×2 (11:35→21:24)
[2022-08-10] MEDS: ENOXAPARIN 40 MG/0.4 ML (LOVENOX) SYR SC SCH (16:22)
[2022-08-10 19:27] VITALS: BP 120/78
[2022-08-10] MEDS: MELATONIN 3 MG TABLET PO PRN (21:25)
[2022-08-11] MEDS: HYDROcodone/APAP 5 MG/325 MG (LORTAB) TAB PO PRN ×2 (04:02→11:44)
[2022-08-11] MEDS: MULTIVIT W/MINERALS TAB (THERAGRAN M) PO SCH (06:41)
[2022-08-11 08:00] VITALS: BP_SYST 129; BP_SYST 137; BP_DIAS 71; BP_DIAS 83
[2022-08-11] MEDS: ASPIRIN E.C. 81 MG (ECOTRIN) TAB PO SCH (08:31)
[2022-08-11] MEDS: DULoxetine 30 MG (CYMBALTA) CAP PO SCH (08:31)
[2022-08-11] MEDS: GABAPENTIN 300 MG (NEURONTIN) CAP PO SCH ×2 (08:31→13:18)
[2022-08-11] MEDS: MELOXICAM 7.5 MG (MOBIC) TABLET PO SCH (08:31)
[2022-08-11] MEDS: NICOTINE 21 MG (NICODERM) PATCH TD SCH (08:31)
[2022-08-11] MEDS: amLODIPine 5 MG (NORVASC) TAB PO SCH (08:31)
[2022-08-11] MEDS: LOSARTAN 100 MG (COZAAR) TABLET PO SCH (08:31)
[2022-08-11] MEDS: FOLIC ACID 1 MG TAB PO SCH (08:31)
[2022-08-11] MEDS: CLOPIDOGREL 75 MG (PLAVIX) TABLET PO SCH (08:32)
[2022-08-11] MEDS: hydrOXYzine (VISTARIL/ATARAX) 25 MG capsule/tablet PO SCH (08:32)
[2022-08-11] MEDS: NICOTINE PATCH TP SCH (08:33)
[2022-08-11] MEDS: SENNOSIDES 8.6 MG (SENOKOT) TAB PO SCH (08:33)
[2022-08-11] MEDS: polyethylene glycoL POWDER 17 GM (MIRALAX) PACK PO SCH (08:33)
[2022-08-11] MEDS: SENNA W/DOCUSATE (SENOKOT S) TABLET PO SCH (08:33)
[2022-08-11] MEDS: DOCUSATE SODIUM 100 MG (COLACE) CAP PO SCH (08:35)
--- NOTE | 2022-08-11 08:55 | Cardiology Progress Note ---
Subjective Date Seen by Provider: Aug 11, 2022 Time Seen by Provider: 08:10 Subjective/Events-last exam Patient with physical therapy. Denies any chest pain Objective-Cardiology Exam Last Set of Vital Signs Vital Signs 08/08/22 08/11/22 08/11/22 16: 08:00 08:59 Temp 36.4 Pulse 70 Resp 20 B/P (MAP) 137/71 (93) Pulse Ox 98 O2 Delivery Room Air FiO2 21 I&O Intake and Output 08/11/22 00:00 Intake Total 1600 ml Balance 1600 ml Intake Oral 1600 ml # Voids 6 # Bowel Movements 1 General: Alert, Oriented X3 HEENT: Atraumatic, PERRLA Lungs: Clear to Auscultation, Normal Air Movement Heart: Regular Rate, Normal S1, Normal S2 Abdomen: Soft, No Tenderness Extremities: No Clubbing, No Edema Skin: No Rashes, No Significant Lesion Neuro: Normal Speech, Sensation Intact, Other (right sided weakness) Psych/Mental Status: Mental Status NL, Mood NL A/P-Cardiology Admission Diagnosis CVA NSTEMI HTN Weakness/debility Assessment/Plan Status post acute CVA. CT angiogram reported as distal left BLOOD TESTER FOWL occlusion Currently on aspirin and Plavix Still having right hemiplegia, slowly improving Receiving physical therapy. 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 Site has healed well Elevated troponin, non-ST elevation myocardial infarction. No acute EKG changes. Troponin is trending down. Stress test was done on July 31, 2022 with no ischemia or infarction on SPECT images and normal ejection fraction Continue with aspirin and Plavix 2D echo was done on July 19, 2022 which showing normal left ventricular size with ejection fraction 60 to 65%, grade 1 diastolic dysfunction, mild mitral regurgitation, PA pressure 40 to 45 mmHg. No shunt was detected by using contrast Hypertension, controlled. Currently on losartan 100mg, amlodipine 5mg Lipid profile was done on July 19, 2022 and it was normal. Tobaccoism, advised to stop smoking Alcoholism. Patient reported that she drinks wine over the weekend Supervisory-Addendum Brief Supervisory Addendum Participated in pt care: history, MDM, physical Personally performed: exam, history, MDM Care discussed with: MARK Results interpretation: Verified all documentation Notes: Patient was seen and evaluated with Geoff, examination performed, management plan was discussed, agree with the current scribed note, I made few changes to the note using Italic font Patient was seen at bedside, sitting comfortably Denied any chest pain, reporting that she was able to walk to her room from the exercise area today Continue on current medication monitor Okay for discharge GEOFF VINES Aug 11, 2022 08:55 REMEDIOS COHEN MD Aug 11, 2022 09:20
--- NOTE | 2022-08-11 09:42 | Occupational Ther Daily Note ---
OT Current Status-Daily Note Subjective Pt alert, sitting at [facility] table. Pt agrees to therapy. No c/o pain at this time. Mental Status/Objective Patient Orientation: Person, Place, Time, Situation ADL-Treatment Pt has demonstrated ability to complete shower sitting on shower bench using grabbars and hand held showers to complete all areas except when standing to cleanse buttocks with supervision for safety. Pt demonstrates ability to retrieve objects using FWW at varying heights with supervision for safety. Pt completes UBD and footwear by self after set up. Pt thread clothing over feet then supervision to hike pants over hips. Pt completes toileting independently using grabbars, FWW. Standing at sink to complete oral care independently. Independent to eat meals. Pt does utilize R UE for helper hand. Therapy Code Descriptions/Definitions Functional [place] Measure: 0=Not Assessed/NA 4=Minimal Assistance 1=Total Assistance 5=Supervision or Setup 2=Maximal Assistance 6=Modified [place] 3=Moderate Assistance 7=Complete IndependenceSCALE: Activities may be completed with or without assistive devices. 1-Yumdbgeqdv-gelyfcm completes the activity by him/herself with no assistance from a helper. 5-Set-up or Clean-up Assistance-helper sets up or cleans up; patient completes activity. [place] assists only prior to or following the activity. 4-Supervision or Touching Assistance-helper provides verbal cues and/or touching/steadying and/or contact guard assistance as patient completes activity. Assistance may be provided throughout the activity or intermittently. 3-Partial/Moderate Assistance-helper does LESS THAN HALF the effort. [place] lifts, holds or supports trunk or limbs, but provides less than half the effort. 2-Substantial/Maximal Assistance-helper does MORE THAN HALF the effort. [place] lifts or holds trunk or limbs and provides more than half the effort. 1-Szjfvokyn-cyywnn does ALL the effort. Patient does none of the effort to complete the activity. Or, the assistance of 2 or more helpers is required for the patient to complete the activity. If activity was not attempted, code reason: 7-Patient Refused. 9-Not Applicable-not attempted and the patient did not perform the activity before the current illness, exacerbation or injury. 10-Not Attempted due to Environmental Limitations-(lack of equipment, weather restraints, etc.). 88-Not Attempted due to Medical Conditions or Safety Concerns. Eating (QC): 6 Oral Hygiene (QC): 6 Shower/Bathe Self (QC): 4 (supervision) Upper Body Dressing (QC): 5 Lower Body Dressing (QC): 4 (supervision) On/Off Footwear: 5 Toileting Hygiene (QC): 6 Toilet Transfer (QC): 4 (supervision) Other Treatment Pt working on R UE AROM and strength in therapy gym. Pt able to stabilize R UE in shldr flexion to grasp and pinch clothespins then bring to lower designated area to place. Pt is more accurate with each time attempted. Pt then completed ROM arc with R UE independently. Pt is progressing with coordination of R UE though does continue to need further therapy on this. Pt will talk herself through tasks for reminders on how and what to do. Pt ambulated without AD from gym to room with CGA for safety, no LOB throughout ambulation. After therapy, pt sitting in recliner with call light/phone in reach. All needs met in room. BIMS CAM BIMS Expression of Ideas and Wants: Without Difficulty Understanding Verbal Content: Understands Brief Interview/Mental Status: Yes IRF RAI BIMS: IRF RAI BIMS Response (Comments) Value Repitition of Three Words Three 3 Recalls Socks Yes, No Cue Required 2 Recalls Blue Yes, No Cue Required 2 Recalls Bed Yes, After Cueing 1 Year Correct 3 Month Accurate Within 5 Days 2 Day Correct 1 Total 14 Patient Normally Able to Recal: Current Session, Location of own room, Staff Names and faces, That he/she in a hsp Should Staff Asses. Mental St.: No CAM Mental Status Change/Baseline: 0 Inattention: 0 Disorganized thinkin Altered level of consciousness: 0 OT Short Term Goals Short Term Goals Time Frame: Aug 01, 2022 Lower body dressin Putting on/taking off footwear: 4 OT Group Home Goals [facility] Instructor Goals Time Frame: Aug 15, 2022 Acute change in mental status: 0 Inattention: 0 Disorganized thinkin Altered level of consciousness: 0 Eating (QC): 6 (met) Oral Hygiene (QC): 6 (met) Toileting Hygiene (QC): 6 (met) Shower/Bathe Self (QC): 6 (not met) Upper Body Dressing (QC): 6 (not met) Lower Body Dressing (QC): 6 (not met) On/Off Footwear (QC): 6 (not met) Additional Goals: 1-Demonstrate ADL Tasks, 2-Verbalize Understanding, 3- ImproveStrength/Ellen 1=Demonstrate adherence to instructed precautions during ADL tasks. 2=Patient will verbalize/demonstrate understanding of assistive devices/modifications for ADL. 3=Patient will improve strength/tolerance for activity to enable patient to perform ADL's. OT Education/Plan Problem List/Assessment Assessment: Decreased Safety Aware, Impaired Self-Care Skills, Visual- Perceptual Deficit (R side minimal visual fieldcut) Discharge Recommendations Plan/Recommendations: Continue POC Treatment Plan/Plan of Care Patient would benefit from OT for education, treatment and training to promote independence in ADL's, mobility, safety and/or upper extremity function for ADL's. Plan of Care: ADL Retraining, Functional Mobility, Group Exercise/Act as Ind, UE Funct Exercise/Act, UE Neuromus Re-Ed/Coord, Visual/Perceptual Retrain Treatment Duration: Aug 15, 2022 Frequency: At least 5 of 7 days/Wk (IRF) Estimated Hrs Per Day: 1.5 hours per day Agreement: Yes Rehab Potential: Fair Time Start Time: 07:00 Stop Time: 08:30 DATE: Aug 11, 2022 Total Time Billed (hr/min): 90 Billed Treatment Time 1 visit-ADL 3 (45 min) NM 3 (45 min) JENNY ALBERTS Aug 11, 2022 09:42
--- NOTE | 2022-08-11 10:57 | Physical Therapy Daily Note ---
PT Daily Note-Current Subjective Pt found seated in recliner upon entry. Agreed to PT. Pt reports 5/10 tingling pain pre-treatment. States the majority of her pain is in her R hand. Pain Section J - Health Conditions 1. Rarely or not at all 2. Occasionally 3. Frequently 4. Almost constantly 8. Unable to answer Pain Effect on Sleep: 1 Pain Interference with Therapy: 1 (pins and needles in (R) UE) Pain Interference w/Day-to-Day: 1 Mental Status Patient Orientation: Person, Confused, Place Transfers SCALE: Activities may be completed with or without assistive devices. 3-Zqsosfctcd-zxgovwz completes the activity by him/herself with no assistance from a helper. 5-Set-up or Clean-up Assistance-helper sets up or cleans up; patient completes activity. Hudson assists only prior to or following the activity. 4-Supervision or Touching Assistance-helper provides verbal cues and/or touching/steadying and/or contact guard assistance as patient completes act ivity. Assistance may be provided throughout the activity or intermittently. 3-Partial/Moderate Assistance-helper does LESS THAN HALF the effort. Hudson lifts, holds or supports trunk or limbs, but provides less than half the effort. 2-Substantial/Maximal Assistance-helper does MORE THAN HALF the effort. Hudson lifts or holds trunk or limbs and provides more than half the effort. 9-Rkhwmyrbc-dchdtg does ALL the effort. Patient does none of the effort to complete the activity. Or, the assistance of 2 or more helpers is required for the patient to complete the activity. If activity was not attempted, code reason: 7-Patient Refused. 9-Not Applicable-not attempted and the patient did not perform the activity before the current illness, exacerbation or injury. 10-Not Attempted due to Environmental Limitations-(lack of equipment, weather restraints, etc.). 88-Not Attempted due to Medical Conditions or Safety Concerns. Roll Left & Right (QC): 6 Sit to Lying (QC): 6 Lying to Sitting/Side of Bed(Q: 6 Sit to Stand (QC): 4 Chair/Pvo-ii-Uqzpf Xfer(QC): 4 Toilet Transfer (QC): 4 Car Transfer (QC): 6 Pt independent /c all bed mobility /c no use of an assistive device. SBA /c sit to stand, bed to chair, and toilet transfers for safety due to strength and safety awareness deficits. Weight Bearing Weight Bearing/Tolerated Weight Bearing/Tolerated Gait Training Does the Patient Walk?: Yes Distance: 100, 300, 100 Walk 10 feet (QC): 4 Walk 50 ft with 2 Turns(QC): 4 Walk 150 ft (QC): 4 Walking 10ft/uneven surface-QC: 4 Gait Persons Needed: 1 Gait Assistive Device: None Pt ambulates without use of an assistive device and CGA for safety due to balance and strength deficits. Able to ambulate up to 300 feet before requiring a seated rest break. Displays good step length and gait speed /c ambulation. No loss of balance displayed throughout treatment. Stair Training Stair Training: Handrails/: 2 handrails #of Steps: 12 1 Step (curb) (QC): 4 4 Steps (QC): 4 12 Steps (QC): 4 Stairs: Pattern: Step to Pt SBA /c verbal cues for proper step pattern /c stair training. Completes 12 steps total /c use of 2 handrails and step to pattern. No loss of balance displayed while completing. Required a short seated rest break after completion of steps. Balance Picking up an Object (QC): 4 Special Test Comments CGA /c picking up object from floor for safety due to balance and strength deficits. No assistive device used. No display of loss of balance. Exercises NuStep Minutes: 15 NuStep Workload: 8 Treatments Standing exercises: Step ups on step + AirX x 10 B (forwards/sideways) Split squats x 5 B (2 hands) Mini squats x 10 (2 hands) Heel/toe raises on AirX x 10 (2 hands) Side stepping /c RTB at // x 5 trips Hip 3-ways /c RTB x 10 ea B Assessment Current Status: Good Progress Pt displays good muscle strength and endurance throughout visit. Pt occasionally reports tingling pain in R hand that does not exceed a 5/10 pain rating. Able to ambulate without use of assistive device and requires CGA. Ambulates up to 300 feet before requiring a short seated rest break. Requires occasional seated rest breaks /c therapeutic exercises. Continue to progress pt as tolerated per POC to improve strength, endurance, and functional ability. PT [facility] Goals Mate Ship Goals PT Mate Ship Goals Time Frame: Aug 13, 2022 Roll Left & Right (QC): 6 Sit to Lying (QC): 6 Lying-Sitting on Side/Bed(QC): 6 Sit to Stand (QC): 6 Chair/Koy-ic-Ikeuv Xfer(QC): 6 Toilet Transfer (QC): 6 Car Transfer (QC): 5 Does the Patient Walk: Yes Walk 10 feet (QC): 5 Walk 50ft with 2 Turns (QC): 5 (with least restrictive device with less (R) LE ataxia) Walk 150 ft (QC): 5 (with least restrictive device with less (R) LE ataxia) Walking 10ft on Uneven Surface: 5 (with least restrictive device with less (R) LE ataxia) 1 Step (curb) (QC): 5 (with least restrictive device) 4 Steps (QC): 5 (with (B) rails) 12 Steps (QC): 4 (Min (A) with (B) rails) Picking up an Object (QC): 5 Does the Pt use WC or Scooter?: Yes Wheel 50 feet with 2 turns (QC: 6 Type: Manual Wheel 150 feet: 6 Type: Manual PT Plan Treatment/Plan Treatment Plan: Continue Plan of Care Treatment Plan: Bed Mobility, Education, Functional Activity Ellen, Functional Strength, Group Therapy, Gait, Safety, Therapeutic Exercise, Transfers, Other Treatment Duration: Aug 13, 2022 Frequency: At least 5 of 7 days/Wk (IRF) Estimated Hrs Per Day: 1.5 hours per day Patient and/or Family Agrees t: Yes Time Time In: 0945 Time Out: 1100 DATE: Aug 11, 2022 Total Billed Treatment Time: 75 Total Billed Treatment 1 visit GT x 2 FA x 2 EX x 1 JOYCELYN CRZU ORACLE DATABASE MANAGER Aug 11, 2022 10:57
--- NOTE | 2022-08-11 11:02 | Speech Therapy Daily Note ---
Speech Daily Progress Note Subjective Date Seen by Provider: Aug 11, 2022 Time Seen by Provider: 09:00 The patient was seated upright in her recliner, awake and alert, upon entrance to her room by the clinician. The patient greeted the clinician appropriately and was agreeable to participation in the cognitive treatment session. The patient's daughter remained present for the treatment session on this date. Objective - Orientation: The patient has a calendar next to her recliner, a white board present in the room, and her cell phone on her night stand. Each item listed has orientation information which includes month, day of the week, date, and year. The patient is able to state the month and year accurately. The patient is unable to state the day of the week or the date. The patient does not ind ependently utilize orientation items/strategies, requiring the clinician to verbally prompt the patient to use an item. The patient chooses her phone and is able to state the information accurately. Following, the clinician reviewed each item and how to utilize each item to identify orientation information. - Memory Log: In attempts to manage and track daily medication and important events, the clinician introduced a memory log on this date. The patient was asked to record each time she took her medication or any time she received information to recall. The patient was encouraged to keep the memory journal and her phone with her at all times for increased safety and recall. During periods of recall, the patient was unable to locate the memory journal. The memory journal was placed direction in front of the patient on her tray. Maximum verbal prompting and direct modeling was required for limited accuracy with the memory journal and recall of medication administration. While the patient's cognition continues to improve, the clinician remains with concerns regarding the patient's overall safety due to the memory deficit which remains. Assessment Assessment Current Status: Good Progress Treatment Plan Continue Plan of Care Speech Short Term Goals Short Term Goals Short Term Goals 1. The patient will demonstrate functional memory strategies with 80% accuracy and mild verbal and visual cueing. Time Frame-STG: One Week. Speech Cotton Converter Goals Cotton Converter Goals 1. The patient will improve cognitive linguistic communication for safe discharge to the least restrictive environment. Time Frame: Two Weeks. Speech-Plan Treatment Plan Speech Therapy Treatment Plan: Continue Plan of Care Treatment Duration: Aug 01, 2022 Frequency: Modified Program (IRF) Estimated Hrs Per Day: .5 hour per day Rehab Potential: Fair Pt/Family Agrees to Plan: Yes Safety Risks/Education Teaching Recipient: Patient, Family Teaching Methods: Discussion Response to Teaching: Reinforcement Needed Education Topics Provided: Plan of Care, Memory Log/Strategies Discharge Recommendations Post Acute ST Time Speech Therapy Time In: 09:00 Speech Therapy Time Out: 09:45 DATE: Aug 11, 2022 Total Billed Time: 45 Billed Treatment Time 1, JAIR MORENO Aug 11, 2022 11:02
[2022-08-11] MEDS ORDERED: THIA100T66 PO (11:28)
[2022-08-11] MEDS ORDERED: ATOR80TA76 PO (11:28)
[2022-08-11] MEDS ORDERED: HYDR-700 PO (11:28)
[2022-08-11] MEDS ORDERED: DULO30CA49 PO (11:28)
[2022-08-11] MEDS ORDERED: FOLI1TAB33 PO (11:28)
[2022-08-11] MEDS ORDERED: ACHD5005 PO (11:28)
[2022-08-11] MEDS ORDERED: MONT-40 PO (11:28)
[2022-08-11] MEDS ORDERED: AMLO-250 PO (11:28)
[2022-08-11] MEDS ORDERED: SENN-271 PO (11:28)
[2022-08-11] MEDS ORDERED: ASPI-1238 PO (11:28)
[2022-08-11] MEDS ORDERED: FOLI-88 PO (11:28)
[2022-08-11] MEDS ORDERED: MELO15TA39 PO (11:28)
[2022-08-11] MEDS ORDERED: LOSA100T57 PO (11:28)
[2022-08-11] MEDS ORDERED: NICO1PAT34 TD (11:28)
[2022-08-11] MEDS ORDERED: CLOP75TA28 PO (11:28)
--- NOTE | 2022-08-11 11:30 | Discharge Summary ---
Diagnosis/Chief Complaint Date of Admission Jul 23, 2022 at 10:45 Date of Discharge Discharge Date: Aug 08, 2022 Discharge Diagnosis Assess & Plan/Chief Complaint Assessment: 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 07/31/2022: Loop recorder no issues 08/01/2022: Monitor closely 08/02/2022: Monitor closely 08/03/2022: DC soon 08/04/2022: Monitor closely 08/05/2022: Continue aggressive rehab 08/06/2022: Monitoring closely 08/07/2022: DC to NH tomorrow 08/08/2022: Monitor closely 08/09/2022: Monitor closely 08/10/2022: DC tomorrow (1) Acute ischemic multifocal posterior circulation stroke involving left-sided vessel Status: Acute (2) Non-ST elevated myocardial infarction Status: Acute (3) Elevated liver enzymes Status: Acute (4) PTSD (post-traumatic stress disorder) Status: Chronic (5) WENDY (generalized anxiety disorder) Status: Chronic (6) Hypertension Status: Chronic (7) COPD (chronic obstructive pulmonary disease) Status: Chronic Discharge Summary Discharge Physical Examination Allergies: Coded Allergies: codeine (Verified Allergy, Unknown, 07/18/22) cyclobenzaprine (Verified Allergy, Unknown, 07/18/22) Vitals & I&Os Vital Signs Date Time Temp Pulse Resp B/P (MAP) Pulse Ox O2 Delivery O2 Flow Rate FiO2 08/11/22 08:59 Room Air 08/11/22 08:00 36.4 70 20 137/71 (93) 98 08/08/22 16:23 21 General Appearance: Alert, Oriented X3, Cooperative, Other (poor recall) Respiratory: Clear to Auscultation Cardiovascular: Regular Rate Psych/Mental Status: Mental Status NL Hospital Course Was the Problem List Reviewed?: Yes Lengthy course in ARU for CVA and memory deficit following CVA and alcoholism issues. She participated in all therapies and was able to regain a lot of baseline function but her memory was an issue requiring heavy cues. She was seem daily and no clinical status changes were noted. BP remained stable on meds. No falls occurred. She was ready for DC to [place]. Labs (last 24 hrs) Laboratory Tests 07/23/22 05:22: Triglycerides Level 51, Cholesterol Level 91, LDL Cholesterol Direct 35, VLDL Cholesterol 10, HDL Cholesterol 43 07/23/22 16:32: Glucometer 120H 07/23/22 20:30: Glucometer 125H 07/24/22 05:28: White Blood Count 6.2, Red Blood Count 3.93, Hemoglobin 12.7, Hematocrit 38, Mean Corpuscular Volume 97, Mean Corpuscular Hemoglobin 32, Mean Corpuscular Hemoglobin Concent 33, Red Cell Distribution Width 12.9, Platelet Count 102L, Mean Platelet Volume 11.1, Immature Granulocyte % (Auto) 1, Neutrophils (%) (A uto) 59, Lymphocytes (%) (Auto) 26, Monocytes (%) (Auto) 11, Eosinophils (%) (Auto) 3, Basophils (%) (Auto) 0, Neutrophils # (Auto) 3.7, Lymphocytes # (Auto) 1.6, Monocytes # (Auto) 0.7, Eosinophils # (Auto) 0.2, Basophils # (Auto) 0.0, Immature Granulocyte # (Auto) 0.0, Sodium Level 141, Potassium Level 3.7, Chloride Level 109H, Carbon Dioxide Level 24, Anion Gap 8, Blood Urea Nitrogen 10, Creatinine 0.52L, Estimat Glomerular Filtration Rate 103, BUN/Creatinine Rat io 19, Glucose Level 99, Calcium Level 8.7, Corrected Calcium 9.4, Total Bilirubin 0.9, Aspartate Amino Transf (AST/SGOT) 70H, Alanine Aminotransferase (ALT/SGPT) 80H, Alkaline Phosphatase 55, Total Protein 5.7L, Albumin 3.1L 07/24/22 10:40: Glucometer 109 07/24/22 15:40: Glucometer 98 07/24/22 20:04: Glucometer 112H 07/25/22 06:25: Glucometer 96 07/25/22 10:52: Glucometer 127H 07/28/22 05:45: White Blood Count 5.3, Red Blood Count 3.89, Hemoglobin 12.4, Hematocrit 38, Mean Corpuscular Volume 98, Mean Corpuscular Hemoglobin 32, Mean Corpuscular Hemoglobin Concent 33, Red Cell Distribution Width 12.9, Platelet Count 126L, Mean Platelet Volume 10.9, Percent Immature Platelet Fraction 7.1, Sodium Level 140, Potassium Level 4.1, Chloride Level 109H, Carbon Dioxide Level 22, Anion Gap 9, Blood Urea Nitrogen 11, Creatinine 0.56L, Estimat Glomerular Filtration Rate 101, BUN/Creatinine Ratio 20, Glucose Level 95, Calcium Level 8.7, Corrected Calcium 9.3, Total Bilirubin 0.6, Aspartate Amino Transf (AST/SGOT) 55H, Alanine Aminotransferase (ALT/SGPT) 68H, Alkaline Phosphatase 59, Total Protein 5.9L, Albumin 3.2 08/05/22 05:42: White Blood Count 3.6L, Red Blood Count 3.40L, Hemoglobin 11.0L, Hematocrit 34L, Mean Corpuscular Volume 99, Mean Corpuscular Hemoglobin 32, Mean Corpuscular Hemoglobin Concent 33, Red Cell Distribution Width 12.4, Platelet Count 115L, Mean Platelet Volume 10.9, Percent Immature Platelet Fraction 6.2, Sodium Level 142, Potassium Level 4.1, Chloride Level 110H, Carbon Dioxide Level 25, Anion Gap 7, Blood Urea Nitrogen 9, Creatinine 0.56L, Estimat Glomerular Filtration Rate 101, BUN/Creatinine Ratio 16, Glucose Level 84, Calcium Level 8.7, Corrected Calcium 9.7, Total Bilirubin 0.3, Aspartate Amino Transf (AST/SGOT) 33, Alanine Aminotransferase (ALT/SGPT) 40, Alkaline Phosphatase 57, Total Protein 5.3L, Albumin 2.8L, Immature Granulocyte % (Auto) 0, Neutrophils (%) (Auto) 52, Lymphocytes (%) (Auto) 36, Monocytes (%) (Auto) 10, Eosinophils (%) (Auto) 2, Basophils (%) (Auto) 1, Neutrophils # (Auto) 1.9, Lymphocytes # (Auto) 1.3, Monocytes # (Auto) 0.3, Eosinophils # (Auto) 0.1, Basophils # (Auto) 0.0, Immature Granulocyte # (Auto) 0.0, Smear Scan YES Pending Labs Laboratory Tests 07/23/22 05:22: Triglycerides Level 51, Cholesterol Level 91, LDL Cholesterol Direct 35, VLDL Cholesterol 10, HDL Cholesterol 43 07/23/22 16:32: Glucometer 120 07/23/22 20:30: Glucometer 125 07/24/22 05:28: White Blood Count 6.2, Red Blood Count 3.93, Hemoglobin 12.7, Hematocrit 38, Mean Corpuscular Volume 97, Mean Corpuscular Hemoglobin 32, Mean Corpuscular Hemoglobin Concent 33, Red Cell Distribution Width 12.9, Platelet Count 102, Mean Platelet Volume 11.1, Immature Granulocyte % (Auto) 1, Neutrophils (%) (Auto) 59, Lymphocytes (%) (Auto) 26, Monocytes (%) (Auto) 11, Eosinophils (%) (Auto) 3, Basophils (%) (Auto) 0, Neutrophils # (Auto) 3.7, Lymphocytes # (Auto) 1.6, Monocytes # (Auto) 0.7, Eosinophils # (Auto) 0.2, Basophils # (Auto) 0.0, Immature Granulocyte # (Auto) 0.0, Sodium Level 141, Potassium Level 3.7, Chloride Level 109, Carbon Dioxide Level 24, Anion Gap 8, Blood Urea Nitrogen 10, Creatinine 0.52, Estimat Glomerular Filtration Rate 103, BUN/Creatinine Ratio 19, Glucose Level 99, Calcium Level 8.7, Corrected Calcium 9.4, Total Bilirubin 0.9, Aspartate Amino Transf (AST/SGOT) 70, Alanine Aminotransferase (ALT/SGPT) 80, Alkaline Phosphatase 55, Total Protein 5.7, Albumin 3.1 07/24/22 10:40: Glucometer 109 07/24/22 15:40: Glucometer 98 07/24/22 20:04: Glucometer 112 07/25/22 06:25: Glucometer 96 07/25/22 10:52: Glucometer 127 07/28/22 05:45: White Blood Count 5.3, Red Blood Count 3.89, Hemoglobin 12.4, Hematocrit 38, Mean Corpuscular Volume 98, Mean Corpuscular Hemoglobin 32, Mean Corpuscular Hemoglobin Concent 33, Red Cell Distribution Width 12.9, Platelet Count 126, Mean Platelet Volume 10.9, Percent Immature Platelet Fraction 7.1, Sodium Level 140, Potassium Level 4.1, Chloride Level 109, Carbon Dioxide Level 22, Anion Gap 9, Blood Urea Nitrogen 11, Creatinine 0.56, Estimat Glomerular Filtration Rate 101, BUN/Creatinine Ratio 20, Glucose Level 95, Calcium Level 8.7, Corrected Calcium 9.3, Total Bilirubin 0.6, Aspartate Amino Transf (AST/SGOT) 55, Alanine Aminotransferase (ALT/SGPT) 68, Alkaline Phosphatase 59, Total Protein 5.9, Albumin 3.2 08/05/22 05:42: White Blood Count 3.6, Red Blood Count 3.40, Hemoglobin 11.0, Hematocrit 34, Mean Corpuscular Volume 99, Mean Corpuscular Hemoglobin 32, Mean Corpuscular Hemoglobin Concent 33, Red Cell Distribution Width 12.4, Platelet Count 115, Mean Platelet Volume 10.9, Percent Immature Platelet Fraction 6.2, Sodium Level 142, Potassium Level 4.1, Chloride Level 110, Carbon Dioxide Level 25, Anion Gap 7, Blood Urea Nitrogen 9, Creatinine 0.56, Estimat Glomerular Filtration Rate 101, BUN/Creatinine Ratio 16, Glucose Level 84, Calcium Level 8.7, Corrected Calcium 9.7, Total Bilirubin 0.3, Aspartate Amino Transf (AST/SGOT) 33, Alanine Aminotransferase (ALT/SGPT) 40, Alkaline Phosphatase 57, Total Protein 5.3, Albumin 2.8, Immature Granulocyte % (Auto) 0, Neutrophils (%) (Auto) 52, Lymphocytes (%) (Auto) 36, Monocytes (%) (Auto) 10, Eosinophils (%) (Auto) 2, Basophils (%) (Auto) 1, Neutrophils # (Auto) 1.9, Lymphocytes # (Auto) 1.3, Monocytes # (Auto) 0.3, Eosinophils # (Auto) 0.1, Basophils # (Auto) 0.0, Immature Granulocyte # (Auto) 0.0, Smear Scan YES Discharge Home Medications: Active Scripts Active B-1 (Thiamine HCl) 100 Mg Tablet 100 Mg PO DAILY Folic Acid 1 Mg Tablet 1 Mg PO DAILY Stool Softener-Laxative Tablet (Sennosides/Docusate Sodium) 8.6 Mg-50 Mg Tablet 1 Ea PO BID PRN Hydrocodone-Acetamin 5-325 mg (Hydrocodone/Acetaminophen) 5 Mg-325 Mg Tablet 1 Ea PO Q6HR PRN Aspirin EC (Aspirin) 81 Mg Tablet.dr 81 Mg PO DAILY Amlodipine Besylate 5 Mg Tablet 5 Mg PO DAILY Atorvastatin Calcium 80 Mg Tablet 80 Mg PO DAILY Clopidogrel (Clopidogrel Bisulfate) 75 Mg Tablet 75 Mg PO DAILY Nicoderm Cq (Nicotine) 21 Mg/24 Hour Patch.td24 21 Mg TD DAILY@0900 Multi-Vitamin Gummies (Folic Acid/Multivit-Min/Lutein) 200 Mcg-137.5 Mcg Tab.chew 1 Each PO DAILY Losartan Potassium 100 Mg Tablet 100 Mg PO DAILY Hydroxyzine HCl 25 Mg Tablet 25 Mg PO DAILY Montelukast Sodium 10 Mg Tablet 10 Mg PO DAILY PRN Meloxicam 15 Mg Tablet 15 Mg PO DAILY Duloxetine HCl 30 Mg Capsule.dr 30 Mg PO DAILY FILLED 01-24-2022 #270/90 DAY SUPPLY Instructions to patient/family Please see electronic discharge instructions given to patient. Diagnosis/Problems Diagnosis/Problems (1) Acute ischemic multifocal posterior circulation stroke involving left-sided vessel Status: Acute (2) Non-ST elevated myocardial infarction Status: Acute (3) Elevated liver enzymes Status: Acute (4) PTSD (post-traumatic stress disorder) Status: Chronic (5) WENDY (generalized anxiety disorder) Status: Chronic (6) Hypertension Status: Chronic (7) COPD (chronic obstructive pulmonary disease) Status: Chronic UCHE WALL DO Aug 11, 2022 11:30
--- NOTE | 2022-08-11 11:30 | D/C HH Face to Face Order ---
D/C Face to Face Orders Reconcile Patient Problems Problems Reviewed?: Yes Instructions for Patient Via [facility], Patient Instructions/FollowUp: PCP 1 week Physician to follow Patient: [facility] Discharge Diet for Home: No Restrictions Patient Problems: CVA Patient Data-Allergies,Ht & Wt Patient Allergies: Coded Allergies: codeine (Verified Allergy, Unknown, 07/18/22) cyclobenzaprine (Verified Allergy, Unknown, 07/18/22) Home Health Need/Face to Face Date of Face to Face: Aug 11, 2022 Clinical Findings: Generalized weakness and fatigue, Instability, Muscle weakness I have seen Pt [id number]: Yes Discharged To: Home Diagnosis/Conditions: CVA Patient is Homebound due to: CognItive deficits, Muscle weakness Homebound Status Due to the above stated illness, injury or surgical procedure (medical condition or diagnosis) and associated clinical findings, the patient is homebound because of his/her inability to leave home except with aid of a supportive device and/or person AND leaving the home requires a considerable and taxing effort or is medically contraindicated. Pt req the following assistanc: [facility] Nursing Orders Home Health Services Order: Nursing Services, Lead Burner Helper-Evaluate & Treat, Physical Therapy-Evaluate & Treat, Speech Language-Evaluate & Treat Certify Stmt I certify that this patient is under my care and that I, a nurse practitioner or a physician; a histology assistant working with me, had a face to face encounter that - meets the physician face to face encounter requirements with this patient as dated. UCHE WALL DO Aug 11, 2022 11:30
--- NOTE | 2022-08-12 08:54 | Therapy Team Discharge Summary ---
Therapy Discharge Summary Discharge Recommendations Date of Discharge Aug 11, 2022 at 16:35 Physical Therapy Roll Left to Right (QC): 6 Sit to Lying (QC): 6 Lying to Sitting/Side of Bed(Q: 6 Sit to Stand (QC): 4 Chair/Mxf-qa-Tsang Xfer(QC): 4 Toilet Transfer (QC): 4 Car Transfer (QC): 6 Does the Patient Walk: Yes Mode of Locomotion: Both Anticipated Mode of Locomotion: Walk Walk 10 feet (QC): 4 Walk 50 ft with 2 Turns(QC): 4 Walk 150 ft (QC): 4 Walking 10ft on uneven surface: 4 Distance: 150' with encouragement to complete Gait Assistive Device: None Does the Pt Use a Wheelchair: No Wheelchair Distance: 50' Wheel 50 ft with 2 turns (QC): 4 Wheel 150 ft (QC): 4 Type of Wheelchair: Manual #of Steps: 12 1 Step (curb) (QC): 4 4 Steps (QC): 4 12 Steps (QC): 4 Walking Assistive Device: Walker Balance Sitting Static: Good Balance Sitting Dynamic: Fair Balance-Standing Static: Fair Picking up an Object (QC): 4 Occupational Therapy Decreased Safety Aware, Impaired Self-Care Skills, Visual-Perceptual Deficit (R side minimal visual fieldcut) Eating (QC): 6 Oral Hygiene (QC): 6 Shower/Bathe Self (QC): 4 (supervision) Upper Body Dressing (QC): 5 Lower Body Dressing (QC): 4 (supervision) On/Off Footwear (QC): 5 Toileting Hygiene (QC): 6 Speech-Language Pathology The patient recently discharged from the ARU to her daughter's home temporarily for consistent supervision prior to final transfer to an assisted living environment. The patient continued to make gains towards cognitive goals, however, remained with a memory deficit (mild to moderate) at the time of discharge. Post acute ST therapy is recommended by this clinician. PT Retirement Goals Tacker Off Goals PT Retirement Goals Time Frame: Aug 13, 2022 Roll Left to Right (QC): 6 Sit to Lying (QC): 6 Lying-Sitting on Side/Bed(QC): 6 Sit to Stand (QC): 6 Chair/Cnu-rm-Joiqd Xfer(QC): 6 Toilet/Commode Transfer (QC): 6 Car Transfer (QC): 5 Does the Patient Walk: Yes Walk 10 feet (QC): 5 Walk 10ft-Uneven Surface(QC): 5 (with least restrictive device with less (R) LE ataxia) Walk 50ft with 2 Turns (QC): 5 (with least restrictive device with less (R) LE ataxia) Walk 150 ft (QC): 5 (with least restrictive device with less (R) LE ataxia) Does the Pt use WC or Scooter?: Yes Wheel 50 feet with 2 turns (QC: 6 Type: Manual Wheel 150 feet: 6 Type: Manual 1 Step (curb) (QC): 5 (with least restrictive device) 4 Steps (QC): 5 (with (B) rails) 12 Steps (QC): 4 (Min (A) with (B) rails) Picking up an Object (QC): 5 OT Tacker Off Goals Retirement Goals Time Frame: Aug 15, 2022 Acute change in mental status: 0 Inattention: 0 Disorganized thinkin Altered level of consciousness: 0 Eating (QC): 6 (met) Oral Hygiene (QC): 6 (met) Toileting Hygiene (QC): 6 (met) Shower/Bathe Self (QC): 6 (not met) Upper Body Dressing (QC): 6 (not met) Lower Body Dressing (QC): 6 (not met) On/Off Footwear (QC): 6 (not met) Additional Goals: 1-Demonstrate ADL Tasks, 2-Verbalize Understanding, 3- ImproveStrength/Ellen 1=Demonstrate adherence to instructed precautions during ADL tasks. 2=Patient will verbalize/demonstrate understanding of assistive devices/modifications for ADL. 3=Patient will improve strength/tolerance for activity to enable patient to perform ADL's. Speech Tacker Off Goals Tacker Off Goals 1. The patient will improve cognitive linguistic communication for safe discharge to the least restrictive environment. MET, continued positive progression at the time of discharge. Time Frame: Two Weeks. JAIR GLOVER Aug 12, 2022 08:54
--- NOTE | 2022-08-12 09:07 | Therapy Team Discharge Summary ---
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 Patient's main limiting factor was cognition/memory deficit/impulsivity which created safety concerns with mobility and self-care. She was (I) with bed mobility, but required supervision-CGA with upright mobility due to impulsivity, ocassionallly forgetting to use walker, stumbling at times during gait/stairs. Roll Left to Right (QC): 6 Sit to Lying (QC): 6 Lying to Sitting/Side of Bed(Q: 6 Sit to Stand (QC): 4 Chair/Bnm-cg-Cpcii Xfer(QC): 4 Toilet Transfer (QC): 4 Car Transfer (QC): 6 Does the Patient Walk: Yes Mode of Locomotion: Both Anticipated Mode of Locomotion: Walk Walk 10 feet (QC): 4 Walk 50 ft with 2 Turns(QC): 4 Walk 150 ft (QC): 4 Walking 10ft on uneven surface: 4 Distance: 150' with encouragement to complete Gait Assistive Device: FWW Does the Pt Use a Wheelchair: No Wheelchair Distance: 50' Wheel 50 ft with 2 turns (QC): 9 (W/C propulsion not addressed during treatments, as patient was more mobile with FWW) Wheel 150 ft (QC): 9 (W/C propulsion not addressed during treatments, as patient was more mobile with FWW) Type of Wheelchair: Manual #of Steps: 12 1 Step (curb) (QC): 4 4 Steps (QC): 4 12 Steps (QC): 4 Walking Assistive Device: Walker Balance Sitting Static: Good Balance Sitting Dynamic: Fair Balance-Standing Static: Fair Picking up an Object (QC): 4 Occupational Therapy Decreased Safety Aware, Impaired Self-Care Skills, Visual-Perceptual Deficit (R side minimal visual fieldcut) Eating (QC): 6 Oral Hygiene (QC): 6 Shower/Bathe Self (QC): 4 (supervision) Upper Body Dressing (QC): 5 Lower Body Dressing (QC): 4 (supervision) On/Off Footwear (QC): 5 Toileting Hygiene (QC): 6 PT Mcc Goals Mcc Goals PT Cloth Desizing Range Operator Chief Goals Time Frame: Aug 13, 2022 Roll Left to Right (QC): 6 Sit to Lying (QC): 6 Lying-Sitting on Side/Bed(QC): 6 Sit to Stand (QC): 6 Chair/Xlz-xi-Kkyhd Xfer(QC): 6 Toilet/Commode Transfer (QC): 6 Car Transfer (QC): 5 Does the Patient Walk: Yes Walk 10 feet (QC): 5 Walk 10ft-Uneven Surface(QC): 5 (with least restrictive device with less (R) LE ataxia) Walk 50ft with 2 Turns (QC): 5 (with least restrictive device with less (R) LE ataxia) Walk 150 ft (QC): 5 (with least restrictive device with less (R) LE ataxia) Does the Pt use WC or Scooter?: Yes Wheel 50 feet with 2 turns (QC: 9 (W/C propulsion not addressed during treatments, as patient was more mobile with FWW) Type: Manual Wheel 150 feet: 9 (W/C propulsion not addressed during treatments, as patient was more mobile with FWW) Type: Manual 1 Step (curb) (QC): 5 (with least restrictive device) 4 Steps (QC): 5 (with (B) rails) 12 Steps (QC): 4 (Min (A) with (B) rails) Picking up an Object (QC): 5 OT Cloth Desizing Range Operator Chief Goals Mcc Goals Time Frame: Aug 15, 2022 Acute change in mental status: 0 Inattention: 0 Disorganized thinkin Altered level of consciousness: 0 Eating (QC): 6 (met) Oral Hygiene (QC): 6 (met) Toileting Hygiene (QC): 6 (met) Shower/Bathe Self (QC): 6 (not met) Upper Body Dressing (QC): 6 (not met) Lower Body Dressing (QC): 6 (not met) On/Off Footwear (QC): 6 (not met) Additional Goals: 1-Demonstrate ADL Tasks, 2-Verbalize Understanding, 3-Impr oveStrength/Ellen 1=Demonstrate adherence to instructed precautions during ADL tasks. 2=Patient will verbalize/demonstrate understanding of assistive devices/modifications for ADL. 3=Patient will improve strength/tolerance for activity to enable patient to perform ADL's. Speech Mcc Goals Mcc Goals 1. The patient will improve cognitive linguistic communication for safe discharge to the least restrictive environment. MET, continued positive progression at the time of discharge. Time Frame: Two Weeks. Janette Mace PT Aug 12, 2022 09:07
--- NOTE | 2022-08-12 11:45 | Therapy Team Discharge Summary ---
Therapy Discharge Summary Discharge Recommendations Date of Discharge Aug 11, 2022 at 16:35 Physical Therapy Roll Left to Right (QC): 6 Sit to Lying (QC): 6 Lying to Sitting/Side of Bed(Q: 6 Sit to Stand (QC): 4 Chair/Kbc-xb-Dnpkk Xfer(QC): 4 Toilet Transfer (QC): 4 Car Transfer (QC): 6 Does the Patient Walk: Yes Mode of Locomotion: Both Anticipated Mode of Locomotion: Walk Walk 10 feet (QC): 4 Walk 50 ft with 2 Turns(QC): 4 Walk 150 ft (QC): 4 Walking 10ft on uneven surface: 4 Distance: 150' with encouragement to complete Gait Assistive Device: FWW Does the Pt Use a Wheelchair: No Wheelchair Distance: 50' Wheel 50 ft with 2 turns (QC): 9 (W/C propulsion not addressed during treatments, as patient was more mobile with FWW) Wheel 150 ft (QC): 9 (W/C propulsion not addressed during treatments, as patient was more mobile with FWW) Type of Wheelchair: Manual #of Steps: 12 1 Step (curb) (QC): 4 4 Steps (QC): 4 12 Steps (QC): 4 Walking Assistive Device: Walker Balance Sitting Static: Good Balance Sitting Dynamic: Fair Balance-Standing Static: Fair Picking up an Object (QC): 4 Occupational Therapy Pt admitted to ARU s/p CVA. At [facility], pt was independent with ADLs and functional mobility, no AD. Upon initial evaluation, pt required SBA with eating and oral care, min-mod A UE dressing, footwear, toileting and showering, and max A LE dressing. OT tx focused on increasing BUE Strength and activity tolerance, and increasing safety and independence with ADLs and functional mobility. pt made good progress towards goals, but did not attain LTG for showering, UE dressing, footwear and LE dressing. Pt discharged home with daughter with plan to transition to [facility]. D/C from OT. Decreased Safety Aware, Impaired Self-Care Skills, Visual-Perceptual Deficit (R side minimal visual fieldcut) Eating (QC): 6 Oral Hygiene (QC): 6 Shower/Bathe Self (QC): 4 (supervision) Upper Body Dressing (QC): 5 Lower Body Dressing (QC): 4 (supervision) On/Off Footwear (QC): 5 Toileting Hygiene (QC): 6 PT Technology Consultant Goals Technology Consultant Goals PT Senior Care Goals Time Frame: Aug 13, 2022 Roll Left to Right (QC): 6 Sit to Lying (QC): 6 Lying-Sitting on Side/Bed(QC): 6 Sit to Stand (QC): 6 Chair/Mfu-ue-Mwlfi Xfer(QC): 6 Toilet/Commode Transfer (QC): 6 Car Transfer (QC): 5 Does the Patient Walk: Yes Walk 10 feet (QC): 5 Walk 10ft-Uneven Surface(QC): 5 (with least restrictive device with less (R) LE ataxia) Walk 50ft with 2 Turns (QC): 5 (with least restrictive device with less (R) LE ataxia) Walk 150 ft (QC): 5 (with least restrictive device with less (R) LE ataxia) Does the Pt use WC or Scooter?: Yes Wheel 50 feet with 2 turns (QC: 9 (W/C propulsion not addressed during treatments, as patient was more mobile with FWW) Type: Manual Wheel 150 feet: 9 (W/C propulsion not addressed during treatments, as patient was more mobile with FWW) Type: Manual 1 Step (curb) (QC): 5 (with least restrictive device) 4 Steps (QC): 5 (with (B) rails) 12 Steps (QC): 4 (Min (A) with (B) rails) Picking up an Object (QC): 5 OT Senior Care Goals Technology Consultant Goals Time Frame: Aug 15, 2022 Acute change in mental status: 0 Inattention: 0 Disorganized thinkin Altered level of consciousness: 0 Eating (QC): 6 (met) Oral Hygiene (QC): 6 (met) Toileting Hygiene (QC): 6 (met) Shower/Bathe Self (QC): 6 (not met) Upper Body Dressing (QC): 6 (not met) Lower Body Dressing (QC): 6 (not met) On/Off Footwear (QC): 6 (not met) Additional Goals: 1-Demonstrate ADL Tasks, 2-Verbalize Understanding, 3- ImproveStrength/Ellen 1=Demonstrate adherence to instructed precautions during ADL tasks. 2=Patient will verbalize/demonstrate understanding of assistive devices/modifications for ADL. 3=Patient will improve strength/tolerance for activity to enable patient to perform ADL's. Speech Technology Consultant Goals Technology Consultant Goals 1. The patient will improve cognitive linguistic communication for safe discharge to the least restrictive environment. MET, continued positive progression at the time of discharge. Time Frame: Two Weeks. DONTE PATEL OT Aug 12, 2022 11:45
[2022-08-12] MEDS ORDERED: GABA300C PO (14:17)
== END 2022-08-11 16:35 | disposition home health service (06) | DRG 56 ==
PROVIDERS: ADMIT Internal Medicine; ATTEND Internal Medicine
DX: I69.351 Hemiplegia and hemiparesis following cerebral infarction affecting right dominant side (principal); I21.4 Non-ST elevation (NSTEMI) myocardial infarction; F10.239 Alcohol dependence with withdrawal, unspecified; I69.320 Aphasia following cerebral infarction; R53.81 Other malaise; J44.9 Chronic obstructive pulmonary disease, unspecified; I10 Essential (primary) hypertension; F41.1 Generalized anxiety disorder; F43.10 Post-traumatic stress disorder, unspecified; R20.0 Anesthesia of skin; E78.00 Pure hypercholesterolemia, unspecified; R74.8 Abnormal levels of other serum enzymes; I34.0 Nonrheumatic mitral (valve) insufficiency; F17.210 Nicotine dependence, cigarettes, uncomplicated; F41.9 Anxiety disorder, unspecified; D69.6 Thrombocytopenia, unspecified; I25.10 Atherosclerotic heart disease of native coronary artery without angina pectoris; M25.551 Pain in right hip; F32.A Depression, unspecified; Z79.82 Long term (current) use of aspirin; Z79.899 Other long term (current) drug therapy
CPT/HCPCS: 36415; 78452; 80053; 80061; 82947; 85025; 85027; 93017; 94640; 94760

== ENCOUNTER → 2022-07-28 | Day surgery (SDC) | payer MEDICARE ==
[~2022-07-28] MED LIST changes: -ALPRAZolam 0.25 MG (XANAX) TAB PO PRN; -BISACODYL 10 MG SUPP (DULCOLAX) PR PRN; -CALCIUM CARBONATE 500 MG (TUMS) TAB.CHEW PO PRN; -DOCUSATE SODIUM 100 MG (COLACE) CAP PO PRN; -DOCUSATE SODIUM 100 MG (COLACE) CAP PO SCH; +DULO30CA49 PO; -FLEET ENEMA ADULT 1 EA BTL PR PRN; +FOLI-88 PO; -LACTULOSE SYRUP 10GM/15ML (ENULOSE) 30ML UDC PO PRN; +LIDOCAINE 1% INJ 20 ML VIAL ONE; -LOPERAMIDE 2 MG (IMODIUM) TABLET PO PRN; -MELATONIN 3 MG TABLET PO PRN; +MELO15TA39 PO; +MONT-40 PO; -ONDANSETRON 4 MG (ZOFRAN) ORAL DISSOLVE TAB PO PRN; -diphenhydrAMINE 25 MG TAB (BENADRYL) PO PRN; -guaiFENesin/CODEINE (ROBITUSSIN AC) 10ML UDC PO PRN
== END | disposition home or self-care (01) ==
LOC: CATH 11:08
PROVIDERS: ATTEND Internal Medicine Cardiovascular Disease
DX: I69.351 Hemiplegia and hemiparesis following cerebral infarction affecting right dominant side (principal); I69.320 Aphasia following cerebral infarction; I21.4 Non-ST elevation (NSTEMI) myocardial infarction; I10 Essential (primary) hypertension; I34.0 Nonrheumatic mitral (valve) insufficiency; F10.20 Alcohol dependence, uncomplicated; F17.290 Nicotine dependence, other tobacco product, uncomplicated; R53.1 Weakness; R53.81 Other malaise; S89.90XA Unspecified injury of unspecified lower leg, initial encounter; Z79.82 Long term (current) use of aspirin; Z79.02 Long term (current) use of antithrombotics/antiplatelets; Z79.899 Other long term (current) drug therapy
CPT/HCPCS: 33285; C1764

== ENCOUNTER → 2022-09-24 | Outpatient (RCR) | payer MEDICARE ==
[~2022-09-24] MED LIST changes: +ACHD5005 PO; +FOLI1TAB33 PO; +GABA300C PO; -LIDOCAINE 1% INJ 20 ML VIAL ONE; +NICO1PAT34 TD; +SENN-271 PO; +THIA100T66 PO
== END | disposition home or self-care (01) ==
PROVIDERS: ATTEND Nurse Practitioner Community Health
DX: I69.351 Hemiplegia and hemiparesis following cerebral infarction affecting right dominant side (principal)

== ENCOUNTER 2022-10-22 09:22 | Outpatient (RCR) | payer MEDICARE ==
[~2022-10-22 09:22] MED LIST changes: -LOSA100T57 PO; +LOSA100T58 PO
== END 2022-10-24 | disposition home or self-care (01) ==
PROVIDERS: ATTEND Nurse Practitioner Community Health
DX: I69.351 Hemiplegia and hemiparesis following cerebral infarction affecting right dominant side (principal)

== ENCOUNTER 2022-11-20 09:43 | Outpatient (RCR) | payer MEDICARE | END 2022-11-20 12:18 | disposition home or self-care (01) | PROVIDERS: ATTEND Nurse Practitioner Community Health | DX: I69.351 Hemiplegia and hemiparesis following cerebral infarction affecting right dominant side (principal) ==

== ENCOUNTER 2023-02-16 14:13 | Outpatient (RCR) | payer MEDICARE, MEDICAID | END 2023-02-24 | disposition home or self-care (01) | PROVIDERS: ATTEND Family Medicine | DX: I69.351 Hemiplegia and hemiparesis following cerebral infarction affecting right dominant side (principal) ==

== ENCOUNTER 2023-03-10 13:39 | Outpatient (RCR) | payer MEDICARE, MEDICAID | END 2023-03-26 11:18 | disposition home or self-care (01) | PROVIDERS: ATTEND Family Medicine | DX: I69.351 Hemiplegia and hemiparesis following cerebral infarction affecting right dominant side (principal) ==

== ENCOUNTER → 2023-03-13 | Outpatient (CLI) | payer MEDICARE ==
--- NOTE | 2023-03-13 11:49 | Diagnostic Imaging Report ---
PROCEDURE: MRI lumbar spine without contrast. TECHNIQUE: Multiplanar, multisequence MRI of the lumbar spine was performed without contrast. INDICATION: Right-sided radiculopathy. COMPARISON: 01/12/2018. FINDINGS: 5 lumbar type vertebral bodies are visualized with the last well-formed disc space designated L5-S1. No acute fracture or dislocation is seen in the lumbar spine. There is grade 1 anterolisthesis of L4 on L5. Mixed Modic type II and Modic type III endplate degenerative changes are present at the L1-L2 level. Hemangioma is seen in the L1 vertebral body. No suspicious focal osseous lesions. The conus terminates at the T12 level. No masses are seen associated with the conus or nerve roots of the cauda equina. No epidural collections are identified. Multilevel degenerative changes are seen in the lumbar spine with disc bulges, facet hypertrophy, and buckling of the ligamentum flavum. T12-L1: No significant spinal canal or foraminal stenosis. L1-L2: Broad-based disc bulge, facet hypertrophy, and buckling of ligamentum flavum results in [id number] spinal canal narrowing and moderate to severe right and moderate left foraminal stenosis. L2-L3: Broad-based disc bulge, facet hypertrophy, and buckling of the ligamentum flavum results in [id number] spinal canal narrowing and moderate to severe right and moderate left foraminal stenosis. L3-L4: Broad-based disc bulge, facet hypertrophy, and buckling of the ligamentum flavum results in mild spinal canal narrowing and moderate to severe right and severe left foraminal stenosis. L4-L5: Broad-based disc bulge, facet hypertrophy, and buckling of the ligamentum flavum results in mild spinal canal narrowing and moderate right and severe left foraminal stenosis. L5-S1: Broad-based disc bulge, facet hypertrophy, and buckling of the ligamentum flavum results in mild spinal canal narrowing and moderate to severe bilateral foraminal stenosis. Paravertebral soft tissues are unremarkable. IMPRESSION: 1. No acute fracture or dislocation in the lumbar spine. 2. High-grade foraminal stenosis throughout the lumbar spine. No high-grade spinal canal stenosis. 3. Grade 1 anterolisthesis of L4 on L5. 4. Mixed Modic type II and Modic type III endplate degenerative changes at the L1-L2 level. Dictated by: Dictated on workstation # [id number]
== END ==
LOC: RAD 09:41
PROVIDERS: ATTEND Family Medicine
DX: M51.16 Intervertebral disc disorders with radiculopathy, lumbar region (principal); M48.061 Spinal stenosis, lumbar region without neurogenic claudication; M43.16 Spondylolisthesis, lumbar region
CPT/HCPCS: 72148